=== PATIENT | female | born 1940 | race Caucasian/White ===

== ENCOUNTER → 2018-05-12 13:08 | Outpatient (CLI) | payer MEDICARE, SELFPAY ==
[2018-05-12 15:18] LABS: Adenovirus F 40/41 Not Detected (Not Detect); Astrovirus Not Detected (Not Detect); Campylobacter Not Detected (Not Detect); Clostridium difficile toxin AB Not Detected (Not Detect); Cryptosporidium Not Detected (Not Detect); Cyclospora cayetanensis Not Detected (Not Detect); Entamoeba histolytica Not Detected (Not Detect); Enteroaggregative E.coli Not Detected (Not Detect); Enteropathogenic E.coli Not Detected (Not Detect); Enterotoxigenic E.coli It/st Not Detected (Not Detect); Giardia lamblia Not Detected (Not Detect); Norovirus GI/GII Not Detected (Not Detect); Plesiomonsa shigelloides Not Detected (Not Detect); Rotavirus A Not Detected (Not Detect); Salmonella Not Detected (Not Detect); Shiga-like toxin-prod E.coli Not Detected (Not Detect); Shigella/Enteroinvasive E.coli Not Detected (Not Detect); Vibrio Not Detected (Not Detect); Vibrio cholerae Not Detected (Not Detect); Yersinia enterocolitica Not Detected (Not Detect)
== END ==
PROVIDERS: PCP Internal Medicine; Visit Provider Internal Medicine
DX: R19.7 Diarrhea, unspecified (principal)
CPT/HCPCS: 87507

== ENCOUNTER → 2018-05-23 08:33 | Outpatient (CLI) | payer MEDICARE, SELFPAY ==
--- NOTE | 2018-05-23 10:02 | DI.CT.S_ITS ---
PROCEDURE: CT ABDOMEN PELVIS W CON INDICATIONS: ABDOMINAL PAIN TECHNIQUE: After the administration of oral and intravenous contrast, 5 mm thick sections acquired from the diaphragms to the symphysis. 5 mm thick coronal and sagittal reformats were performed. For radiation dose reduction, the following was used: automated exposure control, adjustment of mA and/or kV according to patient size. COMPARISON: [facility], CT, ABDOMEN/PELVIS WITH CONTRAST, 11/29/2015, 0:40. FINDINGS: Image quality: Excellent. ABDOMEN: Lung bases: Lung bases are clear. Heart size is normal. There are coronary artery calcifications. Mild pericardial fluid. Solid organs: Hepatic steatosis. 2 mm hypodensity in the dome of liver on image 20 series 2 it is technically too small to characterize and indeterminate although unchanged. Mild prominence of the intrahepatic bile ducts however this could be related to cholecystectomy change. Gallbladder surgically absent. Biliary system is non-dilated. Pancreas enhances normally. Spleen is normal in size and enhancement. No adrenal nodules. Kidneys are normal in size and enhancement, without hydronephrosis. Simple appearing right renal cyst measuring 4.0 cm. Additional smaller right renal cysts are noted. Peritoneum and bowel: Stomach, small bowel, and colon loops are normal in caliber and wall thickness. Cecum is seen within the left lower quadrant. The appendix is visualized and grossly unremarkable, normal size. No evidence of acute diverticulitis. The rectum is grossly unremarkable. No free fluid or air. Moderate retained stool is present throughout the colon Nodes and vessels: No retroperitoneal or mesenteric adenopathy. Aorta and inferior vena cava are normal in caliber. Miscellaneous: No ventral hernias. PELVIS: Genitourinary: Bladder wall thickness is normal. Miscellaneous: No inguinal hernias or adenopathy. Bones: No suspicious bony lesions. No vertebral body compression fractures. Multilevel discogenic changes of grade 1 anterolisthesis of L4-L5 and L5 on S1. Right hip arthroplasty. IMPRESSION: No acute abnormality. Moderate retained stool throughout the colon. Hepatic steatosis. Status post cholecystectomy. Simple appearing right renal cysts. Dictated by: Rob Shea M.D. on 05/23/2018 at 10:15 Approved by: Rob Shea M.D. on 05/23/2018 at 10:23
== END ==
PROVIDERS: Family Provider Internal Medicine; PCP Internal Medicine; Visit Provider Student in an Organized Health Care Education/Training Program
DX: R10.9 Unspecified abdominal pain (principal)
CPT/HCPCS: 74177; Q9967

== ENCOUNTER → 2018-06-14 09:05 | Outpatient (CLI) | payer MEDICARE, SELFPAY ==
[2018-06-14 09:49] LABS: Add Manual Diff / Slide Review NO; Basophils Percent Auto 0.8 % (0-2); Eosinophils Percent Auto 1.8 % (2-4); Hemoglobin 11.9 g/dL (12.0-16.0); Lymphocytes Percent Auto 25.7 % (25-40); Mean Corpuscular Hemoglobin 31.5 PG (26-34); Mean Corpuscular Volume 92.9 fL (80-100); Monocytes Percent Auto 10.3 % (3-14); Neutrophils Absolute Auto 3100 /uL (3000-5900); Neutrophils Percent Auto 61.4 % (50-75); Platelet Count 199 X10^3/uL (150-400); Red Blood Cell Count 3.77 X10^6/uL (4.0-5.2); Red Cell Distribution Width 15.6 % (11.6-14.8)
[2018-06-14 09:56] LABS: Alanine Aminotransferase 22 IU/L (9-52); Albumin 4.2 g/dL (3.5-5.0); Albumin Globulin Ratio 1.6 (1.0-2.8); Alkaline Phosphatase 46 U/L (38-126); Aspartate Aminotransferase 28 IU/L (14-36); Bilirubin Total 0.7 mg/dL (0.2-1.3); Blood Urea Nitrogen 7 mg/dL (7-17); Calcium 10.3 mg/dL (8.4-10.2); Carbon Dioxide 33 mmol/L (22-32); Chloride 102 mmol/L (98-107); Estimated Glomerular Filt Rate > 60.0 mL/min (>60); Globulin 2.7 g/dL (1.7-4.1); Glucose 85 mg/dL (80-110); HEMOLYSIS 18 (0-50); Potassium 4.3 mmol/L (3.4-5.1); Sodium 141 mmol/L (137-145); Total Protein 6.9 g/dL (6.3-8.2)
[2018-06-14 10:27] LABS: Carcinoembryonic Antigen 3.3 ng/mL (0.1-3.0)
[2018-06-16 16:57] LABS: Cancer (Carbohydrate) Ag 19-9 13 U/mL (< 34); Cancer Antigen 27.29 24 U/mL (< 38)
== END ==
PROVIDERS: Family Provider Internal Medicine; PCP Internal Medicine; Visit Provider Nurse Practitioner Gerontology
DX: C50.919 Malignant neoplasm of unspecified site of unspecified female breast (principal)
CPT/HCPCS: 36415; 80053; 82378; 85025; 86300; 86301

== ENCOUNTER → 2018-09-12 08:20 | Outpatient (CLI) | payer MEDICARE, SELFPAY ==
--- NOTE | 2018-09-12 | DI.ECHO.S_ITS ---
[facility] +---------+ : : [address] : : : : [id number] : : : : Phone: [phone] Echocardiogram Report + + :Name: GISEL GOODMAN Study Date: 09/12/2018 Height: 69 in : :[facility] Weight: 135 lb : : Gender: Female BSA: 1.7 m2 : :: 1940 Age: 78 yrs BP: 130/70 mmHg: :Reason For Study: Aortic, Ascending Aneurysm : :Ordering Physician: Nicolas : :Rolf Performed By: Arabella Vera : :Referring: Dr. Twan Mora : + + Interpretation Summary The left ventricle is normal in size, wall thickness, and systolic function without any focal wall motion abnormalities with the ejection fraction estimated to be 60-65%. Diastolic parameters suggest a pseudonormalization pattern, consistent with probable elevated filling pressures but is unchanged compared to the previous study. The right ventricle is borderline dilated and right ventricular systolic function is borderline reduced but appears unchanged compared to the previous study. Pulmonary artery pressures cannot be estimated because of the lack of a measurable TR jet velocity but the IVC suggests a CVP of around 3 mmHg. There has been no significant change since the previous study. There is moderate biatrial enlargement. Both atria have mildly increased in size since the prior echo exam. There is mild to moderate mitral regurgitation that is slightly more prominent compared to the previous study. There is no other significant valvular heart disease. The aortic root is mildly dilated amd the distal ascending aorta is moderate- severely enlarged at 4.6 cm just distal to the anastomosis site but is unchanged compared to the previous study. The aortic arch is normal in size. The patient was in sinus bradycardia with heart rates between 41-47 bpm during the exam which is slightly slower compared to the previous study. Procedure: A two-dimensional transthoracic echocardiogram with color flow and Doppler was performed. The study quality was technically adequate. Comparison is made with the echocardiogram of 04-28-16. The patient was in sinus bradycardia with heart rates between 41-47 bpm during the exam. This is slightly slower compared to the previous study. Left Ventricle: The left ventricle is normal in size, wall thickness, and systolic function without any focal wall motion abnormalities. The ejection fraction is estimated to be 60-65%. Diastolic parameters suggest a pseudonormalization pattern, consistent with probable elevated filling pressures. There has been no significant change since the previous study. Right Ventricle: The right ventricle is borderline dilated. Right ventricular systolic function is borderline reduced. This is unchanged compared to the previous study. Atria: There is moderate biatrial enlargement. Both atria have mildly increased in size since the prior echo exam. The interatrial septum is intact with no evidence for an atrial septal defect. Mitral Valve: The mitral valve leaflets appear mildly thickened, but open well. There is mild to moderate mitral regurgitation. This is slightly more prominent compared to the previous study. Aortic Valve: The aortic valve is trileaflet. The aortic valve is slightly calcified. The aortic valve opens well. There is trace aortic regurgitation. This is unchanged compared to the previous study. Tricuspid Valve: The tricuspid valve leaflets are thickened and/or calcified, but open well. An annuloplasty ring is noted in the tricuspid position. No tricuspid regurgitation. Pulmonary artery pressures cannot be estimated because of the lack of a measurable TR jet velocity but the IVC suggests a CVP of around 3 mmHg. There has been no significant change since the previous study. Pulmonic Valve: The pulmonic valve is normal in structure and function. There is trace pulmonic regurgitation. This is unchanged compared to the previous study. There is no other significant valvular heart disease. Great Vessels: The aortic root is mildly dilated. The ascending aorta is moderate-severely enlarged. This is unchanged compared to the previous study. The aortic arch is normal in size. The IVC is of normal diameter and collapses greater than 50% with a sniff. This suggests a low right atrial pressure of 3 mm Hg. Pericardium/ Pleura There is no pericardial effusion. There is no pleural effusion. MMode/2D Measurements & Calculations LVIDd: 4.9 cm Ao root diam: 3.9 cm LVIDs: 2.9 cm Aortic Jxn: 3.2 cm FS: 40.7 % asc Aorta Diam: 4.6 cm EPSS: 0.46 cm Ao Arch Diam (Prox Trans): 2.9 cm IVSd: 0.82 cm LVPWd: 0.85 cm LV vazquez. diameter/BSA (cm/m^2): 2.8 LV sys. diameter/BSA (cm/m^2): 1.7 LA dimension: 3.1 cm RA long axis: 5.5 cm LA A2 area: 24.5 cm2 RA area: 22.5 cm2 LA A4 area: 22.8 cm2 RA vol: 78.3 ml LA length (vol): 6.0 cm RA : 44.8 ml/m2 LA vol: 78.6 ml IVC diam: 1.7 cm LA vol index: 44.9 ml/m2 RVDd major: 5.9 cm RVD1 (basal): 4.2 cm RVD2 (mid): 3.1 cm Doppler Measurements & Calculations Ao V2 max: 144.3 cm/sec MV E max karl: 95.3 cm/sec Ao V2 mean: 89.3 cm/sec MV A max karl: 61.8 cm/sec Ao max P.3 mmHg MV E/A: 1.5 Ao mean P.9 mmHg Med Peak E' Karl: 4.1 cm/sec Ao V2 VTI: 37.1 cm E/E' med: 23.2 Lat Peak E' Karl: 8.5 cm/sec E/E' lat: 11.2 E/e' average: 17.2 MV dec time: 0.19 sec MV P1/2t: 58.5 msec PA V2 max: 67.5 cm/sec MV P1/2t max karl: 94.7 cm/sec PA V2 mean: 40.0 cm/sec MVA(P1/2t): 3.8 cm2 PA mean P.78 mmHg PA Accel Time: 0.14 sec Reading Physician:SHOSHANA
== END ==
PROVIDERS: Family Provider Internal Medicine; PCP Internal Medicine; Visit Provider Physician Assistant Medical
DX: I34.0 Nonrheumatic mitral (valve) insufficiency (principal); I71.2 Thoracic aortic aneurysm, without rupture
CPT/HCPCS: 93306

== ENCOUNTER → 2018-09-13 10:10 | Outpatient (CLI) | payer MEDICARE, SELFPAY ==
[2018-09-13 11:20] LABS: Alanine Aminotransferase 22 IU/L (9-52); Albumin Globulin Ratio 1.7 (1.0-2.8); Alkaline Phosphatase 51 U/L (38-126); Aspartate Aminotransferase 27 IU/L (14-36); BUN Creatinine Ratio 15.7 (6-22); Bilirubin Total 0.8 mg/dL (0.2-1.3); Blood Urea Nitrogen 11 mg/dL (7-17); Calcium 9.8 mg/dL (8.4-10.2); Carbon Dioxide 31 mmol/L (22-32); Chloride 106 mmol/L (98-107); Estimated Glomerular Filt Rate > 60.0 mL/min (>60); Globulin 2.4 g/dL (1.7-4.1); Glucose 85 mg/dL (80-110); HEMOLYSIS < 15 (0-50); Magnesium 2.4 mg/dL (1.6-2.3); Potassium 4.4 mmol/L (3.4-5.1); Sodium 145 mmol/L (137-145); Total Protein 6.4 g/dL (6.3-8.2)
[2018-09-18 09:39] LABS: Lipoprofile NMR SEE SEPERATE REPORT
== END ==
PROVIDERS: Family Provider Internal Medicine; PCP Internal Medicine; Visit Provider Specialist
DX: E78.2 Mixed hyperlipidemia (principal); I10 Essential (primary) hypertension
CPT/HCPCS: 36415; 80053; 83704; 83735

== ENCOUNTER → 2018-09-16 11:08 | Outpatient (CLI) | payer MEDICARE, SELFPAY | PROVIDERS: PCP Internal Medicine; Visit Provider Internal Medicine | DX: I10 Essential (primary) hypertension (principal) ==

== ENCOUNTER → 2018-09-18 13:48 | Outpatient (CLI) | payer MEDICARE, SELFPAY ==
[2018-09-18 15:17] LABS: Free T3, Triiodothyronine Free 2.89 pg/mL (2.77-5.27); Free T4, Direct Thyroxine 0.88 ng/dL (0.78-2.19)
[2018-09-18 15:31] LABS: Thyroid Stimulating Hormone 1.16 uIU/mL (0.47-4.68)
== END ==
PROVIDERS: Family Provider Internal Medicine; PCP Internal Medicine; Visit Provider Internal Medicine
DX: E21.0 Primary hyperparathyroidism (principal); I10 Essential (primary) hypertension
CPT/HCPCS: 36415; 84439; 84443; 84481

== ENCOUNTER → 2018-12-22 13:33 | Outpatient (CLI) | payer MEDICARE, SELFPAY ==
[2018-12-22 14:12] LABS: Add Manual Diff / Slide Review NO; Basophils Absolute Auto 0 /uL (0-100); Basophils Percent Auto 0.5 % (0-2); Eosinophils Absolute Auto 200 /uL (0-450); Eosinophils Percent Auto 2.3 % (2-4); Hematocrit 37.2 % (36-46); Hemoglobin 12.3 g/dL (12.0-16.0); Lymphocytes Absolute Auto 1600 /uL (1100-4500); Lymphocytes Percent Auto 21.6 % (25-40); Mean Corpuscular HGB Conc 33.1 % (30-36); Mean Corpuscular Hemoglobin 31.3 PG (26-34); Mean Corpuscular Volume 94.7 fL (80-100); Monocytes Absolute Auto 600 /uL (0-900); Monocytes Percent Auto 8.9 % (3-14); Neutrophils Absolute Auto 4800 /uL (1500-7000); Neutrophils Percent Auto 66.7 % (50-75); Platelet Count 227 X10^3/uL (150-400); Red Blood Cell Count 3.93 X10^6/uL (4.0-5.2); Red Cell Distribution Width 14.6 % (11.6-14.8); White Blood Cell Count 7.2 X10^3/uL (4.5-11.0)
[2018-12-22 14:21] LABS: Alanine Aminotransferase 29 IU/L (9-52); Albumin 4.2 g/dL (3.5-5.0); Albumin Globulin Ratio 1.4 (1.0-2.8); Alkaline Phosphatase 58 U/L (38-126); Aspartate Aminotransferase 30 IU/L (14-36); BUN Creatinine Ratio 17.1 (6-22); Bilirubin Total 0.5 mg/dL (0.2-1.3); Blood Urea Nitrogen 12 mg/dL (7-17); Calcium 9.9 mg/dL (8.4-10.2); Carbon Dioxide 28 mmol/L (22-32); Chloride 99 mmol/L (98-107); Estimated Glomerular Filt Rate > 60.0 mL/min (>60); Globulin 2.9 g/dL (1.7-4.1); Glucose 79 mg/dL (80-110); HEMOLYSIS < 15 (0-50); Potassium 3.7 mmol/L (3.4-5.1); Sodium 137 mmol/L (137-145); Total Protein 7.1 g/dL (6.3-8.2)
[2018-12-22 14:52] LABS: Carcinoembryonic Antigen 3.4 ng/mL (0.1-3.0)
[2018-12-24 19:24] LABS: Cancer Antigen 27.29 27 U/mL (< 38)
== END ==
PROVIDERS: Family Provider Internal Medicine; PCP Internal Medicine
DX: Z86.000 Personal history of in-situ neoplasm of breast (principal); Z80.3 Family history of malignant neoplasm of breast
CPT/HCPCS: 36415; 80053; 82378; 85025; 86300

== ENCOUNTER → 2019-01-18 11:25 | Outpatient (CLI) | payer MEDICARE, SELFPAY ==
[2019-01-18 12:14] LABS: Add Manual Diff / Slide Review NO; Basophils Absolute Auto 0 /uL (0-100); Basophils Percent Auto 0.6 % (0-2); Eosinophils Absolute Auto 200 /uL (0-450); Eosinophils Percent Auto 2.8 % (2-4); Hematocrit 37.1 % (36-46); Hemoglobin 12.6 g/dL (12.0-16.0); Lymphocytes Absolute Auto 1800 /uL (1100-4500); Mean Corpuscular HGB Conc 33.9 % (30-36); Mean Corpuscular Hemoglobin 31.8 PG (26-34); Mean Corpuscular Volume 93.8 fL (80-100); Monocytes Absolute Auto 600 /uL (0-900); Monocytes Percent Auto 10.5 % (3-14); Neutrophils Absolute Auto 3400 /uL (1500-7000); Neutrophils Percent Auto 56.1 % (50-75); Platelet Count 227 X10^3/uL (150-400); Red Blood Cell Count 3.95 X10^6/uL (4.0-5.2); Red Cell Distribution Width 14.6 % (11.6-14.8)
[2019-01-18 12:28] LABS: Blood Urea Nitrogen 12 mg/dL (7-17); Calcium 10.7 mg/dL (8.4-10.2); Carbon Dioxide 30 mmol/L (22-32); Chloride 100 mmol/L (98-107); Estimated Glomerular Filt Rate > 60.0 mL/min (>60); Glucose 94 mg/dL (80-110); HEMOLYSIS < 15 (0-50); Sodium 138 mmol/L (137-145)
[2019-01-18 12:34] LABS: Erythrocyte Sedimentation Rate 17 MM/HR (0-20)
== END ==
PROVIDERS: PCP Internal Medicine; Visit Provider Internal Medicine
DX: I10 Essential (primary) hypertension (principal); M35.3 Polymyalgia rheumatica; E21.0 Primary hyperparathyroidism
CPT/HCPCS: 36415; 80048; 85025; 85651

== ENCOUNTER → 2019-05-07 09:40 | Outpatient (CLI) | payer MEDICARE, SELFPAY ==
[2019-05-07 11:14] LABS: Alanine Aminotransferase 19 IU/L (9-52); Albumin Globulin Ratio 1.7 (1.0-2.8); Alkaline Phosphatase 50 U/L (38-126); Aspartate Aminotransferase 28 IU/L (14-36); BUN Creatinine Ratio 16.3 (6-22); Bilirubin Total 0.6 mg/dL (0.2-1.3); Blood Urea Nitrogen 13 mg/dL (7-17); Calcium 10.3 mg/dL (8.4-10.2); Carbon Dioxide 30 mmol/L (22-32); Chloride 104 mmol/L (98-107); Estimated Glomerular Filt Rate > 60.0 mL/min (>60); Globulin 2.4 g/dL (1.7-4.1); Glucose 88 mg/dL (80-110); Magnesium 2.1 mg/dL (1.6-2.3); Potassium 4.3 mmol/L (3.4-5.1); Sodium 142 mmol/L (137-145); Total Protein 6.4 g/dL (6.3-8.2)
[2019-05-07 11:19] LABS: HEMOLYSIS < 15 (0-50)
[2019-05-09 09:08] LABS: Lipoprofile NMR SEE SEPERATE REPORT
== END ==
PROVIDERS: PCP Internal Medicine; Visit Provider Specialist
DX: E78.2 Mixed hyperlipidemia (principal); I10 Essential (primary) hypertension
CPT/HCPCS: 36415; 80053; 83704; 83735

== ENCOUNTER 2019-07-15 13:29 | Emergency (ER) | payer MEDICARE, SELFPAY ==
[2019-07-15 13:38] VITALS: BP 124/69; PULSE 61; RESP 16; TEMP 36.6; O2SAT 99
--- NOTE | 2019-07-15 13:43 | ED.SYNCOPE ---
HPI - Syncope General Chief Complaint: Dizziness Stated Complaint: Near syncope Time Seen by Provider: 07/15/19 13:42 Source: patient and EMS Mode of arrival: EMS Limitations: no limitations History of Present Illness HPI narrative: Patient is a 79-year-old female who was outside at the [employer] today watching her granddaughter Júnior when she suddenly felt dizzy lightheaded. She got extremely weak she did not pass out. She has no chest pain or heart palpitations. She denies drinking any alcohol she states she did not drink enough water. She overall is feeling much better now that she is in the emergency department. He has no focal deficits or weakness. Daughter states she was there and witnessed it. She said her lips did turn blue but there was no foaming at the mouth no shaking no eyes rolling in the back of the head. Patient says she was aware of her surroundings the entire time. MD complaint: felt faint and almost passed out Related Data Home Medications Medication Instructions Recorded Confirmed acyclovir 400 mg PO BID #0 04/12/12 escitalopram oxalate [Lexapro] 20 mg PO QDAY #0 04/12/12 atorvastatin [Lipitor] PO HS #0 01/04/18 alendronate [Fosamax] QWEEK 12/27/18 lisinopril-hydrochlorothiazide 12/27/18 omega 5-ozu-bkn-fish oil [Fish Oil] 12/27/18 Allergies Allergy/AdvReac Type Severity Reaction Status Date / Time Sulfa (Sulfonamide Allergy Unknown Unverified 03/01/18 12:11 Antibiotics) [SULFA (SULFONAMIDE ANTIBIOTICS)] Review of Systems Review of Systems ROS Unobtainable: All systems reviewed & are unremarkable except as noted in HPI and below Constitutional Denies chills, Denies fever(s), Denies lethargy and Denies weakness Eyes Denies change in vision, Denies eye discharge, Denies irritation and Denies loss of vision ENT Ears, Nose, Mouth, and Throat: Denies change in voice, Denies neck pain and Denies sore throat Cardiovascular Denies chest pain, Denies irregular heart rhythm, Reports lightheadedness, Denies dyspnea and Denies dyspnea on exertion Respiratory Denies cough, Denies dyspnea, Denies dyspnea on exertion and Denies wheezing Gastrointestinal Gastrointestinal: Denies abdominal pain, Denies change in bowel habits, Denies diarrhea, Denies nausea and Denies vomiting Genitourinary Denies hematuria, Denies flank pain, Denies urinary incontinence and Denies urinary urgency Musculoskeletal Denies neck pain Integumentary/Breasts Denies pruritus, Denies erythema, Denies rash and Denies wounds Neurologic Denies loss of vision and Denies weakness Allergic/Immunologic Denies wheezing [facility] Medical History 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 (Acute) Hypertension (Acute) Surgical History H/O bilateral mastectomy (Acute) History of bladder suspension procedure History of hip replacement History of third molar tooth extraction Status post laparoscopic cholecystectomy Status post tonsillectomy and adenoidectomy Status post tubal ligation Exam Initial Vital Signs Initial Vital Signs: Vital Signs Temperature 98 F 07/15/19 13:38 Pulse Rate 61 07/15/19 13:38 Respiratory Rate 16 07/15/19 13:38 Blood Pressure 124/69 07/15/19 13:38 Pulse Oximetry 99 07/15/19 13:38 GENERAL: Alert pleasant elderly female and in no acute distress. HEENT: Head atraumatic,EOMI, pupils reactive, asymmetric CARDIOVASCULAR: Regular rate and rhythm without murmurs, rubs or gallops. RESPIRATORY: Breath sounds equal bilaterally, no wheezes rales or rhonchi. ABDOMEN: Soft, nontender. Normoactive bowel sounds all 4 quadrants. No guarding or rebound. EXTREMITIES: Normal range of motion, no clubbing or edema. Neurovascularly intact NEUROLOGICAL: Alert and oriented x4.Normal gait and speech. Cranial nerves II through XII grossly intact. Production Support Developer strength equal bilaterally lower extremity good strength SKIN: Warm, dry, no laceration, no petechiae, no rashes or lesions. Scores NIH Stroke Scale Level of Conciousness: Alert, keenly responsive Ask month/age: Answers both questions correctly. Open/close eyes, close hand: Performs both tasks correctly Best gaze horizontal: Normal Visual deluca: No visual loss Facial palsy: Normal symetrical movement Left arm drift: No drift for full 10 sec Right arm drift: No drift for full 10 sec Left leg drift: No drift for full 10 sec Right leg drift: No drift for full 10 sec Limb ataxia: Absent Sensory on face/arms/legs: Normal, no sensory loss Best language: No aphasia, normal Dysarthria: Normal Extinction or inattention: No abnormality Total NIH Stroke scale score: 0 Course Orders Ordered: ED Orders 07/15/19 13:43 EKG-12 Lead Stat 07/15/19 14:00 Complete Blood Count AUTO DIFF Stat Comprehensive Metabolic Panel Stat Troponin & CK Cardiac Panel Stat Discontinued Medications Sodium Chloride (Normal Saline 0.9%) 1,000 mls @ 1,000 mls/hr IV CONT AIDEE Last Infusion: 07/15/19 15:21 Dose: 0 mls/hr Admin: 07/15/19 14:20 Dose: 1,000 mls/hr Vital Signs - 8 hr 07/15/19 13:38 07/15/19 15:53 Temperature 98 F Pulse Rate 61 92 H Respiratory Rate 16 16 Blood Pressure 124/69 Pulse Oximetry 99 87 L MDM - Syncope Lab Data Attestation: I reviewed the patient's lab results. Result diagrams: 07/15/19 14:00 07/15/19 14:00 Lab Results 07/15/19 07/15/19 07/15/19 Range/Units 14:00 14:00 14:00 WBC 6.4 (4.5-11.0) X10^3/uL RBC 3.10 L (4.0-5.2) X10^6/uL Hgb 10.7 L (12.0-16.0) g/dL Hct 30.6 L (36-46) % MCV 98.6 (80-100) fL MCH 34.4 H (26-34) PG MCHC 34.9 (30-36) % RDW 14.0 (11.6-14.8) % Plt Count 192 (150-400) X10^3/uL Neut % (Auto) 71.3 (50-75) % Lymph % (Auto) 19.4 L (25-40) % Latimer % (Auto) 8.0 (3-14) % Eos % (Auto) 0.8 L (2-4) % Baso % (Auto) 0.5 (0-2) % Neut # (Auto) 4600 (1722-4478) /uL Lymph # (Auto) 1200 (9763-4481) /uL Latimer # (Auto) 500 (0-900) /uL Eos # (Auto) 0 (0-450) /uL Baso # (Auto) 0 (0-100) /uL Sodium 136 L (137-145) mmol/L Potassium 3.5 (3.4-5.1) mmol/L Chloride 103 (98-107) mmol/L Carbon Dioxide 25 (22-32) mmol/L BUN 14 (7-17) mg/dL Creatinine 0.70 (0.52-1.04) mg/dL Estimated GFR > 60.0 (>60) mL/min BUN/Creatinine Ratio 20.0 (6-22) Glucose 106 (80-110) mg/dL Calcium 9.3 (8.4-10.2) mg/dL Total Bilirubin 0.5 (0.2-1.3) mg/dL AST 27 (14-36) IU/L ALT 13 (9-52) IU/L Alkaline Phosphatase 47 (38-126) U/L Total Creatine Kinase 54 (30-135) U/L CK-MB (CK-2) TNP CK-MB (CK-2) Rel Index TNP Troponin I < 0.012 (0.01-0.034) ng/mL Total Protein 6.3 (6.3-8.2) g/dL Albumin 3.7 (3.5-5.0) g/dL Globulin 2.6 (1.7-4.1) g/dL Albumin/Globulin Ratio 1.4 (1.0-2.8) Point of Care Testing Glucose POC 122 ECG Data Attestation: I personally reviewed and interpreted this ECG as follows: Prior ECG tracings: available for review Interpretation: Normal sinus rhythm rate 53 p.r. interval 158 T-wave inversions noted in V2 V3 similar previous EKGs no ST elevations or depressions MDM Narrative Medical decision making narrative: Patient overall is feeling significantly better tolerating oral fluids. Her heart rate is noted to be in the 40s over she seems to be asymptomatic. She is an ambulation trial and remains asymptomatic. At this time patient will be discharged. Discharge Plan Departure Patient Disposition: Home Clinical Impression: Fainting spell Discharge Date/Time: 07/15/19 16:01 Interventions: ED Discharge Assessment Last Done: 07/15/19 16:00 Instructions: Fainting Activity Restrictions/Additional Instructions: *You have been diagnosed with fainting *What to do: You had a fainting episode likely due to being outside in the sun. Please increase your fluid intake such as water eat or Gatorade like substance today. *Continue to take medications as directed *Follow up with your primary care provider in 2-3 days *Return to ER if you should have lightheaded, dizziness, arm weakness facial droop or any new, worsening or concerning symptoms Prescriptions: No Action acyclovir 800 MG tablet 400 mg PO BID Qty: 0 RF: 0 escitalopram oxalate [Lexapro] 10 MG tablet 20 mg PO QDAY Qty: 0 RF: 0 atorvastatin [Lipitor] 10 mg tablet PO HS Qty: 0 RF: 0 alendronate [Fosamax] 70 mg Tablet QWEEK RF: 0 lisinopril-hydrochlorothiazide 20-12.5 mg Tablet RF: 0 omega 2-yaw-has-fish oil [Fish Oil] 1,000 mg (120 mg-180 mg) Capsule RF: 0 Referrals: Twan Mora MD [Primary Care Provider] -
[2019-07-15 14:14] LABS: Add Manual Diff / Slide Review NO; Basophils Absolute Auto 0 /uL (0-100); Basophils Percent Auto 0.5 % (0-2); Eosinophils Absolute Auto 0 /uL (0-450); Eosinophils Percent Auto 0.8 % (2-4); Hematocrit 30.6 % (36-46); Hemoglobin 10.7 g/dL (12.0-16.0); Lymphocytes Absolute Auto 1200 /uL (1100-4500); Lymphocytes Percent Auto 19.4 % (25-40); Mean Corpuscular HGB Conc 34.9 % (30-36); Mean Corpuscular Hemoglobin 34.4 PG (26-34); Mean Corpuscular Volume 98.6 fL (80-100); Monocytes Absolute Auto 500 /uL (0-900); Neutrophils Absolute Auto 4600 /uL (1500-7000); Neutrophils Percent Auto 71.3 % (50-75); Platelet Count 192 X10^3/uL (150-400); White Blood Cell Count 6.4 X10^3/uL (4.5-11.0)
[2019-07-15] MEDS: SODIUM CHLORIDE 0.9% 1,000 ML 1000 ML IV (14:20)
--- NOTE | 2019-07-15 14:22 | ED_ITS ---
HPI - Syncope General Chief Complaint: Dizziness Stated Complaint: Near syncope Time Seen by Provider: 07/15/19 13:42 Source: patient and EMS Mode of arrival: EMS Limitations: no limitations History of Present Illness HPI narrative: Patient is a 79-year-old female who was outside at the [employer] [facility] today watching her granddaughter Júnior when she suddenly felt dizzy lightheaded. She got extremely weak she did not pass out. She has no chest pain or heart palpitations. She denies drinking any alcohol she states she did not drink enough water. She overall is feeling much better now that she is in the emergency department. He has no focal deficits or weakness. Daughter states she was there and witnessed it. She said her lips did turn blue but there was no foaming at the mouth no shaking no eyes rolling in the back of the head. Patient says she was aware of her surroundings the entire time. MD complaint: felt faint and almost passed out Related Data Home Medications Medication Instructions Recorded Confirmed acyclovir 400 mg PO BID #0 04/12/12 escitalopram oxalate [Lexapro] 20 mg PO QDAY #0 04/12/12 atorvastatin [Lipitor] PO HS #0 01/04/18 alendronate [Fosamax] QWEEK 12/27/18 lisinopril-hydrochlorothiazide 12/27/18 omega 2-bwr-pso-fish oil [Fish Oil] 12/27/18 Allergies Allergy/AdvReac Type Severity Reaction Status Date / Time Sulfa (Sulfonamide Allergy Unknown Unverified 03/01/18 12:11 Antibiotics) [SULFA (SULFONAMIDE ANTIBIOTICS)] Review of Systems Review of Systems ROS Unobtainable: All systems reviewed & are unremarkable except as noted in HPI and below Constitutional Denies chills, Denies fever(s), Denies lethargy and Denies weakness Eyes Denies change in vision, Denies eye discharge, Denies irritation and Denies loss of vision ENT Ears, Nose, Mouth, and Throat: Denies change in voice, Denies neck pain and Denies sore throat Cardiovascular Denies chest pain, Denies irregular heart rhythm, Reports lightheadedness, Denies dyspnea and Denies dyspnea on exertion Respiratory Denies cough, Denies dyspnea, Denies dyspnea on exertion and Denies wheezing Gastrointestinal Gastrointestinal: Denies abdominal pain, Denies change in bowel habits, Denies diarrhea, Denies nausea and Denies vomiting Genitourinary Denies hematuria, Denies flank pain, Denies urinary incontinence and Denies urinary urgency Musculoskeletal Denies neck pain Integumentary/Breasts Denies pruritus, Denies erythema, Denies rash and Denies wounds Neurologic Denies loss of vision and Denies weakness Allergic/Immunologic Denies wheezing [facility] Medical History 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 (Acute) Hypertension (Acute) Surgical History H/O bilateral mastectomy (Acute) History of bladder suspension procedure History of hip replacement History of third molar tooth extraction Status post laparoscopic cholecystectomy Status post tonsillectomy and adenoidectomy Status post tubal ligation Exam Initial Vital Signs Initial Vital Signs: Vital Signs Temperature 98 F 07/15/19 13:38 Pulse Rate 61 07/15/19 13:38 Respiratory Rate 16 07/15/19 13:38 Blood Pressure 124/69 07/15/19 13:38 Pulse Oximetry 99 07/15/19 13:38 GENERAL: Alert pleasant elderly female and in no acute distress. HEENT: Head atraumatic,EOMI, pupils reactive, asymmetric CARDIOVASCULAR: Regular rate and rhythm without murmurs, rubs or gallops. RESPIRATORY: Breath sounds equal bilaterally, no wheezes rales or rhonchi. ABDOMEN: Soft, nontender. Normoactive bowel sounds all 4 quadrants. No guarding or rebound. EXTREMITIES: Normal range of motion, no clubbing or edema. Neurovascularly intact NEUROLOGICAL: Alert and oriented x4.Normal gait and speech. Cranial nerves II through XII grossly intact. Dorr Operator strength equal bilaterally lower extremity good strength SKIN: Warm, dry, no laceration, no petechiae, no rashes or lesions. Scores NIH Stroke Scale Level of Conciousness: Alert, keenly responsive Ask month/age: Answers both questions correctly. Open/close eyes, close hand: Performs both tasks correctly Best gaze horizontal: Normal Visual deluca: No visual loss Facial palsy: Normal symetrical movement Left arm drift: No drift for full 10 sec Right arm drift: No drift for full 10 sec Left leg drift: No drift for full 10 sec Right leg drift: No drift for full 10 sec Limb ataxia: Absent Sensory on face/arms/legs: Normal, no sensory loss Best language: No aphasia, normal Dysarthria: Normal Extinction or inattention: No abnormality Total NIH Stroke scale score: 0 Course Orders Ordered: ED Orders 07/15/19 13:43 EKG-12 Lead Stat 07/15/19 14:00 Complete Blood Count AUTO DIFF Stat Comprehensive Metabolic Panel Stat Troponin & CK Cardiac Panel Stat Discontinued Medications Sodium Chloride (Normal Saline 0.9%) 1,000 mls @ 1,000 mls/hr IV CONT AIDEE Last Infusion: 07/15/19 15:21 Dose: 0 mls/hr Admin: 07/15/19 14:20 Dose: 1,000 mls/hr Vital Signs - 8 hr 07/15/19 13:38 07/15/19 15:53 Temperature 98 F Pulse Rate 61 92 H Respiratory Rate 16 16 Blood Pressure 124/69 Pulse Oximetry 99 87 L MDM - Syncope Lab Data Attestation: I reviewed the patient's lab results. Result diagrams: 07/15/19 14:00 07/15/19 14:00 Lab Results 07/15/19 07/15/19 07/15/19 Range/Units 14:00 14:00 14:00 WBC 6.4 (4.5-11.0) X10^3/uL RBC 3.10 L (4.0-5.2) X10^6/uL Hgb 10.7 L (12.0-16.0) g/dL Hct 30.6 L (36-46) % MCV 98.6 (80-100) fL MCH 34.4 H (26-34) PG MCHC 34.9 (30-36) % RDW 14.0 (11.6-14.8) % Plt Count 192 (150-400) X10^3/uL Neut % (Auto) 71.3 (50-75) % Lymph % (Auto) 19.4 L (25-40) % [place] % (Auto) 8.0 (3-14) % Eos % (Auto) 0.8 L (2-4) % Baso % (Auto) 0.5 (0-2) % Neut # (Auto) 4600 (8216-1680) /uL Lymph # (Auto) 1200 (2831-2098) /uL [place] # (Auto) 500 (0-900) /uL Eos # (Auto) 0 (0-450) /uL Baso # (Auto) 0 (0-100) /uL Sodium 136 L (137-145) mmol/L Potassium 3.5 (3.4-5.1) mmol/L Chloride 103 (98-107) mmol/L Carbon Dioxide 25 (22-32) mmol/L BUN 14 (7-17) mg/dL Creatinine 0.70 (0.52-1.04) mg/dL Estimated GFR > 60.0 (>60) mL/min BUN/Creatinine Ratio 20.0 (6-22) Glucose 106 (80-110) mg/dL Calcium 9.3 (8.4-10.2) mg/dL Total Bilirubin 0.5 (0.2-1.3) mg/dL AST 27 (14-36) IU/L ALT 13 (9-52) IU/L Alkaline Phosphatase 47 (38-126) U/L Total Creatine Kinase 54 (30-135) U/L CK-MB (CK-2) TNP CK-MB (CK-2) Rel Index TNP Troponin I < 0.012 (0.01-0.034) ng/mL Total Protein 6.3 (6.3-8.2) g/dL Albumin 3.7 (3.5-5.0) g/dL Globulin 2.6 (1.7-4.1) g/dL Albumin/Globulin Ratio 1.4 (1.0-2.8) Point of Care Testing Glucose POC 122 ECG Data Attestation: I personally reviewed and interpreted this ECG as follows: Prior ECG tracings: available for review Interpretation: Normal sinus rhythm rate 53 p.r. interval 158 T-wave inversions noted in V2 V3 similar previous EKGs no ST elevations or depressions MDM Narrative Medical decision making narrative: Patient overall is feeling significantly better tolerating oral fluids. Her heart rate is noted to be in the 40s over she seems to be asymptomatic. She is an ambulation trial and remains asymptomatic. At this time patient will be discharged. Discharge Plan Departure Patient Disposition: Home Clinical Impression: Fainting spell Discharge Date/Time: 07/15/19 16:01 Interventions: ED Discharge Assessment Last Done: 07/15/19 16:00 Instructions: Fainting Activity Restrictions/Additional Instructions: *You have been diagnosed with fainting *What to do: You had a fainting episode likely due to being outside in the sun. Please increase your fluid intake such as water eat or Gatorade like substance today. *Continue to take medications as directed *Follow up with your primary care provider in 2-3 days *Return to ER if you should have lightheaded, dizziness, arm weakness facial droop or any new, worsening or concerning symptoms Prescriptions: No Action acyclovir 800 MG tablet 400 mg PO BID Qty: 0 RF: 0 escitalopram oxalate [Lexapro] 10 MG tablet 20 mg PO QDAY Qty: 0 RF: 0 atorvastatin [Lipitor] 10 mg tablet PO HS Qty: 0 RF: 0 alendronate [Fosamax] 70 mg Tablet QWEEK RF: 0 lisinopril-hydrochlorothiazide 20-12.5 mg Tablet RF: 0 omega 5-lss-ois-fish oil [Fish Oil] 1,000 mg (120 mg-180 mg) Capsule RF: 0 Referrals: Twan Mora MD [Primary Care Provider] -
--- NOTE | 2019-07-15 14:28 | PC.NURSE ---
HR in 40s. Pt states normal hr in 50s. Denies any dizziness or light headedness at this time. Provider aware of HR. no new orders at this time
[2019-07-15 14:39] LABS: Alanine Aminotransferase 13 IU/L (9-52); Albumin 3.7 g/dL (3.5-5.0); Albumin Globulin Ratio 1.4 (1.0-2.8); Alkaline Phosphatase 47 U/L (38-126); Aspartate Aminotransferase 27 IU/L (14-36); Bilirubin Total 0.5 mg/dL (0.2-1.3); Blood Urea Nitrogen 14 mg/dL (7-17); Calcium 9.3 mg/dL (8.4-10.2); Carbon Dioxide 25 mmol/L (22-32); Chloride 103 mmol/L (98-107); Creatine Kinase 54 U/L (30-135); Estimated Glomerular Filt Rate > 60.0 mL/min (>60); Globulin 2.6 g/dL (1.7-4.1); Glucose 106 mg/dL (80-110); HEMOLYSIS < 15 (0-50); Potassium 3.5 mmol/L (3.4-5.1); Sodium 136 mmol/L (137-145); Total Protein 6.3 g/dL (6.3-8.2)
[2019-07-15 14:51] LABS: Troponin I < 0.012 ng/mL (0.01-0.034)
[2019-07-15 15:53] VITALS: PULSE 92; RESP 16; O2SAT 87
== END 2019-07-15 16:01 | disposition home or self-care (01) ==
PROVIDERS: Emergency Provider Emergency Medicine; PCP Internal Medicine
DX: R55 Syncope and collapse (principal)
CPT/HCPCS: 36415; 80053; 82550; 82962; 84484; 85025; 93005; 96360; 99283; 99284

== ENCOUNTER → 2019-08-06 12:58 | Outpatient (CLI) | payer MEDICARE, SELFPAY ==
[2019-08-06 13:38] LABS: Add Manual Diff / Slide Review NO; Basophils Absolute Auto 0 /uL (0-100); Basophils Percent Auto 0.4 % (0-2); Eosinophils Absolute Auto 100 /uL (0-450); Eosinophils Percent Auto 0.8 % (2-4); Hemoglobin 11.2 g/dL (12.0-16.0); Lymphocytes Absolute Auto 1300 /uL (1100-4500); Lymphocytes Percent Auto 16.4 % (25-40); Mean Corpuscular HGB Conc 34.1 % (30-36); Mean Corpuscular Volume 96.8 fL (80-100); Monocytes Absolute Auto 900 /uL (0-900); Monocytes Percent Auto 10.8 % (3-14); Neutrophils Absolute Auto 5700 /uL (1500-7000); Neutrophils Percent Auto 71.6 % (50-75); Platelet Count 277 X10^3/uL (150-400); Red Blood Cell Count 3.41 X10^6/uL (4.0-5.2); Red Cell Distribution Width 13.7 % (11.6-14.8); White Blood Cell Count 7.9 X10^3/uL (4.5-11.0)
[2019-08-06 14:02] LABS: HEMOLYSIS < 15 (0-50); Iron 55 ug/dL (37-170)
[2019-08-06 14:13] LABS: Percent Iron Saturation 14 % (15-50); Total Iron Binding Capacity 388 ug/dL (265-497); Transferrin 314 mg/dL (206-381)
== END ==
PROVIDERS: PCP Internal Medicine; Visit Provider Internal Medicine
DX: R55 Syncope and collapse (principal); D64.9 Anemia, unspecified
CPT/HCPCS: 36415; 83540; 83550; 85025; 85045

== ENCOUNTER → 2019-08-24 09:12 | Outpatient (CLI) | payer MEDICARE, SELFPAY ==
--- NOTE | 2019-08-24 | DI.ECHO.S_ITS ---
[facility]---------+ [facility] +---------+ : : [address] : : : : [id number] : : : : Phone: [phone]+ Echocardiogram Report + + :Name: GISEL GOODMAN Study Date: 08/24/2019 Height: 69 in : :[facility] Exam Location: [facility] Weight: 130 lb : : Gender: Female BSA: 1.7 m2 : :: 1940 Age: 79 yrs BP: 110/80 mmHg: :Reason For Study: Syncope : :Ordering Physician: Dr. Trent : :Morgan Performed By: Nemo Page : + + Interpretation Summary Left ventricular systolic function is normal with the ejection fraction visually estimated to be 55-60% and appears slightly less dynamic compared to the previous study. There is a borderline dyssynchronous contraction pattern, consistent with a conduction abnormality but no focal wall motion abnormalities. Diastolic parameters suggest a relaxation abnormality of the left ventricle, consistent with probable normal filling pressures and likely significantly lower compared to the previous study. The right ventricle is mildly dilated and systolic function is mildly reduced but unchanged compared to the previous study. Pulmonary artery pressures cannot be estimated because of the lack of a measurable TR jet velocity but the IVC suggests a CVP of around 3 mmHg and is unchanged compared to the previous study. The left atrial size is normal and has significantly decreased in size since the prior echo exam. The right atrium is moderately dilated and unchanged. There is trace mitral regurgitation that is less prominent compared to the previous study. There is no significant valvular heart disease. The aortic root is mildly dilated at 3.9 cm and the distal ascending aorta is moderate-severely enlarged at 4.6 cm but both are unchanged compared to the previous study. The aortic arch is normal in size. There is a trace pericardial effusion that is circumferential. The patient was in sinus bradycardia with heart rates between 43-62 bpm during the exam which is slightly faster compared to the previous study. Procedure: A two-dimensional transthoracic echocardiogram with color flow and Doppler was performed. The study quality was technically adequate. Comparison is made with the echocardiogram of 09/12/2018. The patient was in sinus bradycardia with heart rates between 43-62 bpm during the exam. This is slightly faster compared to the previous study. Left Ventricle: The left ventricle is normal in size. Left ventricular wall thickness is borderline increased. Left ventricular systolic function is normal. The ejection fraction is estimated to be 55-60%. This is slightly less dynamic compared to the previous study. There is a borderline dyssynchronous contraction pattern, consistent with a conduction abnormality. There are no focal wall motion abnormalities. Diastolic parameters suggest a relaxation abnormality of the left ventricle, consistent with probable normal filling pressures. This is likely significantly lower compared to the previous study. Right Ventricle: The right ventricle is mildly dilated. Right ventricular systolic function is mildly reduced. This is unchanged compared to the previous study. Atria: The left atrial size is normal. The left atrium has significantly decreased in size since the prior echo exam. The right atrium is moderately dilated. This is unchanged compared to the previous study. There is no Doppler evidence for an interatrial shunt. Mitral Valve: The mitral valve leaflets appear normal. There is no evidence of stenosis, fluttering, or prolapse. There is trace mitral regurgitation. This is less prominent compared to the previous study. Aortic Valve: The aortic valve is trileaflet. The aortic valve opens well. There is trace aortic regurgitation. This is unchanged compared to the previous study. Tricuspid Valve: An annuloplasty ring is noted in the tricuspid position. There is a trace or physiologic amount of tricuspid regurgitation. This is unchanged compared to the previous study. Pulmonary artery pressures cannot be estimated because of the lack of a measurable TR jet velocity but the IVC suggests a CVP of around 3 mmHg. There has been no significant change since the previous study. Pulmonic Valve: The pulmonic valve is not well visualized. There is no significant valvular heart disease. Great Vessels: The aortic root is mildly dilated. This is unchanged compared to the previous study. The ascending aorta is moderate-severely enlarged. This is unchanged compared to the previous study. The aortic arch is normal in size. The pulmonary is not well visualized. The IVC is of normal diameter and collapses greater than 50% with a sniff. This suggests a low right atrial pressure of 3 mm Hg. Pericardium/ Pleura There is a trace pericardial effusion that is circumferential. There is no pleural effusion. MMode/2D Measurements & Calculations LVIDd: 4.3 cm LVOT diam: 2.2 cm LVIDs: 3.2 cm Ao root diam: 3.9 cm FS: 26.5 % asc Aorta Diam: 4.6 cm EPSS: 0.30 cm Ao Arch Diam (Prox Trans): 2.6 cm IVSd: 1.00 cm LVPWd: 0.80 cm LV vazquez. diameter/BSA (cm/m^2): 2.5 LV sys. diameter/BSA (cm/m^2): 1.8 LA A2 area: 16.1 cm2 RA long axis: 5.0 cm LA A4 area: 20.9 cm2 RA area: 20.7 cm2 LA length (vol): 5.2 cm RA vol: 72.8 ml LA vol: 54.9 ml RA : 42.3 ml/m2 LA vol index: 31.9 ml/m2 IVC diam: 1.3 cm RVD1 (basal): 4.1 cm RVD2 (mid): 3.1 cm TAPSE: 1.5 cm Doppler Measurements & Calculations Ao V2 max: 124.6 cm/sec LVOT Max Karl: 95.2 cm/sec Ao V2 mean: 88.1 cm/sec LV V1 max P.6 mmHg Ao max P.2 mmHg LV V1 VTI: 21.3 cm Ao mean P.4 mmHg OVI(I,D): 3.0 cm2 Ao V2 VTI: 26.4 cm OVI(V,D): 2.8 cm2 sev ratio: 0.81 OVI indexed to BSA (cm^2/m^2): 1.8 MV E max karl: 43.4 cm/sec PA V2 max: 74.2 cm/sec MV A max karl: 67.2 cm/sec PA V2 mean: 52.6 cm/sec MV E/A: 0.65 PA mean P.2 mmHg Med Peak E' Karl: 3.3 cm/sec PA Accel Time: 0.07 sec E/E' med: 13.1 Lat Peak E' Karl: 5.4 cm/sec E/E' lat: 8.1 E/e' average: 10.6 MV dec time: 0.29 sec MV P1/2t: 84.8 msec MV P1/2t max karl: 43.1 cm/sec SV(LVOT): 79.5 ml MVA(P1/2t): 2.6 cm2 Reading Physician:SHOSHANA
== END ==
PROVIDERS: PCP Internal Medicine; Visit Provider Internal Medicine
DX: R55 Syncope and collapse (principal); I77.89 Other specified disorders of arteries and arterioles
CPT/HCPCS: 93306

== ENCOUNTER → 2019-09-17 10:15 | Outpatient (CLI) | payer MEDICARE, SELFPAY ==
[2019-09-17 11:16] LABS: Add Manual Diff / Slide Review NO; Basophils Absolute Auto 0 /uL (0-100); Basophils Percent Auto 0.7 % (0-2); Eosinophils Absolute Auto 200 /uL (0-450); Eosinophils Percent Auto 2.2 % (2-4); Hematocrit 36.3 % (36-46); Hemoglobin 12.6 g/dL (12.0-16.0); Lymphocytes Absolute Auto 1500 /uL (1100-4500); Lymphocytes Percent Auto 22.2 % (25-40); Mean Corpuscular HGB Conc 34.7 % (30-36); Mean Corpuscular Hemoglobin 34.5 PG (26-34); Mean Corpuscular Volume 99.5 fL (80-100); Monocytes Absolute Auto 700 /uL (0-900); Monocytes Percent Auto 10.8 % (3-14); Neutrophils Absolute Auto 4300 /uL (1500-7000); Neutrophils Percent Auto 64.1 % (50-75); Platelet Count 229 X10^3/uL (150-400); Red Blood Cell Count 3.64 X10^6/uL (4.0-5.2); Red Cell Distribution Width 15.9 % (11.6-14.8); White Blood Cell Count 6.8 X10^3/uL (4.5-11.0)
[2019-09-17 12:01] LABS: HEMOLYSIS < 15 (0-50); Iron 96 ug/dL (37-170)
[2019-09-17 12:11] LABS: Percent Iron Saturation 25 % (15-50); Total Iron Binding Capacity 380 ug/dL (265-497); Transferrin 304 mg/dL (206-381)
== END ==
PROVIDERS: PCP Internal Medicine; Visit Provider Internal Medicine
DX: D50.9 Iron deficiency anemia, unspecified (principal)
CPT/HCPCS: 36415; 83540; 83550; 85025

== ENCOUNTER → 2019-10-29 13:33 | Outpatient (CLI) | payer MEDICARE, SELFPAY ==
[2019-10-29 14:37] LABS: Add Manual Diff / Slide Review NO; Basophils Absolute Auto 0 /uL (0-100); Basophils Percent Auto 0.6 % (0-2); Eosinophils Absolute Auto 100 /uL (0-450); Eosinophils Percent Auto 1.8 % (2-4); Hematocrit 35.4 % (36-46); Hemoglobin 12.3 g/dL (12.0-16.0); Lymphocytes Absolute Auto 1800 /uL (1100-4500); Lymphocytes Percent Auto 23.3 % (25-40); Mean Corpuscular HGB Conc 34.9 % (30-36); Mean Corpuscular Hemoglobin 34.7 PG (26-34); Mean Corpuscular Volume 99.7 fL (80-100); Monocytes Absolute Auto 700 /uL (0-900); Monocytes Percent Auto 8.5 % (3-14); Neutrophils Absolute Auto 5200 /uL (1500-7000); Neutrophils Percent Auto 65.8 % (50-75); Platelet Count 229 X10^3/uL (150-400); Red Blood Cell Count 3.55 X10^6/uL (4.0-5.2); Red Cell Distribution Width 14.8 % (11.6-14.8); White Blood Cell Count 7.9 X10^3/uL (4.5-11.0)
== END ==
PROVIDERS: PCP Internal Medicine; Visit Provider Internal Medicine
DX: D64.9 Anemia, unspecified (principal)
CPT/HCPCS: 36415; 85025

== ENCOUNTER 2019-11-07 12:00 | Outpatient (RCR) | payer MEDICARE, SELFPAY ==
--- NOTE | 2019-09-25 14:57 | PT.OIE ---
Current Diagnoses Unilateral primary osteoarthritis, left hip (09/25/19) Stiffness of unspecified hip, not elsewhere classified (09/25/19) Sciatica, right side (09/25/19) Trochanteric bursitis, left hip (09/25/19) Iliotibial band syndrome, left leg (09/25/19) Past Medical History (Last Reviewed 07/15/19 @ 18:38 by Kailey Sanders DO) 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 (Acute) Hypertension (Acute) Past Surgical History (Last Reviewed 07/15/19 @ 18:38 by Kailey Sanders DO) H/O bilateral mastectomy (Acute) History of bladder suspension procedure History of hip replacement History of third molar tooth extraction Status post laparoscopic cholecystectomy Status post tonsillectomy and adenoidectomy Status post tubal ligation Visit Care Team Role Provider Type Twan Mora MD Primary Care Provider Physician Specialty: Internal Medicine Address: [address] [place] [address], [id number] Email: [email or web address] Ayaan Robbins MD Attending Provider Physician Specialty: Orthopedic Surgery Address: [address] [place] [address], [id number] Email: Physical Therapy Initial Evaluation PT-OP-A Visit Information Start: 09/25/19 13:17 Freq: Status: Active Protocol: Document 09/25/19 09:45 DCW (Rec: 09/25/19 14:57 DCW [id number]) Out-Patient Physical Therapy Visit Information Visit Information Visit Type Initial Evaluation Visit Start Time 09:45 Visit Stop Time 10:30 Total Visit Minutes 45 Visit Number 1 Number of SHELL TRIM OPERATOR Visits 0 Evaluation Information Evaluation Date 09/25/19 PT-OP-B Current Condition Start: 09/25/19 13:17 Freq: Status: Active Protocol: Document 09/25/19 09:45 DCW (Rec: 09/25/19 14:57 DCW [id number]) Current Condition History of Current Condition Onset Date 6 months Current Complaints left lateral hip pain, right radicular LE pain History of Current Condition Pt is a 79 year old female presenting with a six month history of left hip pain, and recent worsening right hip and radicular leg pain. Pt reports she fell onto her hip about 18 months ago, and it was sore for a while, but then it went away. Pt notes that pain suddenly returned 6 months ago, and it is very point specific near her left greater trochanter. Pt reports pain is extreme after getting up in the morning, standing up after sitting for an extended period of time, or lifting her leg up into her car. Additionally, pt has been experiencing a dull ache in her right posterior hip, which then has some occasional radicular symptoms (pain, numbness) down her right leg. Pt has also noticed that she is unable to stand up straight , with both her knees and hip flexed during standing and ambulation. Pt has been using a cane since her hip pain began, but admits she doesn't even know how to use it. Prior Treatments and Tests 4 years s/p right NILO Treatment Goals Patient/Caregiver Goals Decrease bilateral hip pain, improve standing/walking posture PT-OP-C Subjective Start: 09/25/19 13:17 Freq: Status: Active Protocol: Document 09/25/19 09:45 DCW (Rec: 09/25/19 14:57 DCW [id number]) OP-PT Subjective Patient Comments Patient Comments I had an injection into the hip a few weeks ago, but it really seems to have made things worse. Patient Reported Progress Worse PT-OP-F Manual Assessment Start: 09/25/19 13:17 Freq: Status: Active Protocol: Document 09/25/19 09:45 DCW (Rec: 09/25/19 14:57 DCW [id number]) Manual Assessments Soft Tissue Assessment Soft Tissue Mobility Assessment B Psoas: Severe tone, tenderness to palpation 3/4 - wincing and withdraw R Piriformis: Moderate Tone, tenderness to palpation 2/4 - pain with wincing L GT Bursa: Tenderness to palpation 3/4 - wincing and withdraw PT-OP-J Posture/Palpation/Skin Start: 09/25/19 13:17 Freq: Status: Active Protocol: Document 09/25/19 09:45 DCW (Rec: 09/25/19 14:57 DCW [id number]) Posture Evaluation Position Standing Evaluation View Lateral Hip Posture (L) Flexed,(R) Flexed Knee Posture (L) Excess Flexion,(R) Excess Flexion PT-OP-L Special Tests Start: 09/25/19 13:17 Freq: Status: Active Protocol: Document 09/25/19 09:45 DCW (Rec: 09/25/19 14:57 [facility] [id number]) Special Tests Hip Special Tests Scour Test Test Results Positive L Piriformis Test Results Positive R BRITTANY Test Results Negative PT-OP-M Strength Start: 09/25/19 13:17 Freq: Status: Active Protocol: Document 09/25/19 09:45 DCW (Rec: 09/25/19 14:57 [facility] [id number]) Hip Strength Hip Manual Muscle Testing Right Flexion (L2) 4+ Good+ Extension (S1) 4 Good Abduction 3+ Fair+ Adduction 5 Normal External Rotation 4- Good- Internal Rotation 4- Good- Left Flexion (L2) 4- Good- Extension (S1) 4- Good- Abduction 4 Good Adduction 5 Normal External Rotation 4 Good Internal Rotation 3+ Fair+ Knee Strength Knee Manual Muscle Testing Right Flexion (S2) 4+ Good+ Extension (L3) 4+ Good+ Left Flexion (S2) 4+ Good+ Extension (L3) 4+ Good+ PT-OP-Q Treatments Start: 09/25/19 13:17 Freq: Status: Active Protocol: Document 09/25/19 09:45 DCW (Rec: 09/25/19 14:57 [facility] [id number]) Therapeutic Exercises Supine Exercises Bridging Supine Exercise Name Bridging Psoas stretch Supine Exercise Name Off-table hip flexor stretch Side bilateral Sitting Exercises Piriformis mob Sitting Exercise Name Self-mob /c tennis ball Side right Self-Care/Home Management Treatment Education Other Education Standing/walking posture, cane technique PT-OP-T Assessment and Plan Start: 09/25/19 13:17 Freq: Status: Active Protocol: Document 09/25/19 09:45 DCW (Rec: 09/25/19 14:57 [facility] [id number]) Physical Therapy Assessment Rehab Potential Rehabilitation Potential Good Evaluation Complexity Number of Personal Factors/Comorbidities 3 or More Number of Body Systems Impaired 4 or More Clinical Presentation at Evaluation Evolving Impairments Impairments Functional Mobility,Pain, Posture,Strength,Transfers Goals Five Impairment Pt ambulates with a flexed hip and knee posture Residential Goal (LTG) Pt to demonstrate neutral hip flexion/extension in standing 75% of the time with no verbal cues. LTG Duration 11/25/19 Four Impairment Significant B LE weakness Residential Goal (LTG) Pt LE MMT at least 4/5 in all tested planes LTG Duration 11/25/19 Three Impairment Pt struggles to lift left LE into car Short Term Goal (STG) Pt to lift leg into car 100% of the time with no difficulty STG Duration 10/25/19 Two Impairment Pt experiences extreme hip pain getting out of bed in the morning Residential Goal (LTG) Pt to exit bed in the morning with at most 3/10 pain. LTG Duration 11/25/19 One Impairment Pt does not have an appropriate home exercise program Short Term Goal (STG) Pt to be independent and compliant with an appropriate HEP STG Duration 10/25/19 Assessment Summary Assessment Pt presents with signs and symptoms of multiple hip impairments. Pt's initial complaints of point-specific hip pain near the GT, worsening with laying on her side are suggestive of bursitis. Pt does also, however, complain of left hip pain in her anterior hip and into her groin, which, along with a positive scour test and her complaints of pain upon first rising, are suggestive of likely DJD/Osteoarthritis. Additionally, pt's recent right hip pain, with positive piriformis testing, is suggestive of piriformis syndrome. Pt should benefit from skilled therapy focusing on hip strengthening, piriformis STM, psoas stretching/flexibility, and treatment for hip bursitis, including STM, Iontophoresis, and K-tape Physical Therapy Plan Frequency and Duration Frequency of Treatment 2x/Week Duration of Treatment 10 weeks Plan of Care Start Date 09/25/19 Plan of Care End Date 12/04/19 Therapeutic Interventions Therapeutic Interventions Home Exercise Program,Joint Mobilizations,Manual Therapy, Patient/Caregiver Education, Self-Care/Home Management,Soft Tissue Mobilization,Taping, Therapeutic Activities, Therapeutic Exercises Modalities Cold Pack/Ice Massage,Electric Stimulation,Hot Packs, Iontophoresis,Ultrasound Other Therapeutic Interventions Iontophoresis /c Dexamethasone , 4 mg/mL Next Visit Focus/Plan Next Note Type Treatment Note Next Visit Plan Flexibility, Hip strengthening , Modalities, posture training
--- NOTE | 2019-09-25 15:01 | PT.OPPOC ---
Current Diagnoses Unilateral primary osteoarthritis, left hip (09/25/19) Stiffness of unspecified hip, not elsewhere classified (09/25/19) Sciatica, right side (09/25/19) Trochanteric bursitis, left hip (09/25/19) Iliotibial band syndrome, left leg (09/25/19) Visit Care Team Role Provider Type Twan Mora MD Primary Care Provider Physician Specialty: Internal Medicine Address: [address] [place] [address], [id number] Email: [email or web address] Attending Provider Physician Specialty: Orthopedic Surgery Address: [address] [place] [address], [id number] Email: [email or web address] Plan Of Care PT-OP-T Assessment and Plan Start: 09/25/19 13:17 Freq: Status: Active Protocol: Document 09/25/19 09:45 DCW (Rec: 09/25/19 14:57 DCW [id number]) Physical Therapy Assessment Rehab Potential Rehabilitation Potential Good Evaluation Complexity Number of Personal Factors/Comorbidities 3 or More Number of Body Systems Impaired 4 or More Clinical Presentation at Evaluation Evolving Impairments Impairments Functional Mobility,Pain, Posture,Strength,Transfers Goals Five Impairment Pt ambulates with a flexed hip and knee posture Ux Architect Goal (LTG) Pt to demonstrate neutral hip flexion/extension in standing 75% of the time with no verbal cues. LTG Duration 11/25/19 Four Impairment Significant B LE weakness Detention Goal (LTG) Pt LE MMT at least 4/5 in all tested planes LTG Duration 11/25/19 Three Impairment Pt struggles to lift left LE into car Short Term Goal (STG) Pt to lift leg into car 100% of the time with no difficulty STG Duration 10/25/19 Two Impairment Pt experiences extreme hip pain getting out of bed in the morning Detention Goal (LTG) Pt to exit bed in the morning with at most 3/10 pain. LTG Duration 11/25/19 One Impairment Pt does not have an appropriate home exercise program Short Term Goal (STG) Pt to be independent and compliant with an appropriate HEP STG Duration 10/25/19 Assessment Summary Assessment Pt presents with signs and symptoms of multiple hip impairments. Pt's initial complaints of point-specific hip pain near the GT, worsening with laying on her side are suggestive of bursitis. Pt does also, however, complain of left hip pain in her anterior hip and into her groin, which, along with a positive scour test and her complaints of pain upon first rising, are suggestive of likely DJD/Osteoarthritis. Additionally, pt's recent right hip pain, with positive piriformis testing, is suggestive of piriformis syndrome. Pt should benefit from skilled therapy focusing on hip strengthening, piriformis STM, psoas stretching/flexibility, and treatment for hip bursitis, including STM, Iontophoresis, and K-tape Physical Therapy Plan Frequency and Duration Frequency of Treatment 2x/Week Duration of Treatment 10 weeks Plan of Care Start Date 09/25/19 Plan of Care End Date 12/04/19 Therapeutic Interventions Therapeutic Interventions Home Exercise Program,Joint Mobilizations,Manual Therapy, Patient/Caregiver Education, Self-Care/Home Management,Soft Tissue Mobilization,Taping, Therapeutic Activities, Therapeutic Exercises Modalities Cold Pack/Ice Massage,Electric Stimulation,Hot Packs, Iontophoresis,Ultrasound Other Therapeutic Interventions Iontophoresis /c Dexamethasone , 4 mg/mL Next Visit Focus/Plan Next Note Type Treatment Note Next Visit Plan Flexibility, Hip strengthening , Modalities, posture training Plan of Care Dates Plan of Care Start Date 09/25/19 Plan of Care End Date 12/04/19
--- NOTE | 2019-09-27 10:54 | PT.OTN ---
Current Diagnoses Unilateral primary osteoarthritis, left hip (09/27/19) Stiffness of unspecified hip, not elsewhere classified (09/27/19) Sciatica, right side (09/27/19) Trochanteric bursitis, left hip (09/27/19) Iliotibial band syndrome, left leg (09/27/19) Physical Therapy Treatment Note PT-OP-A Visit Information Start: 09/25/19 13:17 Freq: Status: Active Protocol: Document 09/27/19 09:25 GGD (Rec: 09/27/19 09:34 GGD [id number]) Out-Patient Physical Therapy Visit Information Visit Information Visit Type Treatment Note Visit Start Time 09:45 Visit Stop Time 10:50 Total Visit Minutes 50 Visit Number 2 Number of GRINDING WHEEL INSPECTOR Visits 1 Evaluation Information Evaluation Date 09/25/19 PT-OP-B Current Condition Start: 09/25/19 13:17 Freq: Status: Active Protocol: Document 09/25/19 09:45 DCW (Rec: 09/25/19 14:57 DCW [id number]) Current Condition History of Current Condition Onset Date 6 months Current Complaints left lateral hip pain, right radicular LE pain History of Current Condition Pt is a 79 year old female presenting with a six month history of left hip pain, and recent worsening right hip and radicular leg pain. Pt reports she fell onto her hip about 18 months ago, and it was sore for a while, but then it went away. Pt notes that pain suddenly returned 6 months ago, and it is very point specific near her left greater trochanter. Pt reports pain is extreme after getting up in the morning, standing up after sitting for an extended period of time, or lifting her leg up into her car. Additionally, pt has been experiencing a dull ache in her right posterior hip, which then has some occasional radicular symptoms (pain, numbness) down her right leg. Pt has also noticed that she is unable to stand up straight , with both her knees and hip flexed during standing and ambulation. Pt has been using a cane since her hip pain began, but admits she doesn't even know how to use it. Prior Treatments and Tests 4 years s/p right NILO Treatment Goals Patient/Caregiver Goals Decrease bilateral hip pain, improve standing/walking posture PT-OP-C Subjective Start: 09/25/19 13:17 Freq: Status: Active Protocol: Document 09/27/19 09:25 GGD (Rec: 09/27/19 09:34 GGD [id number]) OP-PT Subjective Patient Comments Patient Comments Pt states she doing better with walking with cane. PT-OP-F Manual Assessment Start: 09/25/19 13:17 Freq: Status: Active Protocol: Document 09/25/19 09:45 DCW (Rec: 09/25/19 14:57 DCW [id number]) Manual Assessments Soft Tissue Assessment Soft Tissue Mobility Assessment B Psoas: Severe tone, tenderness to palpation 3/4 - wincing and withdraw R Piriformis: Moderate Tone, tenderness to palpation 2/4 - pain with wincing L GT Bursa: Tenderness to palpation 3/4 - wincing and withdraw PT-OP-J Posture/Palpation/Skin Start: 09/25/19 13:17 Freq: Status: Active Protocol: Document 09/25/19 09:45 DCW (Rec: 09/25/19 14:57 DCW [id number]) Posture Evaluation Position Standing Evaluation View Lateral Hip Posture (L) Flexed,(R) Flexed Knee Posture (L) Excess Flexion,(R) Excess Flexion PT-OP-L Special Tests Start: 09/25/19 13:17 Freq: Status: Active Protocol: Document 09/25/19 09:45 DCW (Rec: 09/25/19 14:57 DCW [id number]) Special Tests Hip Special Tests Scour Test Test Results Positive L Piriformis Test Results Positive R BRITTANY Test Results Negative PT-OP-M Strength Start: 09/25/19 13:17 Freq: Status: Active Protocol: Document 09/25/19 09:45 DCW (Rec: 09/25/19 14:57 DCW [id number]) Hip Strength Hip Manual Muscle Testing Right Flexion (L2) 4+ Good+ Extension (S1) 4 Good Abduction 3+ Fair+ Adduction 5 Normal External Rotation 4- Good- Internal Rotation 4- Good- Left Flexion (L2) 4- Good- Extension (S1) 4- Good- Abduction 4 Good Adduction 5 Normal External Rotation 4 Good Internal Rotation 3+ Fair+ Knee Strength Knee Manual Muscle Testing Right Flexion (S2) 4+ Good+ Extension (L3) 4+ Good+ Left Flexion (S2) 4+ Good+ Extension (L3) 4+ Good+ PT-OP-Q Treatments Start: 09/25/19 13:17 Freq: Status: Active Protocol: Document 09/27/19 09:25 GGD (Rec: 09/27/19 09:34 GGD [id number]) Therapeutic Exercises Supine Exercises hip abd/ Supine Exercise Name hip abd with ER Side bilateral Resistance level 1 Reps/Minutes 10 Comments in hooklying Bridging Supine Exercise Name Bridging Psoas stretch Supine Exercise Name Off-table hip flexor stretch Side bilateral Sidelying Exercises reverse clamshells Sidelying Exercise Name reverse clamshells Side bilateral Reps/Minutes 10 Standing Exercises hip abd and extension Standing Exercise Name hip abduction and extension Side bilateral Reps/Minutes 10 x each Manual Therapy Treatment Soft Tissue Mobilization 1 Body Location left ITB and right pirifmis Mobilization Type Myofascial Release,Sustained Pressure Intensity/Depth Superficial Body Position Sidelying PT-OP-R Modalities Start: 09/25/19 13:17 Freq: Status: Active Protocol: Document 09/27/19 09:25 GGD (Rec: 09/27/19 09:38 GGD [id number]) Hot Pack/Cold Pack Treatment Cold Pack Location b hips Patient Position Hooklying Treatment Duration (minutes) 10 Patient Tolerance Good Ultrasound Therapy Treatment left lateral hip Treatment Duration (minutes) 8 Patient Position Sidelying Coupling Medium Ultrasound Gel Applicator Size (cm2) 5 Mode Setting Pulsed Duty Cycle 50% Intensity Setting (w/cm2) 1.2 PT-OP-T Assessment and Plan Start: 09/25/19 13:17 Freq: Status: Active Protocol: Document 09/27/19 09:25 GGD (Rec: 09/27/19 09:34 GGD [id number]) Physical Therapy Assessment Goals Five Impairment Pt ambulates with a flexed hip and knee posture Data Miner Goal (LTG) Pt to demonstrate neutral hip flexion/extension in standing 75% of the time with no verbal cues. LTG Duration 11/25/19 Four Impairment Significant B LE weakness Assisted Goal (LTG) Pt LE MMT at least 4/5 in all tested planes LTG Duration 11/25/19 Three Impairment Pt struggles to lift left LE into car Short Term Goal (STG) Pt to lift leg into car 100% of the time with no difficulty STG Duration 10/25/19 Two Impairment Pt experiences extreme hip pain getting out of bed in the morning Data Miner Goal (LTG) Pt to exit bed in the morning with at most 3/10 pain. LTG Duration 11/25/19 One Impairment Pt does not have an appropriate home exercise program Short Term Goal (STG) Pt to be independent and compliant with an appropriate HEP STG Duration 10/25/19 Assessment Summary Assessment Pt needed modification of exercise to limit increase in pain. She tolerated light STM to ITB and piriformis. She needed cues for standing exercise technique and posture . Physical Therapy Plan Frequency and Duration Frequency of Treatment 2x/Week Duration of Treatment 10 weeks Plan of Care Start Date 09/25/19 Plan of Care End Date 12/04/19 Next Visit Focus/Plan Next Note Type Treatment Note Next Visit Plan Flexibility, Hip strengthening , Modalities, posture training
--- NOTE | 2019-10-02 11:20 | PT.OTN ---
Current Diagnoses Unilateral primary osteoarthritis, left hip (10/02/19) Stiffness of unspecified hip, not elsewhere classified (10/02/19) Sciatica, right side (10/02/19) Trochanteric bursitis, left hip (10/02/19) Iliotibial band syndrome, left leg (10/02/19) Physical Therapy Treatment Note PT-OP-A Visit Information Start: 09/25/19 13:17 Freq: Status: Active Protocol: Document 10/02/19 10:35 SP (Rec: 10/02/19 11:28 SP [id number]) Out-Patient Physical Therapy Visit Information Visit Information Visit Type Treatment Note Visit Start Time 10:35 Visit Stop Time 11:20 Total Visit Minutes 45 Visit Number 3 Number of HTML DEVELOPER Visits 2 PT-OP-B Current Condition Start: 09/25/19 13:17 Freq: Status: Active Protocol: Document 09/25/19 09:45 DCW (Rec: 09/25/19 14:57 DCW [id number]) Current Condition History of Current Condition Onset Date 6 months Current Complaints left lateral hip pain, right radicular LE pain History of Current Condition Pt is a 79 year old female presenting with a six month history of left hip pain, and recent worsening right hip and radicular leg pain. Pt reports she fell onto her hip about 18 months ago, and it was sore for a while, but then it went away. Pt notes that pain suddenly returned 6 months ago, and it is very point specific near her left greater trochanter. Pt reports pain is extreme after getting up in the morning, standing up after sitting for an extended period of time, or lifting her leg up into her car. Additionally, pt has been experiencing a dull ache in her right posterior hip, which then has some occasional radicular symptoms (pain, numbness) down her right leg. Pt has also noticed that she is unable to stand up straight , with both her knees and hip flexed during standing and ambulation. Pt has been using a cane since her hip pain began, but admits she doesn't even know how to use it. Prior Treatments and Tests 4 years s/p right NILO Treatment Goals Patient/Caregiver Goals Decrease bilateral hip pain, improve standing/walking posture PT-OP-C Subjective Start: 09/25/19 13:17 Freq: Status: Active Protocol: Document 10/02/19 10:35 SP (Rec: 10/02/19 11:28 SP [id number]) OP-PT Subjective Patient Comments Patient Comments Pt reported felt much better after last tx with therex modifications, 3/10 L hip sharp pain/ R hip achy pain, took Tyenol this am to help, compliant with HEP but would like to review today to be sure doing correctly. PT-OP-F Manual Assessment Start: 09/25/19 13:17 Freq: Status: Active Protocol: Document 09/25/19 09:45 DCW (Rec: 09/25/19 14:57 DCW [id number]) Manual Assessments Soft Tissue Assessment Soft Tissue Mobility Assessment B Psoas: Severe tone, tenderness to palpation 3/4 - wincing and withdraw R Piriformis: Moderate Tone, tenderness to palpation 2/4 - pain with wincing L GT Bursa: Tenderness to palpation 3/4 - wincing and withdraw PT-OP-J Posture/Palpation/Skin Start: 09/25/19 13:17 Freq: Status: Active Protocol: Document 09/25/19 09:45 DCW (Rec: 09/25/19 14:57 DCW [id number]) Posture Evaluation Position Standing Evaluation View Lateral Hip Posture (L) Flexed,(R) Flexed Knee Posture (L) Excess Flexion,(R) Excess Flexion PT-OP-L Special Tests Start: 09/25/19 13:17 Freq: Status: Active Protocol: Document 09/25/19 09:45 DCW (Rec: 09/25/19 14:57 DCW [id number]) Special Tests Hip Special Tests Scour Test Test Results Positive L Piriformis Test Results Positive R BRITTANY Test Results Negative PT-OP-M Strength Start: 09/25/19 13:17 Freq: Status: Active Protocol: Document 09/25/19 09:45 DCW (Rec: 09/25/19 14:57 DCW [id number]) Hip Strength Hip Manual Muscle Testing Right Flexion (L2) 4+ Good+ Extension (S1) 4 Good Abduction 3+ Fair+ Adduction 5 Normal External Rotation 4- Good- Internal Rotation 4- Good- Left Flexion (L2) 4- Good- Extension (S1) 4- Good- Abduction 4 Good Adduction 5 Normal External Rotation 4 Good Internal Rotation 3+ Fair+ Knee Strength Knee Manual Muscle Testing Right Flexion (S2) 4+ Good+ Extension (L3) 4+ Good+ Left Flexion (S2) 4+ Good+ Extension (L3) 4+ Good+ PT-OP-Q Treatments Start: 09/25/19 13:17 Freq: Status: Active Protocol: Document 10/02/19 10:35 SP (Rec: 10/02/19 11:28 SP [id number]) Therapeutic Exercises Supine Exercises DKFO Supine Exercise Name supine Side bilateral Resistance Y Theraloop Reps/Minutes 3x10 Psoas stretch Supine Exercise Name Off-table hip flexor stretch Side bilateral Reps/Minutes 30 x2 Sidelying Exercises clam shell Sidelying Exercise Name hip ER Side bilateral Resistance AROM Reps/Minutes x10 Comments cued slow pacing control reverse clamshells Sidelying Exercise Name reverse clam (hip IR) Side bilateral Equipment Used pillow between knees Reps/Minutes x10 Comments cued slow pacing control PT-OP-R Modalities Start: 09/25/19 13:17 Freq: Status: Active Protocol: Document 09/27/19 09:25 GGD (Rec: 09/27/19 09:38 GGD [id number]) Hot Pack/Cold Pack Treatment Cold Pack Location b hips Patient Position Hooklying Treatment Duration (minutes) 10 Patient Tolerance Good Ultrasound Therapy Treatment left lateral hip Treatment Duration (minutes) 8 Patient Position Sidelying Coupling Medium Ultrasound Gel Applicator Size (cm2) 5 Mode Setting Pulsed Duty Cycle 50% Intensity Setting (w/cm2) 1.2 PT-OP-T Assessment and Plan Start: 09/25/19 13:17 Freq: Status: Active Protocol: Document 10/02/19 10:35 SP (Rec: 10/02/19 11:28 SP [id number]) Physical Therapy Assessment Goals Five Impairment Pt ambulates with a flexed hip and knee posture Optical Manager Goal (LTG) Pt to demonstrate neutral hip flexion/extension in standing 75% of the time with no verbal cues. LTG Duration 11/25/19 Four Impairment Significant B LE weakness Fci Goal (LTG) Pt LE MMT at least 4/5 in all tested planes LTG Duration 11/25/19 Three Impairment Pt struggles to lift left LE into car Short Term Goal (STG) Pt to lift leg into car 100% of the time with no difficulty STG Duration 10/25/19 Two Impairment Pt experiences extreme hip pain getting out of bed in the morning Optical Manager Goal (LTG) Pt to exit bed in the morning with at most 3/10 pain. LTG Duration 11/25/19 One Impairment Pt does not have an appropriate home exercise program Short Term Goal (STG) Pt to be independent and compliant with an appropriate HEP STG Duration 10/25/19 Assessment Summary Assessment Tx focused on proper form and tolerance to HEP. Cued for reverse clam in sidelying (not lift whole leg), added sciatic nerve floss to R hip but felt made R hip good stretch too (HO provided for home). Pt stated confident with standing ex so didnt review today. Cued for slow pacing control with core activation during reverse/clam shells. Pt was welcoming to CP L hip end of tx for assist with Hip discomort positive results no pain L, still achy R hip no change from when arrived. Physical Therapy Plan Frequency and Duration Frequency of Treatment 2x/Week Duration of Treatment 10 weeks Plan of Care Start Date 09/25/19 Plan of Care End Date 12/04/19 Therapeutic Interventions Therapeutic Interventions Home Exercise Program,Joint Mobilizations,Manual Therapy, Patient/Caregiver Education, Self-Care/Home Management,Soft Tissue Mobilization,Taping, Therapeutic Activities, Therapeutic Exercises Modalities Cold Pack/Ice Massage,Electric Stimulation,Hot Packs, Iontophoresis,Ultrasound Other Therapeutic Interventions Iontophoresis /c Dexamethasone , 4 mg/mL Next Visit Focus/Plan Next Note Type Treatment Note Next Visit Plan Next tx Trial bike warm up bike, and step ups. Continue POC: Flexibility, Hip strengthening, Modalities, posture training
--- NOTE | 2019-10-04 10:30 | PT.OTN ---
Current Diagnoses Unilateral primary osteoarthritis, left hip (10/04/19) Stiffness of unspecified hip, not elsewhere classified (10/04/19) Sciatica, right side (10/04/19) Trochanteric bursitis, left hip (10/04/19) Iliotibial band syndrome, left leg (10/04/19) Physical Therapy Treatment Note PT-OP-A Visit Information Start: 09/25/19 13:17 Freq: Status: Active Protocol: Document 10/04/19 09:45 DCW (Rec: 10/04/19 10:29 DCW [id number]) Out-Patient Physical Therapy Visit Information Visit Information Visit Type Treatment Note Visit Start Time 10:30 Visit Stop Time 11:15 Total Visit Minutes 45 Visit Number 4 Number of FLIGHT RADIO OPERATOR Visits 0 Evaluation Information Evaluation Date 09/25/19 PT-OP-B Current Condition Start: 09/25/19 13:17 Freq: Status: Active Protocol: Document 09/25/19 09:45 DCW (Rec: 09/25/19 14:57 DCW [id number]) Current Condition History of Current Condition Onset Date 6 months Current Complaints left lateral hip pain, right radicular LE pain History of Current Condition Pt is a 79 year old female presenting with a six month history of left hip pain, and recent worsening right hip and radicular leg pain. Pt reports she fell onto her hip about 18 months ago, and it was sore for a while, but then it went away. Pt notes that pain suddenly returned 6 months ago, and it is very point specific near her left greater trochanter. Pt reports pain is extreme after getting up in the morning, standing up after sitting for an extended period of time, or lifting her leg up into her car. Additionally, pt has been experiencing a dull ache in her right posterior hip, which then has some occasional radicular symptoms (pain, numbness) down her right leg. Pt has also noticed that she is unable to stand up straight , with both her knees and hip flexed during standing and ambulation. Pt has been using a cane since her hip pain began, but admits she doesn't even know how to use it. Prior Treatments and Tests 4 years s/p right NILO Treatment Goals Patient/Caregiver Goals Decrease bilateral hip pain, improve standing/walking posture PT-OP-C Subjective Start: 09/25/19 13:17 Freq: Status: Active Protocol: Document 10/04/19 09:45 DCW (Rec: 10/04/19 10:29 DCW [id number]) OP-PT Subjective Patient Comments Patient Comments Right now, I feel pretty good . PT-OP-F Manual Assessment Start: 09/25/19 13:17 Freq: Status: Active Protocol: Document 09/25/19 09:45 DCW (Rec: 09/25/19 14:57 DCW [id number]) Manual Assessments Soft Tissue Assessment Soft Tissue Mobility Assessment B Psoas: Severe tone, tenderness to palpation 3/4 - wincing and withdraw R Piriformis: Moderate Tone, tenderness to palpation 2/4 - pain with wincing L GT Bursa: Tenderness to palpation 3/4 - wincing and withdraw PT-OP-J Posture/Palpation/Skin Start: 09/25/19 13:17 Freq: Status: Active Protocol: Document 09/25/19 09:45 DCW (Rec: 09/25/19 14:57 DCW [id number]) Posture Evaluation Position Standing Evaluation View Lateral Hip Posture (L) Flexed,(R) Flexed Knee Posture (L) Excess Flexion,(R) Excess Flexion PT-OP-L Special Tests Start: 09/25/19 13:17 Freq: Status: Active Protocol: Document 09/25/19 09:45 DCW (Rec: 09/25/19 14:57 DCW [id number]) Special Tests Hip Special Tests Scour Test Test Results Positive L Piriformis Test Results Positive R BRITTANY Test Results Negative PT-OP-M Strength Start: 09/25/19 13:17 Freq: Status: Active Protocol: Document 09/25/19 09:45 DCW (Rec: 09/25/19 14:57 DCW [id number]) Hip Strength Hip Manual Muscle Testing Right Flexion (L2) 4+ Good+ Extension (S1) 4 Good Abduction 3+ Fair+ Adduction 5 Normal External Rotation 4- Good- Internal Rotation 4- Good- Left Flexion (L2) 4- Good- Extension (S1) 4- Good- Abduction 4 Good Adduction 5 Normal External Rotation 4 Good Internal Rotation 3+ Fair+ Knee Strength Knee Manual Muscle Testing Right Flexion (S2) 4+ Good+ Extension (L3) 4+ Good+ Left Flexion (S2) 4+ Good+ Extension (L3) 4+ Good+ PT-OP-Q Treatments Start: 09/25/19 13:17 Freq: Status: Active Protocol: Document 10/04/19 09:45 DCW (Rec: 10/04/19 10:29 DCW [id number]) Therapeutic Exercises Supine Exercises DKFO Supine Exercise Name supine Side bilateral Resistance Y Theraloop Reps/Minutes 3x10 Psoas stretch Supine Exercise Name Off-table hip flexor stretch Side bilateral Reps/Minutes 30 x2 Sidelying Exercises clam shell Sidelying Exercise Name hip ER Side bilateral Resistance AROM Reps/Minutes x10 Comments cued slow pacing control reverse clamshells Sidelying Exercise Name reverse clam (hip IR) Side bilateral Equipment Used pillow between knees Reps/Minutes x10 Comments cued slow pacing control Manual Therapy Treatment Soft Tissue Mobilization 2 Body Location Psoas Mobilization Type Strumming,Sustained Pressure Intensity/Depth Moderate Body Position Supine 1 Body Location left ITB and right pirifmis Mobilization Type Myofascial Release,Sustained Pressure Intensity/Depth Superficial Body Position Sidelying PT-OP-R Modalities Start: 09/25/19 13:17 Freq: Status: Active Protocol: Document 10/04/19 09:45 DCW (Rec: 10/04/19 10:30 DCW [id number]) Hot Pack/Cold Pack Treatment Hot Pack Location B hips Patient Position Hooklying Treatment Duration (minutes) 10 PT-OP-T Assessment and Plan Start: 09/25/19 13:17 Freq: Status: Active Protocol: Document 10/04/19 09:45 DCW (Rec: 10/04/19 10:29 DCW [id number]) Physical Therapy Assessment Goals Five Impairment Pt ambulates with a flexed hip and knee posture Jail Goal (LTG) Pt to demonstrate neutral hip flexion/extension in standing 75% of the time with no verbal cues. LTG Duration 11/25/19 Four Impairment Significant B LE weakness Jail Goal (LTG) Pt LE MMT at least 4/5 in all tested planes LTG Duration 11/25/19 Three Impairment Pt struggles to lift left LE into car Short Term Goal (STG) Pt to lift leg into car 100% of the time with no difficulty STG Duration 10/25/19 Two Impairment Pt experiences extreme hip pain getting out of bed in the morning Jail Goal (LTG) Pt to exit bed in the morning with at most 3/10 pain. LTG Duration 11/25/19 One Impairment Pt does not have an appropriate home exercise program Short Term Goal (STG) Pt to be independent and compliant with an appropriate HEP STG Duration 10/25/19 Assessment Summary Assessment Reviewed HEP again today, pt feeling like she is slowly improving, but hasn't felt any big, sudden changes. Trial of heat today rather than ice. Physical Therapy Plan Frequency and Duration Frequency of Treatment 2x/Week Duration of Treatment 10 weeks Plan of Care Start Date 09/25/19 Plan of Care End Date 12/04/19 Therapeutic Interventions Therapeutic Interventions Home Exercise Program,Joint Mobilizations,Manual Therapy, Patient/Caregiver Education, Self-Care/Home Management,Soft Tissue Mobilization,Taping, Therapeutic Activities, Therapeutic Exercises Modalities Cold Pack/Ice Massage,Electric Stimulation,Hot Packs, Iontophoresis,Ultrasound Other Therapeutic Interventions Iontophoresis /c Dexamethasone , 4 mg/mL Next Visit Focus/Plan Next Note Type Treatment Note Next Visit Plan Next tx Trial bike warm up bike, and step ups. Continue POC: Flexibility, Hip strengthening, Modalities, posture training
--- NOTE | 2019-10-08 10:29 | PT.OTN ---
Current Diagnoses Unilateral primary osteoarthritis, left hip (10/08/19) Stiffness of unspecified hip, not elsewhere classified (10/08/19) Sciatica, right side (10/08/19) Trochanteric bursitis, left hip (10/08/19) Iliotibial band syndrome, left leg (10/08/19) Physical Therapy Treatment Note PT-OP-A Visit Information Start: 09/25/19 13:17 Freq: Status: Active Protocol: Document 10/08/19 09:45 DCW (Rec: 10/08/19 10:29 DCW [id number]) Out-Patient Physical Therapy Visit Information Visit Information Visit Type Treatment Note Visit Start Time 09:45 Visit Stop Time 10:35 Total Visit Minutes 50 Visit Number 5 Number of SPECIAL EDUCATION PARAEDUCATOR Visits 0 Evaluation Information Evaluation Date 09/25/19 PT-OP-B Current Condition Start: 09/25/19 13:17 Freq: Status: Active Protocol: Document 09/25/19 09:45 DCW (Rec: 09/25/19 14:57 DCW [id number]) Current Condition History of Current Condition Onset Date 6 months Current Complaints left lateral hip pain, right radicular LE pain History of Current Condition Pt is a 79 year old female presenting with a six month history of left hip pain, and recent worsening right hip and radicular leg pain. Pt reports she fell onto her hip about 18 months ago, and it was sore for a while, but then it went away. Pt notes that pain suddenly returned 6 months ago, and it is very point specific near her left greater trochanter. Pt reports pain is extreme after getting up in the morning, standing up after sitting for an extended period of time, or lifting her leg up into her car. Additionally, pt has been experiencing a dull ache in her right posterior hip, which then has some occasional radicular symptoms (pain, numbness) down her right leg. Pt has also noticed that she is unable to stand up straight , with both her knees and hip flexed during standing and ambulation. Pt has been using a cane since her hip pain began, but admits she doesn't even know how to use it. Prior Treatments and Tests 4 years s/p right NILO Treatment Goals Patient/Caregiver Goals Decrease bilateral hip pain, improve standing/walking posture PT-OP-C Subjective Start: 09/25/19 13:17 Freq: Status: Active Protocol: Document 10/08/19 09:45 DCW (Rec: 10/08/19 10:29 DCW [id number]) OP-PT Subjective Patient Comments Patient Comments Pt reports her injection Tuesday helped quite a bit. She's feeling like her legs are stronger, but she is still having some right sciatic pain. PT-OP-F Manual Assessment Start: 09/25/19 13:17 Freq: Status: Active Protocol: Document 09/25/19 09:45 DCW (Rec: 09/25/19 14:57 DCW [id number]) Manual Assessments Soft Tissue Assessment Soft Tissue Mobility Assessment B Psoas: Severe tone, tenderness to palpation 3/4 - wincing and withdraw R Piriformis: Moderate Tone, tenderness to palpation 2/4 - pain with wincing L GT Bursa: Tenderness to palpation 3/4 - wincing and withdraw PT-OP-J Posture/Palpation/Skin Start: 09/25/19 13:17 Freq: Status: Active Protocol: Document 09/25/19 09:45 DCW (Rec: 09/25/19 14:57 DCW [id number]) Posture Evaluation Position Standing Evaluation View Lateral Hip Posture (L) Flexed,(R) Flexed Knee Posture (L) Excess Flexion,(R) Excess Flexion PT-OP-L Special Tests Start: 09/25/19 13:17 Freq: Status: Active Protocol: Document 09/25/19 09:45 DCW (Rec: 09/25/19 14:57 DCW [id number]) Special Tests Hip Special Tests Scour Test Test Results Positive L Piriformis Test Results Positive R BRITTANY Test Results Negative PT-OP-M Strength Start: 09/25/19 13:17 Freq: Status: Active Protocol: Document 09/25/19 09:45 DCW (Rec: 09/25/19 14:57 DCW [id number]) Hip Strength Hip Manual Muscle Testing Right Flexion (L2) 4+ Good+ Extension (S1) 4 Good Abduction 3+ Fair+ Adduction 5 Normal External Rotation 4- Good- Internal Rotation 4- Good- Left Flexion (L2) 4- Good- Extension (S1) 4- Good- Abduction 4 Good Adduction 5 Normal External Rotation 4 Good Internal Rotation 3+ Fair+ Knee Strength Knee Manual Muscle Testing Right Flexion (S2) 4+ Good+ Extension (L3) 4+ Good+ Left Flexion (S2) 4+ Good+ Extension (L3) 4+ Good+ PT-OP-Q Treatments Start: 09/25/19 13:17 Freq: Status: Active Protocol: Document 10/08/19 09:45 DCW (Rec: 10/08/19 10:29 DCW [id number]) Therapeutic Exercises Supine Exercises Hamstring stretch Supine Exercise Name HS Stretch Side bilateral DKFO Supine Exercise Name supine Side bilateral Resistance Y Theraloop Reps/Minutes 3x10 Sidelying Exercises abduction Sidelying Exercise Name Hip Abduction Side bilateral Equipment Used x15 clam shell Sidelying Exercise Name hip ER Side bilateral Resistance AROM Reps/Minutes x15 Comments cued slow pacing control reverse clamshells Sidelying Exercise Name reverse clam (hip IR) Side bilateral Reps/Minutes x15 Comments cued slow pacing control Other Exercises Resisted Ambulation Other Exercise Name Resisted lateral ambulation Resistance Yellow Equipment Used T-band Manual Therapy Treatment Soft Tissue Mobilization 2 Body Location Psoas Mobilization Type Strumming,Sustained Pressure Intensity/Depth Moderate Body Position Supine 1 Body Location left ITB and right pirifmis Mobilization Type Myofascial Release,Sustained Pressure Intensity/Depth Superficial Body Position Sidelying PT-OP-R Modalities Start: 09/25/19 13:17 Freq: Status: Active Protocol: Document 10/08/19 09:45 DCW (Rec: 10/08/19 10:29 DCW [id number]) Hot Pack/Cold Pack Treatment Hot Pack Location B hips Patient Position Hooklying Treatment Duration (minutes) 10 PT-OP-T Assessment and Plan Start: 09/25/19 13:17 Freq: Status: Active Protocol: Document 10/08/19 09:45 DCW (Rec: 10/08/19 10:29 DCW [id number]) Physical Therapy Assessment Goals Five Impairment Pt ambulates with a flexed hip and knee posture Half-Way Goal (LTG) Pt to demonstrate neutral hip flexion/extension in standing 75% of the time with no verbal cues. LTG Duration 11/25/19 Four Impairment Significant B LE weakness Senior Attorney Goal (LTG) Pt LE MMT at least 4/5 in all tested planes LTG Duration 11/25/19 Three Impairment Pt struggles to lift left LE into car Short Term Goal (STG) Pt to lift leg into car 100% of the time with no difficulty STG Duration 10/25/19 Two Impairment Pt experiences extreme hip pain getting out of bed in the morning Senior Attorney Goal (LTG) Pt to exit bed in the morning with at most 3/10 pain. LTG Duration 11/25/19 One Impairment Pt does not have an appropriate home exercise program Short Term Goal (STG) Pt to be independent and compliant with an appropriate HEP STG Duration 10/25/19 Assessment Summary Assessment Pt feeling much better today following her Cortisone injection last week, ambulating more easily with less pain, and overall tolerating activity much better. Physical Therapy Plan Frequency and Duration Frequency of Treatment 2x/Week Duration of Treatment 10 weeks Plan of Care Start Date 09/25/19 Plan of Care End Date 12/04/19 Therapeutic Interventions Therapeutic Interventions Home Exercise Program,Joint Mobilizations,Manual Therapy, Patient/Caregiver Education, Self-Care/Home Management,Soft Tissue Mobilization,Taping, Therapeutic Activities, Therapeutic Exercises Modalities Cold Pack/Ice Massage,Electric Stimulation,Hot Packs, Iontophoresis,Ultrasound Other Therapeutic Interventions Iontophoresis /c Dexamethasone , 4 mg/mL Next Visit Focus/Plan Next Note Type Treatment Note Next Visit Plan Next tx Trial bike warm up bike, and step ups. Continue POC: Flexibility, Hip strengthening, Modalities, posture training
--- NOTE | 2019-10-10 10:30 | PT.OTN ---
Current Diagnoses Unilateral primary osteoarthritis, left hip (10/10/19) Stiffness of unspecified hip, not elsewhere classified (10/10/19) Sciatica, right side (10/10/19) Trochanteric bursitis, left hip (10/10/19) Iliotibial band syndrome, left leg (10/10/19) Physical Therapy Treatment Note PT-OP-A Visit Information Start: 09/25/19 13:17 Freq: Status: Active Protocol: Document 10/10/19 09:45 DCW (Rec: 10/10/19 10:29 DCW [id number]) Out-Patient Physical Therapy Visit Information Visit Information Visit Type Treatment Note Visit Start Time 09:45 Visit Stop Time 10:30 Total Visit Minutes 45 Visit Number 6 Number of TYPO MACHINE OPERATOR Visits 0 Evaluation Information Evaluation Date 09/25/19 PT-OP-B Current Condition Start: 09/25/19 13:17 Freq: Status: Active Protocol: Document 09/25/19 09:45 DCW (Rec: 09/25/19 14:57 DCW [id number]) Current Condition History of Current Condition Onset Date 6 months Current Complaints left lateral hip pain, right radicular LE pain History of Current Condition Pt is a 79 year old female presenting with a six month history of left hip pain, and recent worsening right hip and radicular leg pain. Pt reports she fell onto her hip about 18 months ago, and it was sore for a while, but then it went away. Pt notes that pain suddenly returned 6 months ago, and it is very point specific near her left greater trochanter. Pt reports pain is extreme after getting up in the morning, standing up after sitting for an extended period of time, or lifting her leg up into her car. Additionally, pt has been experiencing a dull ache in her right posterior hip, which then has some occasional radicular symptoms (pain, numbness) down her right leg. Pt has also noticed that she is unable to stand up straight , with both her knees and hip flexed during standing and ambulation. Pt has been using a cane since her hip pain began, but admits she doesn't even know how to use it. Prior Treatments and Tests 4 years s/p right NILO Treatment Goals Patient/Caregiver Goals Decrease bilateral hip pain, improve standing/walking posture PT-OP-C Subjective Start: 09/25/19 13:17 Freq: Status: Active Protocol: Document 10/10/19 09:45 DCW (Rec: 10/10/19 10:29 DCW [id number]) OP-PT Subjective Patient Comments Patient Comments Pt feels that she doesn't have any anterior hip pain any more, but her bursitis is still bothering her on her left side. Pt reports her right leg feels tight, but it's not bothering me nearly as much as the bursitis. PT-OP-F Manual Assessment Start: 09/25/19 13:17 Freq: Status: Active Protocol: Document 09/25/19 09:45 DCW (Rec: 09/25/19 14:57 DCW [id number]) Manual Assessments Soft Tissue Assessment Soft Tissue Mobility Assessment B Psoas: Severe tone, tenderness to palpation 3/4 - wincing and withdraw R Piriformis: Moderate Tone, tenderness to palpation 2/4 - pain with wincing L GT Bursa: Tenderness to palpation 3/4 - wincing and withdraw PT-OP-J Posture/Palpation/Skin Start: 09/25/19 13:17 Freq: Status: Active Protocol: Document 09/25/19 09:45 DCW (Rec: 09/25/19 14:57 DCW [id number]) Posture Evaluation Position Standing Evaluation View Lateral Hip Posture (L) Flexed,(R) Flexed Knee Posture (L) Excess Flexion,(R) Excess Flexion PT-OP-L Special Tests Start: 09/25/19 13:17 Freq: Status: Active Protocol: Document 09/25/19 09:45 DCW (Rec: 09/25/19 14:57 DCW [id number]) Special Tests Hip Special Tests Scour Test Test Results Positive L Piriformis Test Results Positive R BRITTANY Test Results Negative PT-OP-M Strength Start: 09/25/19 13:17 Freq: Status: Active Protocol: Document 09/25/19 09:45 DCW (Rec: 09/25/19 14:57 DCW [id number]) Hip Strength Hip Manual Muscle Testing Right Flexion (L2) 4+ Good+ Extension (S1) 4 Good Abduction 3+ Fair+ Adduction 5 Normal External Rotation 4- Good- Internal Rotation 4- Good- Left Flexion (L2) 4- Good- Extension (S1) 4- Good- Abduction 4 Good Adduction 5 Normal External Rotation 4 Good Internal Rotation 3+ Fair+ Knee Strength Knee Manual Muscle Testing Right Flexion (S2) 4+ Good+ Extension (L3) 4+ Good+ Left Flexion (S2) 4+ Good+ Extension (L3) 4+ Good+ PT-OP-Q Treatments Start: 09/25/19 13:17 Freq: Status: Active Protocol: Document 10/10/19 09:45 DCW (Rec: 10/10/19 10:29 DCW [id number]) Cardio Equipment Recumbent Bicycle Duration (Minutes) 5 Resistance 4 Seat Position 5 Therapeutic Exercises Supine Exercises Hamstring stretch Supine Exercise Name HS Stretch Side bilateral DKFO Supine Exercise Name supine Side bilateral Resistance Y Theraloop Reps/Minutes 3x10 Sidelying Exercises abduction Sidelying Exercise Name Hip Abduction Side bilateral Equipment Used x15 clam shell Sidelying Exercise Name hip ER Side bilateral Resistance AROM Reps/Minutes x15 Comments cued slow pacing control reverse clamshells Sidelying Exercise Name reverse clam (hip IR) Side bilateral Reps/Minutes x15 Comments cued slow pacing control Standing Exercises ITB Stretch Standing Exercise Name Standing ITB stretch Other Exercises Resisted Ambulation Other Exercise Name Resisted lateral ambulation Resistance Yellow Equipment Used T-band Manual Therapy Treatment Soft Tissue Mobilization 2 Body Location Psoas Mobilization Type Strumming,Sustained Pressure Intensity/Depth Moderate Body Position Supine 1 Body Location left ITB and right pirifmis Mobilization Type Myofascial Release,Sustained Pressure Intensity/Depth Superficial Body Position Sidelying Joint Mobilizations L hip Joint L hip joint mobs Direction Lateral Grade III Body Position Hooklying Comments /c strap PT-OP-R Modalities Start: 09/25/19 13:17 Freq: Status: Active Protocol: Document 10/08/19 09:45 DCW (Rec: 10/08/19 10:29 DCW [id number]) Hot Pack/Cold Pack Treatment Hot Pack Location B hips Patient Position Hooklying Treatment Duration (minutes) 10 PT-OP-T Assessment and Plan Start: 09/25/19 13:17 Freq: Status: Active Protocol: Document 10/10/19 09:45 DCW (Rec: 10/10/19 10:29 DCW [id number]) Physical Therapy Assessment Impairments Impairments Functional Mobility,Pain, Posture,Strength,Transfers Goals Five Impairment Pt ambulates with a flexed hip and knee posture Intravenous Therapy Nurse Goal (LTG) Pt to demonstrate neutral hip flexion/extension in standing 75% of the time with no verbal cues. LTG Duration 11/25/19 Four Impairment Significant B LE weakness Prison Goal (LTG) Pt LE MMT at least 4/5 in all tested planes LTG Duration 11/25/19 Three Impairment Pt struggles to lift left LE into car Short Term Goal (STG) Pt to lift leg into car 100% of the time with no difficulty STG Duration 10/25/19 Two Impairment Pt experiences extreme hip pain getting out of bed in the morning Intravenous Therapy Nurse Goal (LTG) Pt to exit bed in the morning with at most 3/10 pain. LTG Duration 11/25/19 One Impairment Pt does not have an appropriate home exercise program Short Term Goal (STG) Pt to be independent and compliant with an appropriate HEP STG Duration 10/25/19 Assessment Summary Assessment Overall pt showing great improvements, ITB and piriformis shows reduced tone, less pain with mobility, able to tolerate all activities. PT's main complaint continues to be left GT bursa, pt interested in trying to get another injection. Physical Therapy Plan Frequency and Duration Frequency of Treatment 2x/Week Duration of Treatment 10 weeks Plan of Care Start Date 09/25/19 Plan of Care End Date 12/04/19 Therapeutic Interventions Therapeutic Interventions Home Exercise Program,Joint Mobilizations,Manual Therapy, Patient/Caregiver Education, Self-Care/Home Management,Soft Tissue Mobilization,Taping, Therapeutic Activities, Therapeutic Exercises Modalities Cold Pack/Ice Massage,Electric Stimulation,Hot Packs, Iontophoresis,Ultrasound Other Therapeutic Interventions Iontophoresis /c Dexamethasone , 4 mg/mL Next Visit Focus/Plan Next Note Type Treatment Note Next Visit Plan Next tx Trial step ups. Continue POC: Flexibility, Hip strengthening, Modalities, posture training
--- NOTE | 2019-10-24 16:45 | PT.OTN ---
Current Diagnoses Unilateral primary osteoarthritis, left hip (10/24/19) Stiffness of unspecified hip, not elsewhere classified (10/24/19) Sciatica, right side (10/24/19) Trochanteric bursitis, left hip (10/24/19) Iliotibial band syndrome, left leg (10/24/19) Physical Therapy Treatment Note PT-OP-A Visit Information Start: 09/25/19 13:17 Freq: Status: Active Protocol: Document 10/24/19 16:00 DCW (Rec: 10/24/19 16:45 DCW [id number]) Out-Patient Physical Therapy Visit Information Visit Information Visit Type Treatment Note Visit Start Time 16:00 Visit Stop Time 16:45 Total Visit Minutes 45 Visit Number 7 Number of PHYSICIAN ASSISTANT PSYCHIATRY Visits 0 Evaluation Information Evaluation Date 09/25/19 PT-OP-B Current Condition Start: 09/25/19 13:17 Freq: Status: Active Protocol: Document 09/25/19 09:45 DCW (Rec: 09/25/19 14:57 DCW [id number]) Current Condition History of Current Condition Onset Date 6 months Current Complaints left lateral hip pain, right radicular LE pain History of Current Condition Pt is a 79 year old female presenting with a six month history of left hip pain, and recent worsening right hip and radicular leg pain. Pt reports she fell onto her hip about 18 months ago, and it was sore for a while, but then it went away. Pt notes that pain suddenly returned 6 months ago, and it is very point specific near her left greater trochanter. Pt reports pain is extreme after getting up in the morning, standing up after sitting for an extended period of time, or lifting her leg up into her car. Additionally, pt has been experiencing a dull ache in her right posterior hip, which then has some occasional radicular symptoms (pain, numbness) down her right leg. Pt has also noticed that she is unable to stand up straight , with both her knees and hip flexed during standing and ambulation. Pt has been using a cane since her hip pain began, but admits she doesn't even know how to use it. Prior Treatments and Tests 4 years s/p right NILO Treatment Goals Patient/Caregiver Goals Decrease bilateral hip pain, improve standing/walking posture PT-OP-C Subjective Start: 09/25/19 13:17 Freq: Status: Active Protocol: Document 10/24/19 16:00 DCW (Rec: 10/24/19 16:45 DCW [id number]) OP-PT Subjective Patient Comments Patient Comments Pt just returned from two weeks in [facility], reports her hips felt quite well during her trip, during which she did a lot of walking around. She also saw Dr Robbins this morning, who recommended continued PT. PT-OP-F Manual Assessment Start: 09/25/19 13:17 Freq: Status: Active Protocol: Document 09/25/19 09:45 DCW (Rec: 09/25/19 14:57 DCW [id number]) Manual Assessments Soft Tissue Assessment Soft Tissue Mobility Assessment B Psoas: Severe tone, tenderness to palpation 3/4 - wincing and withdraw R Piriformis: Moderate Tone, tenderness to palpation 2/4 - pain with wincing L GT Bursa: Tenderness to palpation 3/4 - wincing and withdraw PT-OP-J Posture/Palpation/Skin Start: 09/25/19 13:17 Freq: Status: Active Protocol: Document 09/25/19 09:45 DCW (Rec: 09/25/19 14:57 DCW [id number]) Posture Evaluation Position Standing Evaluation View Lateral Hip Posture (L) Flexed,(R) Flexed Knee Posture (L) Excess Flexion,(R) Excess Flexion PT-OP-L Special Tests Start: 09/25/19 13:17 Freq: Status: Active Protocol: Document 09/25/19 09:45 DCW (Rec: 09/25/19 14:57 DCW [id number]) Special Tests Hip Special Tests Scour Test Test Results Positive L Piriformis Test Results Positive R BRITTANY Test Results Negative PT-OP-M Strength Start: 09/25/19 13:17 Freq: Status: Active Protocol: Document 09/25/19 09:45 DCW (Rec: 09/25/19 14:57 DCW [id number]) Hip Strength Hip Manual Muscle Testing Right Flexion (L2) 4+ Good+ Extension (S1) 4 Good Abduction 3+ Fair+ Adduction 5 Normal External Rotation 4- Good- Internal Rotation 4- Good- Left Flexion (L2) 4- Good- Extension (S1) 4- Good- Abduction 4 Good Adduction 5 Normal External Rotation 4 Good Internal Rotation 3+ Fair+ Knee Strength Knee Manual Muscle Testing Right Flexion (S2) 4+ Good+ Extension (L3) 4+ Good+ Left Flexion (S2) 4+ Good+ Extension (L3) 4+ Good+ PT-OP-Q Treatments Start: 09/25/19 13:17 Freq: Status: Active Protocol: Document 10/24/19 16:00 DCW (Rec: 10/24/19 16:45 DCW [id number]) Cardio Equipment Recumbent Bicycle Duration (Minutes) 5 Resistance 5 Seat Position 5 Therapeutic Exercises Supine Exercises DKFO Supine Exercise Name supine Side bilateral Resistance Y Theraloop Reps/Minutes 3x10 Sidelying Exercises abduction Sidelying Exercise Name Hip Abduction Side bilateral Equipment Used x15 clam shell Sidelying Exercise Name hip ER Side bilateral Resistance AROM Reps/Minutes x15 Comments cued slow pacing control reverse clamshells Sidelying Exercise Name reverse clam (hip IR) Side bilateral Reps/Minutes x15 Comments cued slow pacing control Standing Exercises Hamstring Stretch Standing Exercise Name HS stretch at stairs Side bilateral Other Exercises Resisted Ambulation Other Exercise Name Resisted lateral ambulation Resistance Yellow Equipment Used T-band Manual Therapy Treatment Soft Tissue Mobilization 2 Body Location Psoas Mobilization Type Strumming,Sustained Pressure Intensity/Depth Moderate Body Position Supine 1 Body Location left ITB and right pirifmis Mobilization Type Myofascial Release,Sustained Pressure Intensity/Depth Superficial Body Position Sidelying PT-OP-R Modalities Start: 09/25/19 13:17 Freq: Status: Active Protocol: Document 10/08/19 09:45 DCW (Rec: 10/08/19 10:29 DCW [id number]) Hot Pack/Cold Pack Treatment Hot Pack Location B hips Patient Position Hooklying Treatment Duration (minutes) 10 PT-OP-T Assessment and Plan Start: 09/25/19 13:17 Freq: Status: Active Protocol: Document 10/24/19 16:00 DCW (Rec: 10/24/19 16:45 DCW [id number]) Physical Therapy Assessment Impairments Impairments Functional Mobility,Pain, Posture,Strength,Transfers Goals Five Impairment Pt ambulates with a flexed hip and knee posture Assistant Teacher Goal (LTG) Pt to demonstrate neutral hip flexion/extension in standing 75% of the time with no verbal cues. LTG Duration 11/25/19 Four Impairment Significant B LE weakness Nursing Home Goal (LTG) Pt LE MMT at least 4/5 in all tested planes LTG Duration 11/25/19 Three Impairment Pt struggles to lift left LE into car Short Term Goal (STG) Pt to lift leg into car 100% of the time with no difficulty STG Duration 10/25/19 Two Impairment Pt experiences extreme hip pain getting out of bed in the morning Assistant Teacher Goal (LTG) Pt to exit bed in the morning with at most 3/10 pain. LTG Duration 11/25/19 One Impairment Pt does not have an appropriate home exercise program Short Term Goal (STG) Pt to be independent and compliant with an appropriate HEP STG Duration 10/25/19 Assessment Summary Assessment Pt continuing to improve, much less overall restriction with her movement, minimal pain. Physical Therapy Plan Frequency and Duration Frequency of Treatment 2x/Week Duration of Treatment 10 weeks Plan of Care Start Date 09/25/19 Plan of Care End Date 12/04/19 Therapeutic Interventions Therapeutic Interventions Home Exercise Program,Joint Mobilizations,Manual Therapy, Patient/Caregiver Education, Self-Care/Home Management,Soft Tissue Mobilization,Taping, Therapeutic Activities, Therapeutic Exercises Modalities Cold Pack/Ice Massage,Electric Stimulation,Hot Packs, Iontophoresis,Ultrasound Other Therapeutic Interventions Iontophoresis /c Dexamethasone , 4 mg/mL Next Visit Focus/Plan Next Note Type Treatment Note Next Visit Plan Next tx Trial step ups. Continue POC: Flexibility, Hip strengthening, Modalities, posture training
--- NOTE | 2019-10-26 12:00 | PT.OTN ---
Current Diagnoses Unilateral primary osteoarthritis, left hip (10/26/19) Stiffness of unspecified hip, not elsewhere classified (10/26/19) Sciatica, right side (10/26/19) Trochanteric bursitis, left hip (10/26/19) Iliotibial band syndrome, left leg (10/26/19) Physical Therapy Treatment Note PT-OP-A Visit Information Start: 09/25/19 13:17 Freq: Status: Active Protocol: Document 10/26/19 11:15 DCW (Rec: 10/26/19 11:59 DCW [id number]) Out-Patient Physical Therapy Visit Information Visit Information Visit Type Treatment Note Visit Start Time 11:15 Visit Stop Time 12:00 Total Visit Minutes 45 Visit Number 8 Number of MOTION PICTURE COMMENTATOR Visits 0 Evaluation Information Evaluation Date 09/25/19 PT-OP-B Current Condition Start: 09/25/19 13:17 Freq: Status: Active Protocol: Document 09/25/19 09:45 DCW (Rec: 09/25/19 14:57 DCW [id number]) Current Condition History of Current Condition Onset Date 6 months Current Complaints left lateral hip pain, right radicular LE pain History of Current Condition Pt is a 79 year old female presenting with a six month history of left hip pain, and recent worsening right hip and radicular leg pain. Pt reports she fell onto her hip about 18 months ago, and it was sore for a while, but then it went away. Pt notes that pain suddenly returned 6 months ago, and it is very point specific near her left greater trochanter. Pt reports pain is extreme after getting up in the morning, standing up after sitting for an extended period of time, or lifting her leg up into her car. Additionally, pt has been experiencing a dull ache in her right posterior hip, which then has some occasional radicular symptoms (pain, numbness) down her right leg. Pt has also noticed that she is unable to stand up straight , with both her knees and hip flexed during standing and ambulation. Pt has been using a cane since her hip pain began, but admits she doesn't even know how to use it. Prior Treatments and Tests 4 years s/p right NILO Treatment Goals Patient/Caregiver Goals Decrease bilateral hip pain, improve standing/walking posture PT-OP-C Subjective Start: 09/25/19 13:17 Freq: Status: Active Protocol: Document 10/26/19 11:15 DCW (Rec: 10/26/19 11:59 DCW [id number]) OP-PT Subjective Patient Comments Patient Comments Pt reports she is feeling very good now, but was kind of sore when I woke up. It took a little bit of moving around for me to loosen up. PT-OP-F Manual Assessment Start: 09/25/19 13:17 Freq: Status: Active Protocol: Document 09/25/19 09:45 DCW (Rec: 09/25/19 14:57 DCW [id number]) Manual Assessments Soft Tissue Assessment Soft Tissue Mobility Assessment B Psoas: Severe tone, tenderness to palpation 3/4 - wincing and withdraw R Piriformis: Moderate Tone, tenderness to palpation 2/4 - pain with wincing L GT Bursa: Tenderness to palpation 3/4 - wincing and withdraw PT-OP-J Posture/Palpation/Skin Start: 09/25/19 13:17 Freq: Status: Active Protocol: Document 09/25/19 09:45 DCW (Rec: 09/25/19 14:57 DCW [id number]) Posture Evaluation Position Standing Evaluation View Lateral Hip Posture (L) Flexed,(R) Flexed Knee Posture (L) Excess Flexion,(R) Excess Flexion PT-OP-L Special Tests Start: 09/25/19 13:17 Freq: Status: Active Protocol: Document 09/25/19 09:45 DCW (Rec: 09/25/19 14:57 DCW [id number]) Special Tests Hip Special Tests Scour Test Test Results Positive L Piriformis Test Results Positive R BRITTANY Test Results Negative PT-OP-M Strength Start: 09/25/19 13:17 Freq: Status: Active Protocol: Document 09/25/19 09:45 DCW (Rec: 09/25/19 14:57 DCW [id number]) Hip Strength Hip Manual Muscle Testing Right Flexion (L2) 4+ Good+ Extension (S1) 4 Good Abduction 3+ Fair+ Adduction 5 Normal External Rotation 4- Good- Internal Rotation 4- Good- Left Flexion (L2) 4- Good- Extension (S1) 4- Good- Abduction 4 Good Adduction 5 Normal External Rotation 4 Good Internal Rotation 3+ Fair+ Knee Strength Knee Manual Muscle Testing Right Flexion (S2) 4+ Good+ Extension (L3) 4+ Good+ Left Flexion (S2) 4+ Good+ Extension (L3) 4+ Good+ PT-OP-Q Treatments Start: 09/25/19 13:17 Freq: Status: Active Protocol: Document 10/26/19 11:15 DCW (Rec: 10/26/19 11:59 DCW [id number]) Cardio Equipment Recumbent Bicycle Duration (Minutes) 6 Resistance 6 Seat Position 5 Gym Equipment Shuttle Recovery Unilateral Squats Resistance 50# Shuttle Recovery Platform Unstable Bilateral Squats Resistance 75#->100# Shuttle Recovery Platform Stable Therapeutic Exercises Supine Exercises ITB Stretch Supine Exercise Name ITB stretch Side left Hamstring stretch Supine Exercise Name HS Stretch Side bilateral Standing Exercises Step-ups Standing Exercise Name Step-ups Side bilateral Equipment Used 6 step Other Exercises Resisted Ambulation Other Exercise Name Resisted lateral ambulation Resistance Yellow Equipment Used T-band Manual Therapy Treatment Soft Tissue Mobilization 2 Body Location Psoas Mobilization Type Strumming,Sustained Pressure Intensity/Depth Moderate Body Position Supine 1 Body Location left ITB and right piriformis Mobilization Type Myofascial Release,Sustained Pressure Intensity/Depth Superficial Body Position Sidelying PT-OP-R Modalities Start: 09/25/19 13:17 Freq: Status: Active Protocol: Document 10/08/19 09:45 DCW (Rec: 10/08/19 10:29 DCW [id number]) Hot Pack/Cold Pack Treatment Hot Pack Location B hips Patient Position Hooklying Treatment Duration (minutes) 10 PT-OP-T Assessment and Plan Start: 09/25/19 13:17 Freq: Status: Active Protocol: Document 10/26/19 11:15 DCW (Rec: 10/26/19 11:59 DCW [id number]) Physical Therapy Assessment Impairments Impairments Functional Mobility,Pain, Posture,Strength,Transfers Goals Five Impairment Pt ambulates with a flexed hip and knee posture Farmworker Grain Goal (LTG) Pt to demonstrate neutral hip flexion/extension in standing 75% of the time with no verbal cues. LTG Duration 11/25/19 Four Impairment Significant B LE weakness Detention Goal (LTG) Pt LE MMT at least 4/5 in all tested planes LTG Duration 11/25/19 Three Impairment Pt struggles to lift left LE into car Short Term Goal (STG) Pt to lift leg into car 100% of the time with no difficulty STG Duration 10/25/19 Two Impairment Pt experiences extreme hip pain getting out of bed in the morning Detention Goal (LTG) Pt to exit bed in the morning with at most 3/10 pain. LTG Duration 11/25/19 One Impairment Pt does not have an appropriate home exercise program Short Term Goal (STG) Pt to be independent and compliant with an appropriate HEP STG Duration 10/25/19 Assessment Summary Assessment Pt moving better, able to tolerate increased activity without increased pain. Pt responded well to additional strengthening exercises. Physical Therapy Plan Frequency and Duration Frequency of Treatment 2x/Week Duration of Treatment 10 weeks Plan of Care Start Date 09/25/19 Plan of Care End Date 12/04/19 Therapeutic Interventions Therapeutic Interventions Home Exercise Program,Joint Mobilizations,Manual Therapy, Patient/Caregiver Education, Self-Care/Home Management,Soft Tissue Mobilization,Taping, Therapeutic Activities, Therapeutic Exercises Modalities Cold Pack/Ice Massage,Electric Stimulation,Hot Packs, Iontophoresis,Ultrasound Other Therapeutic Interventions Iontophoresis /c Dexamethasone , 4 mg/mL Next Visit Focus/Plan Next Note Type Treatment Note Next Visit Plan Continue POC: Flexibility, Hip strengthening, Modalities, posture training
--- NOTE | 2019-10-29 11:57 | PT.OTN ---
Current Diagnoses Unilateral primary osteoarthritis, left hip (10/29/19) Stiffness of unspecified hip, not elsewhere classified (10/29/19) Sciatica, right side (10/29/19) Trochanteric bursitis, left hip (10/29/19) Iliotibial band syndrome, left leg (10/29/19) Physical Therapy Treatment Note PT-OP-A Visit Information Start: 09/25/19 13:17 Freq: Status: Active Protocol: Document 10/29/19 11:15 DCW (Rec: 10/29/19 11:57 DCW [id number]) Out-Patient Physical Therapy Visit Information Visit Information Visit Type Treatment Note Visit Start Time 11:15 Visit Stop Time 12:00 Total Visit Minutes 45 Visit Number 9 Number of PACK PRESS OPERATOR Visits 0 Evaluation Information Evaluation Date 09/25/19 PT-OP-B Current Condition Start: 09/25/19 13:17 Freq: Status: Active Protocol: Document 09/25/19 09:45 DCW (Rec: 09/25/19 14:57 DCW [id number]) Current Condition History of Current Condition Onset Date 6 months Current Complaints left lateral hip pain, right radicular LE pain History of Current Condition Pt is a 79 year old female presenting with a six month history of left hip pain, and recent worsening right hip and radicular leg pain. Pt reports she fell onto her hip about 18 months ago, and it was sore for a while, but then it went away. Pt notes that pain suddenly returned 6 months ago, and it is very point specific near her left greater trochanter. Pt reports pain is extreme after getting up in the morning, standing up after sitting for an extended period of time, or lifting her leg up into her car. Additionally, pt has been experiencing a dull ache in her right posterior hip, which then has some occasional radicular symptoms (pain, numbness) down her right leg. Pt has also noticed that she is unable to stand up straight , with both her knees and hip flexed during standing and ambulation. Pt has been using a cane since her hip pain began, but admits she doesn't even know how to use it. Prior Treatments and Tests 4 years s/p right NILO Treatment Goals Patient/Caregiver Goals Decrease bilateral hip pain, improve standing/walking posture PT-OP-C Subjective Start: 09/25/19 13:17 Freq: Status: Active Protocol: Document 10/29/19 11:15 DCW (Rec: 10/29/19 11:57 DCW [id number]) OP-PT Subjective Patient Comments Patient Comments Pt reports she is doing very well today. Right side is getting better, but her left side feels about the same. Notes it has been disturbing her sleep at night. PT-OP-F Manual Assessment Start: 09/25/19 13:17 Freq: Status: Active Protocol: Document 09/25/19 09:45 DCW (Rec: 09/25/19 14:57 DCW [id number]) Manual Assessments Soft Tissue Assessment Soft Tissue Mobility Assessment B Psoas: Severe tone, tenderness to palpation 3/4 - wincing and withdraw R Piriformis: Moderate Tone, tenderness to palpation 2/4 - pain with wincing L GT Bursa: Tenderness to palpation 3/4 - wincing and withdraw PT-OP-J Posture/Palpation/Skin Start: 09/25/19 13:17 Freq: Status: Active Protocol: Document 09/25/19 09:45 DCW (Rec: 09/25/19 14:57 DCW [id number]) Posture Evaluation Position Standing Evaluation View Lateral Hip Posture (L) Flexed,(R) Flexed Knee Posture (L) Excess Flexion,(R) Excess Flexion PT-OP-L Special Tests Start: 09/25/19 13:17 Freq: Status: Active Protocol: Document 09/25/19 09:45 DCW (Rec: 09/25/19 14:57 DCW [id number]) Special Tests Hip Special Tests Scour Test Test Results Positive L Piriformis Test Results Positive R BRITTANY Test Results Negative PT-OP-M Strength Start: 09/25/19 13:17 Freq: Status: Active Protocol: Document 09/25/19 09:45 DCW (Rec: 09/25/19 14:57 DCW [id number]) Hip Strength Hip Manual Muscle Testing Right Flexion (L2) 4+ Good+ Extension (S1) 4 Good Abduction 3+ Fair+ Adduction 5 Normal External Rotation 4- Good- Internal Rotation 4- Good- Left Flexion (L2) 4- Good- Extension (S1) 4- Good- Abduction 4 Good Adduction 5 Normal External Rotation 4 Good Internal Rotation 3+ Fair+ Knee Strength Knee Manual Muscle Testing Right Flexion (S2) 4+ Good+ Extension (L3) 4+ Good+ Left Flexion (S2) 4+ Good+ Extension (L3) 4+ Good+ PT-OP-Q Treatments Start: 09/25/19 13:17 Freq: Status: Active Protocol: Document 10/29/19 11:15 DCW (Rec: 10/29/19 11:57 DCW [id number]) Cardio Equipment Recumbent Bicycle Duration (Minutes) 6 Resistance 6 Seat Position 5 Gym Equipment Shuttle Recovery Unilateral Squats Resistance 50# Shuttle Recovery Platform Unstable Bilateral Squats Resistance 100# Shuttle Recovery Platform Stable Therapeutic Exercises Supine Exercises ITB Stretch Supine Exercise Name ITB stretch Side left Hamstring stretch Supine Exercise Name HS Stretch Side bilateral Standing Exercises Step-ups Standing Exercise Name Step-ups Side bilateral Equipment Used 6 step Other Exercises Resisted Ambulation Other Exercise Name Resisted lateral ambulation Resistance Green Equipment Used T-band Manual Therapy Treatment Soft Tissue Mobilization 2 Body Location Psoas Mobilization Type Strumming,Sustained Pressure Intensity/Depth Moderate Body Position Supine 1 Body Location left ITB and right piriformis Mobilization Type Myofascial Release,Sustained Pressure Intensity/Depth Superficial Body Position Sidelying PT-OP-R Modalities Start: 09/25/19 13:17 Freq: Status: Active Protocol: Document 10/08/19 09:45 DCW (Rec: 10/08/19 10:29 DCW [id number]) Hot Pack/Cold Pack Treatment Hot Pack Location B hips Patient Position Hooklying Treatment Duration (minutes) 10 PT-OP-T Assessment and Plan Start: 09/25/19 13:17 Freq: Status: Active Protocol: Document 10/29/19 11:15 DCW (Rec: 10/29/19 11:57 DCW [id number]) Physical Therapy Assessment Impairments Impairments Functional Mobility,Pain, Posture,Strength,Transfers Goals Five Impairment Pt ambulates with a flexed hip and knee posture Train Clerk Goal (LTG) Pt to demonstrate neutral hip flexion/extension in standing 75% of the time with no verbal cues. LTG Duration 11/25/19 Four Impairment Significant B LE weakness Train Clerk Goal (LTG) Pt LE MMT at least 4/5 in all tested planes LTG Duration 11/25/19 Three Impairment Pt struggles to lift left LE into car Short Term Goal (STG) Pt to lift leg into car 100% of the time with no difficulty STG Duration 10/25/19 Two Impairment Pt experiences extreme hip pain getting out of bed in the morning Train Clerk Goal (LTG) Pt to exit bed in the morning with at most 3/10 pain. LTG Duration 11/25/19 One Impairment Pt does not have an appropriate home exercise program Short Term Goal (STG) Pt to be independent and compliant with an appropriate HEP STG Duration 10/25/19 Assessment Summary Assessment Pt progressing well, limited stiffness or pain during STM, unable to palpate any painful area around bursa. Physical Therapy Plan Frequency and Duration Frequency of Treatment 2x/Week Duration of Treatment 10 weeks Plan of Care Start Date 09/25/19 Plan of Care End Date 12/04/19 Therapeutic Interventions Therapeutic Interventions Home Exercise Program,Joint Mobilizations,Manual Therapy, Patient/Caregiver Education, Self-Care/Home Management,Soft Tissue Mobilization,Taping, Therapeutic Activities, Therapeutic Exercises Modalities Cold Pack/Ice Massage,Electric Stimulation,Hot Packs, Iontophoresis,Ultrasound Other Therapeutic Interventions Iontophoresis /c Dexamethasone , 4 mg/mL Next Visit Focus/Plan Next Note Type Treatment Note Next Visit Plan Continue POC: Flexibility, Hip strengthening, Modalities, posture training
--- NOTE | 2019-11-05 12:44 | PT.OTN ---
Current Diagnoses Unilateral primary osteoarthritis, left hip (11/05/19) Stiffness of unspecified hip, not elsewhere classified (11/05/19) Sciatica, right side (11/05/19) Trochanteric bursitis, left hip (11/05/19) Iliotibial band syndrome, left leg (11/05/19) Physical Therapy Treatment Note PT-OP-A Visit Information Start: 09/25/19 13:17 Freq: Status: Active Protocol: Document 11/05/19 12:00 DCW (Rec: 11/05/19 12:43 DCW [id number]) Out-Patient Physical Therapy Visit Information Visit Information Visit Type Progress Note Visit Start Time 12:00 Visit Stop Time 12:45 Total Visit Minutes 45 Visit Number 10 Number of CANCELING MACHINE OPERATOR Visits 0 Evaluation Information Evaluation Date 09/25/19 PT-OP-B Current Condition Start: 09/25/19 13:17 Freq: Status: Active Protocol: Document 09/25/19 09:45 DCW (Rec: 09/25/19 14:57 DCW [id number]) Current Condition History of Current Condition Onset Date 6 months Current Complaints left lateral hip pain, right radicular LE pain History of Current Condition Pt is a 79 year old female presenting with a six month history of left hip pain, and recent worsening right hip and radicular leg pain. Pt reports she fell onto her hip about 18 months ago, and it was sore for a while, but then it went away. Pt notes that pain suddenly returned 6 months ago, and it is very point specific near her left greater trochanter. Pt reports pain is extreme after getting up in the morning, standing up after sitting for an extended period of time, or lifting her leg up into her car. Additionally, pt has been experiencing a dull ache in her right posterior hip, which then has some occasional radicular symptoms (pain, numbness) down her right leg. Pt has also noticed that she is unable to stand up straight , with both her knees and hip flexed during standing and ambulation. Pt has been using a cane since her hip pain began, but admits she doesn't even know how to use it. Prior Treatments and Tests 4 years s/p right NILO Treatment Goals Patient/Caregiver Goals Decrease bilateral hip pain, improve standing/walking posture PT-OP-C Subjective Start: 09/25/19 13:17 Freq: Status: Active Protocol: Document 11/05/19 12:00 DCW (Rec: 11/05/19 12:43 DCW [id number]) OP-PT Subjective Patient Comments Patient Comments The right side is fine, no problems. The left side seems to have changed. Instead of that pain right on the bursa, it feels like it has moved more to the back of my hip, and it's more like an electric nerve pain. PT-OP-F Manual Assessment Start: 09/25/19 13:17 Freq: Status: Active Protocol: Document 09/25/19 09:45 DCW (Rec: 09/25/19 14:57 DCW [id number]) Manual Assessments Soft Tissue Assessment Soft Tissue Mobility Assessment B Psoas: Severe tone, tenderness to palpation 3/4 - wincing and withdraw R Piriformis: Moderate Tone, tenderness to palpation 2/4 - pain with wincing L GT Bursa: Tenderness to palpation 3/4 - wincing and withdraw PT-OP-J Posture/Palpation/Skin Start: 09/25/19 13:17 Freq: Status: Active Protocol: Document 09/25/19 09:45 DCW (Rec: 09/25/19 14:57 DCW [id number]) Posture Evaluation Position Standing Evaluation View Lateral Hip Posture (L) Flexed,(R) Flexed Knee Posture (L) Excess Flexion,(R) Excess Flexion PT-OP-L Special Tests Start: 09/25/19 13:17 Freq: Status: Active Protocol: Document 09/25/19 09:45 DCW (Rec: 09/25/19 14:57 DCW [id number]) Special Tests Hip Special Tests Scour Test Test Results Positive L Piriformis Test Results Positive R BRITTANY Test Results Negative PT-OP-M Strength Start: 09/25/19 13:17 Freq: Status: Active Protocol: Document 09/25/19 09:45 DCW (Rec: 09/25/19 14:57 DCW [id number]) Hip Strength Hip Manual Muscle Testing Right Flexion (L2) 4+ Good+ Extension (S1) 4 Good Abduction 3+ Fair+ Adduction 5 Normal External Rotation 4- Good- Internal Rotation 4- Good- Left Flexion (L2) 4- Good- Extension (S1) 4- Good- Abduction 4 Good Adduction 5 Normal External Rotation 4 Good Internal Rotation 3+ Fair+ Knee Strength Knee Manual Muscle Testing Right Flexion (S2) 4+ Good+ Extension (L3) 4+ Good+ Left Flexion (S2) 4+ Good+ Extension (L3) 4+ Good+ PT-OP-Q Treatments Start: 09/25/19 13:17 Freq: Status: Active Protocol: Document 11/05/19 12:00 DCW (Rec: 11/05/19 12:43 DCW [id number]) Cardio Equipment Recumbent Bicycle Duration (Minutes) 6 Resistance 6 Seat Position 5 Gym Equipment Shuttle Recovery Unilateral Squats Resistance 50# Shuttle Recovery Platform Unstable Bilateral Squats Resistance 100# Shuttle Recovery Platform Stable Therapeutic Exercises Supine Exercises Piriformis stretch Supine Exercise Name L Piriformis stretch Comments Manual Hamstring stretch Supine Exercise Name HS Stretch Side bilateral Standing Exercises Hip IR/ER Standing Exercise Name Hip IR/ER Side left Resistance Lv 2 Equipment Used L knee on stool Other Exercises Resisted Ambulation Other Exercise Name Resisted lateral ambulation Resistance Green Equipment Used T-band Manual Therapy Treatment Soft Tissue Mobilization 2 Body Location Psoas Mobilization Type Strumming,Sustained Pressure Intensity/Depth Moderate Body Position Supine 1 Body Location left ITB and piriformis Mobilization Type Myofascial Release,Sustained Pressure Intensity/Depth Superficial Body Position Sidelying PT-OP-R Modalities Start: 09/25/19 13:17 Freq: Status: Active Protocol: Document 10/08/19 09:45 DCW (Rec: 10/08/19 10:29 DCW [id number]) Hot Pack/Cold Pack Treatment Hot Pack Location B hips Patient Position Hooklying Treatment Duration (minutes) 10 PT-OP-T Assessment and Plan Start: 09/25/19 13:17 Freq: Status: Active Protocol: Document 11/05/19 12:00 DCW (Rec: 11/05/19 12:43 DCW [id number]) Physical Therapy Assessment Impairments Impairments Functional Mobility,Pain, Posture,Strength,Transfers Goals Five Impairment Pt ambulates with a flexed hip and knee posture Longterm Goal (LTG) Pt to demonstrate neutral hip flexion/extension in standing 75% of the time with no verbal cues. LTG Duration 11/25/19 Four Impairment Significant B LE weakness Manager Merchandise Goal (LTG) Pt LE MMT at least 4/5 in all tested planes LTG Duration 11/25/19 Three Impairment Pt struggles to lift left LE into car Short Term Goal (STG) Pt to lift leg into car 100% of the time with no difficulty STG Duration 10/25/19 Two Impairment Pt experiences extreme hip pain getting out of bed in the morning Longterm Goal (LTG) Pt to exit bed in the morning with at most 3/10 pain. LTG Duration 11/25/19 One Impairment Pt does not have an appropriate home exercise program Short Term Goal (STG) Pt to be independent and compliant with an appropriate HEP STG Duration 10/25/19 Assessment Summary Assessment Pt seemingly presenting with now with left sided piriformis tightness, however previous pain and tightness in right piriformis and left ITB is minimal. Pt should do well with continued therapy, continuing to progress to improve LE strength and decrease hip pain. Physical Therapy Plan Frequency and Duration Frequency of Treatment 2x/Week Duration of Treatment 10 weeks Plan of Care Start Date 09/25/19 Plan of Care End Date 12/04/19 Therapeutic Interventions Therapeutic Interventions Home Exercise Program,Joint Mobilizations,Manual Therapy, Patient/Caregiver Education, Self-Care/Home Management,Soft Tissue Mobilization,Taping, Therapeutic Activities, Therapeutic Exercises Modalities Cold Pack/Ice Massage,Electric Stimulation,Hot Packs, Iontophoresis,Ultrasound Other Therapeutic Interventions Iontophoresis /c Dexamethasone , 4 mg/mL Next Visit Focus/Plan Next Note Type Treatment Note Next Visit Plan Continue POC: Flexibility, Hip strengthening, Modalities, posture training
--- NOTE | 2019-11-07 12:45 | PT.OTN ---
Current Diagnoses Unilateral primary osteoarthritis, left hip (11/07/19) Stiffness of unspecified hip, not elsewhere classified (11/07/19) Sciatica, right side (11/07/19) Trochanteric bursitis, left hip (11/07/19) Iliotibial band syndrome, left leg (11/07/19) Physical Therapy Treatment Note PT-OP-A Visit Information Start: 09/25/19 13:17 Freq: Status: Active Protocol: Document 11/07/19 12:00 DCW (Rec: 11/07/19 12:45 DCW [id number]) Out-Patient Physical Therapy Visit Information Visit Information Visit Type Treatment Note Visit Start Time 11:15 Visit Stop Time 12:00 Total Visit Minutes 45 Visit Number 11 Number of IRON GUARDRAIL INSTALLER Visits 0 Evaluation Information Evaluation Date 09/25/19 PT-OP-B Current Condition Start: 09/25/19 13:17 Freq: Status: Active Protocol: Document 09/25/19 09:45 DCW (Rec: 09/25/19 14:57 DCW [id number]) Current Condition History of Current Condition Onset Date 6 months Current Complaints left lateral hip pain, right radicular LE pain History of Current Condition Pt is a 79 year old female presenting with a six month history of left hip pain, and recent worsening right hip and radicular leg pain. Pt reports she fell onto her hip about 18 months ago, and it was sore for a while, but then it went away. Pt notes that pain suddenly returned 6 months ago, and it is very point specific near her left greater trochanter. Pt reports pain is extreme after getting up in the morning, standing up after sitting for an extended period of time, or lifting her leg up into her car. Additionally, pt has been experiencing a dull ache in her right posterior hip, which then has some occasional radicular symptoms (pain, numbness) down her right leg. Pt has also noticed that she is unable to stand up straight , with both her knees and hip flexed during standing and ambulation. Pt has been using a cane since her hip pain began, but admits she doesn't even know how to use it. Prior Treatments and Tests 4 years s/p right NILO Treatment Goals Patient/Caregiver Goals Decrease bilateral hip pain, improve standing/walking posture PT-OP-C Subjective Start: 09/25/19 13:17 Freq: Status: Active Protocol: Document 11/07/19 12:00 DCW (Rec: 11/07/19 12:45 DCW [id number]) OP-PT Subjective Patient Comments Patient Comments Pt feeling well overall, notes her right side has no pain, but it still feels tight during the night. PT-OP-F Manual Assessment Start: 09/25/19 13:17 Freq: Status: Active Protocol: Document 09/25/19 09:45 DCW (Rec: 09/25/19 14:57 DCW [id number]) Manual Assessments Soft Tissue Assessment Soft Tissue Mobility Assessment B Psoas: Severe tone, tenderness to palpation 3/4 - wincing and withdraw R Piriformis: Moderate Tone, tenderness to palpation 2/4 - pain with wincing L GT Bursa: Tenderness to palpation 3/4 - wincing and withdraw PT-OP-J Posture/Palpation/Skin Start: 09/25/19 13:17 Freq: Status: Active Protocol: Document 09/25/19 09:45 DCW (Rec: 09/25/19 14:57 DCW [id number]) Posture Evaluation Position Standing Evaluation View Lateral Hip Posture (L) Flexed,(R) Flexed Knee Posture (L) Excess Flexion,(R) Excess Flexion PT-OP-L Special Tests Start: 09/25/19 13:17 Freq: Status: Active Protocol: Document 09/25/19 09:45 DCW (Rec: 09/25/19 14:57 DCW [id number]) Special Tests Hip Special Tests Scour Test Test Results Positive L Piriformis Test Results Positive R BRITTANY Test Results Negative PT-OP-M Strength Start: 09/25/19 13:17 Freq: Status: Active Protocol: Document 09/25/19 09:45 DCW (Rec: 09/25/19 14:57 DCW [id number]) Hip Strength Hip Manual Muscle Testing Right Flexion (L2) 4+ Good+ Extension (S1) 4 Good Abduction 3+ Fair+ Adduction 5 Normal External Rotation 4- Good- Internal Rotation 4- Good- Left Flexion (L2) 4- Good- Extension (S1) 4- Good- Abduction 4 Good Adduction 5 Normal External Rotation 4 Good Internal Rotation 3+ Fair+ Knee Strength Knee Manual Muscle Testing Right Flexion (S2) 4+ Good+ Extension (L3) 4+ Good+ Left Flexion (S2) 4+ Good+ Extension (L3) 4+ Good+ PT-OP-Q Treatments Start: 09/25/19 13:17 Freq: Status: Active Protocol: Document 11/07/19 12:00 DCW (Rec: 11/07/19 12:45 DCW [id number]) Cardio Equipment Recumbent Bicycle Duration (Minutes) 6 Resistance 6 Seat Position 5 Therapeutic Exercises Supine Exercises Piriformis stretch Supine Exercise Name L Piriformis stretch Comments Manual Hamstring stretch Supine Exercise Name HS Stretch Side bilateral Other Exercises Resisted Ambulation Other Exercise Name Resisted lateral ambulation Resistance Green Equipment Used T-band Manual Therapy Treatment Soft Tissue Mobilization 2 Body Location Psoas Mobilization Type Strumming,Sustained Pressure Intensity/Depth Moderate Body Position Supine 1 Body Location left ITB and piriformis Mobilization Type Myofascial Release,Sustained Pressure Intensity/Depth Superficial Body Position Sidelying PT-OP-R Modalities Start: 09/25/19 13:17 Freq: Status: Active Protocol: Document 10/08/19 09:45 DCW (Rec: 10/08/19 10:29 DCW [id number]) Hot Pack/Cold Pack Treatment Hot Pack Location B hips Patient Position Hooklying Treatment Duration (minutes) 10 PT-OP-T Assessment and Plan Start: 09/25/19 13:17 Freq: Status: Active Protocol: Document 11/07/19 12:00 DCW (Rec: 11/07/19 12:45 DCW [id number]) Physical Therapy Assessment Impairments Impairments Functional Mobility,Pain, Posture,Strength,Transfers Goals Five Impairment Pt ambulates with a flexed hip and knee posture [facility] Goal (LTG) Pt to demonstrate neutral hip flexion/extension in standing 75% of the time with no verbal cues. LTG Duration 11/25/19 Four Impairment Significant B LE weakness [facility] Goal (LTG) Pt LE MMT at least 4/5 in all tested planes LTG Duration 11/25/19 Three Impairment Pt struggles to lift left LE into car Short Term Goal (STG) Pt to lift leg into car 100% of the time with no difficulty STG Duration 10/25/19 Two Impairment Pt experiences extreme hip pain getting out of bed in the morning Health Care Analyst Goal (LTG) Pt to exit bed in the morning with at most 3/10 pain. LTG Duration 11/25/19 One Impairment Pt does not have an appropriate home exercise program Short Term Goal (STG) Pt to be independent and compliant with an appropriate HEP STG Duration 10/25/19 Assessment Summary Assessment Pt doing well today, still experiencing some generalized soreness in left hip, but overall much better than she previously had been. Physical Therapy Plan Frequency and Duration Frequency of Treatment 2x/Week Duration of Treatment 10 weeks Plan of Care Start Date 09/25/19 Plan of Care End Date 12/04/19 Therapeutic Interventions Therapeutic Interventions Home Exercise Program,Joint Mobilizations,Manual Therapy, Patient/Caregiver Education, Self-Care/Home Management,Soft Tissue Mobilization,Taping, Therapeutic Activities, Therapeutic Exercises Modalities Cold Pack/Ice Massage,Electric Stimulation,Hot Packs, Iontophoresis,Ultrasound Other Therapeutic Interventions Iontophoresis /c Dexamethasone , 4 mg/mL Next Visit Focus/Plan Next Note Type Treatment Note Next Visit Plan Continue POC: Flexibility, Hip strengthening, Modalities, posture training
--- NOTE | 2020-01-21 16:31 | PT.OPDS ---
Current Diagnoses Unilateral primary osteoarthritis, left hip (11/07/19) Stiffness of unspecified hip, not elsewhere classified (11/07/19) Sciatica, right side (11/07/19) Trochanteric bursitis, left hip (11/07/19) Iliotibial band syndrome, left leg (11/07/19) Visit Care Team Role Provider Type Twan Mora MD Primary Care Provider Physician Specialty: Internal Medicine Address: [address] [place] [address], [id number] Email: [email or web address] Ayaan Robbins MD Attending Provider Physician Specialty: Orthopedic Surgery Address: [address] [place] [address], [address] Email: [email or web address] Visit Number Visit Number 11 Discharge Summary PT-OP-B Current Condition Start: 09/25/19 13:17 Freq: Status: Active Protocol: Document 09/25/19 09:45 DCW (Rec: 09/25/19 14:57 DCW [id number]) Current Condition History of Current Condition Onset Date 6 months Current Complaints left lateral hip pain, right radicular LE pain History of Current Condition Pt is a 79 year old female presenting with a six month history of left hip pain, and recent worsening right hip and radicular leg pain. Pt reports she fell onto her hip about 18 months ago, and it was sore for a while, but then it went away. Pt notes that pain suddenly returned 6 months ago, and it is very point specific near her left greater trochanter. Pt reports pain is extreme after getting up in the morning, standing up after sitting for an extended period of time, or lifting her leg up into her car. Additionally, pt has been experiencing a dull ache in her right posterior hip, which then has some occasional radicular symptoms (pain, numbness) down her right leg. Pt has also noticed that she is unable to stand up straight , with both her knees and hip flexed during standing and ambulation. Pt has been using a cane since her hip pain began, but admits she doesn't even know how to use it. Prior Treatments and Tests 4 years s/p right NILO Treatment Goals Patient/Caregiver Goals Decrease bilateral hip pain, improve standing/walking posture PT-OP-C Subjective Start: 09/25/19 13:17 Freq: Status: Active Protocol: Document 11/07/19 12:00 DCW (Rec: 11/07/19 12:45 DCW [id number]) OP-PT Subjective Patient Comments Patient Comments Pt feeling well overall, notes her right side has no pain, but it still feels tight during the night. PT-OP-F Manual Assessment Start: 09/25/19 13:17 Freq: Status: Active Protocol: Document 09/25/19 09:45 DCW (Rec: 09/25/19 14:57 DCW [id number]) Manual Assessments Soft Tissue Assessment Soft Tissue Mobility Assessment B Psoas: Severe tone, tenderness to palpation 3/4 - wincing and withdraw R Piriformis: Moderate Tone, tenderness to palpation 2/4 - pain with wincing L GT Bursa: Tenderness to palpation 3/4 - wincing and withdraw PT-OP-J Posture/Palpation/Skin Start: 09/25/19 13:17 Freq: Status: Active Protocol: Document 09/25/19 09:45 DCW (Rec: 09/25/19 14:57 DCW [id number]) Posture Evaluation Position Standing Evaluation View Lateral Hip Posture (L) Flexed,(R) Flexed Knee Posture (L) Excess Flexion,(R) Excess Flexion PT-OP-L Special Tests Start: 09/25/19 13:17 Freq: Status: Active Protocol: Document 09/25/19 09:45 DCW (Rec: 09/25/19 14:57 DCW [id number]) Special Tests Hip Special Tests Scour Test Test Results Positive L Piriformis Test Results Positive R BRITTANY Test Results Negative PT-OP-M Strength Start: 09/25/19 13:17 Freq: Status: Active Protocol: Document 09/25/19 09:45 DCW (Rec: 09/25/19 14:57 DCW [id number]) Hip Strength Hip Manual Muscle Testing Right Flexion (L2) 4+ Good+ Extension (S1) 4 Good Abduction 3+ Fair+ Adduction 5 Normal External Rotation 4- Good- Internal Rotation 4- Good- Left Flexion (L2) 4- Good- Extension (S1) 4- Good- Abduction 4 Good Adduction 5 Normal External Rotation 4 Good Internal Rotation 3+ Fair+ Knee Strength Knee Manual Muscle Testing Right Flexion (S2) 4+ Good+ Extension (L3) 4+ Good+ Left Flexion (S2) 4+ Good+ Extension (L3) 4+ Good+ PT-OP-T Assessment and Plan Start: 09/25/19 13:17 Freq: Status: Active Protocol: Document 01/21/20 16:20 DCW (Rec: 01/21/20 16:30 DCW [id number]) Physical Therapy Assessment Impairments Impairments Functional Mobility,Pain, Posture,Strength,Transfers Goals Five Impairment Pt ambulates with a flexed hip and knee posture Long-Term Goal (LTG) Pt to demonstrate neutral hip flexion/extension in standing 75% of the time with no verbal cues. LTG Duration 11/25/19 Four Impairment Significant B LE weakness Long-Term Goal (LTG) Pt LE MMT at least 4/5 in all tested planes LTG Duration 11/25/19 Three Impairment Pt struggles to lift left LE into car Short Term Goal (STG) Pt to lift leg into car 100% of the time with no difficulty STG Duration 10/25/19 Two Impairment Pt experiences extreme hip pain getting out of bed in the morning Long-Term Goal (LTG) Pt to exit bed in the morning with at most 3/10 pain. LTG Duration 11/25/19 One Impairment Pt does not have an appropriate home exercise program Short Term Goal (STG) Pt to be independent and compliant with an appropriate HEP STG Duration 10/25/19 Assessment Summary Assessment Pt phoned clinic to request discharge Physical Therapy Plan Frequency and Duration Frequency of Treatment 2x/Week Duration of Treatment 10 weeks Plan of Care Start Date 09/25/19 Plan of Care End Date 12/04/19 Therapeutic Interventions Therapeutic Interventions Home Exercise Program,Joint Mobilizations,Manual Therapy, Patient/Caregiver Education, Self-Care/Home Management,Soft Tissue Mobilization,Taping, Therapeutic Activities, Therapeutic Exercises Modalities Cold Pack/Ice Massage,Electric Stimulation,Hot Packs, Iontophoresis,Ultrasound Other Therapeutic Interventions Iontophoresis /c Dexamethasone , 4 mg/mL Discharge Physical Therapy Discharge Reasons Patient Request Next Visit Focus/Plan Next Note Type Discharge Summary
== END 2020-01-22 13:15 ==
LOC: PHYS 12:00
PROVIDERS: PCP Internal Medicine; Visit Provider Orthopaedic Surgery
DX: M70.62 Trochanteric bursitis, left hip (principal); M76.32 Iliotibial band syndrome, left leg; M16.12 Unilateral primary osteoarthritis, left hip; M25.659 Stiffness of unspecified hip, not elsewhere classified; M54.31 Sciatica, right side
CPT/HCPCS: 97010; 97035; 97110; 97140; 97162

== ENCOUNTER → 2019-12-07 12:13 | Outpatient (CLI) | payer MEDICARE, SELFPAY | PROVIDERS: PCP Internal Medicine; Visit Provider Orthopaedic Surgery | DX: M51.9 Unspecified thoracic, thoracolumbar and lumbosacral intervertebral disc disorder (principal); Z53.8 Procedure and treatment not carried out for other reasons ==

== ENCOUNTER → 2019-12-12 17:44 | Outpatient (CLI) | payer MEDICARE, SELFPAY ==
--- NOTE | 2019-12-12 17:46 | DI.MRI.S_ITS ---
PROCEDURE: MR LUMBAR SPINE WO CON INDICATIONS: INTERVERTERBRAL DISC DISORDER WITH RADICULOPATHY TECHNIQUE: Noncontrast sagittal T1 spin echo and T2 fast echo, sagittal STIR, axial T1 and T2 fast spin echo through the lumbar spine. In cases with scoliosis, additional coronal T2 fast spin echo may be performed. COMPARISON: None. FINDINGS: Image quality: Excellent. Alignment and Curvature: There is trace L1-L2, L2-L3 and L3-L4 retrolisthesis. There is mild L4-L5 and L5-S1 anterolisthesis. There is convex left scoliosis. Bone Marrow: Reactive endplate changes adjacent L1-L2, L2-L3, L3-L4 L4-L5 and L5-S1 discs. No acute vertebral body compression fractures. Spinal Cord: Conus medullaris terminates at the L1 level. Visualized cord demonstrates normal signal and size. Paraspinous Soft Tissues: No paravertebral masses. Bilateral renal cysts. L1-L2: Loss of disc signal and height. Moderate, diffuse disc bulge. Mild narrowing of the central canal. Mild bilateral neural foraminal narrowing. No neural compression. L2-L3: Loss of disc signal and height. Moderate, diffuse disc bulge. Mild narrowing of the central canal. Mild bilateral neural foraminal narrowing. No neural compression. L3-L4: Loss of disc signal and height. Mild, diffuse disc bulge. Mild bilateral facet hypertrophy. Mild to moderate narrowing of the central canal. Mild bilateral neural foraminal narrowing. No neural compression. L4-L5: Loss of disc signal and height. Mild, diffuse disc bulge. Severe facet hypertrophy. Severe narrowing of the central canal with compression of the nerve roots of the cauda equina. Mild bilateral neural foraminal narrowing. L5-S1: Loss of disc signal and height. Mild, diffuse disc bulge. Severe bilateral facet hypertrophy. Mild narrowing of the central canal. Moderate right and severe left neural foraminal narrowing with compression of the exiting left L5 nerve root. IMPRESSION: 1. Multilevel degenerative disc disease. 2. Multilevel facet arthropathy. 3. Convex left scoliosis. 4. Severe L4-L5 central canal narrowing with compression of the nerve roots of the cauda equina. 5. Severe left L5-S1 with neural foraminal narrowing with compression of the exiting left L5 nerve root. Dictated by: Lisbeth Kapoor MD, PhD on 12/13/2019 at 10:40 Approved by: Lisbeth Kapoor MD, PhD on 12/13/2019 at 10:53
== END ==
PROVIDERS: PCP Internal Medicine; Visit Provider Orthopaedic Surgery
DX: M51.16 Intervertebral disc disorders with radiculopathy, lumbar region (principal); M51.17 Intervertebral disc disorders with radiculopathy, lumbosacral region; M47.26 Other spondylosis with radiculopathy, lumbar region; M47.27 Other spondylosis with radiculopathy, lumbosacral region; M48.061 Spinal stenosis, lumbar region without neurogenic claudication; M48.07 Spinal stenosis, lumbosacral region; M41.86 Other forms of scoliosis, lumbar region
CPT/HCPCS: 72148

== ENCOUNTER → 2019-12-12 17:51 | Outpatient (CLI) | payer MEDICARE, SELFPAY | PROVIDERS: PCP Internal Medicine; Visit Provider Orthopaedic Surgery | DX: M51.16 Intervertebral disc disorders with radiculopathy, lumbar region (principal); M51.17 Intervertebral disc disorders with radiculopathy, lumbosacral region; M47.26 Other spondylosis with radiculopathy, lumbar region; M47.27 Other spondylosis with radiculopathy, lumbosacral region; M48.061 Spinal stenosis, lumbar region without neurogenic claudication; M48.07 Spinal stenosis, lumbosacral region; M41.86 Other forms of scoliosis, lumbar region ==

== ENCOUNTER → 2019-12-13 11:00 | Outpatient (CLI) | payer MEDICARE, SELFPAY ==
[2019-12-13 12:30] LABS: Add Manual Diff / Slide Review NO; Basophils Absolute Auto 0 /uL (0-100); Basophils Percent Auto 0.6 % (0-2); Eosinophils Absolute Auto 100 /uL (0-450); Eosinophils Percent Auto 1.1 % (2-4); Hematocrit 35.5 % (36-46); Hemoglobin 12.2 g/dL (12.0-16.0); Lymphocytes Absolute Auto 1300 /uL (1100-4500); Lymphocytes Percent Auto 16.9 % (25-40); Mean Corpuscular HGB Conc 34.4 % (30-36); Mean Corpuscular Hemoglobin 34.5 PG (26-34); Mean Corpuscular Volume 100.5 fL (80-100); Monocytes Absolute Auto 700 /uL (0-900); Monocytes Percent Auto 8.5 % (3-14); Neutrophils Absolute Auto 5600 /uL (1500-7000); Neutrophils Percent Auto 72.9 % (50-75); Platelet Count 237 X10^3/uL (150-400); Red Blood Cell Count 3.53 X10^6/uL (4.0-5.2); Red Cell Distribution Width 12.9 % (11.6-14.8); White Blood Cell Count 7.7 X10^3/uL (4.5-11.0)
[2019-12-13 12:43] LABS: HEMOLYSIS < 15 (0-50); Iron 117 ug/dL (37-170)
[2019-12-13 12:55] LABS: Percent Iron Saturation 30 % (15-50); Total Iron Binding Capacity 395 ug/dL (265-497); Transferrin 324 mg/dL (206-381)
== END ==
PROVIDERS: PCP Internal Medicine; Visit Provider Internal Medicine
DX: D64.9 Anemia, unspecified (principal)
CPT/HCPCS: 36415; 83540; 83550; 85025

== ENCOUNTER → 2020-01-11 11:54 | Outpatient (CLI) | payer MEDICARE, SELFPAY ==
[2020-01-11 12:38] LABS: Add Manual Diff / Slide Review NO; Basophils Absolute Auto 0 /uL (0-100); Basophils Percent Auto 0.4 % (0-2); Eosinophils Absolute Auto 100 /uL (0-450); Eosinophils Percent Auto 1.2 % (2-4); Hemoglobin 11.3 g/dL (12.0-16.0); Lymphocytes Absolute Auto 1300 /uL (1100-4500); Lymphocytes Percent Auto 17.9 % (25-40); Mean Corpuscular HGB Conc 34.3 % (30-36); Mean Corpuscular Hemoglobin 34.6 PG (26-34); Mean Corpuscular Volume 100.9 fL (80-100); Monocytes Absolute Auto 600 /uL (0-900); Monocytes Percent Auto 8.6 % (3-14); Neutrophils Absolute Auto 5400 /uL (1500-7000); Neutrophils Percent Auto 71.9 % (50-75); Platelet Count 224 X10^3/uL (150-400); Red Blood Cell Count 3.27 X10^6/uL (4.0-5.2); White Blood Cell Count 7.5 X10^3/uL (4.5-11.0)
[2020-01-11 13:20] LABS: BUN Creatinine Ratio 16.7 (6-22); Blood Urea Nitrogen 15 mg/dL (7-17); Carbon Dioxide 28 mmol/L (22-32); Chloride 101 mmol/L (98-107); Estimated Glomerular Filt Rate > 60.0 mL/min (>60); Glucose 86 mg/dL (80-110); HEMOLYSIS < 15 (0-50); Potassium 4.5 mmol/L (3.4-5.1); Sodium 137 mmol/L (137-145)
== END ==
PROVIDERS: PCP Internal Medicine; Referring Provider Orthopaedic Surgery; Visit Provider Orthopaedic Surgery
DX: Z01.818 Encounter for other preprocedural examination (principal); Z01.812 Encounter for preprocedural laboratory examination
CPT/HCPCS: 36415; 80048; 85025; 93005

== ENCOUNTER 2020-01-25 12:52 | Observation (INO) | payer MEDICARE, SELFPAY ==
[2020-01-17 12:38] VITALS: BMI 20.5
[2020-01-24] VITALS (14 sets, daily range): BP systolic 97–128; BP diastolic 42–59; PULSE 62–79; RESP 7–20; TEMP 36.2–37.4; O2SAT 92–100; BMI 20.5
--- NOTE | 2020-01-24 | DI.RAD.S_ITS ---
PROCEDURE: XR LUMBAR SPINE 2-3V INDICATIONS: L4-L5, L5-S1 TLIF TECHNIQUE: 2 views of the lumbar spine were acquired. COMPARISON: None. FINDINGS: 2 spot fluoroscopic intraoperative images demonstrating L4-L5, and L5-S1 posterior spinal fixation hardware and interbody cage grafts. Dictated by: Rob Shea M.D. on 01/24/2020 at 16:51 Approved by: Rob Shea M.D. on 01/24/2020 at 16:59
[2020-01-24] MEDS: ACETAMINOPHEN 325 MG TABLET 975 MG PO ×2 (10:01→20:59)
[2020-01-24] MEDS: GABAPENTIN 300 MG CAPSULE PO ×2 (10:01→20:59)
[2020-01-24] MEDS: LACTATED RINGERS 1,000 ML 42 ML IV ×2 (10:01→12:24)
--- NOTE | 2020-01-24 11:15 | PM.PREOP ---
Pre-operative Note Interval Note History & Physical reviewed/Exam performed by Physician: Yes Changes to H&P: No
--- NOTE | 2020-01-24 12:27 | SUR.OPER ---
Prone on spine table, head in foam head support, padded chest and pelvic supports, gel pad at knees, lower legs supported by pillows; nipples, genitalia and toes free of pressure, arms secured on foam padded arm boards at <90 degrees abduction. Tape over blanket at thigh secured to table.
[2020-01-24] MEDS: SODIUM CHLORIDE 0.9% 1,000 ML, GENTAMICIN 80 MG IRR (12:29)
[2020-01-24] MEDS: THROMBIN (RECOMBINANT) 5,000 UNIT VIAL 5000 UNIT TOP (12:30)
[2020-01-24] MEDS: BUPIVACAINE 0.5% (PF) 4 ML, MORPHINE-PF 4 MG, BUTORPHANOL 1 MG, fentaNYL 100 MCG INJ (14:30)
[2020-01-24] MEDS: VANCOMYCIN 1,000 MG VIAL 1000 MG TOP (14:32)
--- NOTE | 2020-01-24 15:38 | P.OP_ITS ---
Operative Date/Time/Diagnoses Date of procedure: 01/24/20 Time of procedure: 15:38 Pre-op diagnosis: Lumbar stenosis with radiculopathy Lumbar scoliosis Post-op diagnosis: same Procedure & Clinicians Procedure: L4-5, L5-S1 TLIF with cages L4, L5, S1 screws Iliac crest bone graft aspirate L4-5, L5-S1 laminectomies Use of microscope Placement of epidural catheter Same procedure as scheduled: Yes Indications: [age] year old female with intractable pain from stenosis and scoliosis. They had failed conservative management and requested operative intervention. Risks and benefits of surgery were discussed and appropriate consents were obtained. Surgeon: Oscar Hamilton [employer] Counterperson: Radha Varela Anesthesia Type: General Operative Notes Findings: none Closure Type: primary Specimen(s): none sent Prosthetic devices, grafts, tissues, transplants, or devices: Nuvasive MAS Reline screws Globus Rise cage Applied: catheter Estimated Blood Loss (mL): 50 Blood products transfused: none Procedure in detail: The patient was brought to the operating room and intubated on the table. A time-out was performed. They were then rolled over to the well- padded Kraig table in the prone position. Preoperative antibiotics were given. The back was prepped and draped in the standard sterile fashion. Using fluoroscopy, a 5 cm longitudinal incision was made to the well-marked left of the midline. We used Bovie to come down to and split the lumbodorsal fascia. Using fluoroscopy and monitoring, we then percutaneously placed Jamshidi needles down the pedicles of L4, L5, and S1 on the left side. These were changed out to guidewires and then we tapped and then placed the NuVasive MAS Reline screw shanks. We then opened up the retractors and used Bovie to clear up the poste rolateral gutter at L5-S1 as well as medially along the lamina to the spinous processes. A bur was used to decorticate the transverse processes and sacral ala. We brought in the microscope. Using a combination of bur and Kerrison rongeurs, a laminectomy was performed from the left side. We cleared over past the midline and carefully depressed the dura until we were able to decompress the opposite side. We cleared out the neural foramen. This completed the laminectomy at L5-S1. This was separate and distinct from the TLIF approach as we were decompressing the canal and the nerves. We then began the TLIF prep. A complete facetectomy was performed on this side at L5-S1. We carefully cleaned up the remainder of the foramen until we could easily retract the exiting root as well as clearing medially below the dura and expose the disc space. The disc was prepped with bipolar and then an annulotomy was performed. We performed a diskectomy using a combination of paddles, aryan, pituitaries, and curettes. We distracted the disc using a paddle and locked the retractor in an open position. We then filled the disc space with Osteocel bone graft. We then placed the globus Rise cage under fluoroscopy and then filled this in with more bone graft. The distraction on the retractor was released to compress down. This completed the posterior interbody fusion portion of the TLIF at L5-S1. We then moved our retractor blades up to L4-5. We cleared out the gutter and medially. A bur was used to decorticate the L4 transverse process. We used a combination of bur, Kerrisons, and rongeur is to perform a laminectomy at L4-5. We had to reach across the midline to remove the large facet hypertrophy on the other side and adequately decompress the central canal. We cleared up the ne ural foramen. To open some of this up we want up removing a portion of the pedicle and the screw was exposed medially but there was no contact near the nerves. We then began the prep for the interbody work. The dura was carefully retracted and the disc was prepped. A scalpel used to perform an annulotomy. We used paddles, Aryan, pituitaries, and curettes to perform a complete diskectomy at L4-5. We then placed bone graft into the disc space and then placed our globus Rise cage and expanded under fluoroscopy. More bone graft was packed. This completed the posterior interbody fusion portion of the TLIF at L4-5. We then placed the screw heads, connor, and locked down the set screws. The wound was copiously irrigated. A small stab incision was made over the PSIS. We used a Jamshidi needle to aspirate several mL of bone marrow from the pelvis. This was mixed with the remaining Osteocel and combined with all of the locally harvested bone graft and placed in the posterolateral gutter for the posterior fusion of the TLIF at L4 through S1. An epidural catheter was then placed in the spinal canal by carefully depressing the dura and advancing it 6 cm cephalad under the remaining lamina without resistance. The muscle fascia was closed. The catheter was then injected with a solution containing 4 mL of 0.5% Marcaine, 1 mg Stadol, 4 mg Duramorph, and 100 mcg of fentanyl. This was injected without resistance and the catheter was pulled. We then went to the opposite side. Again using fluoroscopy, a 5 cm incision was made and Bovie was used to come down to split the fascia. Using neural monitoring and fluoroscopy, Jamshidi needles were advanced down the pedicles of L4, L5, and S1 on the right side. These were switched over guidewires, tapped, and screws placed. We then placed a connor and locked the set screws on this side. The wound was irrigated. The fascia was closed. Vancomycin powder was placed in the wounds. The superficial and skin were closed. A sterile dressing was placed. The patient was then rolled over extubated and brought to recovery room without complications. Complications: none Post-operative Condition: stable Disposition: PACU Plan for aftercare: Admit to the hospital. Mobilize as tolerated
--- NOTE | 2020-01-24 15:53 | SUR.PHASEI ---
Bedside report given to Melo Parmar RN. Pt in stable condition, vss. Transferred care of pt to Melo Parmar at this time.
[2020-01-24] MEDS: LACTATED RINGERS 1,000 ML 125 ML IV (17:38)
[2020-01-24] MEDS: CEFAZOLIN 2 GM/100 ML FROZ.PIGGY IV (18:51)
[2020-01-24] MEDS: CELECOXIB 200 MG CAPSULE PO (20:59)
[2020-01-24] MEDS: SENNOSIDES 8.6 MG TABLET 17.2 MG PO (20:59)
[2020-01-24] MEDS: DOCUSATE 100 MG CAPSULE PO (20:59)
[2020-01-24] MEDS: ACYCLOVIR 400 MG TABLET PO (20:59)
[2020-01-25] VITALS (7 sets, daily range): BP systolic 92–114; BP diastolic 43–63; PULSE 52–71; RESP 15–18; TEMP 36–37.1; O2SAT 95–100
[2020-01-25] MEDS: LACTATED RINGERS 1,000 ML 125 ML IV (00:48)
[2020-01-25] MEDS: CEFAZOLIN 2 GM/100 ML FROZ.PIGGY IV (01:50)
[2020-01-25 05:27] LABS: Hematocrit 29.9 % (36-46); Hemoglobin 10.2 g/dL (12.0-16.0)
[2020-01-25] MEDS: PANTOPRAZOLE 20 MG TABLET PO (06:10)
--- NOTE | 2020-01-25 08:12 | PM.PNPO.1 ---
Subjective Subjective Date Patient Seen: 01/25/20 Time Patient Seen: 08:12 Interval history: She is doing very well. Minimal pain, only taking Tylenol. Exam Vital Signs (past 8 hours): - 01/25/20 00:16 01/25/20 01:10 01/25/20 04:14 Temperature 96.8 F L 97.9 F Pulse Rate 63 71 54 L Respiratory Rate 16 16 Blood Pressure 93/52 L 101/63 113/50 L Pulse Oximetry 98 100 Oxygen Delivery Method Nasal Cannula Oxygen Flow Rate 2 Const Orientation: alert and oriented x3 Back/Spine/Pelvis Other: CDI. 5/5 motor both lower extremities Objective Labs Result Diagrams: 01/25/20 05:10 Labs: Laboratory Results - last 24 hr 01/25/20 05:10 Hgb 10.2 L Hct 29.9 L Assessment & Plan Post-op Postoperative Procedures: Procedures Operation Date: 01/24/20 11:15 Actual Procedures Side Surgeon p L4-S1 Laminectomy and instrumented fusion (TLIF) w/bone graft Not Applicable Oscar Hamilton MD she is doing great. Mobilize today with physical therapy. Anticipate 2-3 days in the hospital total. Quality VTE Deep Vein Thrombosis/Pulmonary Embolism Present on Admission: No
[2020-01-25] MEDS: ACETAMINOPHEN 325 MG TABLET 975 MG PO ×3 (09:03→21:13)
[2020-01-25] MEDS: FISH OIL 1,000 MG CAPSULE 1000 MG PO (09:04)
[2020-01-25] MEDS: DOCUSATE 100 MG CAPSULE PO ×2 (09:04→21:13)
[2020-01-25] MEDS: CELECOXIB 200 MG CAPSULE PO ×2 (09:04→21:13)
[2020-01-25] MEDS: ESCITALOPRAM 10 MG TABLET 20 MG PO (09:06)
[2020-01-25] MEDS: DORZOLAMIDE 2% OPHTH 10 ML 1 DROPS EYE-BOTH ×2 (09:08→21:14)
[2020-01-25] MEDS: MAGNESIUM OXIDE 400 MG TABLET PO (09:09)
--- NOTE | 2020-01-25 10:16 | PT.IIE ---
Current Diagnoses Unilateral primary osteoarthritis, left hip (01/24/20) Other forms of scoliosis, lumbar region (01/24/20) Spondylolisthesis, lumbar region (01/24/20) Spinal stenosis, lumbar region with neurogenic claudication (01/24/20) Surgery Performed Operation Date: 01/24/20 11:15 Actual Procedures p L4-S1 Laminectomy and instrumented fusion (TLIF) w/bone graft(Not Applicable) - Oscar Hamilton MD Surgical History (Last Updated 01/17/20 @ 13:27 by Mayela Schmitz RN) H/O bilateral mastectomy (Acute) History of bilateral salpingo-oophorectomy (Acute 2013) History of bladder suspension procedure History of colonoscopy (Acute) History of esophagogastroduodenoscopy (EGD) (Acute) History of hip replacement History of third molar tooth extraction Hx of heart surgery (Acute ~01/2013) Status post laparoscopic cholecystectomy Status post laser cataract surgery of right eye (Acute) Status post tonsillectomy and adenoidectomy Status post tubal ligation Medical History (Last Updated 01/17/20 @ 13:35 by Mayela Schmitz RN) Alcoholism (Acute) Anemia (Acute) Anxiety and depression (Acute) Arthritis (Acute) Ascending aorta enlargement (Acute) Ascending aortic aneurysm (Acute) 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 (Acute) Breast cancer, right (Acute) CAD (coronary artery disease) (Acute) Easy bruisability (Acute) GERD (gastroesophageal reflux disease) (Acute) HLD (hyperlipidemia) (Acute) Hypertension (Acute) Polymyalgia (Acute) Raynauds syndrome (Acute) Sciatica (Acute) Seasonal allergies (Acute) Sinus bradycardia (Acute) Physical Therapy Inpatient Evaluation/Re-Eval M1 PT/OT-IP Prior Functional Status Start: 01/25/20 08:04 Freq: NEEDED Status: Active Protocol: Document 01/25/20 08:10 (Rec: 01/25/20 10:15 [email or web address]) Medical Review Prior Functional Status Medical History Reviewed Yes Diet/Fluid Consistency Regular Communication no deficits noted. able to make needs known Mobility and Gait Pt reports she has poor balance and had 2 falls last year. She does not need AD for home and community mobility but did need INHALATION THERAPY TEACHER from from time to time. Activities of Daily Living and IADL's independent for all ADLs and IADLs but she does not drive due to visual problem. Social History Household Members spouse Living Arrangements House Number of Floors (Floors) Two Floors Number of Stairs To Enter/Railing? 3 SPIKE with R rail bedroom on 2nd floor with 12- 14 steps and landing in between. Has 2 rails Home Environment High Toilet,Walk in Shower Home Equipment Front Wheel Walker,Straight Cane,Grab Bars In Shower Employment Status Retired Additional Social History Comment Pt lives with his in [place]. She also has a dtr who lives closeby and able to assist as needed. Pt had L NILO before. Pt stated she could sleep in the guestroom on [facility] if needed. M2 PT-IP Current Condition Start: 01/25/20 08:04 Freq: NEEDED Status: Active Protocol: Document 01/25/20 08:10 HH (Rec: 01/25/20 10:15 [email or web address]) Physical Therapy Current Condition Current Condition Evaluation Date 01/25/20 Treatment Diagnosis L4-S1 TLIF, difficulty in walking Onset Date 01/24/20 Precautions Lumbar Precautions Log Roll,No Twisting,Limit Bending,Lifting Restriction of 10 lbs,Gait Belt above Incisional Area Weight Bearing Status Weight Bearing Status Full Weight Bearing M3 PT-IP Subjective Start: 01/25/20 08:04 Freq: NEEDED Status: Active Protocol: Document 01/25/20 08:10 HH (Rec: 01/25/20 10:15 [email or web address]) Subjective Physical Therapy Visit Type Type Initial Evaluation Visit Start Time 08:10 Visit Stop Time 08:40 Total Visit Minutes [address]. Minimal pain reported. Pt's dtr attended session Number of CRITICAL CARE TECHNICIAN Visits 0 Physical Therapy Visit Comments Patient Comments I feel great today and i did have a little pain when I turned to the side. Patient Goals To return home with family Therapy Pain Assessment Pain When Pain Assessed During Mobility Pain Present Pain Present Pain Reported Location Back Intensity 3 Scale Used Numeric (1 - 10) Description Aching Pain Management Techniques Timing of Activity with Medications M4 PT-IP Mobility and Gait Start: 01/25/20 08:04 Freq: NEEDED Status: Active Protocol: Document 01/25/20 08:10 HH (Rec: 01/25/20 10:15 [email or web address]) PT-Bed Mobility Assessment Rolling Type of Rolling Log Rolling,Roll to Right Level of Assist Minimal Assistance,1 Person Assistance Supine to Sit Supine to Sit Minimal Assistance,1 Person Assistance,Bedrails Scooting Scooting to Edge of Bed Contact Guard Assistance PT-Transfer Assessment Sit to and From Stand Sit to and from Stand Contact Guard Assistance,Use of Upper Extremities Equipment Transfer Assistive Device Gait Belt,Front Wheeled Walker Orthotic/Prosthetic Devices or Brace: No Transfers Transfer Destination Bed,Chair Transfer Technique Stand Step Pivot Transfer Ability Level of Assist Contact Guard Assistance,1 Person Assistance,Use of Upper Extremities Comments Mobility Comments Pt was in bed upon PT arrival with dtr at bedside. Pt denies any discomfort and agreeable to mobilize with PT. Pt initially appears very sharky to initiate movements and stated this is not her baseline. She has difficulty log roll to her R side and needed cues to bend and push through B LEs. She then needed min A for sidelying to sit. BP at 152/59. She then stood up with CGA FWW. She amb 1 lap of [facility] and returned to chair. She was able to be cautious and reached for armrest for descend from stand to sit. Pt rested comfortably in chair wtih call light within reach. Pt appeared to be less shaky at the end of session. BP at 122/57. Notified SUZETTE Tam regarding her new onset of shakiness. Gait Assessment Gait Gait Assistance Required: Contact Guard Assist Distance (Feet) 130 Able to Maintain Weight Bearing Status Yes During Gait Assistive Devices Assistive Device Gait Belt,Front Wheeled Walker Orthotic/Prosthetic Devices or Brace: No Gait Deviations General Gait Pattern Decreased Stride Length, Decreased Feet Clearance Factors Limiting Gait Function Factors Limiting Gait Function Decreased Activity Tolerance, Decreased Strength,Limited Range of Motion,Pain,Poor Balance Comments Gait Comments Pt initially amb with step to pattern within the room but progressed to step over pattern. Pt reports slight increase in R posterior hip pain towards the end of session by WB on RLE. Pt overall safe and steady Stair Climbing Assessment Comments Stair Climbing Comments did not assess d/t fatigue PT-Balance Assessment Sitting Balance and Reactions Static Sitting Balance Ability Normal Dynamic Sitting Balance Ability Normal Standing Balance and Reactions Static Standing Balance Ability Normal Dynamic Standing Balance Ability Good Device Used FWW M5 PT-IP Objective Assessments Start: 01/25/20 08:04 Freq: NEEDED Status: Active Protocol: Document 01/25/20 08:10 HH (Rec: 01/25/20 10:15 [email or web address]) Orientation Orientation/Cognition Level of Alertness Alert Orientation Name,Age,Birthday,Month,Date, Year,Day of Week,Place, Situation Language Function Ability No Deficits Noted Safety Awareness Understands Safety Issues Memory Description No Deficits Noted Gross Range of Motion Upper Extremity ROM Assessment Within Functional Limits Lower Extremity ROM Assessment Within Functional Limits Strength Upper Extremity Strength Assessment Within Functional Limits Lower Extremity Strength Assessment Within Functional Limits Comments Strength Comments symmetrical strength on BLEs. Coordination Assessment Gross Coordination Gross Coordination WNL Sensation Assessment Sensation Gross Sensation WNL Comments Sensation Comments reports symmetrical sensation to LT and pressure on BLEs. Muscle Tone Muscle Tone WNL Yes M6 PT-IP Treatment Start: 01/25/20 08:04 Freq: NEEDED Status: Active Protocol: Document 01/25/20 08:10 (Rec: 01/25/20 10:15 [email or web address]) Physical Therapy Treatment Education Education Provided Precautions,Weight Bearing Status,Post-Op Packet,Safety M7 PT-IP Assessment and Plan Start: 01/25/20 08:04 Freq: NEEDED Status: Active Protocol: Document 01/25/20 08:10 (Rec: 01/25/20 10:15 [email or web address]) PT Summary Assessment and Plan Potential Rehabilitation Potential Excellent Status of Condition at Evaluation Stable Summary Impairments Pain,ROM,Strength,Balance,Bed Mobility,Transfers,Gait, Activity Tolerance Assessment Summary This is a low complexity evaluation for this 79yo female s/p L4-S1 TLIF. PLOF: Independent for all mobility, ADLs and IADLs without AD but did have 2 falls last year. CLOF: Pt is able to use FWW for mobility slowly but did min A x 1 for log roll and supine to sit. Pt has new onset of resting tremors that both dtr and pt stated it's not normal , but it did improve at the end of session. Notifed SUZETTE Tam after and pt will cont benefit from skilled therapy to progress her mobility. Pt most likely will be able to d/c home with family assistance once she's cleared for CG training and stair cliimbing. Goals Bed Mobility Goal Standby Assistance Transfer Goal Standby Assistance,Contact Guard Assistance,Front Wheeled Walker Gait Goal Standby Assistance,Contact Guard Assistance,Front Wheel Walker Gait Distance 200 Other Goals 3 SPIKE with R rail 12-14 steps with R rail to 2nd floor/ pt can sleep on mainfloor Days to Meet Goals 3 Frequency of Treatment Frequency Of Treatment Twice a Day Treatment Plan Physical Therapy Treatment Plan Bed Mobility Training,Transfer Training,Gait Training, Therapeutic Exercise,Balance Retraining,Post Op Education, Discharge Planning,Hot or Cold Pack,Neuromuscular Re-ed Other Recommendations and Next Treatment review precautions, check BP Focus log roll and bed mob training 3 SPIKE with R rail 12-14 steps with R rail to 2nd floor/ pt can sleep on mainfloor Recommendations To Nursing Amount of Assist Needed 1 Person Assist Discharge Recommendations PT Discharge Recommendations Home with Assistance Equipment Needed for Home Before Pt stated she will acquire FWW Discharge from [employer] Transportation Needs at Discharge Private Vehicle
--- NOTE | 2020-01-25 10:37 | OT.IP.EVAL ---
Current Diagnoses Unilateral primary osteoarthritis, left hip (01/24/20) Other forms of scoliosis, lumbar region (01/24/20) Spondylolisthesis, lumbar region (01/24/20) Spinal stenosis, lumbar region with neurogenic claudication (01/24/20) Surgery Performed Operation Date: 01/24/20 11:15 Actual Procedures p L4-S1 Laminectomy and instrumented fusion (TLIF) w/bone graft(Not Applicable) - Oscar Hamilton MD Past Medical History (Last Updated 01/17/20 @ 13:35 by Mayela Schmitz RN) Alcoholism (Acute) Anemia (Acute) Anxiety and depression (Acute) Arthritis (Acute) Ascending aorta enlargement (Acute) Ascending aortic aneurysm (Acute) 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 (Acute) Breast cancer, right (Acute) CAD (coronary artery disease) (Acute) Easy bruisability (Acute) GERD (gastroesophageal reflux disease) (Acute) HLD (hyperlipidemia) (Acute) Hypertension (Acute) Polymyalgia (Acute) Raynauds syndrome (Acute) Sciatica (Acute) Seasonal allergies (Acute) Sinus bradycardia (Acute) Surgical History (Last Updated 01/17/20 @ 13:27 by Mayela Schmitz RN) H/O bilateral mastectomy (Acute) History of bilateral salpingo-oophorectomy (Acute 2013) History of bladder suspension procedure History of colonoscopy (Acute) History of esophagogastroduodenoscopy (EGD) (Acute) History of hip replacement History of third molar tooth extraction Hx of heart surgery (Acute ~01/2013) Status post laparoscopic cholecystectomy Status post laser cataract surgery of right eye (Acute) Status post tonsillectomy and adenoidectomy Status post tubal ligation Occupational Therapy Inpatient Evaluation/Re-Eval M1 PT/OT-IP Prior Functional Status Start: 01/25/20 08:04 Freq: NEEDED Status: Active Protocol: Document 01/25/20 11:55 CGR (Rec: 01/25/20 12:08 CGR [email or web address]) Medical Review Prior Functional Status Medical History Reviewed Yes Diet/Fluid Consistency Regular Communication no deficits noted. able to make needs known Mobility and Gait Pt reports she has poor balance and had 2 falls last year. She does not need AD for home and community mobility but did need WIRING TECHNICIAN from from time to time. Activities of Daily Living and IADL's independent for all ADLs and IADLs but she does not drive due to visual problem. Social History Household Members spouse Living Arrangements House Number of Floors (Floors) Two Floors Number of Stairs To Enter/Railing? 3 SPIKE with R rail bedroom on 2nd floor with 12- 14 steps and landing in between. Has 2 rails Home Environment High Toilet,Walk in Shower Home Equipment Front Wheel Walker,Straight Cane,Grab Bars In Shower Employment Status Retired Additional Social History Comment Pt lives with his in [place]. She also has a dtr who lives in the same neighborhood and able to assist as needed. Pt had L NILO before. Pt stated she [facility]. M2 OT-IP Current Condition Start: 01/25/20 11:54 Freq: Status: Active Protocol: Document 01/25/20 11:55 CGR (Rec: 01/25/20 12:08 CGR [email or web address]) Occupational Therapy Current Condition Current Condition Evaluation Date 01/25/20 Treatment Diagnosis L4-S1 Lami and TLIF witih bone graft Diagnosis Onset Date 01/24/20 Post Operative Precautions Lumbar Precautions Log Roll,No Twisting,Limit Bending,Lifting Restriction of 10 lbs,Gait Belt above Incisional Area M3 OT- IP Subjective and Pain Start: 01/25/20 11:54 Freq: Status: Active Protocol: Document 01/25/20 11:55 CGR (Rec: 01/25/20 12:08 CGR [email or web address]) OT- Subjective Occupational Therapy Visit Type Type Initial Evaluation Visit Start Time 09:20 Visit Stop Time 10:37 Total Visit Minutes 77 Notes Pt's and daughter present throughout session. OT Pain Assessment Pain When Pain Assessed At Rest Pain Present Pain Present Pain Reported Location Back Intensity 1 Scale Used Numeric (1 - 10) Management Techniques Modification of Treatment, Timing of Activity with Medications M4 OT- IP ADL's Start: 01/25/20 11:54 Freq: Status: Active Protocol: Document 01/25/20 11:55 CGR (Rec: 01/25/20 12:08 CGR [email or web address]) OT [id number] Comments OT Self-Feeding Comments Not meal time OT ADL-Grooming General Evaluation Grooming Ability Standby Assistance Areas Needing Assistance Combing/Brushing Hair,Face Washing Comments OT Grooming Comments Standing at sink OT ADL-Oral Care General Eval Oral Care Ability Standby Assistance Areas of Assistance Brushing Teeth,Retrieving/Set- Up of Items Comments Oral Care Comments Standing at sink OT ADL-Dressing General Eval Upper Body Dressing Ability Independent Lower Body Dressing Ability Standby Assistance Areas Needing Assistance Retrieving/Set-up of Clothing, Underpants/Brief,Pants/Shorts, Socks Assistive Devices Dressing Assistive Devices Corporate Development Analyst,Sock Aid Comments OT Dressing Comments Pt donned LB dressing using DME OT ADL-Toileting General Evaluation Toileting Ability Standby Assistance Areas Needing Assistance Manage Clothing,Perform Perineal Hygiene Comments OT Toileting Comments Seated on toielt OT ADL-Bathing Comments OT Bathing Comments Not performed in this session. M5 OT- IP IADL's Start: 01/25/20 11:54 Freq: Status: Active Protocol: Document 01/25/20 11:55 CGR (Rec: 01/25/20 12:08 CGR [email or web address]) OT-Instrumental Activities of Daily Living Deficits IADL Deficits Identified Deficits Home Safety Awareness Awareness of Need for Assistance at Home Good Awareness Ability to Problem Solve Emergency Able to Problem Solve Situations Medication Management Medication Management Caregiver Provides Supervision Money Management Money Management No Deficits Identified Meal Preparation Meal Preparation Caregiver Provides Assist Radiologic Technician Radiologic Technician Caregiver Provides Assist Driving Driving Comments 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 M6 OT- IP Functional Cognition Start: 01/25/20 11:54 Freq: Status: Active Protocol: Document 01/25/20 11:55 CGR (Rec: 01/25/20 12:08 CGR [email or web address]) Cognitive Factors Limiting Selfcare Function Cognitive Ability Level of Alertness Alert Patient Orientation Name,Age,Birthday,Month,Date, Year,Day of Week,Place, Situation Attention Span Ability Capable of Focused Attention, Capable of Sustained Attention Ability to Follow Commands Able to Follow Multi-Step Commands Memory Description No Deficits Noted Safety Awareness No Deficits Noted Problem Solving Ability No deficits Noted OT- Vision and Hearing OT- Hearing Assessment OT- Hearing Assessment WFL OT- Vision Assessment Vision History Cataracts,Blindness Visual Acuity No Vision Aides At Hospital Vision Assessment Comments 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 M7 OT- IP Mobility and Balance Start: 01/25/20 11:54 Freq: Status: Active Protocol: Document 01/25/20 11:55 CGR (Rec: 01/25/20 12:08 CGR [email or web address]) OT- Bed Mobility Assessment Rolling Type of Rolling Log Rolling Level of Assistance Standby Assistance Supine to Sit Supine to Sit Assist Standby Assistance Sit to Supine Sit to Supine Assist Standby Assistance Scooting Scooting to Edge of Bed Standby Assistance OT-Transfer Assessment Sit to and From Stand Sit to and from Stand Standby Assistance Transfers Transfer Ability Standby Assistance Technique Transfer Destination Bed,Chair,Toilet Transfer Technique Stand Step Pivot Devices Transfer Assistive Devices Gait Belt,Front Wheeled Walker Comments Mobility Comments Mobility around the room and bathroom. OT- Balance Assessment Sitting Balance and Reactions Static Sitting Balance Ability Good Dynamic Sitting Balance Ability Fair M8 OT- IP Objective Assessments Start: 01/25/20 11:54 Freq: Status: Active Protocol: Document 01/25/20 11:55 CGR (Rec: 01/25/20 12:08 CGR [email or web address]) OT Gross Range of Motion Upper Extremity Range of Motion Assessment Within Functional Limits OT Strength Upper Extremity Strength Assessment Within Functional Limits OT- Coordination Assessment Upper Extremity Finger to Nose Test Within Functional Limits Finger Tapping Test Within Functional Limits OT-Muscle Tone Assessment Muscle Tone WNL Yes OT Sensation Assessment Edema Edema Absent M9 OT- IP Assessment and Plan Start: 01/25/20 11:54 Freq: Status: Active Protocol: Document 01/25/20 11:55 CGR (Rec: 01/25/20 12:08 CGR [email or web address]) OT Summary Assessment and Plan Potential Rehabilitation Potential Good Analytic Complexity at Evaluation Low Summary OT Impairments Pain,Strength,Functional Mobility,Grooming,Dressing, Toileting,Bathing,Toilet Transfers,Shower Transfers, Activity Tolerance Progress Towards Goals Progressing Toward Goals Assessment Summary Pt presents as a low complexity evaluation s/p back sx. Pt is progressing well and has good home support. Pt will benefit from follow up with OT for showering and review of LB dressing. PT likely ok for d/c home with family support. Family planning to obtain a walker and shower seat from local vendor. Goals Self-Feeding Goal Independent Grooming Goal Independent Dressing Goal Independent Toileting Goal Independent Bathing Goal Independent Toilet Transfer Goal Independent Shower Transfer Goal Independent Days to Meet Goals 2 Frequency of Treatment Frequency Of Treatment Once a Day Treatment Plan OT Treatment Plan ADL Training,Functional Mobility,Patient/Family Education,Discharge Planning Other Treatment Recommendations and Next shower and review of LB Treatment Focus dressing. Discharge Recommendations OT Discharge Recommendations Home with Assistance Home Equipment Needs Pt's family planning to get shower chair and walker. Transportation Needs at Discharge Private Vehicle
[2020-01-25] MEDS: ACYCLOVIR 400 MG TABLET PO ×2 (11:27→21:24)
[2020-01-25] MEDS: TRAMADOL 50 MG TABLET PO (11:30)
--- NOTE | 2020-01-25 15:26 | PT.IPTN ---
Current Diagnoses Unilateral primary osteoarthritis, left hip (01/25/20) Other forms of scoliosis, lumbar region (01/25/20) Spondylolisthesis, lumbar region (01/25/20) Spinal stenosis, lumbar region with neurogenic claudication (01/25/20) Surgery Performed Operation Date: 01/24/20 11:15 Actual Procedures p L4-S1 Laminectomy and instrumented fusion (TLIF) w/bone graft(Not Applicable) - Oscar Hamilton MD Physical Therapy Treatment Note M2 PT-IP Current Condition Start: 01/25/20 08:04 Freq: NEEDED Status: Active Protocol: Document 01/25/20 08:10 HH (Rec: 01/25/20 10:15 [email or web address]) Physical Therapy Current Condition Current Condition Evaluation Date 01/25/20 Treatment Diagnosis L4-S1 TLIF, difficulty in walking Onset Date 01/24/20 Precautions Lumbar Precautions Log Roll,No Twisting,Limit Bending,Lifting Restriction of 10 lbs,Gait Belt above Incisional Area Weight Bearing Status Weight Bearing Status Full Weight Bearing M3 PT-IP Subjective Start: 01/25/20 08:04 Freq: NEEDED Status: Active Protocol: Document 01/25/20 15:26 AB (Rec: 01/25/20 16:30 AB [id number]) Subjective Physical Therapy Visit Type Type Treatment Note Visit Start Time 15:26 Visit Stop Time 16:00 Total Visit Minutes 34 Number of GREEN PROMOTIONS SPECIALIST Visits 0 Physical Therapy Visit Comments Patient Comments pt agreeable to do PT Therapy Pain Assessment Pain When Pain Assessed At Rest Pain Present Pain Present Pain Reported Location Back Intensity 2 Scale Used Numeric (1 - 10) Pain Management Techniques Elevation,Re-positioning, Timing of Activity with Medications M4 PT-IP Mobility and Gait Start: 01/25/20 08:04 Freq: NEEDED Status: Active Protocol: Document 01/25/20 15:26 AB (Rec: 01/25/20 16:30 AB [id number]) PT-Bed Mobility Assessment Rolling Type of Rolling Log Rolling Level of Assist Standby Assistance,1 Person Assistance Supine to Sit Supine to Sit Standby Assistance Sit to Supine Sit to Supine Standby Assistance PT-Transfer Assessment Sit to and From Stand Sit to and from Stand Contact Guard Assistance,1 Person Assistance,Use of Upper Extremities Equipment Transfer Assistive Device Bed Rail,Front Wheeled Walker Orthotic/Prosthetic Devices or Brace: No Transfers Transfer Destination Bed Transfer Technique Stand Step Pivot Transfer Ability Level of Assist Contact Guard Assistance,Use of Upper Extremities Comments Mobility Comments pt sitting on chair with family in room. asked pt regarding FWW and will borrow from [employer]. informed that [employer] is open and fridays only. pt sent her daughter to get one for her. pt completed sit to stand CGA and ambulated 30 + 100 ft using FWW. completed up/down stairs using bilateral rails and then just R rail. assisted back to her room. ambulated from w/c to bed using FWW CGA. completed bed mobility supine <>sit SBA and max cues for techniques as pt forgets on how to do log roll bed mobility. pt completed 3 sets. pt agreed to sit up on chair and transferred from bed to chair using FWW CGA. positioned pt on chair. call light and table placed within reach. Gait Assessment Gait Gait Assistance Required: Contact Guard Assist Distance (Feet) 100 Able to Maintain Weight Bearing Status Yes During Gait Assistive Devices Assistive Device Gait Belt,Front Wheeled Walker Orthotic/Prosthetic Devices or Brace: No Gait Deviations General Gait Pattern Antalgic,Decreased Stride Length,Decreased Feet Clearance Factors Limiting Gait Function Factors Limiting Gait Function Decreased Activity Tolerance, Decreased Strength,Difficulty Following Directions,Limited Range of Motion,Pain,Poor Balance,Poor Safety Awareness Comments Gait Comments pls refer to mobility section for details Stair Climbing Assessment Evaluation Level of Assist On Stairs Contact Guard Assistance, Minimal Assistance Devices Stair Climbing Assistive Devices Left Railing,Right Railing Technique/Endurance Stair Climbing Direction Ascend and Descend Stair Climbing Technique Step to Step Number of Steps Climbed 3 Stair Climbing Set # Repetitions (reps) 5 Comments Stair Climbing Comments completed up/down 3 steps x 4 reps using bilateral rails CGA and then just R rail ascending min A and cues. M5 PT-IP Objective Assessments Start: 01/25/20 08:04 Freq: NEEDED Status: Active Protocol: Document 01/25/20 08:10 (Rec: 01/25/20 10:15 [id number]) Orientation Orientation/Cognition Level of Alertness Alert Orientation Name,Age,Birthday,Month,Date, Year,Day of Week,Place, Situation Language Function Ability No Deficits Noted Safety Awareness Understands Safety Issues Memory Description No Deficits Noted Gross Range of Motion Upper Extremity ROM Assessment Within Functional Limits Lower Extremity ROM Assessment Within Functional Limits Strength Upper Extremity Strength Assessment Within Functional Limits Lower Extremity Strength Assessment Within Functional Limits Comments Strength Comments symmetrical strength on BLEs. Coordination Assessment Gross Coordination Gross Coordination WNL Sensation Assessment Sensation Gross Sensation WNL Comments Sensation Comments reports symmetrical sensation to LT and pressure on BLEs. Muscle Tone Muscle Tone WNL Yes M6 PT-IP Treatment Start: 01/25/20 08:04 Freq: NEEDED Status: Active Protocol: Document 01/25/20 15:26 AB (Rec: 01/25/20 16:30 AB [id number]) Physical Therapy Treatment Education Education Provided Precautions,Safety M7 PT-IP Assessment and Plan Start: 01/25/20 08:04 Freq: NEEDED Status: Active Protocol: Document 01/25/20 15:26 AB (Rec: 01/25/20 16:30 AB [id number]) PT Summary Assessment and Plan Potential Rehabilitation Potential Good Summary Impairments Pain,ROM,Strength,Balance, Coordination,Sensation,Tone, Cognition,Bed Mobility, Transfers,Gait,Activity Tolerance Progress Towards Goals Progressing Toward Goals Assessment Summary pt progressing with mobility and requires CGA to min A and cues for back precautions/ safety. pt stated that her spouse will be able to assist her. will conduct caregiver training when appropriate. will continue to assess progress. Goals Bed Mobility Goal Independent Transfer Goal Standby Assistance,Front Wheeled Walker Gait Goal Standby Assistance,Contact Guard Assistance,Front Wheel Walker Gait Distance 200 Other Goals 3 SPIKE with R rail 12-14 steps with R rail to 2nd floor/ pt can sleep on mainfloor Days to Meet Goals 3 Frequency of Treatment Frequency Of Treatment Twice a Day Treatment Plan Physical Therapy Treatment Plan Bed Mobility Training,Transfer Training,Gait Training, Therapeutic Exercise,Balance Retraining,Post Op Education, Discharge Planning,Hot or Cold Pack,Neuromuscular Re-ed Recommendations To Nursing Amount of Assist Needed 1 Person Assist Discharge Recommendations PT Discharge Recommendations Home with Assistance Equipment Needed for Home Before FWW Discharge Transportation Needs at Discharge Private Vehicle
--- NOTE | 2020-01-25 15:27 | CM.IDA ---
Initial DCP Assessment Note: Pt is a 79 yo female, resident of [place] , now POD#1 from spinal surgery w/ Dr Hamilton PCP: Twan Mora Payer: JOSSELYN/LAURA Reviewed chart, pt discussed in multidisciplinary rounds this morning. Therapy has cleared pt for return home w/family to assist and pt has planned for home, Dr Hamilton expects pt will remain in the hospital for an additional 2-3 days and then return home. No needs expected from DC planning team although will remain available in case DC needs or questions arise. BAYRON Alcazar
[2020-01-25] MEDS: SENNOSIDES 8.6 MG TABLET 17.2 MG PO (21:12)
[2020-01-25] MEDS: GABAPENTIN 300 MG CAPSULE PO (21:13)
[2020-01-25] MEDS: LATANOPROST 0.005% OPHTH 2.5 ML 1 DROPS EYE-BOTH (21:15)
[2020-01-26 00:04] VITALS: BP 102/44; PULSE 51; RESP 16; TEMP 36.6; O2SAT 97
[2020-01-26 05:11] VITALS: BP 113/55; PULSE 49; RESP 14; TEMP 35.9; O2SAT 94
[2020-01-26] MEDS: PANTOPRAZOLE 20 MG TABLET PO (05:30)
--- NOTE | 2020-01-26 07:23 | PM.PNPO.1 ---
Subjective Subjective Date Patient Seen: 01/26/20 Time Patient Seen: 07:23 Interval history: She is doing very well. Minimal pain. Has been up with physical therapy and feels comfortable moving on her own, but not yet independent. Exam Vital Signs (past 8 hours): - 01/26/20 00:04 01/26/20 05:11 Temperature 97.8 F 96.7 F L Pulse Rate 51 L 49 L Respiratory Rate 16 14 Blood Pressure 102/44 L 113/55 L Pulse Oximetry 97 94 Oxygen Delivery Method Room Air Oxygen Flow Rate 0 Const Orientation: alert and oriented x3 Back/Spine/Pelvis Other: CDI. 5/5 motor both lower extremities Objective Labs Result Diagrams: 01/25/20 05:10 Assessment & Plan Post-op Postoperative Procedures: Procedures Operation Date: 01/24/20 11:15 Actual Procedures Side Surgeon p L4-S1 Laminectomy and instrumented fusion (TLIF) w/bone graft Not Applicable Oscar Hamilton MD she is doing very well. We are going to mobilize her again today with physical therapy. If she is doing well and independent, could discharge home today. If not tomorrow. Quality VTE Deep Vein Thrombosis/Pulmonary Embolism Present on Admission: No
--- NOTE | 2020-01-26 07:24 | P.DS_ITS ---
History of Present Illness History of Present Illness Date Patient Seen: 01/26/20 Time Patient Seen: 07:25 Chief complaint: Translaminar Interbody Fusion/Laminotomy Narrative: 71-year-old female with severe pain and primarily in the left leg, some on the right. This has been progressing over time. She has been through epidural injections and physical therapy and is getting worse. Discharge Providers Provider Date of admission: 01/25/20 12:52 Discharge Date: 01/26/20 Primary care physician: Twan Mora MD Consults: 01/24/20 16:35 Consult to Occupational Therapy Evaluate & Treat Comment: Physician Instructions: Evaluate and treat Consult to Physical Therapy Evaluate & Treat Comment: Physician Instructions: Evaluate and Treat Discharge provider: Oscar Hamilton MD Summary Hospital Course Discharge Diagnosis: Lumbar stenosis with radiculopathy Lumbar scoliosis Hospital Course: She is brought to the operating room on 01/24/2020 where she underwent a L4-5 and L5-S1 laminectomy and instrumented fusion with TLIF. She did extremely well postoperatively. Minimal pain controlled with tramadol. She was up and walking with physical therapy and was independent by postoperative day 2. Exam Vital Signs (past 8 hours): - 01/26/20 00:04 01/26/20 05:11 Temperature 97.8 F 96.7 F L Pulse Rate 51 L 49 L Respiratory Rate 16 14 Blood Pressure 102/44 L 113/55 L Pulse Oximetry 97 94 Oxygen Delivery Method Room Air Oxygen Flow Rate 0 Const Orientation: alert and oriented x3 Back/Spine/Pelvis Other: CDI. 5/5 motor both lower extremities Objective Labs Result Diagrams: 01/25/20 05:10 Discharge Plan Discharge Plan Patient Disposition: Home Discharge comment: f/u 1.5 wks Discharge orders & Medications Prescriptions: New celecoxib [Celebrex] 200 mg Capsule 200 mg PO BID PRN (Reason: pain) Qty: 60 RF: 0 tramadol 50 mg Tablet 50 mg PO Q4HR PRN (Reason: Pain, Moderate (4-6)) Qty: 25 RF: 0 docusate sodium [DOK] 100 mg Capsule 100 mg PO BID PRN (Reason: constipation) Qty: 20 RF: 0 Continued acyclovir 800 MG tablet 400 mg PO BID Qty: 0 RF: 0 escitalopram oxalate [Lexapro] 10 MG tablet 20 mg PO QDAY Qty: 0 RF: 0 atorvastatin [Lipitor] 10 mg tablet 20 mg PO QPM Qty: 0 RF: 0 latanoprost 0.005 % Drops 1 drp EYE-BOTH DAILY RF: 0 acetaminophen [Tylenol Extra Strength] 500 mg Tablet 1,000 mg PO DAILY PRN (Reason: Pain) RF: 0 dorzolamide 2 % Drops 1 drp EYE-BOTH BID RF: 0 olmesartan-hydrochlorothiazide 20-12.5 mg Tablet 1 tab PO DAILY RF: 0 omeprazole 20 mg Tablet,Delayed Release (Dr/Ec) 20 mg PO BID RF: 0 magnesium oxide 400 mg magnesium Tablet 400 mg PO DAILY RF: 0 alendronate [Fosamax] 70 mg Tablet 70 mg PO QWEEK RF: 0 omega 9-tsv-ldx-fish oil [Fish Oil] 1,000 mg (120 mg-180 mg) Capsule 1 cap PO DAILY RF: 0 Follow up/Referrals: Twan Mora MD [Primary Care Provider] - Discharge Health Status Multidrug resistant organism: No MDRO Diet/Activity/Treatments Diet: Diet as Tolerated Activity: limited BLT 10 lbs max lift Skin/Wound/Dressing Care Report to your healthcare provider any signs of infection, such as:: chills, fever, night sweats, increased pain, unusual drainage and unusual redness Dressing: may shower with waterproof dressing, may change dressing as needed POD#5 Visit Report/Discharge Packet Instructions: DI for Prescription Opioid Use, DI for Transforaminal Lumbar I nterbody Fusion Stand Alone Forms: Surgery Discharge Discharge Data Primary Care Provider: Twan Mora Attending Provider: Oscar Hamilton Admit Date/Time: 01/25/20 12:52 Quality VTE Deep Vein Thrombosis/Pulmonary Embolism Present on Admission: No
[2020-01-26 07:25] VITALS: BP 141/60; PULSE 55; RESP 18; TEMP 36.7; O2SAT 98
[2020-01-26] MEDS: FISH OIL 1,000 MG CAPSULE 1000 MG PO (08:31)
[2020-01-26] MEDS: DOCUSATE 100 MG CAPSULE PO (08:32)
[2020-01-26] MEDS: CELECOXIB 200 MG CAPSULE PO (08:32)
[2020-01-26] MEDS: hydroCHLOROthiazide 12.5 MG CAPSULE PO (08:32)
[2020-01-26] MEDS: OLMESARTAN 20 MG TABLET PO (08:32)
[2020-01-26] MEDS: ACETAMINOPHEN 325 MG TABLET 975 MG PO (08:33)
[2020-01-26] MEDS: ESCITALOPRAM 10 MG TABLET 20 MG PO (08:33)
[2020-01-26] MEDS: DORZOLAMIDE 2% OPHTH 10 ML 1 DROPS EYE-BOTH (08:34)
[2020-01-26] MEDS: MAGNESIUM OXIDE 400 MG TABLET PO (08:35)
[2020-01-26] MEDS: ACYCLOVIR 400 MG TABLET PO (08:40)
--- NOTE | 2020-01-26 10:42 | PT.IPTN ---
Current Diagnoses Unilateral primary osteoarthritis, left hip (01/25/20) Other forms of scoliosis, lumbar region (01/25/20) Spondylolisthesis, lumbar region (01/25/20) Spinal stenosis, lumbar region with neurogenic claudication (01/25/20) Surgery Performed Operation Date: 01/24/20 11:15 Actual Procedures p L4-S1 Laminectomy and instrumented fusion (TLIF) w/bone graft(Not Applicable) - Oscar Hamilton MD Physical Therapy Treatment Note M2 PT-IP Current Condition Start: 01/25/20 08:04 Freq: NEEDED Status: Active Protocol: Document 01/25/20 08:10 HH (Rec: 01/25/20 10:15 [id number]) Physical Therapy Current Condition Current Condition Evaluation Date 01/25/20 Treatment Diagnosis L4-S1 TLIF, difficulty in walking Onset Date 01/24/20 Precautions Lumbar Precautions Log Roll,No Twisting,Limit Bending,Lifting Restriction of 10 lbs,Gait Belt above Incisional Area Weight Bearing Status Weight Bearing Status Full Weight Bearing M3 PT-IP Subjective Start: 01/25/20 08:04 Freq: NEEDED Status: Active Protocol: Document 01/26/20 10:16 KS (Rec: 01/26/20 13:30 KS [id number]) Subjective Physical Therapy Visit Type Type Treatment Note Visit Start Time 10:16 Visit Stop Time 10:42 Total Visit Minutes 26 Number of [employer] Visits 1 Physical Therapy Visit Comments Patient Comments pt agreeable to do PT, pts present for caregiver training. Therapy Pain Assessment Pain When Pain Assessed During Mobility Pain Present Pain Present Pain Reported Location Back Scale Used no number given Pain Behaviors Wincing Pain Management Techniques Re-positioning M4 PT-IP Mobility and Gait Start: 01/25/20 08:04 Freq: NEEDED Status: Active Protocol: Document 01/26/20 10:16 KS (Rec: 01/26/20 13:30 KS [id number]) PT-Bed Mobility Assessment Rolling Type of Rolling Log Rolling Level of Assist Standby Assistance,Contact Guard Assistance,1 Person Assistance Supine to Sit Supine to Sit Standby Assistance Sit to Supine Sit to Supine Standby Assistance,Contact Guard Assistance Scooting Scooting to Edge of Bed Standby Assistance PT-Transfer Assessment Sit to and From Stand Sit to and from Stand Contact Guard Assistance,1 Person Assistance,Use of Upper Extremities Equipment Transfer Assistive Device Gait Belt,Front Wheeled Walker Orthotic/Prosthetic Devices or Brace: No Transfers Transfer Destination Bed,Chair Transfer Technique Pt ambulated w/ FWW. Transfer Ability Level of Assist Contact Guard Assistance,Use of Upper Extremities Comments Mobility Comments Pt was in chair upon arrival from therapy w/ in room. Able to recall all spinal precautions. CGA for sit<>stand w/ FWW. Pt then ambulated to hallway and was taken down to stairs in w/c. CGA for stand<>sit in w/c. Once at stairs, instructed pt and on how to perform stairs and assist. Pt performed 3 steps x2 w/ assist from [employer] on first trial and on second trial. Pt then ambulated jail back to room and then wheeled in w/c remaining distance for energy conservation. Pt then walked from hallway to bed w/ providing assistance for sit< >stand and logroll into bed. Pts safely provided CGA for sit<>stand<>sit and logroll into bed. Pt left in bed w/ all needs in reach. Gait Assessment Gait Gait Assistance Required: Contact Guard Assist Distance (Feet) 200 Able to Maintain Weight Bearing Status Yes During Gait Assistive Devices Assistive Device Gait Belt,Front Wheeled Walker Orthotic/Prosthetic Devices or Brace: No Gait Deviations General Gait Pattern Antalgic,Decreased Stride Length,Decreased Feet Clearance Factors Limiting Gait Function Factors Limiting Gait Function Decreased Activity Tolerance, Decreased Strength,Difficulty Following Directions,Limited Range of Motion,Pain,Poor Balance,Poor Safety Awareness Comments Gait Comments Pt ambulated ~200 ft w/ FWW and CGA provided initially by [employer], but later by / caregiver. Pt demonstrated proper use of FWW and needs min cues for heel toe walking to avoid shuffling gait. Pts gait improved after cues. Pts provided safe assist to pt during ambulation. Stair Climbing Assessment Evaluation Level of Assist On Stairs Contact Guard Assistance,1 Person Assistance Devices Stair Climbing Assistive Devices Left Railing,Right Railing Technique/Endurance Stair Climbing Direction Ascend and Descend Stair Climbing Technique Step to Step Number of Steps Climbed 3 Stair Climbing Set # Repetitions (reps) 2 Comments Stair Climbing Comments Pt ascended/descended 3 steps x2 w/ CGA and L hand rail w/ proper sequencing and step to step pattern. Pts safely provided assist to pt on second attempt and pt and both state that they feel safe to perform stairs at home. PT-Balance Assessment Sitting Balance and Reactions Static Sitting Balance Ability Normal Dynamic Sitting Balance Ability Normal Standing Balance and Reactions Static Standing Balance Ability Normal Dynamic Standing Balance Ability Good Device Used FWW M5 PT-IP Objective Assessments Start: 01/25/20 08:04 Freq: NEEDED Status: Active Protocol: Document 01/25/20 08:10 HH (Rec: 01/25/20 10:15 HH [email or web address]) Orientation Orientation/Cognition Level of Alertness Alert Orientation Name,Age,Birthday,Month,Date, Year,Day of Week,Place, Situation Language Function Ability No Deficits Noted Safety Awareness Understands Safety Issues Memory Description No Deficits Noted Gross Range of Motion Upper Extremity ROM Assessment Within Functional Limits Lower Extremity ROM Assessment Within Functional Limits Strength Upper Extremity Strength Assessment Within Functional Limits Lower Extremity Strength Assessment Within Functional Limits Comments Strength Comments symmetrical strength on BLEs. Coordination Assessment Gross Coordination Gross Coordination WNL Sensation Assessment Sensation Gross Sensation WNL Comments Sensation Comments reports symmetrical sensation to LT and pressure on BLEs. Muscle Tone Muscle Tone WNL Yes M6 PT-IP Treatment Start: 01/25/20 08:04 Freq: NEEDED Status: Active Protocol: Document 01/26/20 10:16 KS (Rec: 01/26/20 13:30 KS [id number]) Physical Therapy Treatment Education Education Provided Precautions,Safety M7 PT-IP Assessment and Plan Start: 01/25/20 08:04 Freq: NEEDED Status: Active Protocol: Document 01/26/20 10:16 KS (Rec: 01/26/20 13:30 KS [id number]) PT Summary Assessment and Plan Potential Rehabilitation Potential Good Summary Impairments Pain,ROM,Strength,Balance, Coordination,Sensation,Tone, Cognition,Bed Mobility, Transfers,Gait Progress Towards Goals Progressing Toward Goals Assessment Summary Pt is continuing to progress w / bed mobility, ambulation and stair training. Pt is CGA to logroll and sup<>sit<>sup. CGA for ambulation w/ FWW and stair training. Conducted caregiver training w/ pts who was able to provide safe assistance for bed mobility, transfers, ambulation, and stair training . PT recalled and adhered to all spinal precautions throughout treatment. Pt and both state they feel safe to go home. Goals Bed Mobility Goal Independent Transfer Goal Standby Assistance,Front Wheeled Walker Gait Goal Standby Assistance,Contact Guard Assistance,Front Wheel Walker Gait Distance 200 Other Goals 3 SPIKE with R rail 12-14 steps with R rail to 2nd floor/ pt can sleep on main to Meet Goals 3 Frequency of Treatment Frequency Of Treatment Twice a Day Treatment Plan Physical Therapy Treatment Plan Bed Mobility Training,Transfer Training,Gait Training, Therapeutic Exercise,Balance Retraining,Post Op Education, Discharge Planning,Hot or Cold Pack,Neuromuscular Re-ed Recommendations To Nursing Amount of Assist Needed 1 Person Assist Discharge Recommendations PT Discharge Recommendations Home with Assistance Transportation Needs at Discharge Private Vehicle
--- NOTE | 2020-01-26 12:00 | OT.IP.TRT ---
Current Diagnoses Unilateral primary osteoarthritis, left hip (01/25/20) Other forms of scoliosis, lumbar region (01/25/20) Spondylolisthesis, lumbar region (01/25/20) Spinal stenosis, lumbar region with neurogenic claudication (01/25/20) Surgery Performed Operation Date: 01/24/20 11:15 Actual Procedures p L4-S1 Laminectomy and instrumented fusion (TLIF) w/bone graft(Not Applicable) - Oscar Hamilton MD Occupational Therapy Treatment Note M2 OT-IP Current Condition Start: 01/25/20 11:54 Freq: Status: Active Protocol: Document 01/26/20 14:44 CGR (Rec: 01/26/20 15:03 CGR [email or web address]) Occupational Therapy Current Condition Current Condition Evaluation Date 01/25/20 Treatment Diagnosis L4-S1 Lami and TLIF witih bone graft Diagnosis Onset Date 01/24/20 Post Operative Precautions Lumbar Precautions Log Roll,No Twisting,Limit Bending,Lifting Restriction of 10 lbs,Gait Belt above Incisional Area Weight Bearing Status Weight Bearing Status Full Weight Bearing M3 OT- IP Subjective and Pain Start: 01/25/20 11:54 Freq: Status: Active Protocol: Document 01/26/20 14:44 CGR (Rec: 01/26/20 15:03 CGR [email or web address]) OT- Subjective Occupational Therapy Visit Type Type Progress Note Visit Start Time 11:12 Visit Stop Time 12:00 Total Visit Minutes 48 Occupational Therapy Visit Comments Patient Comments I would like to practice putting on my socks. OT Pain Assessment Pain When Pain Assessed At Rest Pain Present Pain Present Pain Reported Location Back Intensity 1 Scale Used Numeric (1 - 10) Management Techniques Modification of Treatment, Timing of Activity with Medications M4 OT- IP ADL's Start: 01/25/20 11:54 Freq: Status: Active Protocol: Document 01/26/20 14:44 CGR (Rec: 01/26/20 15:03 CGR [email or web address]) OT [id number] Comments OT Self-Feeding Comments Not meal time OT ADL-Grooming Comments OT Grooming Comments Pt declined OT ADL-Oral Care Comments Oral Care Comments Pt declined OT ADL-Dressing General Eval Upper Body Dressing Ability Independent Lower Body Dressing Ability Minimal Assistance Areas Needing Assistance Retrieving/Set-up of Clothing, Pull-Over Shirt,Underpants/ Brief,Socks Assistive Devices Dressing Assistive Devices Bottle Selector,Sock Aid Comments OT Dressing Comments Pt donned pants and socks. Pt requested to perform practice with doffing and donning socks . OT ADL-Toileting Comments OT Toileting Comments Not performed in this session OT ADL-Bathing Comments OT Bathing Comments Pt declined. M5 OT- IP IADL's Start: 01/25/20 11:54 Freq: Status: Active Protocol: Document 01/25/20 11:55 CGR (Rec: 01/25/20 12:08 CGR [email or web address]) OT-Instrumental Activities of Daily Living Deficits IADL Deficits Identified Deficits Home Safety Awareness Awareness of Need for Assistance at Home Good Awareness Ability to Problem Solve Emergency Able to Problem Solve Situations Medication Management Medication Management Caregiver Provides Supervision Money Management Money Management No Deficits Identified Meal Preparation Meal Preparation Caregiver Provides Assist Radiologic Technologist Mammogram Radiologic Technologist Mammogram Caregiver Provides Assist Driving Driving Comments 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 M6 OT- IP Functional Cognition Start: 01/25/20 11:54 Freq: Status: Active Protocol: Document 01/25/20 11:55 CGR (Rec: 01/25/20 12:08 CGR [email or web address]) Cognitive Factors Limiting Selfcare Function Cognitive Ability Level of Alertness Alert Patient Orientation Name,Age,Birthday,Month,Date, Year,Day of Week,Place, Situation Attention Span Ability Capable of Focused Attention, Capable of Sustained Attention Ability to Follow Commands Able to Follow Multi-Step Commands Memory Description No Deficits Noted Safety Awareness No Deficits Noted Problem Solving Ability No deficits Noted OT- Vision and Hearing OT- Hearing Assessment OT- Hearing Assessment WFL OT- Vision Assessment Vision History Cataracts,Blindness Visual Acuity No Vision Aides At Hospital Vision Assessment Comments 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 M7 OT- IP Mobility and Balance Start: 01/25/20 11:54 Freq: Status: Active Protocol: Document 01/26/20 14:44 CGR (Rec: 01/26/20 15:03 CGR [email or web address]) OT-Transfer Assessment Sit to and From Stand Sit to and from Stand Standby Assistance Comments Mobility Comments Sit to stand for donning clothing. OT- Balance Assessment Sitting Balance and Reactions Static Sitting Balance Ability Good Dynamic Sitting Balance Ability Fair M8 OT- IP Objective Assessments Start: 01/25/20 11:54 Freq: Status: Active Protocol: Document 01/25/20 11:55 CGR (Rec: 01/25/20 12:08 CGR [email or web address]) OT Gross Range of Motion Upper Extremity Range of Motion Assessment Within Functional Limits OT Strength Upper Extremity Strength Assessment Within Functional Limits OT- Coordination Assessment Upper Extremity Finger to Nose Test Within Functional Limits Finger Tapping Test Within Functional Limits OT-Muscle Tone Assessment Muscle Tone WNL Yes OT Sensation Assessment Edema Edema Absent M9 OT- IP Assessment and Plan Start: 01/25/20 11:54 Freq: Status: Active Protocol: Document 01/26/20 14:44 CGR (Rec: 01/26/20 15:03 CGR [email or web address]) OT Summary Assessment and Plan Potential Rehabilitation Potential Good Analytic Complexity at Evaluation Low Summary OT Impairments Pain,Strength,Functional Mobility,Grooming,Dressing, Toileting,Bathing,Toilet Transfers,Shower Transfers, Activity Tolerance Progress Towards Goals Progressing Toward Goals Assessment Summary Pt progressing well with therapy. Pt requested to practice with LB dressing and dressed self for planned discharge home. Pt left sitting up in chair at end of session with present. Goals Self-Feeding Goal Independent Grooming Goal Independent Dressing Goal Independent Toileting Goal Independent Bathing Goal Independent Toilet Transfer Goal Independent Shower Transfer Goal Independent Days to Meet Goals 2 Frequency of Treatment Frequency Of Treatment Once a Day Treatment Plan OT Treatment Plan ADL Training,Functional Mobility,Patient/Family Education,Discharge Planning Other Treatment Recommendations and Next shower and review of LB Treatment Focus dressing. Discharge Recommendations OT Discharge Recommendations Home with Assistance Home Equipment Needs Pt's family planning to get shower chair and walker. Transportation Needs at Discharge Private Vehicle
--- NOTE | 2020-01-26 13:37 | PC.NURSE ---
Pt discharged via wheelchair to POV with spouse and all belongings. IV removed. Stroke education provided to call 911 for sudden onset numbness, weakness, difficulty speaking, confusion, or severe headache. Discharge instructions provided on pain medications (no driving or drinking alcohol, change positions slowly, hydrate to avoid constipation) and spinal precautions (no bending, twisting, or lifting. Call provider for fever, increased pain, excess drainage); f/u with provider as scheduled. Dressing changed. Pt indicated no further questions or concerns. Reviewed by Kate BRADFORD
== END 2020-01-26 13:42 | disposition home or self-care (01) ==
LOC: OR 13:03
PROVIDERS: Admitting Provider Orthopaedic Surgery; PCP Internal Medicine; Referring Provider Orthopaedic Surgery; Visit Provider Orthopaedic Surgery
PROC: (CPT 22633; principal; 2020-01-24 11:15)
DX: M48.062 Spinal stenosis, lumbar region with neurogenic claudication (principal); M41.86 Other forms of scoliosis, lumbar region; M43.16 Spondylolisthesis, lumbar region
CPT/HCPCS: 22633; 22842; 22853 ×2; 20939; 63048; 22634; 63047; 36415; 72100; 76000; 85014; 85018; 97116; 97161; 97165; 97530; 97535; C1776; G0378; A9270; J0330; J0595; J0690; J1100; J2274; J2405; J2704; J3010

== ENCOUNTER → 2020-04-03 09:33 | Outpatient (CLI) | payer MEDICARE, SELFPAY ==
[2020-01-24 18:04] VITALS: BMI 20.5
[2020-04-03 10:03] LABS: Add Manual Diff / Slide Review NO; Basophils Absolute Auto 0 /uL (0-100); Basophils Percent Auto 0.7 % (0-2); Eosinophils Absolute Auto 100 /uL (0-450); Eosinophils Percent Auto 1.9 % (2-4); Hematocrit 33.9 % (36-46); Hemoglobin 11.4 g/dL (12.0-16.0); Lymphocytes Absolute Auto 1500 /uL (1100-4500); Lymphocytes Percent Auto 24.7 % (25-40); Mean Corpuscular HGB Conc 33.5 % (30-36); Mean Corpuscular Hemoglobin 32.5 PG (26-34); Mean Corpuscular Volume 97.2 fL (80-100); Monocytes Absolute Auto 600 /uL (0-900); Monocytes Percent Auto 9.6 % (3-14); Neutrophils Absolute Auto 3900 /uL (1500-7000); Neutrophils Percent Auto 63.1 % (50-75); Platelet Count 223 X10^3/uL (150-400); Red Blood Cell Count 3.49 X10^6/uL (4.0-5.2); Red Cell Distribution Width 13.3 % (11.6-14.8); White Blood Cell Count 6.2 X10^3/uL (4.5-11.0)
[2020-04-03 10:37] LABS: Alanine Aminotransferase 14 IU/L (<35); Albumin 4.1 g/dL (3.5-5.0); Albumin Globulin Ratio 1.4 (1.0-2.8); Alkaline Phosphatase 58 U/L (38-126); Aspartate Aminotransferase 33 IU/L (14-36); BUN Creatinine Ratio 15.1 (6-22); Bilirubin Total 0.5 mg/dL (0.2-1.3); Blood Urea Nitrogen 11 mg/dL (7-17); Calcium 10.1 mg/dL (8.4-10.2); Carbon Dioxide 30 mmol/L (22-32); Chloride 102 mmol/L (98-107); Cholesterol 105 mg/dL (140-199); Estimated Glomerular Filt Rate > 60.0 mL/min (>60); Globulin 2.9 g/dL (1.7-4.1); Glucose 93 mg/dL (80-110); HDL Cholesterol 44 mg/dL (40-60); HEMOLYSIS < 15 (0-50); LDL Cholesterol Calculated 46 mg/dL (<100); Magnesium 2.3 mg/dL (1.6-2.3); Potassium 4.1 mmol/L (3.4-5.1); Sodium 139 mmol/L (137-145); Triglycerides 74 mg/dL (35-150)
== END ==
PROVIDERS: PCP Internal Medicine; Referring Provider Specialist; Visit Provider Specialist
DX: I10 Essential (primary) hypertension (principal); E78.2 Mixed hyperlipidemia; D64.9 Anemia, unspecified
CPT/HCPCS: 36415; 80053; 80061; 83735; 85025

== ENCOUNTER → 2020-06-23 10:44 | Outpatient (CLI) | payer MEDICARE, SELFPAY ==
[2020-01-24 18:04] VITALS: BMI 20.5
[2020-06-23 11:13] LABS: Add Manual Diff / Slide Review NO; Basophils Absolute Auto 100 /uL (0-100); Basophils Percent Auto 0.7 % (0-2); Eosinophils Absolute Auto 200 /uL (0-450); Hematocrit 34.9 % (36-46); Hemoglobin 11.7 g/dL (12.0-16.0); Lymphocytes Absolute Auto 1700 /uL (1100-4500); Lymphocytes Percent Auto 20.1 % (25-40); Mean Corpuscular HGB Conc 33.6 % (30-36); Mean Corpuscular Hemoglobin 32.3 PG (26-34); Mean Corpuscular Volume 96.3 fL (80-100); Monocytes Absolute Auto 600 /uL (0-900); Monocytes Percent Auto 7.3 % (3-14); Neutrophils Absolute Auto 6100 /uL (1500-7000); Neutrophils Percent Auto 69.9 % (50-75); Platelet Count 264 X10^3/uL (150-400); Red Blood Cell Count 3.62 X10^6/uL (4.0-5.2); Red Cell Distribution Width 15.2 % (11.6-14.8); White Blood Cell Count 8.6 X10^3/uL (4.5-11.0)
== END ==
PROVIDERS: PCP Internal Medicine; Referring Provider Internal Medicine; Visit Provider Internal Medicine
DX: C50.919 Malignant neoplasm of unspecified site of unspecified female breast (principal); D63.8 Anemia in other chronic diseases classified elsewhere
CPT/HCPCS: 36415; 85025

== ENCOUNTER 2020-10-14 11:15 | Outpatient (RCR) | payer MEDICARE, SELFPAY ==
[2020-01-24 18:04] VITALS: BMI 20.5
--- NOTE | 2020-08-26 17:00 | PT.OIE ---
Current Diagnoses Arthrodesis status (08/26/20) Past Medical History (Last Updated 01/17/20 @ 13:35 by Mayela Schmitz RN) Alcoholism (Acute) Anemia (Acute) Anxiety and depression (Acute) Arthritis (Acute) Ascending aorta enlargement (Acute) Ascending aortic aneurysm (Acute) 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 (Acute) Breast cancer, right (Acute) CAD (coronary artery disease) (Acute) Easy bruisability (Acute) GERD (gastroesophageal reflux disease) (Acute) HLD (hyperlipidemia) (Acute) Hypertension (Acute) Polymyalgia (Acute) Raynauds syndrome (Acute) Sciatica (Acute) Seasonal allergies (Acute) Sinus bradycardia (Acute) Past Surgical History (Last Updated 01/17/20 @ 13:27 by Mayela Schmitz RN) H/O bilateral mastectomy (Acute) History of bilateral salpingo-oophorectomy (Acute 2014) History of bladder suspension procedure History of colonoscopy (Acute) History of esophagogastroduodenoscopy (EGD) (Acute) History of hip replacement History of third molar tooth extraction Hx of heart surgery (Acute ~01/2013) Status post laparoscopic cholecystectomy Status post laser cataract surgery of right eye (Acute) Status post tonsillectomy and adenoidectomy Status post tubal ligation Visit Care Team Role Provider Type Twan Mora MD Primary Care Provider Physician Specialty: Internal Medicine Address: [address] [place] [address], [id number] Email: [email or web address] Oscar Hamilton MD Attending Provider Physician Referring Provider Specialty: Orthopedic Surgery Address: [address] [place] [address], [address] Email: [email or web address] Initial Evaluation PT-OP-A Visit Information Start: 08/26/20 12:45 Freq: Status: Active Protocol: Document 08/26/20 17:00 (Rec: 08/27/20 17:28 [id number]) Out-Patient Physical Therapy Visit Information Visit Information Visit Type Initial Evaluation Visit Start Time 14:32 Visit Stop Time 15:15 Total Visit Minutes 43 Visit Number 1 Number of DISCOVERY GUIDE Visits 0 Evaluation Information Evaluation Date 08/26/20 PT-OP-B Current Condition Start: 08/26/20 12:45 Freq: Status: Active Protocol: Document 08/26/20 17:00 (Rec: 08/27/20 17:28 [id number]) Current Condition History of Current Condition Onset Date years ago Current Complaints LBP, L hip pain, difficulty in walking and bend over History of Current Condition Pt is a 80 yo female here for her chronic LBP and L hip pain . Her LBP started about 2 years ago with no inciting injury or incident. Pt had a L4-S1 fusion in January this year which somewhat helps her symptoms. However, pt reports her LBP starts to get worse again and no radiating pain/ weakness. She fell down on her tailbone a week ago and it did make her pain worse. Bending over tends to get worse but sitting/ walking does not bother her. In addition, pt has been having significant L hip pain 5/10 who has difficulty in walking but better with sitting. She consulted with surgeon Dr. 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 Prior Treatments and Tests L4-S1 fusion in January. Treatment Goals Patient/Caregiver Goals 1. to regain her hip mobility and strength 2. To regain her lumbar mobility and strength 3. to be able to walk without discomfort. Current Functional Impairments (Reported) Functional Limitations- Mobility/Gait SPC for mobility at all times. lead with LLE for stair climbing. Personal Factors Other Personal Factors That May Effect OA. HTN. bilateral Therapy/Recovery oophorectomy, depression, breast cancer. PT-OP-C Subjective Start: 08/26/20 12:45 Freq: Status: Active Protocol: Document 08/26/20 17:00 (Rec: 08/27/20 17:28 [id number]) OP-PT Pain Assessment Location L hip Intensity 5 Scale Used Numeric (0 - 10) Description Aching,Pressure,Tightness Frequency Constant Pain Aggravating Factors Position,Changing Position,ADL 's,Activity,Exercise,Walking, Stair Climbing Pain Alleviating Factors Inactivity,Distraction Back Intensity 5 Scale Used Numeric (0 - 10) Description Aching Frequency Intermittent Pain Aggravating Factors Bending,Lifting Pain Alleviating Factors Lying Supine,Sitting PT-OP-D Balance Start: 08/26/20 12:45 Freq: Status: Active Protocol: Document 08/26/20 17:00 (Rec: 08/27/20 17:28 [id number]) Balance Tests Single Limb Standing Single Limb- Right 2 Single Limb- Left 1 PT-OP-F Manual Assessment Start: 08/26/20 12:45 Freq: Status: Active Protocol: Document 08/26/20 17:00 (Rec: 08/27/20 17:28 [id number]) Manual Assessments Soft Tissue Assessment Soft Tissue Mobility Assessment significant tenderness to pressure at L2-L5 spinous process and lumbar paraspinals Joint Mobility Assessment Joint Mobility Assessment muscle guarding noted during PROM at L hip, especially hip ER and IR and ext. PT-OP-G Mobility & Gait Start: 08/26/20 12:45 Freq: Status: Active Protocol: Document 08/26/20 17:00 (Rec: 08/27/20 17:28 [id number]) OP Gait Assessment Assistive Devices Assistive Device Straight Cane Gait Deviations General Gait Pattern Decreased Stride Length, Decreased Feet Clearance, Lateral Trunk Lean Comments Gait Comments +VE trendelenberg sign L worse than R. PT-OP-H Neuro Start: 08/26/20 12:45 Freq: Status: Active Protocol: Document 08/26/20 17:00 (Rec: 08/27/20 17:28 [id number]) Sensation Evaluation Gross Sensation Gross Sensation WNL Deep Tendon Reflex & Clonus Assessment Deep Tendon Reflex Bilateral Achilles Deep Tendon Reflex 1+ Diminished Bilateral Patellar Deep Tendon Reflex 1+ Diminished PT-OP-J Posture/Palpation/Skin Start: 08/26/20 12:45 Freq: Status: Active Protocol: Document 08/26/20 17:00 (Rec: 08/27/20 17:28 [id number]) Posture Evaluation Position Standing Knee Posture (L) Genu Valgus,(R) Genu Valgus PT-OP-K Range of Motion Start: 08/26/20 12:45 Freq: Status: Active Protocol: Document 08/26/20 17:00 (Rec: 08/27/20 17:28 [id number]) Lumbar Spine Range of Motion Lumbar Spine Active Comments toe touch test= 1.5 inches from ground, slight bend at knees extension= up to neutral with c/o tightness at L hip flexors . Hip Goniometric Range of Motion Hip Right Active Comments figure 4 (table to lateral knee joint line)= 3 inches oni test= normal, knee on table Left Active Comments figure 4 (table to lateral knee joint line)= 8 inches oni test= increased time taken to stretch til 10 degrees of the table with significant tightness at L hip flexors. Hip ROM Limitations Hip ROM Limitations Soft Tissue Tightness,Pain PT-OP-L Special Tests Start: 08/26/20 12:45 Freq: Status: Active Protocol: Document 08/26/20 17:00 (Rec: 08/27/20 17:28 [id number]) Special Tests Lumbar Spine Special Tests PSLR Test Results -ve B Hip Special Tests Scour Test Test Results +VE L Comments slight pain at hip joint Piriformis Test Results +ve L Comments significant tightness and pain at L buttock BRITTANY Test Results +ve L Comments significant tightness and pain at L buttock PT-OP-M Strength Start: 08/26/20 12:45 Freq: Status: Active Protocol: Document 08/26/20 17:00 (Rec: 08/27/20 17:28 [id number]) Hip Strength Hip Manual Muscle Testing Right Flexion (L2) 4 Good Extension (S1) 4 Good Abduction 4 Good Adduction 4 Good External Rotation 4 Good Internal Rotation 4 Good Left Flexion (L2) 3+ Fair+ Extension (S1) 3+ Fair+ Abduction 3+ Fair+ Adduction 3+ Fair+ External Rotation 3+ Fair+ Internal Rotation 3+ Fair+ Knee Strength Knee Manual Muscle Testing Right Flexion (S2) 4 Good Extension (L3) 4 Good Left Flexion (S2) 4- Good- Extension (L3) 4- Good- PT-OP-T Assessment and Plan Start: 08/26/20 12:45 Freq: Status: Active Protocol: Document 08/26/20 17:00 (Rec: 08/28/20 08:17 [email or web address]) Physical Therapy Assessment Rehab Potential Rehabilitation Potential Good Evaluation Complexity Number of Personal Factors/Comorbidities 3 or More Number of Body Systems Impaired 3 Clinical Presentation at Evaluation Stable Impairments Impairments Activity Tolerance,Balance, Functional Activities, Functional Mobility,Gait,Pain, Posture,ROM,Soft Tissue Mobility,Strength,Transfers Goals strength Impairment pt needs to use chair support/ hand support to stand up from chair Mcfp Goal (LTG) Pt will be able to stand up 5 times from chair without pushing off through UEs LTG Duration 12 weeks SLS Impairment SLS =1-2s Short Term Goal (STG) Pt will be able to stand on one leg >5s STG Duration 6 weeks Power Operator Goal (LTG) pt will be able to stand on one leg >8 s so she can walk with good stability and without AD. LTG Duration 12 weeks Hip ER Impairment supine figure 4 position: R = 4 inches off table, L= 8 inches off table Short Term Goal (STG) pt will reach less than 6 inches of the table at supine figure 4 position STG Duration 6 weeks Power Operator Goal (LTG) pt will reach less than 5 inches of the table at supine figure 4 position so she can coral her socks in seated position with minimal pain LTG Duration 12 weeks activity tolerance Impairment unable to tolerate > 15 mins of walk Short Term Goal (STG) Pt will be able to tolerate walking 25 mins with AD with L hip pain no more than 3/10 STG Duration 6 weeks Mcfp Goal (LTG) Pt will be able to tolerate walking 30 mins with/without AD with L hip pain no more than 3/10 LTG Duration 12 weeks Assessment Summary Assessment This is a 80yo female here for chronic LBP and L hip pain. Pt had L4-S1 fusion this january and she still has residual LBP but no radicular symptoms, along with a fall on her tailbone a week ago. Her primary concern at this point is her L hip pain d/t OA. Pt has very limited hip strength, ER, extension and IR which limits her from coral/doff socks and presents trendelenberg gait. Pt will benefit from skilled therapy to improve L hip ROM, hip strength, gait mechanics in order to reduce lumbar sacral mechanical stress to her low back, so pt can improve her activity tolerance and walking distance. Physical Therapy Plan Frequency and Duration Frequency of Treatment 2x/Week Duration of Treatment 12 weeks Plan of Care Start Date 08/26/20 Plan of Care End Date 11/26/20 Therapeutic Interventions Therapeutic Interventions Balance Training,Gait Training ,Home Exercise Program,Joint Mobilizations,Manual Therapy, Neuromuscular Re-education, Patient/Caregiver Education, Self-Care/Home Management,Soft Tissue Mobilization, Therapeutic Activities, Therapeutic Exercises Modalities Cold Pack/Ice Massage,Electric Stimulation,Hot Packs, Infrared Therapy,Ultrasound Next Visit Focus/Plan Next Note Type Treatment Note Next Visit Plan figure 4 stretch, piri stretch hip distraction oni stretch bridging
--- NOTE | 2020-08-26 17:00 | PT.OPPOC ---
Physical, Occupational & Speech Therapy At [facility] Current Diagnoses Arthrodesis status (08/26/20) Visit Care Team Role Provider Type Twan Mora MD Primary Care Provider Physician Specialty: Internal Medicine Address: [address] [place] [address], [address] Email: [email or web address] Oscar Hamilton MD Attending Provider Physician Referring Provider Specialty: Orthopedic Surgery Address: [address] [place] [address], [address] Email: [email or web address] Plan Of Care PT-OP-T Assessment and Plan Start: 08/26/20 12:45 Freq: Status: Active Protocol: Document 08/26/20 17:00 HH (Rec: 08/28/20 08:17 [email or web address]) Physical Therapy Assessment Rehab Potential Rehabilitation Potential Good Evaluation Complexity Number of Personal Factors/Comorbidities 3 or More Number of Body Systems Impaired 3 Clinical Presentation at Evaluation Stable Impairments Impairments Activity Tolerance,Balance, Functional Activities, Functional Mobility,Gait,Pain, Posture,ROM,Soft Tissue Mobility,Strength,Transfers Goals strength Impairment pt needs to use chair support/ hand support to stand up from chair Job Placement Counselor Goal (LTG) Pt will be able to stand up 5 times from chair without pushing off through UEs LTG Duration 12 weeks SLS Impairment SLS =1-2s Short Term Goal (STG) Pt will be able to stand on one leg >5s STG Duration 6 weeks Job Placement Counselor Goal (LTG) pt will be able to stand on one leg >8 s so she can walk with good stability and without AD. LTG Duration 12 weeks Hip ER Impairment supine figure 4 position: R = 4 inches off table, L= 8 inches off table Short Term Goal (STG) pt will reach less than 6 inches of the table at supine figure 4 position STG Duration 6 weeks Shelter Goal (LTG) pt will reach less than 5 inches of the table at supine figure 4 position so she can coral her socks in seated position with minimal pain LTG Duration 12 weeks activity tolerance Impairment unable to tolerate > 15 mins of walk Short Term Goal (STG) Pt will be able to tolerate walking 25 mins with AD with L hip pain no more than 3/10 STG Duration 6 weeks Shelter Goal (LTG) Pt will be able to tolerate walking 30 mins with/without AD with L hip pain no more than 3/10 LTG Duration 12 weeks Assessment Summary Assessment This is a 80yo female here for chronic LBP and L hip pain. Pt had L4-S1 fusion this january and she still has residual LBP but no radicular symptoms, along with a fall on her tailbone a week ago. Her primary concern at this point is her L hip pain d/t OA. Pt has very limited hip strength, ER, extension and IR which limits her from coral/doff socks and presents trendelenberg gait. Pt will benefit from skilled therapy to improve L hip ROM, hip strength, gait mechanics in order to reduce lumbar sacral mechanical stress to her low back, so pt can improve her activity tolerance and walking distance. Physical Therapy Plan Frequency and Duration Frequency of Treatment 2x/Week Duration of Treatment 12 weeks Plan of Care Start Date 08/26/20 Plan of Care End Date 11/26/20 Therapeutic Interventions Therapeutic Interventions Balance Training,Gait Training ,Home Exercise Program,Joint Mobilizations,Manual Therapy, Neuromuscular Re-education, Patient/Caregiver Education, Self-Care/Home Management,Soft Tissue Mobilization, Therapeutic Activities, Therapeutic Exercises Modalities Cold Pack/Ice Massage,Electric Stimulation,Hot Packs, Infrared Therapy,Ultrasound Next Visit Focus/Plan Next Note Type Treatment Note Next Visit Plan figure 4 stretch, piri stretch hip distraction oni stretch bridging Plan of Care Dates Plan of Care Start Date 08/26/20 Plan of Care End Date 11/26/20 Electronically Signed by: Naty Lopez PT 08/28/20 0924 Please Sign and Return: I have reviewed this Plan of Care and certify that the skilled therapy services above are required to meet the patient?s needs. Physician Signature Date Printed Name and Credentials Clinical Instructor Signature Printed Name and Credentials
--- NOTE | 2020-08-28 12:06 | PT.OTN ---
Current Diagnoses Arthrodesis status (08/28/20) Physical Therapy Treatment Note PT-OP-A Visit Information Start: 08/26/20 12:45 Freq: Status: Active Protocol: Document 08/28/20 11:57 HH (Rec: 08/28/20 12:06 [email or web address]) Out-Patient Physical Therapy Visit Information Visit Information Visit Type Treatment Note Visit Start Time 10:32 Visit Stop Time 11:18 Total Visit Minutes 46 Visit Number 01/09 Number of CHANNEL DIRECTOR Visits 0 PT-OP-B Current Condition Start: 08/26/20 12:45 Freq: Status: Active Protocol: Document 08/26/20 17:00 HH (Rec: 08/27/20 17:28 [id number]) Current Condition History of Current Condition Onset Date years ago Current Complaints LBP, L hip pain, difficulty in walking and bend over History of Current Condition Pt is a 80 yo female here for her chronic LBP and L hip pain . Her LBP started about 2 years ago with no inciting injury or incident. Pt had a L4-S1 fusion in January this year which somewhat helps her symptoms. However, pt reports her LBP starts to get worse again and no radiating pain/ weakness. She fell down on her tailbone a week ago and it did make her pain worse. Bending over tends to get worse but sitting/ walking does not bother her. In addition, pt has been having significant L hip pain 5/10 who has difficulty in walking but better with sitting. She consulted with surgeon Dr. 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 Prior Treatments and Tests L4-S1 fusion in January. Treatment Goals Patient/Caregiver Goals 1. to regain her hip mobility and strength 2. To regain her lumbar mobility and strength 3. to be able to walk without discomfort. Current Functional Impairments (Reported) Functional Limitations- Mobility/Gait SPC for mobility at all times. lead with LLE for stair climbing. Personal Factors Other Personal Factors That May Effect OA. HTN. bilateral Therapy/Recovery oophorectomy, depression, breast cancer. PT-OP-C Subjective Start: 08/26/20 12:45 Freq: Status: Active Protocol: Document 08/28/20 11:57 HH (Rec: 08/28/20 12:06 [email or web address]) OP-PT Subjective Patient Comments Patient Comments I got sore for my L hip from evaluation. PT-OP-D Balance Start: 08/26/20 12:45 Freq: Status: Active Protocol: Document 08/26/20 17:00 HH (Rec: 08/27/20 17:28 [id number]) Balance Tests Single Limb Standing Single Limb- Right 2 Single Limb- Left 1 PT-OP-F Manual Assessment Start: 08/26/20 12:45 Freq: Status: Active Protocol: Document 08/26/20 17:00 HH (Rec: 08/27/20 17:28 [id number]) Manual Assessments Soft Tissue Assessment Soft Tissue Mobility Assessment significant tenderness to pressure at L2-L5 spinous process and lumbar paraspinals Joint Mobility Assessment Joint Mobility Assessment muscle guarding noted during PROM at L hip, especially hip ER and IR and ext. PT-OP-G Mobility & Gait Start: 08/26/20 12:45 Freq: Status: Active Protocol: Document 08/26/20 17:00 HH (Rec: 08/27/20 17:28 [id number]) OP Gait Assessment Assistive Devices Assistive Device Straight Cane Gait Deviations General Gait Pattern Decreased Stride Length, Decreased Feet Clearance, Lateral Trunk Lean Comments Gait Comments +VE trendelenberg sign L worse than R. PT-OP-H Neuro Start: 08/26/20 12:45 Freq: Status: Active Protocol: Document 08/26/20 17:00 HH (Rec: 08/27/20 17:28 [id number]) Sensation Evaluation Gross Sensation Gross Sensation WNL Deep Tendon Reflex & Clonus Assessment Deep Tendon Reflex Bilateral Achilles Deep Tendon Reflex 1+ Diminished Bilateral Patellar Deep Tendon Reflex 1+ Diminished PT-OP-J Posture/Palpation/Skin Start: 08/26/20 12:45 Freq: Status: Active Protocol: Document 08/26/20 17:00 HH (Rec: 08/27/20 17:28 [id number]) Posture Evaluation Position Standing Knee Posture (L) Genu Valgus,(R) Genu Valgus PT-OP-K Range of Motion Start: 08/26/20 12:45 Freq: Status: Active Protocol: Document 08/26/20 17:00 HH (Rec: 08/27/20 17:28 [id number]) Lumbar Spine Range of Motion Lumbar Spine Active Comments toe touch test= 1.5 inches from ground, slight bend at knees extension= up to neutral with c/o tightness at L hip flexors . Hip Goniometric Range of Motion Hip Right Active Comments figure 4 (table to lateral knee joint line)= 3 inches oni test= normal, knee on table Left Active Comments figure 4 (table to lateral knee joint line)= 8 inches oni test= increased time taken to stretch til 10 degrees of the table with significant tightness at L hip flexors. Hip ROM Limitations Hip ROM Limitations Soft Tissue Tightness,Pain PT-OP-L Special Tests Start: 08/26/20 12:45 Freq: Status: Active Protocol: Document 08/26/20 17:00 (Rec: 08/27/20 17:28 [id number]) Special Tests Lumbar Spine Special Tests PSLR Test Results -ve B Hip Special Tests Scour Test Test Results +VE L Comments slight pain at hip joint Piriformis Test Results +ve L Comments significant tightness and pain at L buttock BRITTANY Test Results +ve L Comments significant tightness and pain at L buttock PT-OP-M Strength Start: 08/26/20 12:45 Freq: Status: Active Protocol: Document 08/26/20 17:00 HH (Rec: 08/27/20 17:28 [id number]) Hip Strength Hip Manual Muscle Testing Right Flexion (L2) 4 Good Extension (S1) 4 Good Abduction 4 Good Adduction 4 Good External Rotation 4 Good Internal Rotation 4 Good Left Flexion (L2) 3+ Fair+ Extension (S1) 3+ Fair+ Abduction 3+ Fair+ Adduction 3+ Fair+ External Rotation 3+ Fair+ Internal Rotation 3+ Fair+ Knee Strength Knee Manual Muscle Testing Right Flexion (S2) 4 Good Extension (L3) 4 Good Left Flexion (S2) 4- Good- Extension (L3) 4- Good- PT-OP-Q Treatments Start: 08/26/20 12:45 Freq: Status: Active Protocol: Document 08/28/20 11:57 HH (Rec: 08/28/20 12:06 [email or web address]) Therapeutic Exercises Supine Exercises oni stretch Side bilateral Reps/Minutes 10-15 s hold x 5 Comments for HEP, tightness noted at buttock figure 4 Supine Exercise Name supine figure 4 Side bilateral Reps/Minutes 10-15 s hold x 5 Comments for HEP, c/o slight pain at buttock Piriformis stretch Supine Exercise Name knee to opposite hip Side bilateral Reps/Minutes 10-15 s hold x 5 Comments for HEP Bridging Side bilateral Reps/Minutes 8 x 2 Comments c/o hip pain initially but subside after reps. Sitting Exercises rolling pin Sitting Exercise Name at hip adductors, and quad Equipment Used rolling pin Comments for HEP self massage Manual Therapy Treatment Soft Tissue Mobilization L hip Body Location adductors, glutes, lateral quad Mobilization Type Rolling Intensity/Depth Superficial Comments signficiant tenderness at hip adductors proximal>distal, gluteas and lateral quad Joint Mobilizations L hip Direction distraction long axis Grade III Body Position Supine Reps/Duration 10 sec x 8 Comments she stated relief of symptoms at L hip PT-OP-R Modalities Start: 08/26/20 12:45 Freq: Status: Active Protocol: Document 08/28/20 12:06 (Rec: 08/28/20 12:06 [email or web address]) Hot Pack/Cold Pack Treatment Hot Pack Location L hip and lumbar Patient Position Hooklying Treatment Duration (minutes) 10 Patient Tolerance Good PT-OP-T Assessment and Plan Start: 08/26/20 12:45 Freq: Status: Active Protocol: Document 08/28/20 11:57 HH (Rec: 08/28/20 12:06 [email or web address]) Physical Therapy Assessment Goals strength Impairment pt needs to use chair support/ hand support to stand up from chair Test Borer Goal (LTG) Pt will be able to stand up 5 times from chair without pushing off through UEs LTG Duration 12 weeks SLS Impairment SLS =1-2s Short Term Goal (STG) Pt will be able to stand on one leg >5s STG Duration 6 weeks Halfway Goal (LTG) pt will be able to stand on one leg >8 s so she can walk with good stability and without AD. LTG Duration 12 weeks Hip ER Impairment supine figure 4 position: R = 4 inches off table, L= 8 inches off table Short Term Goal (STG) pt will reach less than 6 inches of the table at supine figure 4 position STG Duration 6 weeks Test Borer Goal (LTG) pt will reach less than 5 inches of the table at supine figure 4 position so she can coral her socks in seated position with minimal pain LTG Duration 12 weeks activity tolerance Impairment unable to tolerate > 15 mins of walk Short Term Goal (STG) Pt will be able to tolerate walking 25 mins with AD with L hip pain no more than 3/10 STG Duration 6 weeks Test Borer Goal (LTG) Pt will be able to tolerate walking 30 mins with/without AD with L hip pain no more than 3/10 LTG Duration 12 weeks Assessment Summary Assessment Spent most time educating pt about L hip OA and treatment plan. Added supine figure 4 , piriformis, hip flexors stretch and bridging. Noticed pt has moderate muscle guarding for PROM at L hip. Physical Therapy Plan Frequency and Duration Frequency of Treatment 2x/Week Duration of Treatment 12 weeks Plan of Care Start Date 08/26/20 Plan of Care End Date 11/26/20 Next Visit Focus/Plan Next Note Type Treatment Note Next Visit Plan reassess tx tolerance figure 4 stretch, piri stretch hip distraction oni stretch bridging [facility]4
--- NOTE | 2020-09-02 12:12 | PT.OTN ---
Current Diagnoses Arthrodesis status (09/02/20) Physical Therapy Treatment Note PT-OP-A Visit Information Start: 08/26/20 12:45 Freq: Status: Active Protocol: Document 09/02/20 10:30 HH (Rec: 09/02/20 11:21 [id number]) Out-Patient Physical Therapy Visit Information Visit Information Visit Type Treatment Note Visit Start Time 10:32 Visit Stop Time 11:16 Total Visit Minutes 44 Visit Number 02/06 Number of SENIOR NET DEVELOPER ARCHITECT Visits 0 PT-OP-B Current Condition Start: 08/26/20 12:45 Freq: Status: Active Protocol: Document 08/26/20 17:00 HH (Rec: 08/27/20 17:28 HH [id number]) Current Condition History of Current Condition Onset Date years ago Current Complaints LBP, L hip pain, difficulty in walking and bend over History of Current Condition Pt is a 80 yo female here for her chronic LBP and L hip pain . Her LBP started about 2 years ago with no inciting injury or incident. Pt had a L4-S1 fusion in January this year which somewhat helps her symptoms. However, pt reports her LBP starts to get worse again and no radiating pain/ weakness. She fell down on her tailbone a week ago and it did make her pain worse. Bending over tends to get worse but sitting/ walking does not bother her. In addition, pt has been having significant L hip pain 5/10 who has difficulty in walking but better with sitting. She consulted with surgeon Dr. 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 Prior Treatments and Tests L4-S1 fusion in January. Treatment Goals Patient/Caregiver Goals 1. to regain her hip mobility and strength 2. To regain her lumbar mobility and strength 3. to be able to walk without discomfort. Current Functional Impairments (Reported) Functional Limitations- Mobility/Gait SPC for mobility at all times. lead with LLE for stair climbing. Personal Factors Other Personal Factors That May Effect OA. HTN. bilateral Therapy/Recovery oophorectomy, depression, breast cancer. PT-OP-C Subjective Start: 08/26/20 12:45 Freq: Status: Active Protocol: Document 09/02/20 10:30 HH (Rec: 09/02/20 11:21 [id number]) OP-PT Subjective Patient Comments Patient Comments Laura doing all my exercises and laura been doing okay. Do have soreness around my hip but i feel fine. My back seems to get better gradually. Patient Reported Progress Improving PT-OP-D Balance Start: 08/26/20 12:45 Freq: Status: Active Protocol: Document 08/26/20 17:00 HH (Rec: 08/27/20 17:28 [id number]) Balance Tests Single Limb Standing Single Limb- Right 2 Single Limb- Left 1 PT-OP-F Manual Assessment Start: 08/26/20 12:45 Freq: Status: Active Protocol: Document 08/26/20 17:00 HH (Rec: 08/27/20 17:28 [id number]) Manual Assessments Soft Tissue Assessment Soft Tissue Mobility Assessment significant tenderness to pressure at L2-L5 spinous process and lumbar paraspinals Joint Mobility Assessment Joint Mobility Assessment muscle guarding noted during PROM at L hip, especially hip ER and IR and ext. PT-OP-G Mobility & Gait Start: 08/26/20 12:45 Freq: Status: Active Protocol: Document 08/26/20 17:00 HH (Rec: 08/27/20 17:28 [id number]) OP Gait Assessment Assistive Devices Assistive Device Straight Cane Gait Deviations General Gait Pattern Decreased Stride Length, Decreased Feet Clearance, Lateral Trunk Lean Comments Gait Comments +VE trendelenberg sign L worse than R. PT-OP-H Neuro Start: 08/26/20 12:45 Freq: Status: Active Protocol: Document 08/26/20 17:00 HH (Rec: 08/27/20 17:28 [id number]) Sensation Evaluation Gross Sensation Gross Sensation WNL Deep Tendon Reflex & Clonus Assessment Deep Tendon Reflex Bilateral Achilles Deep Tendon Reflex 1+ Diminished Bilateral Patellar Deep Tendon Reflex 1+ Diminished PT-OP-J Posture/Palpation/Skin Start: 08/26/20 12:45 Freq: Status: Active Protocol: Document 08/26/20 17:00 HH (Rec: 08/27/20 17:28 [id number]) Posture Evaluation Position Standing Knee Posture (L) Genu Valgus,(R) Genu Valgus PT-OP-K Range of Motion Start: 08/26/20 12:45 Freq: Status: Active Protocol: Document 08/26/20 17:00 HH (Rec: 08/27/20 17:28 [id number]) Lumbar Spine Range of Motion Lumbar Spine Active Comments toe touch test= 1.5 inches from ground, slight bend at knees extension= up to neutral with c/o tightness at L hip flexors . Hip Goniometric Range of Motion Hip Right Active Comments figure 4 (table to lateral knee joint line)= 3 inches oni test= normal, knee on table Left Active Comments figure 4 (table to lateral knee joint line)= 8 inches oni test= increased time taken to stretch til 10 degrees of the table with significant tightness at L hip flexors. Hip ROM Limitations Hip ROM Limitations Soft Tissue Tightness,Pain PT-OP-L Special Tests Start: 08/26/20 12:45 Freq: Status: Active Protocol: Document 08/26/20 17:00 HH (Rec: 08/27/20 17:28 [id number]) Special Tests Lumbar Spine Special Tests PSLR Test Results -ve B Hip Special Tests Scour Test Test Results +VE L Comments slight pain at hip joint Piriformis Test Results +ve L Comments significant tightness and pain at L buttock BRITTANY Test Results +ve L Comments significant tightness and pain at L buttock PT-OP-M Strength Start: 08/26/20 12:45 Freq: Status: Active Protocol: Document 08/26/20 17:00 HH (Rec: 08/27/20 17:28 [id number]) Hip Strength Hip Manual Muscle Testing Right Flexion (L2) 4 Good Extension (S1) 4 Good Abduction 4 Good Adduction 4 Good External Rotation 4 Good Internal Rotation 4 Good Left Flexion (L2) 3+ Fair+ Extension (S1) 3+ Fair+ Abduction 3+ Fair+ Adduction 3+ Fair+ External Rotation 3+ Fair+ Internal Rotation 3+ Fair+ Knee Strength Knee Manual Muscle Testing Right Flexion (S2) 4 Good Extension (L3) 4 Good Left Flexion (S2) 4- Good- Extension (L3) 4- Good- PT-OP-Q Treatments Start: 08/26/20 12:45 Freq: Status: Active Protocol: Document 09/02/20 10:30 HH (Rec: 09/02/20 11:21 [id number]) Cardio Equipment Recumbent Stepper (Sci-Fit) Duration (Minutes) 4 Resistance 1 Therapeutic Exercises Supine Exercises hip ER Supine Exercise Name with band Side bilateral Equipment Used yellow band Reps/Minutes 10 x2 Comments for HEP, oni stretch Side bilateral Reps/Minutes 10-15 s hold x 5 Comments tightness noted at buttock figure 4 Supine Exercise Name supine figure 4 Side bilateral Reps/Minutes 10-15 s hold x 5 Comments c/o slight pain at buttock Piriformis stretch Supine Exercise Name knee to opposite hip Side bilateral Reps/Minutes 10-15 s hold x 5 Sidelying Exercises clam shell Side bilateral Reps/Minutes 5 x2 Comments unable to reach full range, and significant weakness noted Manual Therapy Treatment Soft Tissue Mobilization glutes Mobilization Type Sustained Pressure,Trigger Point Release Intensity/Depth Moderate Body Position Sidelying Comments soreness proximal > distal L hip Body Location adductors, glutes, lateral quad Mobilization Type Rolling Intensity/Depth Superficial Comments signficiant tenderness at hip adductors proximal>distal, gluteas and lateral quad Joint Mobilizations hip anterior glide Joint SL LESLIE position Grade III Body Position Supine Reps/Duration 5 sec x 10 Comments pt reports of discomfort relief. L hip Direction distraction long axis Grade III Body Position Supine Reps/Duration 10 sec x 8 Comments she stated relief of symptoms at L hip PT-OP-R Modalities Start: 08/26/20 12:45 Freq: Status: Active Protocol: Document 08/28/20 12:06 (Rec: 08/28/20 12:06 [id number]) Hot Pack/Cold Pack Treatment Hot Pack Location L hip and lumbar Patient Position Hooklying Treatment Duration (minutes) 10 Patient Tolerance Good PT-OP-T Assessment and Plan Start: 08/26/20 12:45 Freq: Status: Active Protocol: Document 09/02/20 10:30 (Rec: 09/02/20 11:21 [id number]) Physical Therapy Assessment Goals strength Impairment pt needs to use chair support/ hand support to stand up from chair Nanotechnologist Goal (LTG) Pt will be able to stand up 5 times from chair without pushing off through UEs LTG Duration 12 weeks SLS Impairment SLS =1-2s Short Term Goal (STG) Pt will be able to stand on one leg >5s STG Duration 6 weeks Nanotechnologist Goal (LTG) pt will be able to stand on one leg >8 s so she can walk with good stability and without AD. LTG Duration 12 weeks Hip ER Impairment supine figure 4 position: R = 4 inches off table, L= 8 inches off table Short Term Goal (STG) pt will reach less than 6 inches of the table at supine figure 4 position STG Duration 6 weeks Nanotechnologist Goal (LTG) pt will reach less than 5 inches of the table at supine figure 4 position so she can coral her socks in seated position with minimal pain LTG Duration 12 weeks activity tolerance Impairment unable to tolerate > 15 mins of walk Short Term Goal (STG) Pt will be able to tolerate walking 25 mins with AD with L hip pain no more than 3/10 STG Duration 6 weeks Fpc Goal (LTG) Pt will be able to tolerate walking 30 mins with/without AD with L hip pain no more than 3/10 LTG Duration 12 weeks Assessment Summary Assessment Pt shows good understanding with HEP. She has significant weakness for clamshell but able to complete supine hip ER with yellow band. Will cont strengthen hip stabilizers to address her unstable gait. Physical Therapy Plan Frequency and Duration Frequency of Treatment 2x/Week Duration of Treatment 12 weeks Plan of Care Start Date 08/26/20 Plan of Care End Date 11/26/20 Next Visit Focus/Plan Next Note Type Treatment Note Next Visit Plan reassess tx tolerance figure 4 stretch, piri stretch hip distraction oni stretch bridging clamshell leg press4
--- NOTE | 2020-09-04 11:20 | PT.OTN ---
Current Diagnoses Arthrodesis status (09/04/20) Physical Therapy Treatment Note PT-OP-A Visit Information Start: 08/26/20 12:45 Freq: Status: Active Protocol: Document 09/04/20 10:31 HH (Rec: 09/04/20 11:20 [id number]) Out-Patient Physical Therapy Visit Information Visit Information Visit Type Treatment Note Visit Start Time 10:32 Visit Stop Time 11:15 Total Visit Minutes 43 Visit Number 03/09 Number of DRAW BENCH OPERATOR Visits 0 PT-OP-B Current Condition Start: 08/26/20 12:45 Freq: Status: Active Protocol: Document 08/26/20 17:00 HH (Rec: 08/27/20 17:28 [id number]) Current Condition History of Current Condition Onset Date years ago Current Complaints LBP, L hip pain, difficulty in walking and bend over History of Current Condition Pt is a 80 yo female here for her chronic LBP and L hip pain . Her LBP started about 2 years ago with no inciting injury or incident. Pt had a L4-S1 fusion in January this year which somewhat helps her symptoms. However, pt reports her LBP starts to get worse again and no radiating pain/ weakness. She fell down on her tailbone a week ago and it did make her pain worse. Bending over tends to get worse but sitting/ walking does not bother her. In addition, pt has been having significant L hip pain 5/10 who has difficulty in walking but better with sitting. She consulted with surgeon Dr. 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 Prior Treatments and Tests L4-S1 fusion in January. Treatment Goals Patient/Caregiver Goals 1. to regain her hip mobility and strength 2. To regain her lumbar mobility and strength 3. to be able to walk without discomfort. Current Functional Impairments (Reported) Functional Limitations- Mobility/Gait SPC for mobility at all times. lead with LLE for stair climbing. Personal Factors Other Personal Factors That May Effect OA. HTN. bilateral Therapy/Recovery oophorectomy, depression, breast cancer. PT-OP-C Subjective Start: 08/26/20 12:45 Freq: Status: Active Protocol: Document 09/04/20 10:31 HH (Rec: 09/04/20 11:20 [id number]) OP-PT Subjective Patient Comments Patient Comments My hip has been painful but legs feel stronger. Patient Reported Progress Improving PT-OP-D Balance Start: 08/26/20 12:45 Freq: Status: Active Protocol: Document 08/26/20 17:00 HH (Rec: 08/27/20 17:28 [id number]) Balance Tests Single Limb Standing Single Limb- Right 2 Single Limb- Left 1 PT-OP-F Manual Assessment Start: 08/26/20 12:45 Freq: Status: Active Protocol: Document 08/26/20 17:00 HH (Rec: 08/27/20 17:28 [id number]) Manual Assessments Soft Tissue Assessment Soft Tissue Mobility Assessment significant tenderness to pressure at L2-L5 spinous process and lumbar paraspinals Joint Mobility Assessment Joint Mobility Assessment muscle guarding noted during PROM at L hip, especially hip ER and IR and ext. PT-OP-G Mobility & Gait Start: 08/26/20 12:45 Freq: Status: Active Protocol: Document 08/26/20 17:00 HH (Rec: 08/27/20 17:28 [id number]) OP Gait Assessment Assistive Devices Assistive Device Straight Cane Gait Deviations General Gait Pattern Decreased Stride Length, Decreased Feet Clearance, Lateral Trunk Lean Comments Gait Comments +VE trendelenberg sign L worse than R. PT-OP-H Neuro Start: 08/26/20 12:45 Freq: Status: Active Protocol: Document 08/26/20 17:00 HH (Rec: 08/27/20 17:28 [id number]) Sensation Evaluation Gross Sensation Gross Sensation WNL Deep Tendon Reflex & Clonus Assessment Deep Tendon Reflex Bilateral Achilles Deep Tendon Reflex 1+ Diminished Bilateral Patellar Deep Tendon Reflex 1+ Diminished PT-OP-J Posture/Palpation/Skin Start: 08/26/20 12:45 Freq: Status: Active Protocol: Document 08/26/20 17:00 HH (Rec: 08/27/20 17:28 [id number]) Posture Evaluation Position Standing Knee Posture (L) Genu Valgus,(R) Genu Valgus PT-OP-K Range of Motion Start: 08/26/20 12:45 Freq: Status: Active Protocol: Document 08/26/20 17:00 HH (Rec: 08/27/20 17:28 [id number]) Lumbar Spine Range of Motion Lumbar Spine Active Comments toe touch test= 1.5 inches from ground, slight bend at knees extension= up to neutral with c/o tightness at L hip flexors . Hip Goniometric Range of Motion Hip Right Active Comments figure 4 (table to lateral knee joint line)= 3 inches oni test= normal, knee on table Left Active Comments figure 4 (table to lateral knee joint line)= 8 inches oni test= increased time taken to stretch til 10 degrees of the table with significant tightness at L hip flexors. Hip ROM Limitations Hip ROM Limitations Soft Tissue Tightness,Pain PT-OP-L Special Tests Start: 08/26/20 12:45 Freq: Status: Active Protocol: Document 08/26/20 17:00 (Rec: 08/27/20 17:28 [id number]) Special Tests Lumbar Spine Special Tests PSLR Test Results -ve B Hip Special Tests Scour Test Test Results +VE L Comments slight pain at hip joint Piriformis Test Results +ve L Comments significant tightness and pain at L buttock BRITTANY Test Results +ve L Comments significant tightness and pain at L buttock PT-OP-M Strength Start: 08/26/20 12:45 Freq: Status: Active Protocol: Document 08/26/20 17:00 HH (Rec: 08/27/20 17:28 [id number]) Hip Strength Hip Manual Muscle Testing Right Flexion (L2) 4 Good Extension (S1) 4 Good Abduction 4 Good Adduction 4 Good External Rotation 4 Good Internal Rotation 4 Good Left Flexion (L2) 3+ Fair+ Extension (S1) 3+ Fair+ Abduction 3+ Fair+ Adduction 3+ Fair+ External Rotation 3+ Fair+ Internal Rotation 3+ Fair+ Knee Strength Knee Manual Muscle Testing Right Flexion (S2) 4 Good Extension (L3) 4 Good Left Flexion (S2) 4- Good- Extension (L3) 4- Good- PT-OP-Q Treatments Start: 08/26/20 12:45 Freq: Status: Active Protocol: Document 09/04/20 10:31 HH (Rec: 09/04/20 11:20 [id number]) Gym Equipment Shuttle Recovery Unilateral Squats Details both sides Resistance #37 Shuttle Recovery Platform Stable Reps/Time 10 x2, R side is weaker than L Therapeutic Exercises Supine Exercises hip ER Supine Exercise Name with band Side bilateral Equipment Used yellow band Reps/Minutes 10 x2 Comments for oni ELIZABETH stretch Side left Reps/Minutes 10-15 s hold x5 figure 4 Supine Exercise Name supine figure 4 Side left Reps/Minutes 10-15 s hold x 5 Comments c/o 3/10 pain at buttock Manual Therapy Treatment Soft Tissue Mobilization Hip adductors Body Location R hip Mobilization Type Rolling Intensity/Depth Moderate Body Position Hooklying Comments with rolling pin. Decreased tenderness noted compared to last week. glutes Body Location L hip Mobilization Type Rolling Intensity/Depth Moderate Body Position Sidelying Comments soreness proximal > distal Neuro Re-Education Treatment Balance Activities Standing balance Details Bilateral Surface foam Reps/Duration 2 min Comments progressed to perturbation + eyes closed PT-OP-R Modalities Start: 08/26/20 12:45 Freq: Status: Active Protocol: Document 08/28/20 12:06 HH (Rec: 08/28/20 12:06 [id number]) Hot Pack/Cold Pack Treatment Hot Pack Location L hip and lumbar Patient Position Hooklying Treatment Duration (minutes) 10 Patient Tolerance Good PT-OP-T Assessment and Plan Start: 08/26/20 12:45 Freq: Status: Active Protocol: Document 09/04/20 10:31 HH (Rec: 09/04/20 11:20 [id number]) Physical Therapy Assessment Goals strength Impairment pt needs to use chair support/ hand support to stand up from chair Care Home Goal (LTG) Pt will be able to stand up 5 times from chair without pushing off through UEs LTG Duration 12 weeks SLS Impairment SLS =1-2s Short Term Goal (STG) Pt will be able to stand on one leg >5s STG Duration 6 weeks Transformation Consultant Goal (LTG) pt will be able to stand on one leg >8 s so she can walk with good stability and without AD. LTG Duration 12 weeks Hip ER Impairment supine figure 4 position: R = 4 inches off table, L= 8 inches off table Short Term Goal (STG) pt will reach less than 6 inches of the table at supine figure 4 position STG Duration 6 weeks Care Home Goal (LTG) pt will reach less than 5 inches of the table at supine figure 4 position so she can coral her socks in seated position with minimal pain LTG Duration 12 weeks activity tolerance Impairment unable to tolerate > 15 mins of walk Short Term Goal (STG) Pt will be able to tolerate walking 25 mins with AD with L hip pain no more than 3/10 STG Duration 6 weeks Transformation Consultant Goal (LTG) Pt will be able to tolerate walking 30 mins with/without AD with L hip pain no more than 3/10 LTG Duration 12 weeks Assessment Summary Assessment Pt still c/o of L hip pain. However, she noted decreased tenderness to L hip adductor soft tissue massage and her L hip ER ROM noticeably improved with figure 4 stretch. she also noted that she feels more stability in her legs when she walks. Pt was able to maintain good standing balance on foam with perturbation and eyes closed. Physical Therapy Plan Frequency and Duration Frequency of Treatment 2x/Week Duration of Treatment 12 weeks Plan of Care Start Date 08/26/20 Plan of Care End Date 11/26/20 Next Visit Focus/Plan Next Note Type Treatment Note Next Visit Plan reassess tx tolerance figure 4 stretch, piri stretch hip distraction oni stretch bridging clamshell leg press4 SL
--- NOTE | 2020-09-09 12:15 | PT.OTN ---
Current Diagnoses Arthrodesis status (09/09/20) Physical Therapy Treatment Note PT-OP-A Visit Information Start: 08/26/20 12:45 Freq: Status: Active Protocol: Document 09/09/20 10:31 HH (Rec: 09/09/20 12:15 HH [id number]) Out-Patient Physical Therapy Visit Information Visit Information Visit Type Treatment Note Visit Note SPT Fletcher Muller led tx session and supervised by me Naty Lopez PT Visit Start Time 10:31 Visit Stop Time 11:15 Total Visit Minutes 44 Visit Number 04/08 Number of CLOTHESPIN DRIER OPERATOR Visits 0 PT-OP-B Current Condition Start: 08/26/20 12:45 Freq: Status: Active Protocol: Document 08/26/20 17:00 HH (Rec: 08/27/20 17:28 HH [id number]) Current Condition History of Current Condition Onset Date years ago Current Complaints LBP, L hip pain, difficulty in walking and bend over History of Current Condition Pt is a 80 yo female here for her chronic LBP and L hip pain . Her LBP started about 2 years ago with no inciting injury or incident. Pt had a L4-S1 fusion in January this year which somewhat helps her symptoms. However, pt reports her LBP starts to get worse again and no radiating pain/ weakness. She fell down on her tailbone a week ago and it did make her pain worse. Bending over tends to get worse but sitting/ walking does not bother her. In addition, pt has been having significant L hip pain 5/10 who has difficulty in walking but better with sitting. She consulted with surgeon Dr. 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 Prior Treatments and Tests L4-S1 fusion in January. Treatment Goals Patient/Caregiver Goals 1. to regain her hip mobility and strength 2. To regain her lumbar mobility and strength 3. to be able to walk without discomfort. Current Functional Impairments (Reported) Functional Limitations- Mobility/Gait SPC for mobility at all times. lead with LLE for stair climbing. Personal Factors Other Personal Factors That May Effect OA. HTN. bilateral Therapy/Recovery oophorectomy, depression, breast cancer. PT-OP-C Subjective Start: 08/26/20 12:45 Freq: Status: Active Protocol: Document 09/09/20 10:31 HH (Rec: 09/09/20 12:15 HH [id number]) OP-PT Subjective Patient Comments Patient Comments I havent felt my backpain for awhile now. My hip was painful sometimes 4/10 but stefan been feeling stronger and able to walk faster. I have better recovery balance too. I havent had any buckling episodes since started therapy . Patient Reported Progress Improving PT-OP-D Balance Start: 08/26/20 12:45 Freq: Status: Active Protocol: Document 08/26/20 17:00 HH (Rec: 08/27/20 17:28 [id number]) Balance Tests Single Limb Standing Single Limb- Right 2 Single Limb- Left 1 PT-OP-F Manual Assessment Start: 08/26/20 12:45 Freq: Status: Active Protocol: Document 08/26/20 17:00 HH (Rec: 08/27/20 17:28 [id number]) Manual Assessments Soft Tissue Assessment Soft Tissue Mobility Assessment significant tenderness to pressure at L2-L5 spinous process and lumbar paraspinals Joint Mobility Assessment Joint Mobility Assessment muscle guarding noted during PROM at L hip, especially hip ER and IR and ext. PT-OP-G Mobility & Gait Start: 08/26/20 12:45 Freq: Status: Active Protocol: Document 08/26/20 17:00 HH (Rec: 08/27/20 17:28 [id number]) OP Gait Assessment Assistive Devices Assistive Device Straight Cane Gait Deviations General Gait Pattern Decreased Stride Length, Decreased Feet Clearance, Lateral Trunk Lean Comments Gait Comments +VE trendelenberg sign L worse than R. PT-OP-H Neuro Start: 08/26/20 12:45 Freq: Status: Active Protocol: Document 08/26/20 17:00 HH (Rec: 08/27/20 17:28 [id number]) Sensation Evaluation Gross Sensation Gross Sensation WNL Deep Tendon Reflex & Clonus Assessment Deep Tendon Reflex Bilateral Achilles Deep Tendon Reflex 1+ Diminished Bilateral Patellar Deep Tendon Reflex 1+ Diminished PT-OP-J Posture/Palpation/Skin Start: 08/26/20 12:45 Freq: Status: Active Protocol: Document 08/26/20 17:00 HH (Rec: 08/27/20 17:28 [id number]) Posture Evaluation Position Standing Knee Posture (L) Genu Valgus,(R) Genu Valgus PT-OP-K Range of Motion Start: 08/26/20 12:45 Freq: Status: Active Protocol: Document 08/26/20 17:00 (Rec: 08/27/20 17:28 [id number]) Lumbar Spine Range of Motion Lumbar Spine Active Comments toe touch test= 1.5 inches from ground, slight bend at knees extension= up to neutral with c/o tightness at L hip flexors . Hip Goniometric Range of Motion Hip Right Active Comments figure 4 (table to lateral knee joint line)= 3 inches oni test= normal, knee on table Left Active Comments figure 4 (table to lateral knee joint line)= 8 inches oni test= increased time taken to stretch til 10 degrees of the table with significant tightness at L hip flexors. Hip ROM Limitations Hip ROM Limitations Soft Tissue Tightness,Pain PT-OP-L Special Tests Start: 08/26/20 12:45 Freq: Status: Active Protocol: Document 08/26/20 17:00 HH (Rec: 08/27/20 17:28 [id number]) Special Tests Lumbar Spine Special Tests PSLR Test Results -ve B Hip Special Tests Scour Test Test Results +VE L Comments slight pain at hip joint Piriformis Test Results +ve L Comments significant tightness and pain at L buttock BRITTANY Test Results +ve L Comments significant tightness and pain at L buttock PT-OP-M Strength Start: 08/26/20 12:45 Freq: Status: Active Protocol: Document 08/26/20 17:00 HH (Rec: 08/27/20 17:28 [id number]) Hip Strength Hip Manual Muscle Testing Right Flexion (L2) 4 Good Extension (S1) 4 Good Abduction 4 Good Adduction 4 Good External Rotation 4 Good Internal Rotation 4 Good Left Flexion (L2) 3+ Fair+ Extension (S1) 3+ Fair+ Abduction 3+ Fair+ Adduction 3+ Fair+ External Rotation 3+ Fair+ Internal Rotation 3+ Fair+ Knee Strength Knee Manual Muscle Testing Right Flexion (S2) 4 Good Extension (L3) 4 Good Left Flexion (S2) 4- Good- Extension (L3) 4- Good- PT-OP-Q Treatments Start: 08/26/20 12:45 Freq: Status: Active Protocol: Document 09/09/20 10:31 HH (Rec: 09/09/20 12:15 [id number]) Therapeutic Exercises Supine Exercises supine marches Side bilateral Reps/Minutes 8 x 2 Comments no discomfort noted. hip ER Supine Exercise Name with band Side bilateral Equipment Used yellow band Reps/Minutes 10 x2 Comments for HEP, oni stretch Side left Reps/Minutes 20-30 s hold x5 figure 4 Supine Exercise Name supine figure 4 Side left Reps/Minutes 20-30 s hold x5 Comments c/o 3/10 pain at buttock Piriformis stretch Supine Exercise Name knee to opposite hip Side bilateral Reps/Minutes 20-30 s hold x 5 Bridging Supine Exercise Name with L foot placed closer to her to buttocks Side bilateral Comments 8 x 2 Manual Therapy Treatment Soft Tissue Mobilization Hip adductors Body Location R hip Mobilization Type Rolling Intensity/Depth Moderate Body Position Hooklying Comments with rolling pin. Decreased tenderness noted compared to last week. glutes Body Location L hip Mobilization Type Rolling Intensity/Depth Moderate Body Position Sidelying Comments soreness proximal > distal Joint Mobilizations L hip Direction distraction long axis Grade III Body Position Supine Reps/Duration 10 sec x 8 Comments she stated relief of symptoms at L hip PT-OP-R Modalities Start: 08/26/20 12:45 Freq: Status: Active Protocol: Document 08/28/20 12:06 (Rec: 08/28/20 12:06 [id number]) Hot Pack/Cold Pack Treatment Hot Pack Location L hip and lumbar Patient Position Hooklying Treatment Duration (minutes) 10 Patient Tolerance Good PT-OP-T Assessment and Plan Start: 08/26/20 12:45 Freq: Status: Active Protocol: Document 09/09/20 10:31 (Rec: 09/09/20 12:15 [id number]) Physical Therapy Assessment Goals strength Impairment pt needs to use chair support/ hand support to stand up from chair Retirement Goal (LTG) Pt will be able to stand up 5 times from chair without pushing off through UEs LTG Duration 12 weeks SLS Impairment SLS =1-2s Short Term Goal (STG) Pt will be able to stand on one leg >5s STG Duration 6 weeks Retirement Goal (LTG) pt will be able to stand on one leg >8 s so she can walk with good stability and without AD. LTG Duration 12 weeks Hip ER Impairment supine figure 4 position: R = 4 inches off table, L= 8 inches off table Short Term Goal (STG) pt will reach less than 6 inches of the table at supine figure 4 position STG Duration 6 weeks Family Service Caseworker Goal (LTG) pt will reach less than 5 inches of the table at supine figure 4 position so she can coral her socks in seated position with minimal pain LTG Duration 12 weeks activity tolerance Impairment unable to tolerate > 15 mins of walk Short Term Goal (STG) Pt will be able to tolerate walking 25 mins with AD with L hip pain no more than 3/10 STG Duration 6 weeks Retirement Goal (LTG) Pt will be able to tolerate walking 30 mins with/without AD with L hip pain no more than 3/10 LTG Duration 12 weeks Assessment Summary Assessment Pt cont to show progress especially hip stability and strength. She was able to complete bridging. She does need cues for figure 4 stretch and piriformis stretch to isolate the muscle Physical Therapy Plan Frequency and Duration Frequency of Treatment 2x/Week Duration of Treatment 12 weeks Plan of Care Start Date 08/26/20 Plan of Care End Date 11/26/20 Next Visit Focus/Plan Next Note Type Treatment Note Next Visit Plan reassess tx tolerance figure 4 stretch, piri stretch hip distraction oni stretch bridging [facility] leg press4 SL
--- NOTE | 2020-09-11 14:30 | PT.OTN ---
Current Diagnoses Arthrodesis status (09/11/20) Physical Therapy Treatment Note PT-OP-A Visit Information Start: 08/26/20 12:45 Freq: Status: Active Protocol: Document 09/11/20 13:50 SP (Rec: 09/11/20 14:33 SP [id number]) Out-Patient Physical Therapy Visit Information Visit Information Visit Type Treatment Note Visit Start Time 13:50 Visit Stop Time 14:30 Total Visit Minutes 40 Visit Number 05/09 Number of TRANSLATIONAL SPECIALIST Visits 1 PT-OP-B Current Condition Start: 08/26/20 12:45 Freq: Status: Active Protocol: Document 08/26/20 17:00 HH (Rec: 08/27/20 17:28 HH [id number]) Current Condition History of Current Condition Onset Date years ago Current Complaints LBP, L hip pain, difficulty in walking and bend over History of Current Condition Pt is a 80 yo female here for her chronic LBP and L hip pain . Her LBP started about 2 years ago with no inciting injury or incident. Pt had a L4-S1 fusion in January this year which somewhat helps her symptoms. However, pt reports her LBP starts to get worse again and no radiating pain/ weakness. She fell down on her tailbone a week ago and it did make her pain worse. Bending over tends to get worse but sitting/ walking does not bother her. In addition, pt has been having significant L hip pain 5/10 who has difficulty in walking but better with sitting. She consulted with surgeon Dr. 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 Prior Treatments and Tests L4-S1 fusion in January. Treatment Goals Patient/Caregiver Goals 1. to regain her hip mobility and strength 2. To regain her lumbar mobility and strength 3. to be able to walk without discomfort. Current Functional Impairments (Reported) Functional Limitations- Mobility/Gait SPC for mobility at all times. lead with LLE for stair climbing. Personal Factors Other Personal Factors That May Effect OA. HTN. bilateral Therapy/Recovery oophorectomy, depression, breast cancer. PT-OP-C Subjective Start: 08/26/20 12:45 Freq: Status: Active Protocol: Document 09/11/20 13:50 SP (Rec: 09/11/20 14:33 SP [id number]) OP-PT Subjective Patient Comments Patient Comments Pt reported felt pretty good after last tx, more L hip hurting when go get up, back better. Patient Reported Progress Improving PT-OP-D Balance Start: 08/26/20 12:45 Freq: Status: Active Protocol: Document 08/26/20 17:00 HH (Rec: 08/27/20 17:28 [id number]) Balance Tests Single Limb Standing Single Limb- Right 2 Single Limb- Left 1 PT-OP-F Manual Assessment Start: 08/26/20 12:45 Freq: Status: Active Protocol: Document 08/26/20 17:00 HH (Rec: 08/27/20 17:28 [id number]) Manual Assessments Soft Tissue Assessment Soft Tissue Mobility Assessment significant tenderness to pressure at L2-L5 spinous process and lumbar paraspinals Joint Mobility Assessment Joint Mobility Assessment muscle guarding noted during PROM at L hip, especially hip ER and IR and ext. PT-OP-G Mobility & Gait Start: 08/26/20 12:45 Freq: Status: Active Protocol: Document 08/26/20 17:00 HH (Rec: 08/27/20 17:28 [id number]) OP Gait Assessment Assistive Devices Assistive Device Straight Cane Gait Deviations General Gait Pattern Decreased Stride Length, Decreased Feet Clearance, Lateral Trunk Lean Comments Gait Comments +VE trendelenberg sign L worse than R. PT-OP-H Neuro Start: 08/26/20 12:45 Freq: Status: Active Protocol: Document 08/26/20 17:00 HH (Rec: 08/27/20 17:28 [id number]) Sensation Evaluation Gross Sensation Gross Sensation WNL Deep Tendon Reflex & Clonus Assessment Deep Tendon Reflex Bilateral Achilles Deep Tendon Reflex 1+ Diminished Bilateral Patellar Deep Tendon Reflex 1+ Diminished PT-OP-J Posture/Palpation/Skin Start: 08/26/20 12:45 Freq: Status: Active Protocol: Document 08/26/20 17:00 HH (Rec: 08/27/20 17:28 [id number]) Posture Evaluation Position Standing Knee Posture (L) Genu Valgus,(R) Genu Valgus PT-OP-K Range of Motion Start: 08/26/20 12:45 Freq: Status: Active Protocol: Document 08/26/20 17:00 HH (Rec: 08/27/20 17:28 [id number]) Lumbar Spine Range of Motion Lumbar Spine Active Comments toe touch test= 1.5 inches from ground, slight bend at knees extension= up to neutral with c/o tightness at L hip flexors . Hip Goniometric Range of Motion Hip Right Active Comments figure 4 (table to lateral knee joint line)= 3 inches oni test= normal, knee on table Left Active Comments figure 4 (table to lateral knee joint line)= 8 inches oni test= increased time taken to stretch til 10 degrees of the table with significant tightness at L hip flexors. Hip ROM Limitations Hip ROM Limitations Soft Tissue Tightness,Pain PT-OP-L Special Tests Start: 08/26/20 12:45 Freq: Status: Active Protocol: Document 08/26/20 17:00 (Rec: 08/27/20 17:28 [id number]) Special Tests Lumbar Spine Special Tests PSLR Test Results -ve B Hip Special Tests Scour Test Test Results +VE L Comments slight pain at hip joint Piriformis Test Results +ve L Comments significant tightness and pain at L buttock BRITTANY Test Results +ve L Comments significant tightness and pain at L buttock PT-OP-M Strength Start: 08/26/20 12:45 Freq: Status: Active Protocol: Document 08/26/20 17:00 (Rec: 08/27/20 17:28 [id number]) Hip Strength Hip Manual Muscle Testing Right Flexion (L2) 4 Good Extension (S1) 4 Good Abduction 4 Good Adduction 4 Good External Rotation 4 Good Internal Rotation 4 Good Left Flexion (L2) 3+ Fair+ Extension (S1) 3+ Fair+ Abduction 3+ Fair+ Adduction 3+ Fair+ External Rotation 3+ Fair+ Internal Rotation 3+ Fair+ Knee Strength Knee Manual Muscle Testing Right Flexion (S2) 4 Good Extension (L3) 4 Good Left Flexion (S2) 4- Good- Extension (L3) 4- Good- PT-OP-Q Treatments Start: 08/26/20 12:45 Freq: Status: Active Protocol: Document 09/11/20 13:50 SP (Rec: 09/11/20 14:33 SP [id number]) Therapeutic Exercises Supine Exercises oni stretch Side left Equipment Used strap used today for help back on table Reps/Minutes 20-30 s hold x5 figure 4 Supine Exercise Name supine figure 4 Side left Reps/Minutes 20-30 s hold x5 Comments light discomfort intially then better at SI Piriformis stretch Supine Exercise Name knee to opposite hip Side bilateral Reps/Minutes 20-30 s hold x 5 DKFO Supine Exercise Name supine stretch Side bilateral Resistance stretch Reps/Minutes 3x10 Bridging Supine Exercise Name with L foot placed closer to her to buttocks Side bilateral Comments 8 x 2 Sitting Exercises rolling pin Sitting Exercise Name quad, hs, itb, add Reps/Minutes 4 min Standing Exercises racquetball roll glut wall Standing Exercise Name glut and low back Side left Reps/Minutes 2 min total Comments feels good PT-OP-R Modalities Start: 08/26/20 12:45 Freq: Status: Active Protocol: Document 08/28/20 12:06 HH (Rec: 08/28/20 12:06 HH [id number]) Hot Pack/Cold Pack Treatment Hot Pack Location L hip and lumbar Patient Position Hooklying Treatment Duration (minutes) 10 Patient Tolerance Good PT-OP-T Assessment and Plan Start: 08/26/20 12:45 Freq: Status: Active Protocol: Document 09/11/20 13:50 SP (Rec: 09/11/20 14:33 SP [id number]) Physical Therapy Assessment Goals strength Impairment pt needs to use chair support/ hand support to stand up from chair Skilled Nursing Goal (LTG) Pt will be able to stand up 5 times from chair without pushing off through UEs LTG Duration 12 weeks SLS Impairment SLS =1-2s Short Term Goal (STG) Pt will be able to stand on one leg >5s STG Duration 6 weeks Refinery Operator [employer] Goal (LTG) pt will be able to stand on one leg >8 s so she can walk with good stability and without AD. LTG Duration 12 weeks Hip ER Impairment supine figure 4 position: R = 4 inches off table, L= 8 inches off table Short Term Goal (STG) pt will reach less than 6 inches of the table at supine figure 4 position STG Duration 6 weeks Skilled Nursing Goal (LTG) pt will reach less than 5 inches of the table at supine figure 4 position so she can coral her socks in seated position with minimal pain LTG Duration 12 weeks activity tolerance Impairment unable to tolerate > 15 mins of walk Short Term Goal (STG) Pt will be able to tolerate walking 25 mins with AD with L hip pain no more than 3/10 STG Duration 6 weeks Skilled Nursing Goal (LTG) Pt will be able to tolerate walking 30 mins with/without AD with L hip pain no more than 3/10 LTG Duration 12 weeks Five Impairment Pt ambulates with a flexed hip and knee posture Skilled Nursing Goal (LTG) Pt to demonstrate neutral hip flexion/extension in standing 75% of the time with no verbal cues. LTG Duration 11/25/19 Four Impairment Significant B LE weakness Skilled Nursing Goal (LTG) Pt LE MMT at least 4/5 in all tested planes LTG Duration 11/25/19 Three Impairment Pt struggles to lift left LE into car Short Term Goal (STG) Pt to lift leg into car 100% of the time with no difficulty STG Duration 10/25/19 Two Impairment Pt experiences extreme hip pain getting out of bed in the morning Skilled Nursing Goal (LTG) Pt to exit bed in the morning with at most 3/10 pain. LTG Duration 11/25/19 One Impairment Pt does not have an appropriate home exercise program Short Term Goal (STG) Pt to be independent and compliant with an appropriate HEP STG Duration 10/25/19 Assessment Summary Assessment Pt had good tolerance to self instruction of rolling pin and ball at wall. Reviewed HEP and required cuing for TA and neutral spine durign stretching. Pt reported I feel looser and more stable. When walking out. Pt reported wants to address knees at some point so can walk better. Physical Therapy Plan Frequency and Duration Frequency of Treatment 2x/Week Duration of Treatment 12 weeks Plan of Care Start Date 08/26/20 Plan of Care End Date 11/26/20 Therapeutic Interventions Therapeutic Interventions Balance Training,Gait Training ,Home Exercise Program,Joint Mobilizations,Manual Therapy, Neuromuscular Re-education, Patient/Caregiver Education, Self-Care/Home Management,Soft Tissue Mobilization, Therapeutic Activities, Therapeutic Exercises Modalities Cold Pack/Ice Massage,Electric Stimulation,Hot Packs, Infrared Therapy,Ultrasound Next Visit Focus/Plan Next Note Type Treatment Note Next Visit Plan reassess tx tolerance self rolling pin/ stick/ ball and HEP: figure 4 stretch, piri stretch hip distraction oni stretch bridging [employer] leg press4 SL
--- NOTE | 2020-09-15 09:05 | PT.OTN ---
Current Diagnoses Arthrodesis status (09/15/20) Physical Therapy Treatment Note PT-OP-A Visit Information Start: 08/26/20 12:45 Freq: Status: Active Protocol: Document 09/15/20 08:16 (Rec: 09/15/20 09:05 [id number]) Out-Patient Physical Therapy Visit Information Visit Information Visit Type Treatment Note Visit Start Time 08:16 Visit Stop Time 09:00 Total Visit Minutes 44 Visit Number 06/08 Number of CHEMICAL INSPECTOR Visits 0 PT-OP-B Current Condition Start: 08/26/20 12:45 Freq: Status: Active Protocol: Document 08/26/20 17:00 HH (Rec: 08/27/20 17:28 [id number]) Current Condition History of Current Condition Onset Date years ago Current Complaints LBP, L hip pain, difficulty in walking and bend over History of Current Condition Pt is a 80 yo female here for her chronic LBP and L hip pain . Her LBP started about 2 years ago with no inciting injury or incident. Pt had a L4-S1 fusion in January this year which somewhat helps her symptoms. However, pt reports her LBP starts to get worse again and no radiating pain/ weakness. She fell down on her tailbone a week ago and it did make her pain worse. Bending over tends to get worse but sitting/ walking does not bother her. In addition, pt has been having significant L hip pain 5/10 who has difficulty in walking but better with sitting. She consulted with surgeon Dr. 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 Prior Treatments and Tests L4-S1 fusion in January. Treatment Goals Patient/Caregiver Goals 1. to regain her hip mobility and strength 2. To regain her lumbar mobility and strength 3. to be able to walk without discomfort. Current Functional Impairments (Reported) Functional Limitations- Mobility/Gait SPC for mobility at all times. lead with LLE for stair climbing. Personal Factors Other Personal Factors That May Effect OA. HTN. bilateral Therapy/Recovery oophorectomy, depression, breast cancer. PT-OP-C Subjective Start: 08/26/20 12:45 Freq: Status: Active Protocol: Document 09/15/20 08:16 (Rec: 09/15/20 09:05 [id number]) OP-PT Subjective Patient Comments Patient Comments My back is doing very good so far. L hip is fine too but get sore here and there. Patient Reported Progress Improving PT-OP-D Balance Start: 08/26/20 12:45 Freq: Status: Active Protocol: Document 08/26/20 17:00 HH (Rec: 08/27/20 17:28 [id number]) Balance Tests Single Limb Standing Single Limb- Right 2 Single Limb- Left 1 PT-OP-F Manual Assessment Start: 08/26/20 12:45 Freq: Status: Active Protocol: Document 08/26/20 17:00 HH (Rec: 08/27/20 17:28 [id number]) Manual Assessments Soft Tissue Assessment Soft Tissue Mobility Assessment significant tenderness to pressure at L2-L5 spinous process and lumbar paraspinals Joint Mobility Assessment Joint Mobility Assessment muscle guarding noted during PROM at L hip, especially hip ER and IR and ext. PT-OP-G Mobility & Gait Start: 08/26/20 12:45 Freq: Status: Active Protocol: Document 08/26/20 17:00 HH (Rec: 08/27/20 17:28 [id number]) OP Gait Assessment Assistive Devices Assistive Device Straight Cane Gait Deviations General Gait Pattern Decreased Stride Length, Decreased Feet Clearance, Lateral Trunk Lean Comments Gait Comments +VE trendelenberg sign L worse than R. PT-OP-H Neuro Start: 08/26/20 12:45 Freq: Status: Active Protocol: Document 08/26/20 17:00 HH (Rec: 08/27/20 17:28 [id number]) Sensation Evaluation Gross Sensation Gross Sensation WNL Deep Tendon Reflex & Clonus Assessment Deep Tendon Reflex Bilateral Achilles Deep Tendon Reflex 1+ Diminished Bilateral Patellar Deep Tendon Reflex 1+ Diminished PT-OP-J Posture/Palpation/Skin Start: 08/26/20 12:45 Freq: Status: Active Protocol: Document 08/26/20 17:00 HH (Rec: 08/27/20 17:28 [id number]) Posture Evaluation Position Standing Knee Posture (L) Genu Valgus,(R) Genu Valgus PT-OP-K Range of Motion Start: 08/26/20 12:45 Freq: Status: Active Protocol: Document 08/26/20 17:00 HH (Rec: 08/27/20 17:28 [id number]) Lumbar Spine Range of Motion Lumbar Spine Active Comments toe touch test= 1.5 inches from ground, slight bend at knees extension= up to neutral with c/o tightness at L hip flexors . Hip Goniometric Range of Motion Hip Right Active Comments figure 4 (table to lateral knee joint line)= 3 inches oni test= normal, knee on table Left Active Comments figure 4 (table to lateral knee joint line)= 8 inches oni test= increased time taken to stretch til 10 degrees of the table with significant tightness at L hip flexors. Hip ROM Limitations Hip ROM Limitations Soft Tissue Tightness,Pain PT-OP-L Special Tests Start: 08/26/20 12:45 Freq: Status: Active Protocol: Document 08/26/20 17:00 (Rec: 08/27/20 17:28 [id number]) Special Tests Lumbar Spine Special Tests PSLR Test Results -ve B Hip Special Tests Scour Test Test Results +VE L Comments slight pain at hip joint Piriformis Test Results +ve L Comments significant tightness and pain at L buttock BRITTANY Test Results +ve L Comments significant tightness and pain at L buttock PT-OP-M Strength Start: 08/26/20 12:45 Freq: Status: Active Protocol: Document 08/26/20 17:00 (Rec: 08/27/20 17:28 [id number]) Hip Strength Hip Manual Muscle Testing Right Flexion (L2) 4 Good Extension (S1) 4 Good Abduction 4 Good Adduction 4 Good External Rotation 4 Good Internal Rotation 4 Good Left Flexion (L2) 3+ Fair+ Extension (S1) 3+ Fair+ Abduction 3+ Fair+ Adduction 3+ Fair+ External Rotation 3+ Fair+ Internal Rotation 3+ Fair+ Knee Strength Knee Manual Muscle Testing Right Flexion (S2) 4 Good Extension (L3) 4 Good Left Flexion (S2) 4- Good- Extension (L3) 4- Good- PT-OP-Q Treatments Start: 08/26/20 12:45 Freq: Status: Active Protocol: Document 09/15/20 08:16 (Rec: 09/15/20 09:05 [id number]) Gym Equipment Shuttle Recovery Unilateral Squats Resistance #25 Shuttle Recovery Platform Stable Reps/Time 10 x2 Bilateral Squats Resistance #50 Shuttle Recovery Platform Stable Reps/Time 10x1 Therapeutic Exercises Supine Exercises hip ER Supine Exercise Name unilateral with band Side bilateral Equipment Used yellow band Reps/Minutes 10 x2 Comments for HEP, oni stretch Side left Equipment Used strap used today for help back on table Reps/Minutes 20-30 s hold x5 figure 4 Supine Exercise Name supine figure 4 Side left Reps/Minutes 20-30 s hold x5 Comments light discomfort intially then better at SI Piriformis stretch Supine Exercise Name knee to opposite hip Side bilateral Reps/Minutes 20-30 s hold x 5 Bridging Supine Exercise Name with L foot placed closer to her to buttocks Side bilateral Comments 8 x 2 Sidelying Exercises clam shell Comments attempted 2 times, only reached half of the full range Therapeutic Activity Therapeutic Activity STS Reps/Minutes 5 x2 Comments use of grab bar to pull, cues on maintaining neutral knee alignment. For HEP and use sink counter for support at home Manual Therapy Treatment Soft Tissue Mobilization Hip adductors Body Location R hip Mobilization Type Rolling Intensity/Depth Moderate Body Position Hooklying Comments Decreased tenderness noted compared to last week. glutes Body Location L hip Mobilization Type Rolling Intensity/Depth Moderate Body Position Sidelying Comments soreness proximal > distal PT-OP-R Modalities Start: 08/26/20 12:45 Freq: Status: Active Protocol: Document 08/28/20 12:06 (Rec: 08/28/20 12:06 [id number]) Hot Pack/Cold Pack Treatment Hot Pack Location L hip and lumbar Patient Position Hooklying Treatment Duration (minutes) 10 Patient Tolerance Good PT-OP-T Assessment and Plan Start: 08/26/20 12:45 Freq: Status: Active Protocol: Document 09/15/20 08:16 (Rec: 09/15/20 09:05 [id number]) Physical Therapy Assessment Goals strength Impairment pt needs to use chair support/ hand support to stand up from chair Retirement Goal (LTG) Pt will be able to stand up 5 times from chair without pushing off through UEs LTG Duration 12 weeks SLS Impairment SLS =1-2s Short Term Goal (STG) Pt will be able to stand on one leg >5s STG Duration 6 weeks Retirement Goal (LTG) pt will be able to stand on one leg >8 s so she can walk with good stability and without AD. LTG Duration 12 weeks Hip ER Impairment supine figure 4 position: R = 4 inches off table, L= 8 inches off table Short Term Goal (STG) pt will reach less than 6 inches of the table at supine figure 4 position STG Duration 6 weeks Real Estate Leasing Agent Goal (LTG) pt will reach less than 5 inches of the table at supine figure 4 position so she can coral her socks in seated position with minimal pain LTG Duration 12 weeks activity tolerance Impairment unable to tolerate > 15 mins of walk Short Term Goal (STG) Pt will be able to tolerate walking 25 mins with AD with L hip pain no more than 3/10 STG Duration 6 weeks Retirement Goal (LTG) Pt will be able to tolerate walking 30 mins with/without AD with L hip pain no more than 3/10 LTG Duration 12 weeks Assessment Summary Assessment Pt delilah session well and has improved performance for oni stretch and bridging. She was able to reach half clam shell in SL today. Given STS with support to maintain neutral knee alignment. Physical Therapy Plan Frequency and Duration Frequency of Treatment 2x/Week Duration of Treatment 12 weeks Plan of Care Start Date 08/26/20 Plan of Care End Date 11/26/20 Next Visit Focus/Plan Next Note Type Treatment Note Next Visit Plan reassess tx tolerance self rolling pin/ stick/ ball and HEP: figure 4 stretch, piri stretch hip distraction oni stretch bridging clamshell leg press4 SL
--- NOTE | 2020-09-18 10:32 | PT.OTN ---
Current Diagnoses Arthrodesis status (09/18/20) Physical Therapy Treatment Note PT-OP-A Visit Information Start: 08/26/20 12:45 Freq: Status: Active Protocol: Document 09/18/20 08:17 (Rec: 09/18/20 09:54 [id number]) Out-Patient Physical Therapy Visit Information Visit Information Visit Type Treatment Note Visit Start Time 08:17 Visit Stop Time 09:00 Total Visit Minutes 43 Visit Number 07/09 Number of NURSE INSTRUCTOR Visits 0 PT-OP-B Current Condition Start: 08/26/20 12:45 Freq: Status: Active Protocol: Document 08/26/20 17:00 HH (Rec: 08/27/20 17:28 [id number]) Current Condition History of Current Condition Onset Date years ago Current Complaints LBP, L hip pain, difficulty in walking and bend over History of Current Condition Pt is a 80 yo female here for her chronic LBP and L hip pain . Her LBP started about 2 years ago with no inciting injury or incident. Pt had a L4-S1 fusion in January this year which somewhat helps her symptoms. However, pt reports her LBP starts to get worse again and no radiating pain/ weakness. She fell down on her tailbone a week ago and it did make her pain worse. Bending over tends to get worse but sitting/ walking does not bother her. In addition, pt has been having significant L hip pain 5/10 who has difficulty in walking but better with sitting. She consulted with surgeon Dr. 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 Prior Treatments and Tests L4-S1 fusion in January. Treatment Goals Patient/Caregiver Goals 1. to regain her hip mobility and strength 2. To regain her lumbar mobility and strength 3. to be able to walk without discomfort. Current Functional Impairments (Reported) Functional Limitations- Mobility/Gait SPC for mobility at all times. lead with LLE for stair climbing. Personal Factors Other Personal Factors That May Effect OA. HTN. bilateral Therapy/Recovery oophorectomy, depression, breast cancer. PT-OP-C Subjective Start: 08/26/20 12:45 Freq: Status: Active Protocol: Document 09/18/20 08:17 HH (Rec: 09/18/20 09:54 [id number]) OP-PT Subjective Patient Comments Patient Comments My back got a little sore on tuesday after i did some cleaning work with a bend over position on tuesday. But i recovered after a day. Patient Reported Progress Improving PT-OP-D Balance Start: 08/26/20 12:45 Freq: Status: Active Protocol: Document 08/26/20 17:00 HH (Rec: 08/27/20 17:28 [id number]) Balance Tests Single Limb Standing Single Limb- Right 2 Single Limb- Left 1 PT-OP-F Manual Assessment Start: 08/26/20 12:45 Freq: Status: Active Protocol: Document 08/26/20 17:00 HH (Rec: 08/27/20 17:28 [id number]) Manual Assessments Soft Tissue Assessment Soft Tissue Mobility Assessment significant tenderness to pressure at L2-L5 spinous process and lumbar paraspinals Joint Mobility Assessment Joint Mobility Assessment muscle guarding noted during PROM at L hip, especially hip ER and IR and ext. PT-OP-G Mobility & Gait Start: 08/26/20 12:45 Freq: Status: Active Protocol: Document 08/26/20 17:00 HH (Rec: 08/27/20 17:28 [id number]) OP Gait Assessment Assistive Devices Assistive Device Straight Cane Gait Deviations General Gait Pattern Decreased Stride Length, Decreased Feet Clearance, Lateral Trunk Lean Comments Gait Comments +VE trendelenberg sign L worse than R. PT-OP-H Neuro Start: 08/26/20 12:45 Freq: Status: Active Protocol: Document 08/26/20 17:00 HH (Rec: 08/27/20 17:28 [id number]) Sensation Evaluation Gross Sensation Gross Sensation WNL Deep Tendon Reflex & Clonus Assessment Deep Tendon Reflex Bilateral Achilles Deep Tendon Reflex 1+ Diminished Bilateral Patellar Deep Tendon Reflex 1+ Diminished PT-OP-J Posture/Palpation/Skin Start: 08/26/20 12:45 Freq: Status: Active Protocol: Document 08/26/20 17:00 HH (Rec: 08/27/20 17:28 [id number]) Posture Evaluation Position Standing Knee Posture (L) Genu Valgus,(R) Genu Valgus PT-OP-K Range of Motion Start: 08/26/20 12:45 Freq: Status: Active Protocol: Document 08/26/20 17:00 HH (Rec: 08/27/20 17:28 [id number]) Lumbar Spine Range of Motion Lumbar Spine Active Comments toe touch test= 1.5 inches from ground, slight bend at knees extension= up to neutral with c/o tightness at L hip flexors . Hip Goniometric Range of Motion Hip Right Active Comments figure 4 (table to lateral knee joint line)= 3 inches oni test= normal, knee on table Left Active Comments figure 4 (table to lateral knee joint line)= 8 inches oni test= increased time taken to stretch til 10 degrees of the table with significant tightness at L hip flexors. Hip ROM Limitations Hip ROM Limitations Soft Tissue Tightness,Pain PT-OP-L Special Tests Start: 08/26/20 12:45 Freq: Status: Active Protocol: Document 08/26/20 17:00 (Rec: 08/27/20 17:28 [id number]) Special Tests Lumbar Spine Special Tests PSLR Test Results -ve B Hip Special Tests Scour Test Test Results +VE L Comments slight pain at hip joint Piriformis Test Results +ve L Comments significant tightness and pain at L buttock BRITTANY Test Results +ve L Comments significant tightness and pain at L buttock PT-OP-M Strength Start: 08/26/20 12:45 Freq: Status: Active Protocol: Document 08/26/20 17:00 (Rec: 08/27/20 17:28 [id number]) Hip Strength Hip Manual Muscle Testing Right Flexion (L2) 4 Good Extension (S1) 4 Good Abduction 4 Good Adduction 4 Good External Rotation 4 Good Internal Rotation 4 Good Left Flexion (L2) 3+ Fair+ Extension (S1) 3+ Fair+ Abduction 3+ Fair+ Adduction 3+ Fair+ External Rotation 3+ Fair+ Internal Rotation 3+ Fair+ Knee Strength Knee Manual Muscle Testing Right Flexion (S2) 4 Good Extension (L3) 4 Good Left Flexion (S2) 4- Good- Extension (L3) 4- Good- PT-OP-Q Treatments Start: 08/26/20 12:45 Freq: Status: Active Protocol: Document 09/18/20 08:17 (Rec: 09/18/20 09:54 [id number]) Gym Equipment Shuttle Recovery Unilateral Squats Resistance #25 then 37 Shuttle Recovery Platform Stable Reps/Time 10 x2 Therapeutic Exercises Supine Exercises oni stretch Side left Reps/Minutes 20-30 s hold x5 figure 4 Supine Exercise Name supine figure 4 Side left Reps/Minutes 20-30 s hold x5 Comments light discomfort intially then better at SI Piriformis stretch Supine Exercise Name knee to opposite hip Side bilateral Reps/Minutes 20-30 s hold x 3 Comments no discomfort Bridging Supine Exercise Name with L foot placed closer to her to buttocks Side bilateral Reps/Minutes 8 x2 Comments pt is able to full range Standing Exercises standing hip ER Side bilateral Reps/Minutes 10 x2 Comments cues to prevent ankle supination Therapeutic Activity Therapeutic Activity STS Reps/Minutes 6 x2 Comments use of grab bar to pull, cues on maintaining neutral knee alignment. Used foam pad to increase seat height. For HEP and use sink counter for support at home Manual Therapy Treatment Soft Tissue Mobilization glutes Body Location L and R Mobilization Type Rolling,Sustained Pressure Intensity/Depth Moderate Body Position Sidelying Comments More tenderness in the R than the L. But less in general PT-OP-R Modalities Start: 08/26/20 12:45 Freq: Status: Active Protocol: Document 08/28/20 12:06 (Rec: 08/28/20 12:06 [id number]) Hot Pack/Cold Pack Treatment Hot Pack Location L hip and lumbar Patient Position Hooklying Treatment Duration (minutes) 10 Patient Tolerance Good PT-OP-T Assessment and Plan Start: 08/26/20 12:45 Freq: Status: Active Protocol: Document 09/18/20 08:17 HH (Rec: 09/18/20 09:54 [id number]) Physical Therapy Assessment Goals strength Impairment pt needs to use chair support/ hand support to stand up from chair Armed Security Guard Goal (LTG) Pt will be able to stand up 5 times from chair without pushing off through UEs LTG Duration 12 weeks SLS Impairment SLS =1-2s Short Term Goal (STG) Pt will be able to stand on one leg >5s STG Duration 6 weeks Jail Goal (LTG) pt will be able to stand on one leg >8 s so she can walk with good stability and without AD. LTG Duration 12 weeks Hip ER Impairment supine figure 4 position: R = 4 inches off table, L= 8 inches off table Short Term Goal (STG) pt will reach less than 6 inches of the table at supine figure 4 position STG Duration 6 weeks Armed Security Guard Goal (LTG) pt will reach less than 5 inches of the table at supine figure 4 position so she can coral her socks in seated position with minimal pain LTG Duration 12 weeks activity tolerance Impairment unable to tolerate > 15 mins of walk Short Term Goal (STG) Pt will be able to tolerate walking 25 mins with AD with L hip pain no more than 3/10 STG Duration 6 weeks Jail Goal (LTG) Pt will be able to tolerate walking 30 mins with/without AD with L hip pain no more than 3/10 LTG Duration 12 weeks Assessment Summary Assessment Pt delilah session well but she does need cues for LE alignment during STS. Pt is able to progress to 37# for uni squat. Physical Therapy Plan Frequency and Duration Frequency of Treatment 2x/Week Duration of Treatment 12 weeks Plan of Care Start Date 08/26/20 Plan of Care End Date 11/26/20 Next Visit Focus/Plan Next Note Type Treatment Note Next Visit Plan reassess tx tolerance self rolling pin/ stick/ ball and HEP: figure 4 stretch, piri stretch hip distraction oni stretch bridging [facility] leg press[facility] SL
--- NOTE | 2020-09-25 15:15 | PT.OTN ---
Current Diagnoses Arthrodesis status (09/25/20) Physical Therapy Treatment Note PT-OP-A Visit Information Start: 08/26/20 12:45 Freq: Status: Active Protocol: Document 09/25/20 14:33 SP (Rec: 09/25/20 15:29 SP [id number]) Out-Patient Physical Therapy Visit Information Visit Information Visit Type Treatment Note Visit Start Time 14:33 Visit Stop Time 15:15 Total Visit Minutes 42 Visit Number 08/09 Number of WIRE WEAVER Visits 1 PT-OP-B Current Condition Start: 08/26/20 12:45 Freq: Status: Active Protocol: Document 08/26/20 17:00 HH (Rec: 08/27/20 17:28 HH [id number]) Current Condition History of Current Condition Onset Date years ago Current Complaints LBP, L hip pain, difficulty in walking and bend over History of Current Condition Pt is a 80 yo female here for her chronic LBP and L hip pain . Her LBP started about 2 years ago with no inciting injury or incident. Pt had a L4-S1 fusion in January this year which somewhat helps her symptoms. However, pt reports her LBP starts to get worse again and no radiating pain/ weakness. She fell down on her tailbone a week ago and it did make her pain worse. Bending over tends to get worse but sitting/ walking does not bother her. In addition, pt has been having significant L hip pain 5/10 who has difficulty in walking but better with sitting. She consulted with surgeon Dr. 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 Prior Treatments and Tests L4-S1 fusion in January. Treatment Goals Patient/Caregiver Goals 1. to regain her hip mobility and strength 2. To regain her lumbar mobility and strength 3. to be able to walk without discomfort. Current Functional Impairments (Reported) Functional Limitations- Mobility/Gait SPC for mobility at all times. lead with LLE for stair climbing. Personal Factors Other Personal Factors That May Effect OA. HTN. bilateral Therapy/Recovery oophorectomy, depression, breast cancer. PT-OP-C Subjective Start: 08/26/20 12:45 Freq: Status: Active Protocol: Document 09/25/20 14:33 SP (Rec: 09/25/20 15:29 SP [id number]) OP-PT Subjective Patient Comments Patient Comments Pt stated really wants to work on her walking. One of my family members commented when saw drive by a previous day that knew it was her by her walk. Pt is concerned how to improve her gait. PT-OP-D Balance Start: 08/26/20 12:45 Freq: Status: Active Protocol: Document 08/26/20 17:00 HH (Rec: 08/27/20 17:28 [id number]) Balance Tests Single Limb Standing Single Limb- Right 2 Single Limb- Left 1 PT-OP-F Manual Assessment Start: 08/26/20 12:45 Freq: Status: Active Protocol: Document 08/26/20 17:00 HH (Rec: 08/27/20 17:28 [id number]) Manual Assessments Soft Tissue Assessment Soft Tissue Mobility Assessment significant tenderness to pressure at L2-L5 spinous process and lumbar paraspinals Joint Mobility Assessment Joint Mobility Assessment muscle guarding noted during PROM at L hip, especially hip ER and IR and ext. PT-OP-G Mobility & Gait Start: 08/26/20 12:45 Freq: Status: Active Protocol: Document 08/26/20 17:00 HH (Rec: 08/27/20 17:28 [id number]) OP Gait Assessment Assistive Devices Assistive Device Straight Cane Gait Deviations General Gait Pattern Decreased Stride Length, Decreased Feet Clearance, Lateral Trunk Lean Comments Gait Comments +VE trendelenberg sign L worse than R. PT-OP-H Neuro Start: 08/26/20 12:45 Freq: Status: Active Protocol: Document 08/26/20 17:00 HH (Rec: 08/27/20 17:28 [id number]) Sensation Evaluation Gross Sensation Gross Sensation WNL Deep Tendon Reflex & Clonus Assessment Deep Tendon Reflex Bilateral Achilles Deep Tendon Reflex 1+ Diminished Bilateral Patellar Deep Tendon Reflex 1+ Diminished PT-OP-J Posture/Palpation/Skin Start: 08/26/20 12:45 Freq: Status: Active Protocol: Document 08/26/20 17:00 HH (Rec: 08/27/20 17:28 [id number]) Posture Evaluation Position Standing Knee Posture (L) Genu Valgus,(R) Genu Valgus PT-OP-K Range of Motion Start: 08/26/20 12:45 Freq: Status: Active Protocol: Document 08/26/20 17:00 (Rec: 08/27/20 17:28 [id number]) Lumbar Spine Range of Motion Lumbar Spine Active Comments toe touch test= 1.5 inches from ground, slight bend at knees extension= up to neutral with c/o tightness at L hip flexors . Hip Goniometric Range of Motion Hip Right Active Comments figure 4 (table to lateral knee joint line)= 3 inches oni test= normal, knee on table Left Active Comments figure 4 (table to lateral knee joint line)= 8 inches oni test= increased time taken to stretch til 10 degrees of the table with significant tightness at L hip flexors. Hip ROM Limitations Hip ROM Limitations Soft Tissue Tightness,Pain PT-OP-L Special Tests Start: 08/26/20 12:45 Freq: Status: Active Protocol: Document 08/26/20 17:00 (Rec: 08/27/20 17:28 [id number]) Special Tests Lumbar Spine Special Tests PSLR Test Results -ve B Hip Special Tests Scour Test Test Results +VE L Comments slight pain at hip joint Piriformis Test Results +ve L Comments significant tightness and pain at L buttock BRITTANY Test Results +ve L Comments significant tightness and pain at L buttock PT-OP-M Strength Start: 08/26/20 12:45 Freq: Status: Active Protocol: Document 08/26/20 17:00 (Rec: 08/27/20 17:28 [id number]) Hip Strength Hip Manual Muscle Testing Right Flexion (L2) 4 Good Extension (S1) 4 Good Abduction 4 Good Adduction 4 Good External Rotation 4 Good Internal Rotation 4 Good Left Flexion (L2) 3+ Fair+ Extension (S1) 3+ Fair+ Abduction 3+ Fair+ Adduction 3+ Fair+ External Rotation 3+ Fair+ Internal Rotation 3+ Fair+ Knee Strength Knee Manual Muscle Testing Right Flexion (S2) 4 Good Extension (L3) 4 Good Left Flexion (S2) 4- Good- Extension (L3) 4- Good- PT-OP-Q Treatments Start: 08/26/20 12:45 Freq: Status: Active Protocol: Document 09/25/20 14:33 SP (Rec: 09/25/20 15:29 SP [id number]) Gym Equipment Shuttle Recovery Unilateral Squats Details 37 Resistance 37# Shuttle Recovery Platform Stable Reps/Time 10 x2 Bilateral Squats Details warm up Resistance 61# Shuttle Recovery Platform Stable Reps/Time 10x2 Therapeutic Exercises Standing Exercises side stepping Standing Exercise Name Add HEP Side bilateral Equipment Used //bar Reps/Minutes 10 ft Comments cued knee extension and glut facilitation during stationary LE to allow sta hip abd and extension Standing Exercise Name hip abduction and extension Side bilateral Reps/Minutes 10 x each Comments cued knee extension and glut facilitation during stationary LE to allow sta Gait Training Gait Activity gait f/b/side stepping Device Used none, TRANSPLANT WORKER, SPC Level of Assistance sBA Surface firm Distance/Duration 20 ft x3 Treatment Focus improve stable LE single stance Comments cued knee extension and glut facilitation during stationary LE to allow stability, improved with mirror for self feedback. PT-OP-R Modalities Start: 08/26/20 12:45 Freq: Status: Active Protocol: Document 08/28/20 12:06 HH (Rec: 08/28/20 12:06 HH [id number]) Hot Pack/Cold Pack Treatment Hot Pack Location L hip and lumbar Patient Position Hooklying Treatment Duration (minutes) 10 Patient Tolerance Good PT-OP-T Assessment and Plan Start: 08/26/20 12:45 Freq: Status: Active Protocol: Document 09/25/20 14:33 SP (Rec: 09/25/20 15:29 SP [id number]) Physical Therapy Assessment Goals strength Impairment pt needs to use chair support/ hand support to stand up from chair Mcc Goal (LTG) Pt will be able to stand up 5 times from chair without pushing off through UEs LTG Duration 12 weeks SLS Impairment SLS =1-2s Short Term Goal (STG) Pt will be able to stand on one leg >5s STG Duration 6 weeks Mock Up Maker Goal (LTG) pt will be able to stand on one leg >8 s so she can walk with good stability and without AD. LTG Duration 12 weeks Hip ER Impairment supine figure 4 position: R = 4 inches off table, L= 8 inches off table Short Term Goal (STG) pt will reach less than 6 inches of the table at supine figure 4 position STG Duration 6 weeks Mcc Goal (LTG) pt will reach less than 5 inches of the table at supine figure 4 position so she can coral her socks in seated position with minimal pain LTG Duration 12 weeks activity tolerance Impairment unable to tolerate > 15 mins of walk Short Term Goal (STG) Pt will be able to tolerate walking 25 mins with AD with L hip pain no more than 3/10 STG Duration 6 weeks Mcc Goal (LTG) Pt will be able to tolerate walking 30 mins with/without AD with L hip pain no more than 3/10 LTG Duration 12 weeks Five Impairment Pt ambulates with a flexed hip and knee posture Mcc Goal (LTG) Pt to demonstrate neutral hip flexion/extension in standing 75% of the time with no verbal cues. LTG Duration 11/25/19 Four Impairment Significant B LE weakness Mcc Goal (LTG) Pt LE MMT at least 4/5 in all tested planes LTG Duration 11/25/19 Three Impairment Pt struggles to lift left LE into car Short Term Goal (STG) Pt to lift leg into car 100% of the time with no difficulty STG Duration 10/25/19 Two Impairment Pt experiences extreme hip pain getting out of bed in the morning Mcc Goal (LTG) Pt to exit bed in the morning with at most 3/10 pain. LTG Duration 11/25/19 One Impairment Pt does not have an appropriate home exercise program Short Term Goal (STG) Pt to be independent and compliant with an appropriate HEP STG Duration 10/25/19 Assessment Summary Assessment Pt improved with single stance and hip ext and ER for opposite advancement and foot clearance. WIRE WEAVER recommended use of SPC for improved quality gait and musculature facilitation for now with agreement wow I can't believe how much what we did today helped me walk better. I will be mindful at home as well. Physical Therapy Plan Frequency and Duration Frequency of Treatment 2x/Week Duration of Treatment 12 weeks Plan of Care Start Date 08/26/20 Plan of Care End Date 11/26/20 Therapeutic Interventions Therapeutic Interventions Balance Training,Gait Training ,Home Exercise Program,Joint Mobilizations,Manual Therapy, Neuromuscular Re-education, Patient/Caregiver Education, Self-Care/Home Management,Soft Tissue Mobilization, Therapeutic Activities, Therapeutic Exercises Modalities Cold Pack/Ice Massage,Electric Stimulation,Hot Packs, Infrared Therapy,Ultrasound Next Visit Focus/Plan Next Note Type Treatment Note Next Visit Plan reassess last tx: quality gait w/ mirror and SPC at needed and standing HEP review. Next ts ask how tolerance previous tx of self rolling pin/ stick/ ball forgot to ask and review HEP: figure 4 stretch, piri stretch hip distraction oni stretch bridging clamshell leg press4 SL
--- NOTE | 2020-09-30 12:03 | PT.OTN ---
Current Diagnoses Arthrodesis status (09/30/20) Physical Therapy Treatment Note PT-OP-A Visit Information Start: 08/26/20 12:45 Freq: Status: Active Protocol: Document 09/30/20 11:15 HH (Rec: 09/30/20 12:02 [id number]) Out-Patient Physical Therapy Visit Information Visit Information Visit Type Treatment Note Visit Start Time 11:18 Visit Stop Time 12:00 Total Visit Minutes 42 Visit Number 09/08 Number of CRAWLER TRACTOR OPERATOR Visits 0 PT-OP-B Current Condition Start: 08/26/20 12:45 Freq: Status: Active Protocol: Document 08/26/20 17:00 HH (Rec: 08/27/20 17:28 [id number]) Current Condition History of Current Condition Onset Date years ago Current Complaints LBP, L hip pain, difficulty in walking and bend over History of Current Condition Pt is a 80 yo female here for her chronic LBP and L hip pain . Her LBP started about 2 years ago with no inciting injury or incident. Pt had a L4-S1 fusion in January this year which somewhat helps her symptoms. However, pt reports her LBP starts to get worse again and no radiating pain/ weakness. She fell down on her tailbone a week ago and it did make her pain worse. Bending over tends to get worse but sitting/ walking does not bother her. In addition, pt has been having significant L hip pain 5/10 who has difficulty in walking but better with sitting. She consulted with surgeon Dr. 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 Prior Treatments and Tests L4-S1 fusion in January. Treatment Goals Patient/Caregiver Goals 1. to regain her hip mobility and strength 2. To regain her lumbar mobility and strength 3. to be able to walk without discomfort. Current Functional Impairments (Reported) Functional Limitations- Mobility/Gait SPC for mobility at all times. lead with LLE for stair climbing. Personal Factors Other Personal Factors That May Effect OA. HTN. bilateral Therapy/Recovery oophorectomy, depression, breast cancer. PT-OP-C Subjective Start: 08/26/20 12:45 Freq: Status: Active Protocol: Document 09/30/20 11:15 HH (Rec: 09/30/20 12:02 [id number]) OP-PT Subjective Patient Comments Patient Comments Im doing pretty good and stefan been walking with my knees straighter and it feels good. Patient Reported Progress Improving PT-OP-D Balance Start: 08/26/20 12:45 Freq: Status: Active Protocol: Document 08/26/20 17:00 HH (Rec: 08/27/20 17:28 [id number]) Balance Tests Single Limb Standing Single Limb- Right 2 Single Limb- Left 1 PT-OP-F Manual Assessment Start: 08/26/20 12:45 Freq: Status: Active Protocol: Document 08/26/20 17:00 HH (Rec: 08/27/20 17:28 [id number]) Manual Assessments Soft Tissue Assessment Soft Tissue Mobility Assessment significant tenderness to pressure at L2-L5 spinous process and lumbar paraspinals Joint Mobility Assessment Joint Mobility Assessment muscle guarding noted during PROM at L hip, especially hip ER and IR and ext. PT-OP-G Mobility & Gait Start: 08/26/20 12:45 Freq: Status: Active Protocol: Document 08/26/20 17:00 HH (Rec: 08/27/20 17:28 [id number]) OP Gait Assessment Assistive Devices Assistive Device Straight Cane Gait Deviations General Gait Pattern Decreased Stride Length, Decreased Feet Clearance, Lateral Trunk Lean Comments Gait Comments +VE trendelenberg sign L worse than R. PT-OP-H Neuro Start: 08/26/20 12:45 Freq: Status: Active Protocol: Document 08/26/20 17:00 HH (Rec: 08/27/20 17:28 [id number]) Sensation Evaluation Gross Sensation Gross Sensation WNL Deep Tendon Reflex & Clonus Assessment Deep Tendon Reflex Bilateral Achilles Deep Tendon Reflex 1+ Diminished Bilateral Patellar Deep Tendon Reflex 1+ Diminished PT-OP-J Posture/Palpation/Skin Start: 08/26/20 12:45 Freq: Status: Active Protocol: Document 08/26/20 17:00 HH (Rec: 08/27/20 17:28 [id number]) Posture Evaluation Position Standing Knee Posture (L) Genu Valgus,(R) Genu Valgus PT-OP-K Range of Motion Start: 08/26/20 12:45 Freq: Status: Active Protocol: Document 08/26/20 17:00 HH (Rec: 08/27/20 17:28 [id number]) Lumbar Spine Range of Motion Lumbar Spine Active Comments toe touch test= 1.5 inches from ground, slight bend at knees extension= up to neutral with c/o tightness at L hip flexors . Hip Goniometric Range of Motion Hip Right Active Comments figure 4 (table to lateral knee joint line)= 3 inches oni test= normal, knee on table Left Active Comments figure 4 (table to lateral knee joint line)= 8 inches oni test= increased time taken to stretch til 10 degrees of the table with significant tightness at L hip flexors. Hip ROM Limitations Hip ROM Limitations Soft Tissue Tightness,Pain PT-OP-L Special Tests Start: 08/26/20 12:45 Freq: Status: Active Protocol: Document 08/26/20 17:00 (Rec: 08/27/20 17:28 [id number]) Special Tests Lumbar Spine Special Tests PSLR Test Results -ve B Hip Special Tests Scour Test Test Results +VE L Comments slight pain at hip joint Piriformis Test Results +ve L Comments significant tightness and pain at L buttock BRITTANY Test Results +ve L Comments significant tightness and pain at L buttock PT-OP-M Strength Start: 08/26/20 12:45 Freq: Status: Active Protocol: Document 08/26/20 17:00 (Rec: 08/27/20 17:28 [id number]) Hip Strength Hip Manual Muscle Testing Right Flexion (L2) 4 Good Extension (S1) 4 Good Abduction 4 Good Adduction 4 Good External Rotation 4 Good Internal Rotation 4 Good Left Flexion (L2) 3+ Fair+ Extension (S1) 3+ Fair+ Abduction 3+ Fair+ Adduction 3+ Fair+ External Rotation 3+ Fair+ Internal Rotation 3+ Fair+ Knee Strength Knee Manual Muscle Testing Right Flexion (S2) 4 Good Extension (L3) 4 Good Left Flexion (S2) 4- Good- Extension (L3) 4- Good- PT-OP-Q Treatments Start: 08/26/20 12:45 Freq: Status: Active Protocol: Document 09/30/20 11:15 (Rec: 09/30/20 12:02 [id number]) Therapeutic Exercises Supine Exercises figure 4 Supine Exercise Name supine figure 4 Side left Reps/Minutes 20-30 s hold x5 Comments light discomfort intially then better at SI Piriformis stretch Supine Exercise Name knee to opposite hip Side bilateral Reps/Minutes 20-30 s hold x 3 Comments no discomfort Sidelying Exercises clam shell Side bilateral Reps/Minutes 8 x2 Comments able to reach full range on L Standing Exercises mini squat Side bilateral Equipment Used with grab bar Reps/Minutes 10 x 2 hip abd and extension Standing Exercise Name hip abduction and extension Side bilateral Reps/Minutes 10 x each Comments cued knee extension and glut facilitation during stationary LE to allow sta Therapeutic Activity Therapeutic Activity STS Reps/Minutes 8 x 2 Comments use of grab bar to pull, cues on maintaining neutral knee alignment. Used foam pad to increase seat height. For HEP and use sink counter for support at home PT-OP-R Modalities Start: 08/26/20 12:45 Freq: Status: Active Protocol: Document 08/28/20 12:06 HH (Rec: 08/28/20 12:06 [id number]) Hot Pack/Cold Pack Treatment Hot Pack Location L hip and lumbar Patient Position Hooklying Treatment Duration (minutes) 10 Patient Tolerance Good PT-OP-T Assessment and Plan Start: 08/26/20 12:45 Freq: Status: Active Protocol: Document 09/30/20 11:15 HH (Rec: 09/30/20 12:02 [id number]) Physical Therapy Assessment Goals strength Impairment pt needs to use chair support/ hand support to stand up from chair Care Home Goal (LTG) 1110 pt is able to stand up 5 times from chair without pushing off through UEs, but with knee valgus. LTG Duration 12 weeks SLS Impairment SLS =1-2s Short Term Goal (STG) 09/30 SLS = 2s with cues to keep her knees extended Pt will be able to stand on one leg >5s STG Duration 6 weeks Plating Inspector Goal (LTG) pt will be able to stand on one leg >8 s so she can walk with good stability and without AD. LTG Duration 12 weeks Hip ER Impairment supine figure 4 position: R = 4 inches off table, L= 8 inches off table Short Term Goal (STG) 09/30 R= 4 inch , L = 6.5 inch today. STG Duration 6 weeks Plating Inspector Goal (LTG) pt will reach less than 5 inches of the table at supine figure 4 position so she can coral her socks in seated position with minimal pain LTG Duration 12 weeks activity tolerance Impairment unable to tolerate > 15 mins of walk Short Term Goal (STG) 11 pt has not initiate daily walking program yet Pt will be able to tolerate walking 25 mins with AD with L hip pain in pain free STG Duration 6 weeks Care Home Goal (LTG) Pt will be able to tolerate walking 30 mins with/without AD with L hip pain no more than 3/10 LTG Duration 12 weeks Progress Towards Goals Progress Towards Goals Progressing Toward Goals,Slow Progress due to Attendance Issues Assessment Summary Assessment AR today and pt overall progressed well. Her hip pain and back pain are not consistent anymore and her hip strength have significantly improved. Pt also has improved gait mechanics with improved knee extension during stance phase. Will cont target overall LE strengthening, stability and endurance. Physical Therapy Plan Frequency and Duration Frequency of Treatment 2x/Week Duration of Treatment 12 weeks Plan of Care Start Date 08/26/20 Plan of Care End Date 11/26/20 Next Visit Focus/Plan Next Note Type Treatment Note Next Visit Plan reassess last tx: quality gait w/ mirror and SPC at needed and standing HEP review. Next ts ask how tolerance previous tx of self rolling pin/ stick/ ball forgot to ask and review HEP: figure 4 stretch, piri stretch hip distraction oni stretch bridging clamshell leg press4 SL
--- NOTE | 2020-10-02 16:18 | PT.OTN ---
Current Diagnoses Arthrodesis status (10/02/20) Physical Therapy Treatment Note PT-OP-A Visit Information Start: 08/26/20 12:45 Freq: Status: Active Protocol: Document 10/02/20 16:10 (Rec: 10/02/20 16:18 [email or web address]) Out-Patient Physical Therapy Visit Information Visit Information Visit Type Treatment Note Visit Start Time 15:18 Visit Stop Time 16:00 Total Visit Minutes 42 Visit Number 10/09 Number of HEAD RESIDENT Visits 0 PT-OP-B Current Condition Start: 08/26/20 12:45 Freq: Status: Active Protocol: Document 08/26/20 17:00 HH (Rec: 08/27/20 17:28 [id number]) Current Condition History of Current Condition Onset Date years ago Current Complaints LBP, L hip pain, difficulty in walking and bend over History of Current Condition Pt is a 80 yo female here for her chronic LBP and L hip pain . Her LBP started about 2 years ago with no inciting injury or incident. Pt had a L4-S1 fusion in January this year which somewhat helps her symptoms. However, pt reports her LBP starts to get worse again and no radiating pain/ weakness. She fell down on her tailbone a week ago and it did make her pain worse. Bending over tends to get worse but sitting/ walking does not bother her. In addition, pt has been having significant L hip pain 5/10 who has difficulty in walking but better with sitting. She consulted with surgeon Dr. 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 Prior Treatments and Tests L4-S1 fusion in January. Treatment Goals Patient/Caregiver Goals 1. to regain her hip mobility and strength 2. To regain her lumbar mobility and strength 3. to be able to walk without discomfort. Current Functional Impairments (Reported) Functional Limitations- Mobility/Gait SPC for mobility at all times. lead with LLE for stair climbing. Personal Factors Other Personal Factors That May Effect OA. HTN. bilateral Therapy/Recovery oophorectomy, depression, breast cancer. PT-OP-C Subjective Start: 08/26/20 12:45 Freq: Status: Active Protocol: Document 10/02/20 16:10 HH (Rec: 10/02/20 16:18 [email or web address]) OP-PT Subjective Patient Comments Patient Comments I got pretty sore after last treatment especially after those sit to stands. But im pretty much recovered. Patient Reported Progress Same PT-OP-D Balance Start: 08/26/20 12:45 Freq: Status: Active Protocol: Document 08/26/20 17:00 HH (Rec: 08/27/20 17:28 [id number]) Balance Tests Single Limb Standing Single Limb- Right 2 Single Limb- Left 1 PT-OP-F Manual Assessment Start: 08/26/20 12:45 Freq: Status: Active Protocol: Document 08/26/20 17:00 HH (Rec: 08/27/20 17:28 [id number]) Manual Assessments Soft Tissue Assessment Soft Tissue Mobility Assessment significant tenderness to pressure at L2-L5 spinous process and lumbar paraspinals Joint Mobility Assessment Joint Mobility Assessment muscle guarding noted during PROM at L hip, especially hip ER and IR and ext. PT-OP-G Mobility & Gait Start: 08/26/20 12:45 Freq: Status: Active Protocol: Document 08/26/20 17:00 HH (Rec: 08/27/20 17:28 [id number]) OP Gait Assessment Assistive Devices Assistive Device Straight Cane Gait Deviations General Gait Pattern Decreased Stride Length, Decreased Feet Clearance, Lateral Trunk Lean Comments Gait Comments +VE trendelenberg sign L worse than R. PT-OP-H Neuro Start: 08/26/20 12:45 Freq: Status: Active Protocol: Document 08/26/20 17:00 HH (Rec: 08/27/20 17:28 [id number]) Sensation Evaluation Gross Sensation Gross Sensation WNL Deep Tendon Reflex & Clonus Assessment Deep Tendon Reflex Bilateral Achilles Deep Tendon Reflex 1+ Diminished Bilateral Patellar Deep Tendon Reflex 1+ Diminished PT-OP-J Posture/Palpation/Skin Start: 08/26/20 12:45 Freq: Status: Active Protocol: Document 08/26/20 17:00 HH (Rec: 08/27/20 17:28 [id number]) Posture Evaluation Position Standing Knee Posture (L) Genu Valgus,(R) Genu Valgus PT-OP-K Range of Motion Start: 08/26/20 12:45 Freq: Status: Active Protocol: Document 08/26/20 17:00 HH (Rec: 08/27/20 17:28 [id number]) Lumbar Spine Range of Motion Lumbar Spine Active Comments toe touch test= 1.5 inches from ground, slight bend at knees extension= up to neutral with c/o tightness at L hip flexors . Hip Goniometric Range of Motion Hip Right Active Comments figure 4 (table to lateral knee joint line)= 3 inches oni test= normal, knee on table Left Active Comments figure 4 (table to lateral knee joint line)= 8 inches oni test= increased time taken to stretch til 10 degrees of the table with significant tightness at L hip flexors. Hip ROM Limitations Hip ROM Limitations Soft Tissue Tightness,Pain PT-OP-L Special Tests Start: 08/26/20 12:45 Freq: Status: Active Protocol: Document 08/26/20 17:00 (Rec: 08/27/20 17:28 [id number]) Special Tests Lumbar Spine Special Tests PSLR Test Results -ve B Hip Special Tests Scour Test Test Results +VE L Comments slight pain at hip joint Piriformis Test Results +ve L Comments significant tightness and pain at L buttock BRITTANY Test Results +ve L Comments significant tightness and pain at L buttock PT-OP-M Strength Start: 08/26/20 12:45 Freq: Status: Active Protocol: Document 08/26/20 17:00 (Rec: 08/27/20 17:28 [id number]) Hip Strength Hip Manual Muscle Testing Right Flexion (L2) 4 Good Extension (S1) 4 Good Abduction 4 Good Adduction 4 Good External Rotation 4 Good Internal Rotation 4 Good Left Flexion (L2) 3+ Fair+ Extension (S1) 3+ Fair+ Abduction 3+ Fair+ Adduction 3+ Fair+ External Rotation 3+ Fair+ Internal Rotation 3+ Fair+ Knee Strength Knee Manual Muscle Testing Right Flexion (S2) 4 Good Extension (L3) 4 Good Left Flexion (S2) 4- Good- Extension (L3) 4- Good- PT-OP-Q Treatments Start: 08/26/20 12:45 Freq: Status: Active Protocol: Document 10/02/20 16:10 (Rec: 10/02/20 16:18 [email or web address]) Therapeutic Exercises Supine Exercises figure 4 Supine Exercise Name supine figure 4 Side left Reps/Minutes 20-30 s hold x5 Comments light discomfort intially then better at SI Piriformis stretch Supine Exercise Name knee to opposite hip Side bilateral Reps/Minutes 20-30 s hold x 3 Comments no discomfort Bridging Side bilateral Equipment Used yellow band Reps/Minutes 10x2 Comments able to reach full range Standing Exercises weight shift Equipment Used next to grab bar Reps/Minutes 6 mins Comments opposite heel raise to focus ipsilateral weight acceptance steps tap Equipment Used no support Reps/Minutes 6 mins Comments cues with knee extension and prevent lateral weight shift marching in place Side bilateral Reps/Minutes 5 mins Comments cues with knee extension and prevent lateral weight shift side stepping Standing Exercise Name Add HEP Side bilateral Equipment Used //bar Reps/Minutes 10 ft Comments cued knee extension and glut facilitation during stationary LE to allow sta PT-OP-R Modalities Start: 08/26/20 12:45 Freq: Status: Active Protocol: Document 08/28/20 12:06 HH (Rec: 08/28/20 12:06 HH [email or web address]) Hot Pack/Cold Pack Treatment Hot Pack Location L hip and lumbar Patient Position Hooklying Treatment Duration (minutes) 10 Patient Tolerance Good PT-OP-T Assessment and Plan Start: 08/26/20 12:45 Freq: Status: Active Protocol: Document 10/02/20 16:10 HH (Rec: 10/02/20 16:18 [email or web address]) Physical Therapy Assessment Goals strength Impairment pt needs to use chair support/ hand support to stand up from chair [facility] Goal (LTG) 1110 pt is able to stand up 5 times from chair without pushing off through UEs, but with knee valgus. LTG Duration 12 weeks SLS Impairment SLS =1-2s Short Term Goal (STG) 09/30 SLS = 2s with cues to keep her knees extended Pt will be able to stand on one leg >5s STG Duration 6 weeks Aerial Planting And Cultivation Manager Goal (LTG) pt will be able to stand on one leg >8 s so she can walk with good stability and without AD. LTG Duration 12 weeks Hip ER Impairment supine figure 4 position: R = 4 inches off table, L= 8 inches off table Short Term Goal (STG) 09/30 R= 4 inch , L = 6.5 inch today. STG Duration 6 weeks [facility] Goal (LTG) pt will reach less than 5 inches of the table at supine figure 4 position so she can coral her socks in seated position with minimal pain LTG Duration 12 weeks activity tolerance Impairment unable to tolerate > 15 mins of walk Short Term Goal (STG) 11 pt has not initiate daily walking program yet Pt will be able to tolerate walking 25 mins with AD with L hip pain in pain free STG Duration 6 weeks Aerial Planting And Cultivation Manager Goal (LTG) Pt will be able to tolerate walking 30 mins with/without AD with L hip pain no more than 3/10 LTG Duration 12 weeks Assessment Summary Assessment Pt feel sore today after last session. This tx session focuses on SLS. Pt has significant opposite hip drop standing on L LE. Pt tends to have lateral instability during gait. will cont POC to strength B hip stabilizers and gait training. Physical Therapy Plan Frequency and Duration Frequency of Treatment 2x/Week Duration of Treatment 12 weeks Plan of Care Start Date 08/26/20 Plan of Care End Date 11/26/20 Next Visit Focus/Plan Next Note Type Treatment Note Next Visit Plan reassess last tx: quality gait w/ mirror and SPC at needed and standing HEP review. Next ts ask how tolerance previous tx of self rolling pin/ stick/ ball forgot to ask and review HEP: figure 4 stretch, piri stretch hip distraction oni stretch bridging clamshell leg press4 SL
--- NOTE | 2020-10-07 12:04 | PT.OTN ---
Current Diagnoses Arthrodesis status (10/07/20) Physical Therapy Treatment Note PT-OP-A Visit Information Start: 08/26/20 12:45 Freq: Status: Active Protocol: Document 10/07/20 11:18 HH (Rec: 10/07/20 12:04 [id number]) Out-Patient Physical Therapy Visit Information Visit Information Visit Type Treatment Note Visit Start Time 11:20 Visit Stop Time 12:03 Total Visit Minutes 43 Visit Number 11/08 Number of PRODUCTION SCHEDULER Visits 0 PT-OP-B Current Condition Start: 08/26/20 12:45 Freq: Status: Active Protocol: Document 08/26/20 17:00 HH (Rec: 08/27/20 17:28 [id number]) Current Condition History of Current Condition Onset Date years ago Current Complaints LBP, L hip pain, difficulty in walking and bend over History of Current Condition Pt is a 80 yo female here for her chronic LBP and L hip pain . Her LBP started about 2 years ago with no inciting injury or incident. Pt had a L4-S1 fusion in January this year which somewhat helps her symptoms. However, pt reports her LBP starts to get worse again and no radiating pain/ weakness. She fell down on her tailbone a week ago and it did make her pain worse. Bending over tends to get worse but sitting/ walking does not bother her. In addition, pt has been having significant L hip pain 5/10 who has difficulty in walking but better with sitting. She consulted with surgeon Dr. 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 Prior Treatments and Tests L4-S1 fusion in January. Treatment Goals Patient/Caregiver Goals 1. to regain her hip mobility and strength 2. To regain her lumbar mobility and strength 3. to be able to walk without discomfort. Current Functional Impairments (Reported) Functional Limitations- Mobility/Gait SPC for mobility at all times. lead with LLE for stair climbing. Personal Factors Other Personal Factors That May Effect OA. HTN. bilateral Therapy/Recovery oophorectomy, depression, breast cancer. PT-OP-C Subjective Start: 08/26/20 12:45 Freq: Status: Active Protocol: Document 10/07/20 11:18 HH (Rec: 10/07/20 12:04 [id number]) OP-PT Subjective Patient Comments Patient Comments My back was a bit of pain but not much so i didt do much of the bridging ex. Patient Reported Progress Same PT-OP-D Balance Start: 08/26/20 12:45 Freq: Status: Active Protocol: Document 08/26/20 17:00 HH (Rec: 08/27/20 17:28 [id number]) Balance Tests Single Limb Standing Single Limb- Right 2 Single Limb- Left 1 PT-OP-F Manual Assessment Start: 08/26/20 12:45 Freq: Status: Active Protocol: Document 08/26/20 17:00 HH (Rec: 08/27/20 17:28 [id number]) Manual Assessments Soft Tissue Assessment Soft Tissue Mobility Assessment significant tenderness to pressure at L2-L5 spinous process and lumbar paraspinals Joint Mobility Assessment Joint Mobility Assessment muscle guarding noted during PROM at L hip, especially hip ER and IR and ext. PT-OP-G Mobility & Gait Start: 08/26/20 12:45 Freq: Status: Active Protocol: Document 08/26/20 17:00 HH (Rec: 08/27/20 17:28 [id number]) OP Gait Assessment Assistive Devices Assistive Device Straight Cane Gait Deviations General Gait Pattern Decreased Stride Length, Decreased Feet Clearance, Lateral Trunk Lean Comments Gait Comments +VE trendelenberg sign L worse than R. PT-OP-H Neuro Start: 08/26/20 12:45 Freq: Status: Active Protocol: Document 08/26/20 17:00 HH (Rec: 08/27/20 17:28 [id number]) Sensation Evaluation Gross Sensation Gross Sensation WNL Deep Tendon Reflex & Clonus Assessment Deep Tendon Reflex Bilateral Achilles Deep Tendon Reflex 1+ Diminished Bilateral Patellar Deep Tendon Reflex 1+ Diminished PT-OP-J Posture/Palpation/Skin Start: 08/26/20 12:45 Freq: Status: Active Protocol: Document 08/26/20 17:00 HH (Rec: 08/27/20 17:28 [id number]) Posture Evaluation Position Standing Knee Posture (L) Genu Valgus,(R) Genu Valgus PT-OP-K Range of Motion Start: 08/26/20 12:45 Freq: Status: Active Protocol: Document 08/26/20 17:00 HH (Rec: 08/27/20 17:28 [id number]) Lumbar Spine Range of Motion Lumbar Spine Active Comments toe touch test= 1.5 inches from ground, slight bend at knees extension= up to neutral with c/o tightness at L hip flexors . Hip Goniometric Range of Motion Hip Right Active Comments figure 4 (table to lateral knee joint line)= 3 inches oni test= normal, knee on table Left Active Comments figure 4 (table to lateral knee joint line)= 8 inches oni test= increased time taken to stretch til 10 degrees of the table with significant tightness at L hip flexors. Hip ROM Limitations Hip ROM Limitations Soft Tissue Tightness,Pain PT-OP-L Special Tests Start: 08/26/20 12:45 Freq: Status: Active Protocol: Document 08/26/20 17:00 (Rec: 08/27/20 17:28 [id number]) Special Tests Lumbar Spine Special Tests PSLR Test Results -ve B Hip Special Tests Scour Test Test Results +VE L Comments slight pain at hip joint Piriformis Test Results +ve L Comments significant tightness and pain at L buttock BRITTANY Test Results +ve L Comments significant tightness and pain at L buttock PT-OP-M Strength Start: 08/26/20 12:45 Freq: Status: Active Protocol: Document 08/26/20 17:00 (Rec: 08/27/20 17:28 [id number]) Hip Strength Hip Manual Muscle Testing Right Flexion (L2) 4 Good Extension (S1) 4 Good Abduction 4 Good Adduction 4 Good External Rotation 4 Good Internal Rotation 4 Good Left Flexion (L2) 3+ Fair+ Extension (S1) 3+ Fair+ Abduction 3+ Fair+ Adduction 3+ Fair+ External Rotation 3+ Fair+ Internal Rotation 3+ Fair+ Knee Strength Knee Manual Muscle Testing Right Flexion (S2) 4 Good Extension (L3) 4 Good Left Flexion (S2) 4- Good- Extension (L3) 4- Good- PT-OP-Q Treatments Start: 08/26/20 12:45 Freq: Status: Active Protocol: Document 10/07/20 11:18 (Rec: 10/07/20 12:04 [id number]) Gym Equipment Shuttle Recovery Unilateral Squats Resistance #37 Shuttle Recovery Platform Stable Reps/Time LLE is more stable. Therapeutic Exercises Supine Exercises Piriformis stretch Supine Exercise Name knee to opposite hip Side bilateral Reps/Minutes 20-30 s hold x 3 Comments no discomfort Bridging Side bilateral Equipment Used yellow band Reps/Minutes 10x2 Comments able to reach full range Sidelying Exercises clam shell Side bilateral Reps/Minutes 8 x2 Comments able to reach full range on L Standing Exercises steps tap Equipment Used no support Reps/Minutes 6 mins Comments cues with knee extension and prevent lateral weight shift side stepping Standing Exercise Name Add HEP Side bilateral Equipment Used //bar Reps/Minutes 10 ft Comments cued knee extension and glut facilitation during stationary LE to allow sta Gait Training Gait Activity ground level Level of Assistance SBA Surface ground level Treatment Focus stride length Comments cues on heel strike and armswings. Manual Therapy Treatment Soft Tissue Mobilization glutes Mobilization Type Sustained Pressure,Trigger Point Release Intensity/Depth Moderate Body Position Sidelying Comments proximal glute tendon PT-OP-R Modalities Start: 08/26/20 12:45 Freq: Status: Active Protocol: Document 08/28/20 12:06 (Rec: 08/28/20 12:06 [email or web address]) Hot Pack/Cold Pack Treatment Hot Pack Location L hip and lumbar Patient Position Hooklying Treatment Duration (minutes) 10 Patient Tolerance Good PT-OP-T Assessment and Plan Start: 08/26/20 12:45 Freq: Status: Active Protocol: Document 10/07/20 11:18 (Rec: 10/07/20 12:04 [id number]) Physical Therapy Assessment Goals strength Impairment pt needs to use chair support/ hand support to stand up from chair Garment Form Assembler Goal (LTG) 09/30 pt is able to stand up 5 times from chair without pushing off through UEs, but with knee valgus. LTG Duration 12 weeks SLS Impairment SLS =1-2s Short Term Goal (STG) 09/30 SLS = 2s with cues to keep her knees extended Pt will be able to stand on one leg >5s STG Duration 6 weeks Correction Goal (LTG) pt will be able to stand on one leg >8 s so she can walk with good stability and without AD. LTG Duration 12 weeks Hip ER Impairment supine figure 4 position: R = 4 inches off table, L= 8 inches off table Short Term Goal (STG) 09/30 R= 4 inch , L = 6.5 inch today. STG Duration 6 weeks Correction Goal (LTG) pt will reach less than 5 inches of the table at supine figure 4 position so she can coral her socks in seated position with minimal pain LTG Duration 12 weeks activity tolerance Impairment unable to tolerate > 15 mins of walk Short Term Goal (STG) 09/30 pt has not initiate daily walking program yet Pt will be able to tolerate walking 25 mins with AD with L hip pain in pain free STG Duration 6 weeks Garment Form Assembler Goal (LTG) Pt will be able to tolerate walking 30 mins with/without AD with L hip pain no more than 3/10 LTG Duration 12 weeks Assessment Summary Assessment Pt delilah session very well and her gait is steadier with improved knee extenison during stance phase. Physical Therapy Plan Frequency and Duration Frequency of Treatment 2x/Week Duration of Treatment 12 weeks Plan of Care Start Date 08/26/20 Plan of Care End Date 11/26/20 Next Visit Focus/Plan Next Note Type Treatment Note Next Visit Plan reassess last tx: quality gait w/ mirror and SPC at needed and standing HEP review. Next ts ask how tolerance previous tx of self rolling pin/ stick/ ball forgot to ask and review HEP: figure 4 stretch, piri stretch hip distraction oni stretch bridging clamshell leg press4 SL
--- NOTE | 2020-10-09 12:57 | PT.OTN ---
Current Diagnoses Arthrodesis status (10/09/20) Physical Therapy Treatment Note PT-OP-A Visit Information Start: 08/26/20 12:45 Freq: Status: Active Protocol: Document 10/09/20 11:17 HH (Rec: 10/09/20 12:57 [id number]) Out-Patient Physical Therapy Visit Information Visit Information Visit Type Treatment Note Visit Start Time 11:17 Visit Stop Time 12:02 Total Visit Minutes 45 Visit Number Number of ROLL COATING MACHINE OPERATOR Visits 0 PT-OP-B Current Condition Start: 08/26/20 12:45 Freq: Status: Active Protocol: Document 08/26/20 17:00 HH (Rec: 08/27/20 17:28 [id number]) Current Condition History of Current Condition Onset Date years ago Current Complaints LBP, L hip pain, difficulty in walking and bend over History of Current Condition Pt is a 80 yo female here for her chronic LBP and L hip pain . Her LBP started about 2 years ago with no inciting injury or incident. Pt had a L4-S1 fusion in January this year which somewhat helps her symptoms. However, pt reports her LBP starts to get worse again and no radiating pain/ weakness. She fell down on her tailbone a week ago and it did make her pain worse. Bending over tends to get worse but sitting/ walking does not bother her. In addition, pt has been having significant L hip pain 5/10 who has difficulty in walking but better with sitting. She consulted with surgeon Dr. 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 Prior Treatments and Tests L4-S1 fusion in January. Treatment Goals Patient/Caregiver Goals 1. to regain her hip mobility and strength 2. To regain her lumbar mobility and strength 3. to be able to walk without discomfort. Current Functional Impairments (Reported) Functional Limitations- Mobility/Gait SPC for mobility at all times. lead with LLE for stair climbing. Personal Factors Other Personal Factors That May Effect OA. HTN. bilateral Therapy/Recovery oophorectomy, depression, breast cancer. PT-OP-C Subjective Start: 08/26/20 12:45 Freq: Status: Active Protocol: Document 10/09/20 11:17 HH (Rec: 10/09/20 12:57 [id number]) OP-PT Subjective Patient Comments Patient Comments My walking just feel so right right now from not bending my knees too much. I Patient Reported Progress Improving PT-OP-D Balance Start: 08/26/20 12:45 Freq: Status: Active Protocol: Document 08/26/20 17:00 HH (Rec: 08/27/20 17:28 [id number]) Balance Tests Single Limb Standing Single Limb- Right 2 Single Limb- Left 1 PT-OP-F Manual Assessment Start: 08/26/20 12:45 Freq: Status: Active Protocol: Document 08/26/20 17:00 HH (Rec: 08/27/20 17:28 [id number]) Manual Assessments Soft Tissue Assessment Soft Tissue Mobility Assessment significant tenderness to pressure at L2-L5 spinous process and lumbar paraspinals Joint Mobility Assessment Joint Mobility Assessment muscle guarding noted during PROM at L hip, especially hip ER and IR and ext. PT-OP-G Mobility & Gait Start: 08/26/20 12:45 Freq: Status: Active Protocol: Document 08/26/20 17:00 HH (Rec: 08/27/20 17:28 [id number]) OP Gait Assessment Assistive Devices Assistive Device Straight Cane Gait Deviations General Gait Pattern Decreased Stride Length, Decreased Feet Clearance, Lateral Trunk Lean Comments Gait Comments +VE trendelenberg sign L worse than R. PT-OP-H Neuro Start: 08/26/20 12:45 Freq: Status: Active Protocol: Document 08/26/20 17:00 HH (Rec: 08/27/20 17:28 [id number]) Sensation Evaluation Gross Sensation Gross Sensation WNL Deep Tendon Reflex & Clonus Assessment Deep Tendon Reflex Bilateral Achilles Deep Tendon Reflex 1+ Diminished Bilateral Patellar Deep Tendon Reflex 1+ Diminished PT-OP-J Posture/Palpation/Skin Start: 08/26/20 12:45 Freq: Status: Active Protocol: Document 08/26/20 17:00 HH (Rec: 08/27/20 17:28 [id number]) Posture Evaluation Position Standing Knee Posture (L) Genu Valgus,(R) Genu Valgus PT-OP-K Range of Motion Start: 08/26/20 12:45 Freq: Status: Active Protocol: Document 08/26/20 17:00 HH (Rec: 08/27/20 17:28 [id number]) Lumbar Spine Range of Motion Lumbar Spine Active Comments toe touch test= 1.5 inches from ground, slight bend at knees extension= up to neutral with c/o tightness at L hip flexors . Hip Goniometric Range of Motion Hip Right Active Comments figure 4 (table to lateral knee joint line)= 3 inches oni test= normal, knee on table Left Active Comments figure 4 (table to lateral knee joint line)= 8 inches oni test= increased time taken to stretch til 10 degrees of the table with significant tightness at L hip flexors. Hip ROM Limitations Hip ROM Limitations Soft Tissue Tightness,Pain PT-OP-L Special Tests Start: 08/26/20 12:45 Freq: Status: Active Protocol: Document 08/26/20 17:00 (Rec: 08/27/20 17:28 [id number]) Special Tests Lumbar Spine Special Tests PSLR Test Results -ve B Hip Special Tests Scour Test Test Results +VE L Comments slight pain at hip joint Piriformis Test Results +ve L Comments significant tightness and pain at L buttock BRITTANY Test Results +ve L Comments significant tightness and pain at L buttock PT-OP-M Strength Start: 08/26/20 12:45 Freq: Status: Active Protocol: Document 08/26/20 17:00 (Rec: 08/27/20 17:28 [id number]) Hip Strength Hip Manual Muscle Testing Right Flexion (L2) 4 Good Extension (S1) 4 Good Abduction 4 Good Adduction 4 Good External Rotation 4 Good Internal Rotation 4 Good Left Flexion (L2) 3+ Fair+ Extension (S1) 3+ Fair+ Abduction 3+ Fair+ Adduction 3+ Fair+ External Rotation 3+ Fair+ Internal Rotation 3+ Fair+ Knee Strength Knee Manual Muscle Testing Right Flexion (S2) 4 Good Extension (L3) 4 Good Left Flexion (S2) 4- Good- Extension (L3) 4- Good- PT-OP-Q Treatments Start: 08/26/20 12:45 Freq: Status: Active Protocol: Document 10/09/20 11:17 (Rec: 10/09/20 12:57 [id number]) Therapeutic Exercises Supine Exercises figure 4 Supine Exercise Name supine figure 4 Side left Reps/Minutes 20-30 s hold x5 Comments increased ROM noted. Piriformis stretch Supine Exercise Name knee to opposite hip Side bilateral Reps/Minutes 20-30 s hold x 3 Comments increased ROM noted. 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, finger touch Reps/Minutes 10 x2 mini squat Standing Exercise Name knee biased x1, hip biased x1 Side bilateral Equipment Used grab bar Reps/Minutes 10 x2 Step-ups Side bilateral Equipment Used 4 step Reps/Minutes 10 x1 Gait Training Gait Activity ground level Level of Assistance SBA Surface ground level Distance/Duration 200 x2 Treatment Focus stride length Comments cues on legs extension in stance phase Manual Therapy Treatment Soft Tissue Mobilization glutes Body Location Bilateral Mobilization Type Sustained Pressure,Trigger Point Release Intensity/Depth Moderate Body Position Sidelying Comments proximal glute tendon PT-OP-R Modalities Start: 08/26/20 12:45 Freq: Status: Active Protocol: Document 08/28/20 12:06 HH (Rec: 08/28/20 12:06 [id number]) Hot Pack/Cold Pack Treatment Hot Pack Location L hip and lumbar Patient Position Hooklying Treatment Duration (minutes) 10 Patient Tolerance Good PT-OP-T Assessment and Plan Start: 08/26/20 12:45 Freq: Status: Active Protocol: Document 10/09/20 11:17 HH (Rec: 10/09/20 12:57 [id number]) Physical Therapy Assessment Goals strength Impairment pt needs to use chair support/ hand support to stand up from chair Residential Goal (LTG) 1110 pt is able to stand up 5 times from chair without pushing off through UEs, but with knee valgus. LTG Duration 12 weeks SLS Impairment SLS =1-2s Short Term Goal (STG) 09/30 SLS = 2s with cues to keep her knees extended Pt will be able to stand on one leg >5s STG Duration 6 weeks Supervisor Lead Burning Goal (LTG) pt will be able to stand on one leg >8 s so she can walk with good stability and without AD. LTG Duration 12 weeks Hip ER Impairment supine figure 4 position: R = 4 inches off table, L= 8 inches off table Short Term Goal (STG) 09/30 R= 4 inch , L = 6.5 inch today. STG Duration 6 weeks Residential Goal (LTG) pt will reach less than 5 inches of the table at supine figure 4 position so she can coral her socks in seated position with minimal pain LTG Duration 12 weeks activity tolerance Impairment unable to tolerate > 15 mins of walk Short Term Goal (STG) 09/30 pt has not initiate daily walking program yet Pt will be able to tolerate walking 25 mins with AD with L hip pain in pain free STG Duration 6 weeks Residential Goal (LTG) Pt will be able to tolerate walking 30 mins with/without AD with L hip pain no more than 3/10 LTG Duration 12 weeks Assessment Summary Assessment Pt delilah session well today. She has been complaining discomfort with bend over activities at low back. Will add trunk stability ex next visit. Physical Therapy Plan Frequency and Duration Frequency of Treatment 2x/Week Duration of Treatment 12 weeks Plan of Care Start Date 08/26/20 Plan of Care End Date 11/26/20 Next Visit Focus/Plan Next Note Type Treatment Note Next Visit Plan reassess last tx: quality gait w/ mirror and SPC at needed and standing HEP review. Next ts ask how tolerance previous tx of self rolling pin/ stick/ ball forgot to ask and review HEP: figure 4 stretch, piri stretch hip distraction noi stretch bridging clamshell leg press4 SL
--- NOTE | 2020-10-14 12:19 | PT.OTN ---
Current Diagnoses Arthrodesis status (10/14/20) Physical Therapy Treatment Note PT-OP-A Visit Information Start: 08/26/20 12:45 Freq: Status: Active Protocol: Document 10/14/20 11:17 HH (Rec: 10/14/20 12:19 [id number]) Out-Patient Physical Therapy Visit Information Visit Information Visit Type Treatment Note Visit Start Time 11:18 Visit Stop Time 12:00 Total Visit Minutes 42 Visit Number 14 Number of PROCESS MECHANIC Visits 0 PT-OP-B Current Condition Start: 08/26/20 12:45 Freq: Status: Active Protocol: Document 08/26/20 17:00 HH (Rec: 08/27/20 17:28 [id number]) Current Condition History of Current Condition Onset Date years ago Current Complaints LBP, L hip pain, difficulty in walking and bend over History of Current Condition Pt is a 80 yo female here for her chronic LBP and L hip pain . Her LBP started about 2 years ago with no inciting injury or incident. Pt had a L4-S1 fusion in January this year which somewhat helps her symptoms. However, pt reports her LBP starts to get worse again and no radiating pain/ weakness. She fell down on her tailbone a week ago and it did make her pain worse. Bending over tends to get worse but sitting/ walking does not bother her. In addition, pt has been having significant L hip pain 5/10 who has difficulty in walking but better with sitting. She consulted with surgeon Dr. 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 Prior Treatments and Tests L4-S1 fusion in January. Treatment Goals Patient/Caregiver Goals 1. to regain her hip mobility and strength 2. To regain her lumbar mobility and strength 3. to be able to walk without discomfort. Current Functional Impairments (Reported) Functional Limitations- Mobility/Gait SPC for mobility at all times. lead with LLE for stair climbing. Personal Factors Other Personal Factors That May Effect OA. HTN. bilateral Therapy/Recovery oophorectomy, depression, breast cancer. PT-OP-C Subjective Start: 08/26/20 12:45 Freq: Status: Active Protocol: Document 10/09/20 11:17 HH (Rec: 10/09/20 12:57 [id number]) OP-PT Subjective Patient Comments Patient Comments My walking just feel so right right now from not bending my knees too much. I Patient Reported Progress Improving PT-OP-D Balance Start: 08/26/20 12:45 Freq: Status: Active Protocol: Document 08/26/20 17:00 HH (Rec: 08/27/20 17:28 [id number]) Balance Tests Single Limb Standing Single Limb- Right 2 Single Limb- Left 1 PT-OP-F Manual Assessment Start: 08/26/20 12:45 Freq: Status: Active Protocol: Document 08/26/20 17:00 HH (Rec: 08/27/20 17:28 [id number]) Manual Assessments Soft Tissue Assessment Soft Tissue Mobility Assessment significant tenderness to pressure at L2-L5 spinous process and lumbar paraspinals Joint Mobility Assessment Joint Mobility Assessment muscle guarding noted during PROM at L hip, especially hip ER and IR and ext. PT-OP-G Mobility & Gait Start: 08/26/20 12:45 Freq: Status: Active Protocol: Document 08/26/20 17:00 HH (Rec: 08/27/20 17:28 [id number]) OP Gait Assessment Assistive Devices Assistive Device Straight Cane Gait Deviations General Gait Pattern Decreased Stride Length, Decreased Feet Clearance, Lateral Trunk Lean Comments Gait Comments +VE trendelenberg sign L worse than R. PT-OP-H Neuro Start: 08/26/20 12:45 Freq: Status: Active Protocol: Document 08/26/20 17:00 HH (Rec: 08/27/20 17:28 [id number]) Sensation Evaluation Gross Sensation Gross Sensation WNL Deep Tendon Reflex & Clonus Assessment Deep Tendon Reflex Bilateral Achilles Deep Tendon Reflex 1+ Diminished Bilateral Patellar Deep Tendon Reflex 1+ Diminished PT-OP-J Posture/Palpation/Skin Start: 08/26/20 12:45 Freq: Status: Active Protocol: Document 08/26/20 17:00 HH (Rec: 08/27/20 17:28 [id number]) Posture Evaluation Position Standing Knee Posture (L) Genu Valgus,(R) Genu Valgus PT-OP-K Range of Motion Start: 08/26/20 12:45 Freq: Status: Active Protocol: Document 08/26/20 17:00 HH (Rec: 08/27/20 17:28 [id number]) Lumbar Spine Range of Motion Lumbar Spine Active Comments toe touch test= 1.5 inches from ground, slight bend at knees extension= up to neutral with c/o tightness at L hip flexors . Hip Goniometric Range of Motion Hip Right Active Comments figure 4 (table to lateral knee joint line)= 3 inches oni test= normal, knee on table Left Active Comments figure 4 (table to lateral knee joint line)= 8 inches oni test= increased time taken to stretch til 10 degrees of the table with significant tightness at L hip flexors. Hip ROM Limitations Hip ROM Limitations Soft Tissue Tightness,Pain PT-OP-L Special Tests Start: 08/26/20 12:45 Freq: Status: Active Protocol: Document 08/26/20 17:00 (Rec: 08/27/20 17:28 [id number]) Special Tests Lumbar Spine Special Tests PSLR Test Results -ve B Hip Special Tests Scour Test Test Results +VE L Comments slight pain at hip joint Piriformis Test Results +ve L Comments significant tightness and pain at L buttock BRITTANY Test Results +ve L Comments significant tightness and pain at L buttock PT-OP-M Strength Start: 08/26/20 12:45 Freq: Status: Active Protocol: Document 08/26/20 17:00 (Rec: 08/27/20 17:28 [id number]) Hip Strength Hip Manual Muscle Testing Right Flexion (L2) 4 Good Extension (S1) 4 Good Abduction 4 Good Adduction 4 Good External Rotation 4 Good Internal Rotation 4 Good Left Flexion (L2) 3+ Fair+ Extension (S1) 3+ Fair+ Abduction 3+ Fair+ Adduction 3+ Fair+ External Rotation 3+ Fair+ Internal Rotation 3+ Fair+ Knee Strength Knee Manual Muscle Testing Right Flexion (S2) 4 Good Extension (L3) 4 Good Left Flexion (S2) 4- Good- Extension (L3) 4- Good- PT-OP-Q Treatments Start: 08/26/20 12:45 Freq: Status: Active Protocol: Document 10/14/20 11:17 (Rec: 10/14/20 12:19 [id number]) Gym Equipment Shuttle Recovery Unilateral Squats Resistance #37 Shuttle Recovery Platform Stable Reps/Time LLE is more stable. Therapeutic Exercises Supine Exercises figure 4 Supine Exercise Name supine figure 4 Side left Reps/Minutes 20-30 s hold x5 Comments increased ROM noted. Piriformis stretch Supine Exercise Name knee to opposite hip Side bilateral Reps/Minutes 20-30 s hold x 3 Comments increased ROM noted. Sidelying Exercises clam shell Side bilateral Reps/Minutes 8 x2 Comments able to reach full range on L Standing Exercises Step-ups Standing Exercise Name with UE support Side bilateral Equipment Used 6 step Reps/Minutes 10 x1 Manual Therapy Treatment Soft Tissue Mobilization glutes Body Location Bilateral Mobilization Type Sustained Pressure,Trigger Point Release Intensity/Depth Moderate Body Position Sidelying Comments R proximal glute tendon PT-OP-R Modalities Start: 08/26/20 12:45 Freq: Status: Active Protocol: Document 08/28/20 12:06 (Rec: 08/28/20 12:06 [id number]) Hot Pack/Cold Pack Treatment Hot Pack Location L hip and lumbar Patient Position Hooklying Treatment Duration (minutes) 10 Patient Tolerance Good PT-OP-T Assessment and Plan Start: 08/26/20 12:45 Freq: Status: Active Protocol: Document 10/14/20 11:17 (Rec: 10/14/20 12:19 [id number]) Physical Therapy Assessment Goals strength Impairment pt needs to use chair support/ hand support to stand up from chair Cable Layer Goal (LTG) 09/30 pt is able to stand up 5 times from chair without pushing off through UEs, but with knee valgus. LTG Duration 12 weeks SLS Impairment SLS =1-2s Short Term Goal (STG) 09/30 SLS = 2s with cues to keep her knees extended Pt will be able to stand on one leg >5s STG Duration 6 weeks Fdc Goal (LTG) pt will be able to stand on one leg >8 s so she can walk with good stability and without AD. LTG Duration 12 weeks Hip ER Impairment supine figure 4 position: R = 4 inches off table, L= 8 inches off table Short Term Goal (STG) 09/30 R= 4 inch , L = 6.5 inch today. STG Duration 6 weeks Cable Layer Goal (LTG) pt will reach less than 5 inches of the table at supine figure 4 position so she can coral her socks in seated position with minimal pain LTG Duration 12 weeks activity tolerance Impairment unable to tolerate > 15 mins of walk Short Term Goal (STG) 09/30 pt has not initiate daily walking program yet Pt will be able to tolerate walking 25 mins with AD with L hip pain in pain free STG Duration 6 weeks Fdc Goal (LTG) Pt will be able to tolerate walking 30 mins with/without AD with L hip pain no more than 3/10 LTG Duration 12 weeks Assessment Summary Assessment Pt reports feeling good for the past few days for both low back and L hip. She is feeling stronger in general. Physical Therapy Plan Frequency and Duration Frequency of Treatment 2x/Week Duration of Treatment 12 weeks Plan of Care Start Date 08/26/20 Plan of Care End Date 11/26/20 Next Visit Focus/Plan Next Note Type Treatment Note Next Visit Plan reassess last tx: quality gait w/ mirror and SPC at needed and standing HEP review. Next ts ask how tolerance previous tx of self rolling pin/ stick/ ball forgot to ask and review HEP: figure 4 stretch, piri stretch hip distraction oni stretch bridging clamshell leg press4 SL
--- NOTE | 2020-11-24 16:09 | PT.OPDS ---
Current Diagnoses Arthrodesis status (10/14/20) Visit Care Team Role Provider Type Twan Mora MD Primary Care Provider Physician Specialty: Internal Medicine Address: [address] [place] [address], [id number] Email: [email or web address] Oscar Hamilton MD Attending Provider Physician Referring Provider Specialty: Orthopedic Surgery Address: [address] [place] [address], [id number] Email: [email or web address] Visit Number Visit Number Discharge Summary PT-OP-T Assessment and Plan Start: 08/26/20 12:45 Freq: Status: Active Protocol: Document 11/24/20 16:08 (Rec: 11/24/20 16:09 [id number]) Physical Therapy Plan Discharge Physical Therapy Discharge Reasons Change in Medical Status Discharge Comments Per MD note, pt has increased L hip pain since late September and decided to have L NILO . Pt's LBP has been improved since PT. DC this case from PT
== END 2020-11-28 12:24 | disposition home or self-care (01) ==
LOC: PHYS 11:15
PROVIDERS: PCP Internal Medicine; Referring Provider Orthopaedic Surgery; Visit Provider Orthopaedic Surgery
DX: Z98.1 Arthrodesis status (principal)
CPT/HCPCS: 97110; 97116; 97140; 97161; 97530

== ENCOUNTER → 2020-10-21 10:41 | Outpatient (CLI) | payer MEDICARE, SELFPAY ==
[2020-01-24 18:04] VITALS: BMI 20.5
[2020-10-21 11:15] LABS: Add Manual Diff / Slide Review NO; Basophils Absolute Auto 0 /uL (0-100); Basophils Percent Auto 0.6 % (0-2); Eosinophils Absolute Auto 200 /uL (0-450); Eosinophils Percent Auto 2.4 % (2-4); Hematocrit 36.2 % (36-46); Hemoglobin 12.1 g/dL (12.0-16.0); Lymphocytes Absolute Auto 1800 /uL (1100-4500); Lymphocytes Percent Auto 25.7 % (25-40); Mean Corpuscular HGB Conc 33.3 % (30-36); Mean Corpuscular Volume 99.1 fL (80-100); Monocytes Absolute Auto 700 /uL (0-900); Monocytes Percent Auto 9.3 % (3-14); Neutrophils Absolute Auto 4400 /uL (1500-7000); Platelet Count 236 X10^3/uL (150-400); Red Blood Cell Count 3.66 X10^6/uL (4.0-5.2); Red Cell Distribution Width 14.5 % (11.6-14.8); White Blood Cell Count 7.2 X10^3/uL (4.5-11.0)
[2020-10-21 11:45] LABS: Alanine Aminotransferase 18 IU/L (<35); Albumin 4.1 g/dL (3.5-5.0); Albumin Globulin Ratio 1.5 (1.0-2.8); Alkaline Phosphatase 61 U/L (38-126); Aspartate Aminotransferase 30 IU/L (14-36); BUN Creatinine Ratio 17.1 (6-22); Bilirubin Total 0.7 mg/dL (0.2-1.3); Blood Urea Nitrogen 13 mg/dL (7-17); Calcium 10.4 mg/dL (8.4-10.2); Carbon Dioxide 35 mmol/L (22-32); Chloride 103 mmol/L (98-107); Estimated Glomerular Filt Rate > 60.0 mL/min (>60); Globulin 2.7 g/dL (1.7-4.1); Glucose 97 mg/dL (80-110); HEMOLYSIS < 15 (0-50); Potassium 4.5 mmol/L (3.4-5.1); Sodium 139 mmol/L (137-145); Total Protein 6.8 g/dL (6.3-8.2)
== END ==
PROVIDERS: PCP Internal Medicine; Referring Provider Internal Medicine; Visit Provider Internal Medicine
DX: I10 Essential (primary) hypertension (principal); D63.8 Anemia in other chronic diseases classified elsewhere
CPT/HCPCS: 36415; 80053; 85025

== ENCOUNTER → 2020-10-30 09:17 | Outpatient (CLI) | payer MEDICARE, SELFPAY ==
[2020-01-24 18:04] VITALS: BMI 20.5
[2020-10-30 10:16] LABS: Add Manual Diff / Slide Review NO; Basophils Absolute Auto 0 /uL (0-100); Basophils Percent Auto 0.8 % (0-2); Eosinophils Absolute Auto 100 /uL (0-450); Eosinophils Percent Auto 2.8 % (2-4); Hematocrit 35.2 % (36-46); Hemoglobin 11.9 g/dL (12.0-16.0); Lymphocytes Absolute Auto 1400 /uL (1100-4500); Lymphocytes Percent Auto 28.5 % (25-40); Mean Corpuscular HGB Conc 33.9 % (30-36); Mean Corpuscular Hemoglobin 33.5 PG (26-34); Mean Corpuscular Volume 98.7 fL (80-100); Monocytes Absolute Auto 600 /uL (0-900); Monocytes Percent Auto 11.4 % (3-14); Neutrophils Absolute Auto 2900 /uL (1500-7000); Neutrophils Percent Auto 56.5 % (50-75); Platelet Count 226 X10^3/uL (150-400); Red Blood Cell Count 3.56 X10^6/uL (4.0-5.2); Red Cell Distribution Width 14.1 % (11.6-14.8); White Blood Cell Count 5.1 X10^3/uL (4.5-11.0)
== END ==
PROVIDERS: PCP Internal Medicine; Referring Provider Orthopaedic Surgery; Visit Provider Orthopaedic Surgery
DX: Z01.818 Encounter for other preprocedural examination (principal); Z01.812 Encounter for preprocedural laboratory examination
CPT/HCPCS: 36415; 85025; 93005; 93010

== ENCOUNTER → 2020-11-04 10:08 | Outpatient (CLI) | payer MEDICARE, SELFPAY ==
[2020-01-24 18:04] VITALS: BMI 20.5
== END ==
PROVIDERS: PCP Internal Medicine; Referring Provider Internal Medicine; Visit Provider Internal Medicine
DX: M81.0 Age-related osteoporosis without current pathological fracture (principal); Z78.0 Asymptomatic menopausal state; Z82.62 Family history of osteoporosis; Z87.891 Personal history of nicotine dependence
CPT/HCPCS: 77080; 77081

== ENCOUNTER → 2020-11-17 09:28 | Outpatient (CLI) | payer MEDICARE, SELFPAY ==
[2020-01-24 18:04] VITALS: BMI 20.5
[2020-11-17 10:44] LABS: COVID19 -Nasal RAPID Negative (Negative)
== END ==
PROVIDERS: PCP Internal Medicine; Visit Provider Nurse Practitioner Family
DX: Z20.828 Contact with and (suspected) exposure to other viral communicable diseases (principal); Z01.812 Encounter for preprocedural laboratory examination
CPT/HCPCS: 87635; C9803

== ENCOUNTER 2020-11-19 12:15 | Day surgery (SDC) | payer MEDICARE, SELFPAY ==
[2020-01-24 18:04] VITALS: BMI 20.5
[2020-11-12 12:55] VITALS: BMI 20.8
[2020-11-19] VITALS (14 sets, daily range): BP systolic 115–156; BP diastolic 35–72; PULSE 51–90; RESP 10–16; TEMP 35.9–36.8; O2SAT 92–100; BMI 20.8
--- NOTE | 2020-11-19 07:49 | DI.RAD.S_ITS ---
PROCEDURE: XR PELVIS 1-2V INDICATIONS: post op NILO TECHNIQUE: 1 view of the lower pelvis acquired. COMPARISON: [facility] [place], [place], XR PELVIS WITH BILATERAL LATERAL HIPS, 07/02/2020, 9:36. FINDINGS: Bones: Patient is status post left total hip arthroplasty, with hardware components in expected positions. The hip joint appears congruent. The visualized bony structures appear intact. A right hip arthroplasty is seen in stable position. Soft tissues: Overlying postoperative changes are noted. No suspicious soft tissue densities. Surgical clips are seen projecting over the right pelvis. IMPRESSION: Status post left total hip arthroplasty with expected post operative findings. Dictated by: Troy Damon M.D. on 11/19/2020 at 17:23 Approved by: Troy Damon M.D. on 11/19/2020 at 17:24
[2020-11-19] MEDS: LACTATED RINGERS 1,000 ML 42 ML IV ×2 (12:45→15:48)
[2020-11-19] MEDS: MELOXICAM 7.5 MG TABLET 15 MG PO (12:45)
[2020-11-19] MEDS: ACETAMINOPHEN 325 MG TABLET 975 MG PO (12:45)
[2020-11-19] MEDS: PREGABALIN 75 MG CAPSULE PO (12:45)
--- NOTE | 2020-11-19 14:11 | PM.PREOP ---
Pre-operative Note COVID-19 COVID-19 status: Negative Result date/Date tested (Pos, Neg/Pending): 11/17/20 Interval Note History & Physical reviewed/Exam performed by Physician: Yes Changes to H&P: No
[2020-11-19] MEDS: CEFAZOLIN 2 GM/100 ML FROZ.PIGGY IV (14:33)
[2020-11-19] MEDS: TRANEXAMIC ACID 1,000 MG VIAL 2000 MG INJ ×2 (15:07→16:02)
--- NOTE | 2020-11-19 15:08 | SUR.OPER ---
Lateral on padded OR bed. Gel axillary roll. Arms secured on padded armboard with pillow supporting top arm. Padded hip positioner braces x4 - anterior and posterior chest and pelvis. Additional gel pad used anterior pelvis. Gel pad under bottom leg from knee to foot and secured with tape over sheet.
[2020-11-19] MEDS: ROPIVACAINE 0.5% PF 5 MG/ML 20ML VIAL 60 ML INJ (15:24)
[2020-11-19] MEDS: MORPHINE 4 MG/ML INJ INJ (15:25)
[2020-11-19] MEDS: KETOROLAC 30 MG/ML VIAL IV (15:25)
--- NOTE | 2020-11-19 16:31 | P.OP_ITS ---
Operative Date/Time/Diagnoses Date of procedure: 11/19/20 Time of procedure: 16:31 Pre-op diagnosis: Left hip degenerative joint disease Post-op diagnosis: same Procedure & Clinicians Procedure: Left total hip arthroplasty (CPT code 02552 with bindery library technical assistant) Same procedure as scheduled: Yes Indications: Patient is an 80-year-old female with severe left hip DJD. The patient has pain with activities and at rest, limited ambulation and activity tolerance, difficulties with ADLs, and failure of conservative treatment. We have discussed the nature of condition, treatment options, risks and benefits, and patient elects to proceed with total hip arthroplasty and gives informed consent. Surgeon: Ayaan Robbins Conveyor Line Battery Charger: Darien Aflonso Anesthesia Type: General and Spinal Operative Notes Closure Type: primary Specimen(s): none sent Prosthetic devices, grafts, tissues, transplants, or devices: Acetabulum: Muñoz and Nephew R3 acetabular component size 54 mm Femoral component: Muñoz [employer]hew Anthology stem size 8 with standard offset Femoral head: 36 mm + 0 cobalt chrome Estimated Blood Loss (mL): 200 Procedure in detail: After satisfaction induction of anesthetic, and administration of IV antibiotics, the patient was positioned in the lateral decubitus position with all bony prominences well padded and pelvic position secured using a hip regional company truck driver positioning device. Left hip and lower extremity prepped and draped in the usual sterile fashion, 1st dose of intravenous tranexamic acid was administered, then a longitudinal incision was created centered over the greater trochanter and carried sharply through the skin and subcutaneous tissues down to the fascia rogelio which was divided longitudinally and retracted with a Charnley retractor. External rotators visualize, cut, tagged, and retracted posteriorly, then the capsule was cut in a T-type fashion with the corners tagged and retracted. Hip was dislocated and femoral neck cut made according to preoperative templating. Acetabular retractors then placed, and the acetabular labrum and osteophytes were excised. The acetabulum was then sequentially reamed to 53 mm with an excellent circumferential ream and fit with the trial. The trial component was removed and a permanent size 54 mm Muñoz [employer] Nephew R3 acetabular component was selected, positioned, and impacted with satisfactory position and fixation achieved. Permanent liner was then inserted with the elevated lip directed posteriorly. Soft tissue then removed off the lateral femoral neck in the lateral neck was entered using a box osteotome. T- handled reamers placed down the canal followed by sequential broaching to 8 with the final broach left in place for trial reduction which demonstrated excellent leg length, range of motion, and stability characteristics with a 36 mm +0 trial ball. The trial and broach were removed, and a permanent size 8 Muñoz [employer] Nephew Anthology stem was selected and inserted with excellent position and fixation achieved. Another trial reduction yielded the above characteristics so the trial ball was exchanged for a permanent 36 mm +0 cobalt chrome ball. The hip was irrigated and reduced and excellent leg length range of motion and stability characteristics were achieved and maintained. Periarticular tissues were infiltrated with ropivacaine, morphine, and Toradol. The hip was copiously irrigated, and the capsule repaired with #2 Ethibond, and the piriformis was repaired back to the greater trochanter with the same. Fascia rogelio closed with interrupted #1 Ethibond sutures, and the subcutaneous tissues were closed in 2 layers of 0 Vicryl and 2 0 Vicryl. Skin was closed with ZipLine skin closure and sterile dressings applied. Second dose of tranexamic acid was administered intravenously, and the anesthetic was terminated. Complications: none Post-operative Condition: stable Disposition: PACU Plan for aftercare: Patient will be admitted to the acute care [facility], and anticipate discharge on postop day 1 with follow-up in office in 10-14 days. Outpatient physical therapy will be arranged and patient will continue to observe posterior hip precautions. Patient will continue use of aspirin for DVT prophylaxis postop.
[2020-11-19] MEDS: OXYCODONE IR 5 MG TABLET PO (16:52)
[2020-11-19] MEDS: LACTATED RINGERS 1,000 ML 125 ML IV (17:24)
[2020-11-19] MEDS: ATORVASTATIN 20 MG TABLET PO (18:05)
[2020-11-19] MEDS: DORZOLAMIDE 2% OPHTH 10 ML 1 DROPS EYE-BOTH (20:39)
[2020-11-19] MEDS: ACYCLOVIR 400 MG TABLET PO (20:40)
[2020-11-19] MEDS: ACETAMINOPHEN 325 MG TABLET 650 MG PO (20:40)
[2020-11-19] MEDS: DOCUSATE 100 MG CAPSULE PO (20:41)
[2020-11-19] MEDS: PANTOPRAZOLE 20 MG TABLET PO (20:41)
[2020-11-19] MEDS: ASPIRIN EC 81 MG TABLET PO (20:41)
[2020-11-20] VITALS: BP 114/66; PULSE 71; RESP 18; TEMP 36.6; O2SAT 98
[2020-11-20] MEDS: LACTATED RINGERS 1,000 ML 125 ML IV (01:07)
[2020-11-20 05:00] VITALS: BP 116/58; PULSE 68; RESP 18; TEMP 36.6; O2SAT 98
[2020-11-20 06:14] LABS: Hemoglobin 9.7 g/dL (12.0-16.0)
--- NOTE | 2020-11-20 07:46 | P.PN_ITS ---
Subjective Subjective Date Patient Seen: 11/20/20 Time Patient Seen: 07:46 Interval history: POD #1 s/p L NILO with Dr. Robbins. Patient doing well. She has mobilized in her room. Pain well controlled. No complaints this AM. Exam Vital Signs (past 8 hours): - 11/20/20 00:00 11/20/20 05:00 Temperature 97.8 F 97.8 F Pulse Rate 71 68 Respiratory Rate 18 18 Blood Pressure 114/66 116/58 L Pulse Oximetry 98 98 Oxygen Delivery Method Room Air Oxygen Flow Rate 0 Narrative Exam Narrative: Patient lying in bed in NAD. She is alert and oriented X3. Calves are soft, compressible, and nontender bilaterally. SILT throughout BLEs. She is able to actively dorsiflex and plantarflex. DP pulses symmetrical. SCDs on and functioning. 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 Breast cancer, right CAD (coronary artery disease) Easy bruisability GERD (gastroesophageal reflux disease) HLD (hyperlipidemia) Hypertension Osteoarthritis Osteoporosis Polymyalgia Polymyalgia rheumatica Postoperative atrial fibrillation (2012) Primary hyperparathyroidism Raynauds syndrome Sciatica Seasonal allergies Sinus bradycardia Spinal stenosis of lumbar region Vitamin D deficiency Surgical History H/O bilateral mastectomy History of bilateral salpingo-oophorectomy (2013) History of bladder suspension procedure History of cardiac cath History of colonoscopy History of esophagogastroduodenoscopy (EGD) History of hip replacement History of lumbar fusion (01/24/20) History of third molar tooth extraction Hx of heart surgery (~01/2013) Status post laparoscopic cholecystectomy Status post laser cataract surgery of right eye Status post tonsillectomy and adenoidectomy Status post tubal ligation Social History household members: spouse Smoking Status: Former smoker alcohol intake: former Assessment & Plan Post-op Postoperative Procedures: Procedures Operation Date: 11/19/20 13:45 Actual Procedures Side Surgeon p Total Hip Arthroplasty Left Ayaan Robbins MD Patient will moblize with PT today. Posterior hip precautions. ASA for VTE prophylaxis. [place] for pain management at home. She will likely DC home today.
[2020-11-20 08:00] VITALS: BP 134/68; PULSE 53; RESP 14; TEMP 36.8; O2SAT 98
[2020-11-20] MEDS: DOCUSATE 100 MG CAPSULE PO (09:11)
[2020-11-20] MEDS: ACETAMINOPHEN 325 MG TABLET 650 MG PO ×2 (09:12→14:52)
[2020-11-20] MEDS: ASPIRIN EC 81 MG TABLET PO (09:12)
[2020-11-20] MEDS: MAGNESIUM OXIDE 400 MG TABLET PO (09:12)
[2020-11-20] MEDS: SODIUM CHLORIDE 0.9% FLUSH 10 ML IV (09:12)
[2020-11-20] MEDS: PANTOPRAZOLE 20 MG TABLET PO (09:12)
[2020-11-20] MEDS: ACYCLOVIR 400 MG TABLET PO (09:13)
[2020-11-20] MEDS: DORZOLAMIDE 2% OPHTH 10 ML 1 DROPS EYE-BOTH (09:13)
--- NOTE | 2020-11-20 10:45 | PT.IIE ---
Current Diagnoses Unilateral primary osteoarthritis, left hip (11/19/20) Surgery Performed Operation Date: 11/19/20 13:45 Actual Procedures p Total Hip Arthroplasty(Left) - Ayaan Robbins MD Surgical History (Last Reviewed 11/20/20 @ 10:02 by Radha Varela PA-C) H/O bilateral mastectomy History of bilateral salpingo-oophorectomy (2013) History of bladder suspension procedure History of cardiac cath History of colonoscopy History of esophagogastroduodenoscopy (EGD) History of hip replacement History of lumbar fusion (01/24/20) History of third molar tooth extraction Hx of heart surgery (~01/2013) Status post laparoscopic cholecystectomy Status post laser cataract surgery of right eye Status post tonsillectomy and adenoidectomy Status post tubal ligation Medical History (Last Reviewed 11/20/20 @ 10:02 by Radha Varela PA-C) Alcoholism Anemia Anxiety and depression Arthritis Ascending aorta enlargement Ascending aortic aneurysm 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 Breast cancer, right CAD (coronary artery disease) Easy bruisability GERD (gastroesophageal reflux disease) HLD (hyperlipidemia) Hypertension Osteoarthritis Osteoporosis Polymyalgia Polymyalgia rheumatica Postoperative atrial fibrillation (2012) Primary hyperparathyroidism Raynauds syndrome Sciatica Seasonal allergies Sinus bradycardia Spinal stenosis of lumbar region Vitamin D deficiency Physical Therapy Inpatient Evaluation/Re-Eval M1 PT/OT-IP Prior Functional Status Start: 11/20/20 08:53 Freq: NEEDED Status: Active Protocol: Document 11/20/20 10:40 AW (Rec: 11/20/20 11:21 AW [id number]) Medical Review Prior Functional Status Medical History Reviewed Yes Communication Pt is able to make needs known but presents as forgetful and anxious on evaluation. Mobility and Gait Pt often uses a SPC or hurrycane for mobility. She is limited to mostly to household mobility and reports an average of 1000 steps daily on her activity tracker. Activities of Daily Living and IADL's Pt reports independent dressing and toileting. Her spouse assists with washing her back in the shower. Prior Functional Level (Other details) Pt has history of lumbar fusion and left hip pain affecting mobility. She discharged from OP PT in September which was focused on back and hip pain. Social History Household Members spouse Living Arrangements House Number of Floors (Floors) Two Floors Number of Stairs To Enter/Railing? 2 SPIKE at back door with R rail ascending. 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 She must climb 15 steps with B rail to bedroom level. Home Environment High Toilet,Walk in Shower Home Equipment Straight Cane,Shower Seat without Backrest,Long Handled Sponge,Long Handled Shoe Horn, Head Sawyer,Sock Aid,Grab Bars In Shower Additional Social History Comment Pt lives in [place] with her , Joy, who will be available and able to assist as needed at discharge. M2 PT-IP Current Condition Start: 11/20/20 08:53 Freq: NEEDED Status: Active Protocol: Document 11/20/20 10:40 AW (Rec: 11/20/20 11:21 AW [id number]) Physical Therapy Current Condition Current Condition Evaluation Date 11/20/20 Treatment Diagnosis L NILO with posterior approach; difficulty in walking Onset Date 11/19/20 Precautions Posterior Hip Precautions No Hip Flexion > 90 degrees,No Hip Internal Rotation,No Hip Adduction Weight Bearing Status Weight Bearing Status Weight Bear as Tolerated M3 PT-IP Subjective Start: 11/20/20 08:53 Freq: NEEDED Status: Active Protocol: Document 11/20/20 10:40 AW (Rec: 11/20/20 11:21 AW [id number]) Subjective Physical Therapy Visit Type Type Initial Evaluation Visit Start Time 09:56 Visit Stop Time 10:40 Total Visit Minutes 44 Physical Therapy Visit Comments Patient Comments Pt is willing to participate with PT Patient Goals Looking forward to ambulation without AD. Therapy Pain Assessment Pain When Pain Assessed During Mobility Pain Present Pain Present Pain Reported Location Back Intensity 5 Scale Used 0/10 at rest; inc to 5/10 with WB Pain Management Techniques Distraction,Timing of Activity with Medications M4 PT-IP Mobility and Gait Start: 11/20/20 08:53 Freq: NEEDED Status: Active Protocol: Document 11/20/20 10:40 AW (Rec: 11/20/20 11:34 AW [id number]) PT-Bed Mobility Assessment Supine to Sit Supine to Sit Minimal Assistance,1 Person Assistance Scooting Scooting to Edge of Bed Contact Guard Assistance PT-Transfer Assessment Sit to and From Stand Sit to and from Stand Minimal Assistance,1 Person Assistance,Use of Upper Extremities Equipment Transfer Assistive Device Gait Belt,Front Wheeled Walker Orthotic/Prosthetic Devices or Brace: No Transfers Transfer Destination Chair,Toilet Transfer Technique Stand Step Pivot Transfer Ability Level of Assist Contact Guard Assistance,1 Person Assistance,Use of Upper Extremities Comments Mobility Comments Pt was lying in bed as PT arrived. After education on precautions, pt was able to complete supine to sit min A x 1 by scooting her legs toward R EOB and slowly coming to long-sitting before dropping her legs off the right side of the bed. BP in sitting was 130/67 and pt denied lightheadedness and nausea. Pt stood from the bed (raised 2 to simulate bed at home) min A x 1 and was able to weight shift with FWW for support. Pt required cues for LLE knee extension in stance. She ambulated to the toilet, requiring min A x 1 for transfer. Pt voided and managed her own pericare. Min A x 1 to stand from the toilet and CGA to walk to the sink with FWW. Pt was able to stand at the sink with CGA for balance as she reached for soap and towels to wash her hands. Pt then ambulated to the chair CGA with FWW and sat SBA with good attention to precautions. Pt was positioned with chair alarm on, call light and all needs in reach. Pt agreed to use the call light for all mobility needs. Gait Assessment Gait Gait Assistance Required: Contact Guard Assist Distance (Feet) 15 Able to Maintain Weight Bearing Status Yes During Gait Assistive Devices Assistive Device Gait Belt,Front Wheeled Walker Orthotic/Prosthetic Devices or Brace: No Gait Deviations General Gait Pattern Antalgic,Decreased Stride Length,Decreased Feet Clearance,Step-to Gait Factors Limiting Gait Function Factors Limiting Gait Function Decreased Activity Tolerance, Decreased Sensation,Decreased Strength,Limited Range of Motion,Pain,Poor Balance Comments Gait Comments Step length was significantly short bilaterally. Pt used FWW appropriately to offload her LLE for WBAT. Stair Climbing Assessment Comments Stair Climbing Comments Not assessed. PT-Balance Assessment Sitting Balance and Reactions Static Sitting Balance Ability Good Dynamic Sitting Balance Ability Good Standing Balance and Reactions Static Standing Balance Ability Good Dynamic Standing Balance Ability Fair Device Used FWW M5 PT-IP Objective Assessments Start: 11/20/20 08:53 Freq: NEEDED Status: Active Protocol: Document 11/20/20 10:40 AW (Rec: 12/31/20 11:34 AW [id number]) Orientation Orientation/Cognition Level of Alertness Confusional State Orientation Name,Day of Week,Place Language Function Ability No Deficits Noted Safety Awareness Decreased Safety Awareness Memory Description Short Term Impaired Comments Pt presents with forgetfulness and requires cues to recall hip precautions. Gross Range of Motion Upper Extremity ROM Assessment Within Functional Limits Lower Extremity ROM Assessment Left Impaired Strength Lower Extremity Strength Assessment Left Impaired Comments Strength Comments RLE grossly 4+/5 except knee flexion 4/5. Sensation Assessment Sensation Gross Sensation WNL M6 PT-IP Treatment Start: 11/20/20 08:53 Freq: NEEDED Status: Active Protocol: Document 11/20/20 10:40 AW (Rec: 11/20/20 11:34 AW [id number]) Physical Therapy Treatment Exercises Exercises Ankle Pumps,Gluteal Sets Education Education Provided Precautions,Weight Bearing Status,Post-Op Packet,Safety Other Treatments Other Treatment Performed Provided education on role of PT, plan of care, weightbearing status, posterior hip precautions, and safe use of FWW. M7 PT-IP Assessment and Plan Start: 11/20/20 08:53 Freq: NEEDED Status: Active Protocol: Document 11/20/20 10:40 AW (Rec: 11/20/20 11:34 AW [id number]) PT Summary Assessment and Plan Potential Rehabilitation Potential Good Status of Condition at Evaluation Stable Summary Impairments Pain,ROM,Strength,Balance, Cognition,Bed Mobility, Transfers,Gait,Activity Tolerance Assessment Summary Adriana is a 80 yo woman seen for PT evaluation on POD1 following L NILO with posterior approach. PLOF: pt was modified independent with use of SPC or hurrycane and was able to navigate stairs at home with CGA from her . CLOF: Pt presents with forgetfulness and requires CGA to min assist for all mobility. She is not yet safe for discharge as she must increase her activity tolerance and complete stair training with her . Plan to work with pt and her at next session. Pt's spouse has assisted after previous hip and back surgeries. PT anticipates she will be safe for discharge home with assist and outpatient PT once medically cleared. Goals Bed Mobility Goal Standby Assistance Transfer Goal Standby Assistance,Front Wheeled Walker Gait Goal Standby Assistance,Front Wheel Walker Gait Distance 100 Other Goals - up/down 2 steps with R rail ascending CGA - IF going upstairs, THEN: up/ down 15 steps with B rails CGA Days to Meet Goals 3 Frequency of Treatment Frequency Of Treatment Twice a Day Treatment Plan Physical Therapy Treatment Plan Bed Mobility Training,Transfer Training,Gait Training, Therapeutic Exercise,Balance Retraining,Post Op Education, Discharge Planning,Hot or Cold Pack Other Recommendations and Next Treatment CGT with spouse, review Focus precautions, ther ex, stairs Recommendations To Nursing Amount of Assist Needed 1 Person Assist Discharge Recommendations PT Discharge Recommendations Home with Assistance, Outpatient PT Transportation Needs at Discharge Private Vehicle
[2020-11-20] MEDS: OLMESARTAN 20 MG TABLET PO (10:49)
[2020-11-20] MEDS: ESCITALOPRAM 10 MG TABLET 20 MG PO (10:49)
[2020-11-20] MEDS: hydroCHLOROthiazide 12.5 MG CAPSULE PO (10:49)
[2020-11-20] MEDS: FISH OIL 1,000 MG CAPSULE 1000 MG PO (10:50)
[2020-11-20 11:05] VITALS: BP 110/51; PULSE 50; RESP 16; TEMP 36.9; O2SAT 97
--- NOTE | 2020-11-20 11:21 | CM.IDA ---
Initial DCP Assessment Note Pt is a 80 yo female, resident of [place], POD #1 s/p L NILO with Dr. Robbins PCP: Twan Mora Payer: MCR/LAURA Reviewed chart, pt discussed in multidisciplinary rounds this morning. Therapy pending this AM; pt has planned for home, DC order from Ortho has already been initiated this morning. No needs expected from DC planning team although will remain available in case this changes today. BAYRON Alcazar Discharge Planning/Care Management CM Discharge Assessment Start: 11/20/20 11:18 Freq: Status: Active Protocol: Document 11/20/20 11:18 [email or web address] (Rec: 11/20/20 11:21 [id number]) Discharge Planning Assessment Assigned Placement Assistant BAYRON Guy DPOA/Assigned Designee Name Joy () Contact Information [phone] Advance Directives? No: Has paperwork History Provided By Patient,Medical Record Prior Living Arrangements House Household Members spouse Type of transporation used prior to Drives own vehicle admit Independent with ADL's Yes Is patient alert and oriented? Yes Caregiver for Another No Patient/Family Preference OP PT Therapy Barriers to Discharge No Discharge Plan Home Transportation Arrangement Spouse Referrals Initiated None needed
--- NOTE | 2020-11-20 14:21 | PT.IPTN ---
Current Diagnoses Unilateral primary osteoarthritis, left hip (11/19/20) Surgery Performed Operation Date: 11/19/20 13:45 Actual Procedures p Total Hip Arthroplasty(Left) - Ayaan Robbins MD Physical Therapy Treatment Note M2 PT-IP Current Condition Start: 11/20/20 08:53 Freq: NEEDED Status: Active Protocol: Document 11/20/20 10:40 AW (Rec: 11/20/20 11:21 AW [id number]) Physical Therapy Current Condition Current Condition Evaluation Date 11/20/20 Treatment Diagnosis L NILO with posterior approach; difficulty in walking Onset Date 11/19/20 Precautions Posterior Hip Precautions No Hip Flexion > 90 degrees,No Hip Internal Rotation,No Hip Adduction Weight Bearing Status Weight Bearing Status Weight Bear as Tolerated M3 PT-IP Subjective Start: 11/20/20 08:53 Freq: NEEDED Status: Active Protocol: Document 11/20/20 14:06 AW (Rec: 11/20/20 14:21 AW [id number]) Subjective Physical Therapy Visit Type Type Treatment Note Visit Start Time 13:34 Visit Stop Time 14:00 Total Visit Minutes 26 Notes Pt's spouse present for caregiver training Physical Therapy Visit Comments Patient Comments Pt is willing to participate with PT Therapy Pain Assessment Pain When Pain Assessed During Mobility Pain Present Pain Present Pain Reported Location left hip Intensity 5 Scale Used 2/10 at rest; inc to 5/10 with WB M4 PT-IP Mobility and Gait Start: 11/20/20 08:53 Freq: NEEDED Status: Active Protocol: Document 11/20/20 14:06 AW (Rec: 11/20/20 14:21 AW [id number]) PT-Transfer Assessment Sit to and From Stand Sit to and from Stand Contact Guard Assistance,1 Person Assistance,Use of Upper Extremities Equipment Transfer Assistive Device Gait Belt,Front Wheeled Walker Orthotic/Prosthetic Devices or Brace: No Transfers Transfer Destination Bed,Toilet Transfer Technique Stand Step Pivot Transfer Ability Level of Assist Contact Guard Assistance,1 Person Assistance,Use of Upper Extremities Comments Mobility Comments Pt remained up in the chair as PT arrived. She was able to recall all three precautions and was able to teach back to her before moving. She scooted to EOC and completed sit to stand CGA with good attention to precautions. She ambulated to the toilet with FWW, transferring CGA. Pt stood from the toilet using right-side grab bar and CGA. She then ambulated 100 feet to the stairs with FWW CGA provided by PT. After stair training, pt's spouse provided CGA as pt ambulated back to the room. She transferred sit to supine min A x 1 to elevate her operative leg to the bed. She was able to position herself in the center of the bed and scoot toward HOB SBA. Pt was positioned with call light and all needs in reach. Gait Assessment Gait Gait Assistance Required: Contact Guard Assist Distance (Feet) 100 Able to Maintain Weight Bearing Status Yes During Gait Assistive Devices Assistive Device Gait Belt,Front Wheeled Walker Orthotic/Prosthetic Devices or Brace: No Gait Deviations General Gait Pattern Antalgic,Decreased Stride Length,Decreased Feet Clearance,Step-to Gait Factors Limiting Gait Function Factors Limiting Gait Function Decreased Activity Tolerance, Decreased Sensation,Decreased Strength,Limited Range of Motion,Pain,Poor Balance Comments Gait Comments Pt ambulated 100 feet x 2 with FWW CGA. Gait speed was improved slightly from morning session and pt expressed increased confidence in her LLE. She needed cues for LLE knee extension in stance phase . Stair Climbing Assessment Evaluation Level of Assist On Stairs Contact Guard Assistance Devices Stair Climbing Assistive Devices Left Railing,Right Railing Technique/Endurance Stair Climbing Direction Ascend and Descend Stair Climbing Technique Step to Step Number of Steps Climbed 3 Stair Climbing Set # Repetitions (reps) 2 Comments Stair Climbing Comments After brief education on stair navigation, PT provided CGA first set and pt's spouse provided CGA second set. PT-Balance Assessment Sitting Balance and Reactions Static Sitting Balance Ability Good Dynamic Sitting Balance Ability Good Standing Balance and Reactions Static Standing Balance Ability Good Dynamic Standing Balance Ability Good Device Used FWW M5 PT-IP Objective Assessments Start: 11/20/20 08:53 Freq: NEEDED Status: Active Protocol: Document 11/20/20 10:40 AW (Rec: 11/20/20 11:34 AW [id number]) Orientation Orientation/Cognition Level of Alertness Confusional State Orientation Name,Day of Week,Place Language Function Ability No Deficits Noted Safety Awareness Decreased Safety Awareness Memory Description Short Term Impaired Comments Pt presents with forgetfulness and requires cues to recall hip precautions. Gross Range of Motion Upper Extremity ROM Assessment Within Functional Limits Lower Extremity ROM Assessment Left Impaired Strength Lower Extremity Strength Assessment Left Impaired Comments Strength Comments RLE grossly 4+/5 except knee flexion 4/5. Sensation Assessment Sensation Gross Sensation WNL M6 PT-IP Treatment Start: 11/20/20 08:53 Freq: NEEDED Status: Active Protocol: Document 11/20/20 14:06 AW (Rec: 11/20/20 14:21 AW [id number]) Physical Therapy Treatment Exercises Exercises Ankle Pumps,Gluteal Sets,Quad Sets,Heel Slides,Supine Hip Abduction Education Education Provided Precautions,Weight Bearing Status,Safety Other Treatments Other Treatment Performed Pt's spouse participated in caregiver training. He was able to provide appropriate level of assist and cues M7 PT-IP Assessment and Plan Start: 11/20/20 08:53 Freq: NEEDED Status: Active Protocol: Document 11/20/20 14:06 AW (Rec: 11/20/20 14:21 AW [id number]) PT Summary Assessment and Plan Potential Rehabilitation Potential Good Status of Condition at Evaluation Stable Summary Impairments Pain,ROM,Strength,Balance, Cognition,Bed Mobility, Transfers,Gait,Activity Tolerance Progress Towards Goals Progressing Toward Goals Assessment Summary Adriana was able to tolerate more activity this PM and her participated in caregiver training, demonstrating proficiency with gait belt application, and providing gait and stairs assist. Pt was able to recall all hip precautions and to teach her regarding same. Pt is safe for discharge . Goals Bed Mobility Goal Standby Assistance Transfer Goal Standby Assistance,Front Wheeled Walker Gait Goal Standby Assistance,Front Wheel Walker Gait Distance 100 Other Goals - up/down 2 steps with R rail ascending CGA - IF going upstairs, THEN: up/ down 15 steps with B rails CGA Days to Meet Goals 3 Frequency of Treatment Frequency Of Treatment Discharge Treatment Plan Physical Therapy Treatment Plan Bed Mobility Training,Transfer Training,Gait Training, Therapeutic Exercise,Balance Retraining,Post Op Education, Discharge Planning,Hot or Cold Pack Recommendations To Nursing Amount of Assist Needed 1 Person Assist Discharge Recommendations PT Discharge Recommendations Home with Assistance, Outpatient PT Transportation Needs at Discharge Private Vehicle
--- NOTE | 2020-11-20 14:37 | PC.NURSE ---
discharge instructions and home care handouts reviewed with patient and her , they state understanding and have no further questions or concerns at this time. Dressing changed prior to discharge as ordered, and is CDI, incision well approximated without redness or drainage. IV dc'd intact. Patient has follow up appointment scheduled. Instructed to call surgeons office with questions or concerns, or to seek emergent care for an emergency.
== END 2020-11-20 15:15 | disposition home or self-care (01) ==
LOC: OR 12:19 → AC 12:19
PROVIDERS: PCP Internal Medicine; Referring Provider Internal Medicine; Visit Provider Orthopaedic Surgery
PROC: 0SRB0JZ Replacement of Left Hip Joint with Synthetic Substitute, Open Approach (ICD-10-PCS; CPT 27130; principal; 2020-11-19 13:45)
DX: M16.12 Unilateral primary osteoarthritis, left hip (principal); K21.9 Gastro-esophageal reflux disease without esophagitis; M35.3 Polymyalgia rheumatica; I25.10 Atherosclerotic heart disease of native coronary artery without angina pectoris; I10 Essential (primary) hypertension
CPT/HCPCS: 27130; 36415; 72170; 85014; 85018; 94760; 97116; 97161; 97530; C1776; A9270; J0690; J1100; J1885; J2270; J2274; J2405; J2704

== ENCOUNTER → 2020-12-17 10:41 | Outpatient (CLI) | payer MEDICARE, SELFPAY ==
[2020-11-19 17:24] VITALS: BMI 20.8
[2020-12-17 12:41] LABS: Alanine Aminotransferase 16 IU/L (<35); Albumin 4.2 g/dL (3.5-5.0); Albumin Globulin Ratio 1.6 (1.0-2.8); Alkaline Phosphatase 85 U/L (38-126); Aspartate Aminotransferase 32 IU/L (14-36); Bilirubin Total 0.4 mg/dL (0.2-1.3); Blood Urea Nitrogen 12 mg/dL (7-17); Carbon Dioxide 31 mmol/L (22-32); Chloride 101 mmol/L (98-107); Estimated Glomerular Filt Rate > 60.0 mL/min (>60); Globulin 2.7 g/dL (1.7-4.1); Glucose 96 mg/dL (80-110); HEMOLYSIS < 15 (0-50); Magnesium 2.3 mg/dL (1.6-2.3); Potassium 4.3 mmol/L (3.4-5.1); Sodium 136 mmol/L (137-145); Total Protein 6.9 g/dL (6.3-8.2)
== END ==
PROVIDERS: PCP Internal Medicine; Referring Provider Specialist; Visit Provider Specialist
DX: I10 Essential (primary) hypertension (principal); E78.00 Pure hypercholesterolemia, unspecified
CPT/HCPCS: 36415; 80053; 80061; 83704; 83735

== ENCOUNTER → 2021-11-05 09:20 | Outpatient (CLI) | payer MEDICARE, SELFPAY ==
[2020-11-19 17:24] VITALS: BMI 20.8
[2021-11-05 09:56] LABS: Add Manual Diff / Slide Review NO; Basophils Absolute Auto 0 /uL (0-100); Basophils Percent Auto 0.7 % (0-2); Eosinophils Absolute Auto 200 /uL (0-450); Eosinophils Percent Auto 3.2 % (2-4); Hematocrit 35.5 % (36-46); Hemoglobin 12.3 g/dL (12.0-16.0); Lymphocytes Absolute Auto 1800 /uL (1100-4500); Lymphocytes Percent Auto 31.9 % (25-40); Mean Corpuscular HGB Conc 34.7 % (30-36); Monocytes Absolute Auto 600 /uL (0-900); Monocytes Percent Auto 10.6 % (3-14); Neutrophils Absolute Auto 3000 /uL (1500-7000); Neutrophils Percent Auto 53.6 % (50-75); Platelet Count 221 X10^3/uL (150-400); Red Blood Cell Count 3.74 X10^6/uL (4.0-5.2); Red Cell Distribution Width 15.3 % (11.6-14.8); White Blood Cell Count 5.6 X10^3/uL (4.5-11.0)
[2021-11-05 10:29] LABS: Alanine Aminotransferase 18 IU/L (<35); Albumin 4.2 g/dL (3.5-5.0); Albumin Globulin Ratio 1.8 (1.0-2.8); Alkaline Phosphatase 49 U/L (38-126); Aspartate Aminotransferase 31 IU/L (14-36); BUN Creatinine Ratio 16.7 (6-22); Bilirubin Total 0.7 mg/dL (0.2-1.3); Blood Urea Nitrogen 15 mg/dL (7-17); Calcium 10.8 mg/dL (8.4-10.2); Carbon Dioxide 29 mmol/L (22-32); Chloride 101 mmol/L (98-107); Cholesterol 121 mg/dL (140-199); Estimated Glomerular Filt Rate > 60.0 mL/min (>60); Globulin 2.4 g/dL (1.7-4.1); Glucose 90 mg/dL (80-110); HDL Cholesterol 66 mg/dL (40-60); HEMOLYSIS < 15 (0-50); LDL Cholesterol Calculated 39 mg/dL (<100); Potassium 3.8 mmol/L (3.4-5.1); Sodium 137 mmol/L (137-145); Total Protein 6.6 g/dL (6.3-8.2); Triglycerides 79 mg/dL (35-150)
== END ==
PROVIDERS: PCP Internal Medicine; Referring Provider Internal Medicine; Visit Provider Internal Medicine
DX: E78.00 Pure hypercholesterolemia, unspecified (principal); I10 Essential (primary) hypertension; D50.9 Iron deficiency anemia, unspecified; M15.0 Primary generalized (osteo)arthritis
CPT/HCPCS: 36415; 80053; 80061; 85025

== ENCOUNTER 2021-11-14 21:14 | Emergency (ER) | payer MEDICARE, SELFPAY ==
[2020-11-19 17:24] VITALS: BMI 20.8
--- NOTE | 2021-11-14 21:19 | DI.RAD.S_ITS ---
PROCEDURE: XR HIP W PEL IF DONE LT 2V INDICATIONS: fall on hip with pain TECHNIQUE: 3 views of the left hip were acquired. COMPARISON: [facility], , HIP 2V LEFT, 08/30/2008, 14:06. FINDINGS: Bilateral total hip arthroplasties. No periprosthetic fracture. Normal alignment of the arthroplasty hardware. No abnormal periprosthetic lucency. Partially visualized lumbar spine fusion hardware. IMPRESSION: No acute finding. Dictated by: Jose Tang M.D. on 11/14/2021 at 21:44 Approved by: Jose Tang M.D. on 11/14/2021 at 21:45
[2021-11-14 21:32] VITALS: BP 169/72; PULSE 55; RESP 17; TEMP 36.9; O2SAT 96; BMI 19.9
--- NOTE | 2021-11-14 21:41 | PC.NURSE ---
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 Was seen at a hospital afterwards for head wound/swelling, no LOC. Now reports left hip pain and increased pain with ambulation. Is able to ambulate and weight bear.
--- NOTE | 2021-11-14 21:52 | ED_ITS ---
HPI - Extremity Injury (Lower) General Chief Complaint: Extremity Injury, Lower Stated Complaint: Fell on left artificial hip- a lot of pain Time Seen by Provider: 11/14/21 21:19 Source: patient Mode of arrival: Ambulatory History of Present Illness HPI Narrative: Patient is an 81-year-old female who 2 days ago had a mechanical fall when she was in the grocery store. She did fall forward and hit her head. There was no loss of conscious. She is not on blood thinners. This happened when she was out of town. She did go to local ER. Head CT scans performed. Was ultimately discharged from the hospital. Since that time she has had discomfort with walking specifically over her left hip. She states that her left hip was not x- ray during that visit. She has had bruising on the left side of her face as well that has developed. Related Data Home Medications Medication Instructions Recorded Confirmed acyclovir 800 mg tablet 400 mg PO BID #0 04/12/12 11/19/20 escitalopram oxalate 10 mg tablet 20 mg PO QDAY #0 04/12/12 11/19/20 (Lexapro) atorvastatin 10 mg tablet (Lipitor) 20 mg PO QPM #0 01/04/18 11/19/20 alendronate 70 mg tablet (Fosamax) 70 mg PO QWEEK 12/27/18 11/19/20 omega 3-wwp-rgk-fish oil 1,000 mg 1 cap PO DAILY 12/27/18 11/19/20 (120 mg-180 mg) capsule (Fish Oil) acetaminophen 500 mg tablet 1,000 mg PO DAILY PRN 01/17/20 11/19/20 (Tylenol Extra Strength) dorzolamide 2 % eye drops 1 drp EYE-BOTH BID 01/17/20 11/19/20 magnesium oxide 400 mg PO DAILY 01/17/20 11/19/20 olmesartan 20 1 tab PO DAILY 01/17/20 11/19/20 mg-hydrochlorothiazide 12.5 mg tablet omeprazole 20 mg tablet,delayed 20 mg PO BID 01/17/20 11/19/20 release cyclosporine 0.05 % eye drops in a drp OPHTHALMIC (EYE) 07/21/21 dropperette (Restasis) Previous Rx's Medication Instructions Recorded aspirin 81 mg tablet,delayed 81 mg PO BID #20 tab 11/20/20 release docusate sodium 100 mg capsule 100 mg PO BID #20 cap 11/20/20 (DOK) hydrocodone 5 mg-acetaminophen 325 1 tab PO Q4-6H PRN #40 tab 11/20/20 mg tablet ([place]) Allergies Allergy/AdvReac Type Severity Reaction Status Date / Time Sulfa (Sulfonamide Allergy Severe Rash lower Verified 11/19/20 12:29 Antibiotics) legs [SULFA (SULFONAMIDE ANTIBIOTICS)] Review of Systems Constitutional Constitutional: Denies frequent falls Musculoskeletal Comments: Left hip pain Integumentary/Breasts Comments: Bruising over left hip and left side of face Neurologic Neurologic: Denies frequent falls Hematologic/Lymphatic On Anticoagulants: No Patient History Medical History Alcoholism Anemia Anxiety and depression Arthritis Ascending aorta enlargement Ascending aortic aneurysm 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 Breast cancer, right CAD (coronary artery disease) Easy bruisability GERD (gastroesophageal reflux disease) HLD (hyperlipidemia) Hypertension Osteoarthritis Osteoporosis Polymyalgia Polymyalgia rheumatica Postoperative atrial fibrillation (2012) Primary hyperparathyroidism Raynauds syndrome Sciatica Seasonal allergies Sinus bradycardia Spinal stenosis of lumbar region Vitamin D deficiency Surgical History H/O bilateral mastectomy History of bilateral salpingo-oophorectomy (2013) History of bladder suspension procedure History of cardiac cath History of colonoscopy History of esophagogastroduodenoscopy (EGD) History of hip replacement History of lumbar fusion (01/24/20) History of third molar tooth extraction Hx of heart surgery (~01/2013) Status post laparoscopic cholecystectomy Status post laser cataract surgery of right eye Status post tonsillectomy and adenoidectomy Status post tubal ligation Social History household members: spouse Smoking Status: Former smoker alcohol intake: former Smoking Status: Former smoker Substance Use Type: marijuana Exam Initial Vital Signs Initial Vital Signs: Vital Signs Temperature 98.5 F 11/14/21 21:32 Pulse Rate 55 L 11/14/21 21:32 Respiratory Rate 17 11/14/21 21:32 Blood Pressure 169/72 H 11/14/21 21:32 Pulse Oximetry 96 11/14/21 21:32 Const General: cooperative and comfortable HENMT Head: abrasion (Left frontal/parietal region of scalp), contusion and hematoma (Left frontal/parietal region of scalp) Eyes Other: Ecchymosis around left eye Skin Other: Bruising on left side of face and left forehead. Small bruising over the greater trochanter left hip. Neuro General: patient alert, patient awake and moves all extremities Extrem Other: Patient is ambulatory. Bilateral upper extremities unremarkable. Tenderness to palpation of the greater trochanter on the left. Course Orders Ordered: ED Orders 11/14/21 21:19 XR hip w pel if done LT 2V Stat Vital Signs Vital signs: Vital Signs - 8 hr 11/14/21 21:32 11/14/21 22:19 Temperature 98.5 F Pulse Rate 55 L 55 L Respiratory Rate 17 18 Blood Pressure 169/72 H 134/61 Pulse Oximetry 96 96 MDM - Extremity Injury (Lower) Imaging Data Extremity x-ray #1: Radiologist's Impression: [address] [address] XRay Report Signed Patient: Adriana Craig MR#: [id number] : 1940 Acct:[id number] Age/Sex: 81 / F Date of Service: 11/14/21 Loc: ED Accession Number: [id number] ?? Procedure: XR hip w pel if done LT 2V Ordering Provider: Deuce Vidal D.O. PROCEDURE:? XR HIP W PEL IF DONE LT 2V ? INDICATIONS:? fall on hip with pain ? TECHNIQUE:? 3 views of the left hip were acquired.? ? COMPARISON:? [facility], , HIP 2V LEFT, 08/30/2008, 14:06. ? FINDINGS:? ? Bilateral total hip arthroplasties.? No periprosthetic fracture.? Normal alignment of the arthroplasty hardware.? No abnormal periprosthetic lucency.? Partially visualized lumbar spine fusion hardware. ? IMPRESSION:? No acute finding. ? ? Dictated by: Jose Tang M.D. on 11/14/2021 at 21:44 ? ? Approved by: Jose Tang M.D. on 11/14/2021 at 21:45?? [facility] Narrative Medical decision making narrative: Patient is ambulatory. She does have bruising over the greater trochanter of the left hip which is where she is having the discomfort. X-ray showed no signs of fractures. I feel that we can hold on further workup for now. She has had head CT it is not complaining of any other symptoms except for the left hip pain. We did discuss return precautions and follow-up instructions. She exp ressed understanding and agreement. Discharge Plan Departure Patient Disposition: Home Clinical Impression: Hip pain, Contusion of face Instructions: DI for Hip Pain Activity Restrictions/Additional Instructions: There were no fractures noted on the x-rays. You can take the Tylenol and ibuprofen like we discussed. Continue the rest of her medications as directed. Return to the emergency department for any new or worsening symptoms Prescriptions: No Action acyclovir 800 MG tablet 400 mg PO BID Qty: 0 0RF escitalopram oxalate [Lexapro] 10 MG tablet 20 mg PO QDAY Qty: 0 0RF atorvastatin [Lipitor] 10 mg tablet 20 mg PO QPM Qty: 0 0RF acetaminophen [Tylenol Extra Strength] 500 mg Tablet 1,000 mg PO DAILY PRN (Reason: Pain) 0RF dorzolamide 2 % Drops 1 drp EYE-BOTH BID 0RF olmesartan-hydrochlorothiazide 20-12.5 mg Tablet 1 tab PO DAILY 0RF omeprazole 20 mg Tablet,Delayed Release (Dr/Ec) 20 mg PO BID 0RF magnesium oxide 400 mg magnesium Tablet 400 mg PO DAILY 0RF aspirin 81 mg Tablet,Delayed Release (Dr/Ec) 81 mg PO BID Qty: 20 0RF docusate sodium [DOK] 100 mg Capsule 100 mg PO BID Qty: 20 0RF hydrocodone-acetaminophen [[place]] 5-325 mg tablet 1 tab PO Q4-6H PRN (Reason: pain) Qty: 40 0RF Rx Instructions: 1 tab po every 4-6 hours as needed for severe pain. exempt. post op pain. alendronate [Fosamax] 70 mg Tablet 70 mg PO QWEEK 0RF Rx Instructions: Every Tuesday omega 9-iuu-dhd-fish oil [Fish Oil] 1,000 mg (120 mg-180 mg) Capsule 1 cap PO DAILY 0RF Restasis 0.05 % Dropperette OPHTHALMIC (EYE) 0RF Referrals: Twan Mora MD [Primary Care Provider] -
[2021-11-14 22:19] VITALS: BP 134/61; PULSE 55; RESP 18; O2SAT 96
== END 2021-11-14 22:20 | disposition home or self-care (01) ==
PROVIDERS: Emergency Provider Emergency Medicine; PCP Internal Medicine
DX: M25.552 Pain in left hip (principal); S00.83XA Contusion of other part of head, initial encounter; Z87.891 Personal history of nicotine dependence; W19.XXXA Unspecified fall, initial encounter; Y92.512 Supermarket, store or market as the place of occurrence of the external cause
CPT/HCPCS: 73502; 99283

== ENCOUNTER → 2021-12-02 10:19 | Outpatient (CLI) | payer MEDICARE, SELFPAY ==
[2020-11-19 17:24] VITALS: BMI 20.8
[2021-12-02 12:08] LABS: Alanine Aminotransferase 12 IU/L (<35); Albumin 3.9 g/dL (3.5-5.0); Albumin Globulin Ratio 1.6 (1.0-2.8); Alkaline Phosphatase 166 U/L (38-126); Aspartate Aminotransferase 25 IU/L (14-36); BUN Creatinine Ratio 18.9 (6-22); Bilirubin Total 0.5 mg/dL (0.2-1.3); Blood Urea Nitrogen 14 mg/dL (7-17); Calcium 10.3 mg/dL (8.4-10.2); Carbon Dioxide 31 mmol/L (22-32); Chloride 102 mmol/L (98-107); Estimated Glomerular Filt Rate > 60.0 mL/min (>60); Globulin 2.5 g/dL (1.7-4.1); Glucose 94 mg/dL (80-110); HEMOLYSIS < 15 (0-50); Magnesium 2.3 mg/dL (1.6-2.3); Sodium 137 mmol/L (137-145); Total Protein 6.4 g/dL (6.3-8.2)
[2021-12-05 10:14] LABS: Cholesterol, Total 113 mg/dL (100-199); HDL-Cholesterol 51 mg/dL (>39); HDL-Particle (Total) 28.9 umol/L (>=30.5); LDL Particle 302 nmol/L (<1000); LDL Size 20.9 nm (>20.5); LDL-Cholsterol 43 mg/dL (0-99); LP-IR Score <25 (<=45); Small LDL- Particle 152 nmol/L (<=527); Triglycerides 105 mg/dL (0-149)
== END ==
PROVIDERS: PCP Internal Medicine; Referring Provider Physician Assistant Medical; Visit Provider Specialist
DX: I10 Essential (primary) hypertension (principal); E78.5 Hyperlipidemia, unspecified; I49.1 Atrial premature depolarization
CPT/HCPCS: 36415; 80053; 80061; 83704; 83735

== ENCOUNTER → 2022-02-26 14:15 | Outpatient (CLI) | payer MEDICARE, SELFPAY ==
[2020-11-19 17:24] VITALS: BMI 20.8
== END ==
PROVIDERS: PCP Internal Medicine; Referring Provider Internal Medicine; Visit Provider Internal Medicine
DX: Z13.820 Encounter for screening for osteoporosis (principal); M85.832 Other specified disorders of bone density and structure, left forearm; Z78.0 Asymptomatic menopausal state
CPT/HCPCS: 77081

== ENCOUNTER → 2022-03-03 10:58 | Outpatient (CLI) | payer MEDICARE, SELFPAY ==
[2020-11-19 17:24] VITALS: BMI 20.8
[2022-03-03 11:19] LABS: Add Manual Diff / Slide Review NO; Basophils Absolute Auto 0 /uL (0-100); Basophils Percent Auto 0.4 % (0-2); Eosinophils Absolute Auto 100 /uL (0-450); Eosinophils Percent Auto 1.6 % (2-4); Hematocrit 36.7 % (36-46); Hemoglobin 12.4 g/dL (12.0-16.0); Lymphocytes Absolute Auto 1500 /uL (1100-4500); Lymphocytes Percent Auto 19.7 % (25-40); Mean Corpuscular HGB Conc 33.9 % (30-36); Mean Corpuscular Volume 97.5 fL (80-100); Monocytes Absolute Auto 700 /uL (0-900); Monocytes Percent Auto 9.5 % (3-14); Neutrophils Absolute Auto 5200 /uL (1500-7000); Neutrophils Percent Auto 68.8 % (50-75); Platelet Count 205 X10^3/uL (150-400); Red Blood Cell Count 3.77 X10^6/uL (4.0-5.2); Red Cell Distribution Width 14.2 % (11.6-14.8); White Blood Cell Count 7.6 X10^3/uL (4.5-11.0)
[2022-03-03 11:33] LABS: Alanine Aminotransferase 20 IU/L (<35); Albumin 4.1 g/dL (3.5-5.0); Albumin Globulin Ratio 1.4 (1.0-2.8); Alkaline Phosphatase 49 U/L (38-126); Aspartate Aminotransferase 35 IU/L (14-36); BUN Creatinine Ratio 18.5 (6-22); Bilirubin Total 0.6 mg/dL (0.2-1.3); Blood Urea Nitrogen 15 mg/dL (7-17); Calcium 9.6 mg/dL (8.4-10.2); Carbon Dioxide 31 mmol/L (22-32); Chloride 101 mmol/L (98-107); Estimated Glomerular Filt Rate > 60 mL/min (>60); Globulin 2.9 g/dL (1.7-4.1); Glucose 88 mg/dL (80-110); HEMOLYSIS < 15 (0-50); Potassium 4.1 mmol/L (3.4-5.1); Sodium 138 mmol/L (137-145)
== END ==
PROVIDERS: Internal Medicine Medical Oncology; PCP Internal Medicine; Referring Provider Internal Medicine; Visit Provider Internal Medicine
DX: Z15.01 Genetic susceptibility to malignant neoplasm of breast (principal); Z15.02 Genetic susceptibility to malignant neoplasm of ovary; Z15.09 Genetic susceptibility to other malignant neoplasm
CPT/HCPCS: 36415; 80053; 85025

== ENCOUNTER 2022-05-03 13:59 | Emergency (ER) | payer OTHER, MEDICARE, SELFPAY ==
[2020-11-19 17:24] VITALS: BMI 20.8
[2022-05-03 14:03] VITALS: BP 182/75; PULSE 51; RESP 18; TEMP 36.4; O2SAT 98
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
[2022-05-03 17:40] VITALS: BP 173/74
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
== END 2022-05-03 18:30 | disposition home or self-care (01) ==
PROVIDERS: Emergency Provider Physician Assistant; PCP Internal Medicine
DX: R07.81 Pleurodynia (principal)
CPT/HCPCS: 71101; 99281; 99283

== ENCOUNTER → 2022-06-08 10:41 | Outpatient (CLI) | payer MEDICARE, SELFPAY ==
[2020-11-19 17:24] VITALS: BMI 20.8
[2022-06-08 13:03] LABS: Alanine Aminotransferase 16 IU/L (<35); Albumin 4.5 g/dL (3.5-5.0); Albumin Globulin Ratio 1.9 (1.0-2.8); Alkaline Phosphatase 59 U/L (38-126); Aspartate Aminotransferase 30 IU/L (14-36); Bilirubin Total 0.9 mg/dL (0.2-1.3); Blood Urea Nitrogen 11 mg/dL (7-17); Carbon Dioxide 28 mmol/L (22-32); Chloride 99 mmol/L (98-107); Globulin 2.4 g/dL (1.7-4.1); Glucose 91 mg/dL (80-110); HEMOLYSIS < 15 (0-50); Potassium 4.2 mmol/L (3.4-5.1); Sodium 137 mmol/L (137-145); Total Protein 6.9 g/dL (6.3-8.2)
[2022-06-08 13:04] LABS: BUN Creatinine Ratio 15.9 (6-22); Estimated Glomerular Filt Rate > 60 mL/min (>60)
[2022-06-08 13:05] LABS: Vitamin D 25 Hydroxy (D3) 36.4 ng/mL (30.0-100.0)
== END ==
PROVIDERS: Family Provider Internal Medicine; PCP Internal Medicine; Referring Provider Internal Medicine; Visit Provider Internal Medicine
DX: E83.52 Hypercalcemia (principal)
CPT/HCPCS: 36415; 80053; 82306

== ENCOUNTER 2022-09-01 10:30 | Outpatient (RCR) | payer MEDICARE, SELFPAY ==
[2020-11-19 17:24] VITALS: BMI 20.8
--- NOTE | 2022-07-06 12:45 | PT.OPPOC ---
Physical, Occupational & Speech Therapy At [facility] Current Diagnoses Muscle weakness (generalized) (07/06/22) Unspecified abnormalities of gait and mobility (07/06/22) History of falling (07/06/22) Visit Care Team Role Provider Type Nicolas Barrios MD Attending Provider Non-Staff Family Provider Primary Care Provider Referring Provider Specialty: Internal Medicine Address: [address] [place] [address], [facility] Email: Plan Of Care PT-OP-T Assessment and Plan Start: 07/06/22 16:37 Freq: Status: Active Protocol: Document 07/06/22 12:00 DCW (Rec: 07/07/22 09:33 DCW [id number]) Physical Therapy Assessment Rehab Potential Rehabilitation Potential Good Evaluation Complexity Number of Personal Factors/Comorbidities 1-2 Number of Body Systems Impaired 4 or More Clinical Presentation at Evaluation Unstable Impairments Impairments Activity Tolerance,Balance, Coordination,Functional Activities,Functional Mobility ,Gait,Sensation,Strength Other Concerns Fall Risk Yes, per TUG (14.58), Sosa (36 /56) and DGI (15/24) scores Goals Three Impairment Pt ambulates with bilateral knee flexion and a left flat foot strike Aviation Electrician Goal (LTG) Pt to ambulate with an appropriate heel-toe gait pattern bilaterally with no circumduction of her foot during swing phase. LTG Duration 09/05/22 Two Impairment Pt presents with an increased falls risk Fdc Goal (LTG) Pt to improve DGI score by at least 5 points to 20/24 and her Sosa score by at least 9 points to 45/56 in order to demonstrate a reduced falls risk. LTG Duration 09/05/22 One Impairment Pt does not have an appropriate home exercise program Short Term Goal (STG) Pt to be independent and compliant with an appropriate HEP STG Duration 08/06/22 Assessment Summary Assessment Pt presents with a general presentation of declining balance, gait difficulty, and an increased falls risk. Score of 14.58 on the TUG, 36/56 on the Sosa, and 15/24 on the DGI are all suggestive of an increased risk of falls. Pt additionally has fairly significant weakness throughout her hips and ankles , with multiple areas of MMT of 3/5 or 3+/5. Pt ambulates with bilateral knee flexion, a left foot slap, and circumduction of her left foot during swing phase, likely due to left ankle weakness. Pt should benefit from skilled therapy focusing on balance training, LE strengthening, and gait training. Additionally, pt would likely benefit from training to properly use and assistive device, as she currently complaints that a cane makes her feel less balanced, despite multiple falls and holding on to her for stability. Physical Therapy Plan Frequency and Duration Frequency of Treatment 2x/Week Duration of Treatment Two months Plan of Care Start Date 07/06/22 Plan of Care End Date 09/05/22 Therapeutic Interventions Therapeutic Interventions Aquatic Therapy,Balance Training,Gait Training,Home Exercise Program,Joint Mobilizations,Manual Therapy, Neuromuscular Re-education, Patient/Caregiver Education, Self-Care/Home Management,Soft Tissue Mobilization, Therapeutic Activities, Therapeutic Exercises Next Visit Focus/Plan Next Note Type Treatment Note Next Visit Plan LE strengthening, gait training, balance challenges Plan of Care Dates Plan of Care Start Date 07/06/22 Plan of Care End Date 09/05/22 Electronically Signed by: Wicho Aguilar, PT 07/07/22 0934 If you are in agreement with this Plan of Care, please return a signed and dated copy. I have reviewed this Plan of Care and certify that the skilled therapy services above are required to meet the patient?s needs. Physician Signature Date Printed Name and Credentials Clinical Instructor Signature Printed Name and Credentials
--- NOTE | 2022-07-06 12:45 | PT.OIE ---
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 Breast cancer, right CAD (coronary artery disease) Easy bruisability GERD (gastroesophageal reflux disease) HLD (hyperlipidemia) Hypertension Osteoarthritis Osteoporosis Polymyalgia Polymyalgia rheumatica Postoperative atrial fibrillation (2012) Primary hyperparathyroidism Raynauds syndrome Sciatica Seasonal allergies Sinus bradycardia Spinal stenosis of lumbar region Vitamin D deficiency Past Surgical History (Last Reviewed 05/03/22 @ 19:26 by Donaldo Lamb PA-C) H/O bilateral mastectomy History of bilateral salpingo-oophorectomy (2013) History of bladder suspension procedure History of cardiac cath History of colonoscopy History of esophagogastroduodenoscopy (EGD) History of hip replacement History of lumbar fusion (01/24/20) History of third molar tooth extraction Hx of heart surgery (~01/2013) Status post laparoscopic cholecystectomy Status post laser cataract surgery of right eye Status post tonsillectomy and adenoidectomy Status post tubal ligation Visit Care Team Role Provider Type Nicolas Barrios MD Attending Provider Non-Staff Family Provider Primary Care Provider Referring Provider Specialty: Internal Medicine Address: [address] [place] [address], [facility] Email: Physical Therapy Initial Evaluation PT-OP-A Visit Information Start: 07/06/22 16:37 Freq: Status: Active Protocol: Document 07/06/22 12:00 DCW (Rec: 07/06/22 16:45 DC [id number]) Out-Patient Physical Therapy Visit Information Visit Information Visit Type Initial Evaluation Visit Start Time 12:00 Visit Stop Time 12:45 Total Visit Minutes 45 Visit Number 1 Number of MACHINE CHOCOLATE MOLDER Visits 0 Evaluation Information Evaluation Date 07/06/22 PT-OP-B Current Condition Start: 07/06/22 16:37 Freq: Status: Active Protocol: Document 07/06/22 12:00 DCW (Rec: 07/07/22 09:33 DC [id number]) Current Condition History of Current Condition Onset Date Multi-year history Current Complaints General imbalance and difficulty with ambulation, falls History of Current Condition Pt is an 82 year old female presenting with a multi-year history of worsening balance, history of falling. Notes she walks around her house without support, but uses ochoa for stability. When out community ambulating, pt holds onto her for stability. Admits she has used a cane in the past, but feels like it makes her even less stable. Her worst fall was last winter, she was walking in a store, pushing a cart, and then tripped on the wheel and hit her head, resulting in a head laceration. Notes she has had multiple other falls, but no related injuries. Experiencing some numbness in her feet, but her neurologist does not thing it is neuropathy, and pt is scheduled for an EMG on . Notes that she has been ambulating with her knees slightly flexed for a number of years, she has received PT in the past which has helped her walking, but it just eventually goes back. Treatment Goals Patient/Caregiver Goals Improve balance, reduce falls PT-OP-C Subjective Start: 07/06/22 16:37 Freq: Status: Active Protocol: Document 07/06/22 12:00 DCW (Rec: 07/07/22 09:33 DCW [id number]) OP-PT Subjective Patient Comments Patient Comments I haven't been too good recently. I always feel off balance. Patient Reported Progress Worse Patient Questionnaires ABC- Activity Specific Balance Confidence Scale ABC Score 42.5% ABC Functional Impairment 40 to <60% Impaired (Score 41- 60) OP-PT Pain Assessment Pain Assessment Grid Paper Pain Assessment Grid Completed No PT-OP-D Balance Start: 07/06/22 16:37 Freq: Status: Active Protocol: Document 07/06/22 12:00 DCW (Rec: 07/06/22 16:45 DCW [id number]) OP-PT Balance Assessment Sitting Balance Static Sitting Balance Ability Normal Dynamic Sitting Balance Ability Normal Standing Balance Static Standing Balance Ability Fair Dynamic Standing Balance Ability Fair Device Used None Balance Tests Sosa Balance Test Sosa Balance Test Score 36/56 Sosa Impairment Rating 20 to 39% Impaired (Score 34- 44) Sosa Balance Assessment Evaluation Sitting to Standing Ability Independent w/Hands Unsupported Stance Safely- 2 minutes Sitting Unsupported, Feet on Floor Safely- 2 minutes Standing to Sitting Ability Safely, Minimal Hand Use Transfer Ability Safely, Hand Use Unsupported Stance- Eyes Closed Supervision, 10 seconds Unsupported Stance- Eyes Open Supervision to maintain Reaching Forward Standing Safely, 5 inches Pick- Up Object From Floor Supervision Look Behind Shoulder - Standing Turns Sideways Only Turning 360 Degrees Turns slowly, but safely Unsupported Stance, Alternating Feet on Assist to Prevent Fall Stair Unsupported Tandem Stance Assist to Step-15 seconds Unilateral Leg Stance Lifts Leg/Unable to Hold Total Score Sosa Total Score (out of 56 points) 36 Sosa Impairment Rating 20 to 39% Impaired (Score 34- 44) Chiu Fall Scale Copyright Permission PT-OP-E Functional Tests Start: 07/06/22 16:37 Freq: Status: Active Protocol: Document 07/06/22 12:00 DCW (Rec: 07/06/22 16:45 DCW [id number]) Functional Tests Dynamic Gait Index (DGI) Score 15/24 DGI Impairment Rating 20 to <40% Impaired (Score 15- 19) Timed Up and Go (TUG) Score 14.58 Comments Three-trial average (15.04, 14.63, 14.07) TUG Impairment Rating 40 to <60% Impaired (Score 14- 15) PT-OP-G Mobility & Gait Start: 07/06/22 16:37 Freq: Status: Active Protocol: Document 07/06/22 12:00 DCW (Rec: 07/06/22 16:45 DCW [id number]) OP Gait Assessment Gait Gait Assistance Required: Independent Assistive Devices Assistive Device Gait Belt Gait Deviations General Gait Pattern Decreased Stride Length, Decreased Feet Clearance, Flexed Trunk Comments Gait Comments Pt has decreased heel strike with left foot, lands more flat-footed, swing phase demonstrates left circumduction. Ambulates with forward trunk lean and bilateral knee flexion in standing. Stair Climbing Evaluation Devices Stair Climbing Assistive Devices Left Railing,Right Railing Technique/Endurance Stair Climbing Direction Ascend and Descend Stair Climbing Technique Step Over Step Number of Steps Climbed 4 Stair Climbing Set # Repetitions (reps) 1 PT-OP-M Strength Start: 07/06/22 16:37 Freq: Status: Active Protocol: Document 07/06/22 12:00 DCW (Rec: 07/06/22 16:45 DCW [id number]) Hip Strength Hip Manual Muscle Testing Right Flexion (L2) 4 Good Extension (S1) 4+ Good+ Abduction 3 Fair Adduction 4- Good- External Rotation 3+ Fair+ Internal Rotation 4 Good Left Flexion (L2) 4- Good- Extension (S1) 4+ Good+ Abduction 3 Fair Adduction 4- Good- External Rotation 3+ Fair+ Internal Rotation 3+ Fair+ Knee Strength Knee Manual Muscle Testing Right Flexion (S2) 4+ Good+ Extension (L3) 4+ Good+ Left Flexion (S2) 4+ Good+ Extension (L3) 4+ Good+ Ankle/Foot Strength Ankle and Foot Manual Muscle Testing Right Dorsiflexion (L4) 4- Good- Plantarflexion (S1) 3+ Fair+ Inversion 4- Good- Eversion (S1) 4- Good- Left Dorsiflexion (L4) 3+ Fair+ Plantarflexion (S1) 3+ Fair+ Inversion 3+ Fair+ Eversion (S1) 3+ Fair+ PT-OP-T Assessment and Plan Start: 07/06/22 16:37 Freq: Status: Active Protocol: Document 07/06/22 12:00 DCW (Rec: 07/07/22 09:33 DC [id number]) Physical Therapy Assessment Rehab Potential Rehabilitation Potential Good Evaluation Complexity Number of Personal Factors/Comorbidities 1-2 Number of Body Systems Impaired 4 or More Clinical Presentation at Evaluation Unstable Impairments Impairments Activity Tolerance,Balance, Coordination,Functional Activities,Functional Mobility ,Gait,Sensation,Strength Other Concerns Fall Risk Yes, per TUG (14.58), Sosa (36 /56) and DGI (15/24) scores Goals Three Impairment Pt ambulates with bilateral knee flexion and a left flat foot strike Nursing Home Goal (LTG) Pt to ambulate with an appropriate heel-toe gait pattern bilaterally with no circumduction of her foot during swing phase. LTG Duration 09/05/22 Two Impairment Pt presents with an increased falls risk Nursing Home Goal (LTG) Pt to improve DGI score by at least 5 points to 20/24 and her Sosa score by at least 9 points to 45/56 in order to demonstrate a reduced falls risk. LTG Duration 09/05/22 One Impairment Pt does not have an appropriate home exercise program Short Term Goal (STG) Pt to be independent and compliant with an appropriate HEP STG Duration 08/06/22 Assessment Summary Assessment Pt presents with a general presentation of declining balance, gait difficulty, and an increased falls risk. Score of 14.58 on the TUG, 36/56 on the Sosa, and 15/24 on the DGI are all suggestive of an increased risk of falls. Pt additionally has fairly significant weakness throughout her hips and ankles , with multiple areas of MMT of 3/5 or 3+/5. Pt ambulates with bilateral knee flexion, a left foot slap, and circumduction of her left foot during swing phase, likely due to left ankle weakness. Pt should benefit from skilled therapy focusing on balance training, LE strengthening, and gait training. Additionally, pt would likely benefit from training to properly use and assistive device, as she currently complaints that a cane makes her feel less balanced, despite multiple falls and holding on to her for stability. Physical Therapy Plan Frequency and Duration Frequency of Treatment 2x/Week Duration of Treatment Two months Plan of Care Start Date 07/06/22 Plan of Care End Date 09/05/22 Therapeutic Interventions Therapeutic Interventions Aquatic Therapy,Balance Training,Gait Training,Home Exercise Program,Joint Mobilizations,Manual Therapy, Neuromuscular Re-education, Patient/Caregiver Education, Self-Care/Home Management,Soft Tissue Mobilization, Therapeutic Activities, Therapeutic Exercises Next Visit Focus/Plan Next Note Type Treatment Note Next Visit Plan LE strengthening, gait training, balance challenges
--- NOTE | 2022-07-09 12:46 | PT.OTN ---
Current Diagnoses Muscle weakness (generalized) (07/09/22) Unspecified abnormalities of gait and mobility (07/09/22) History of falling (07/09/22) Physical Therapy Treatment Note PT-OP-A Visit Information Start: 07/06/22 16:37 Freq: Status: Active Protocol: Document 07/09/22 12:05 DCW (Rec: 07/09/22 12:46 DCW [id number]) Out-Patient Physical Therapy Visit Information Visit Information Visit Type Treatment Note Visit Start Time 12:05 Visit Stop Time 12:45 Total Visit Minutes 40 Visit Number 2 Number of PEWTER FABRICATOR Visits 0 Evaluation Information Evaluation Date 07/06/22 PT-OP-B Current Condition Start: 07/06/22 16:37 Freq: Status: Active Protocol: Document 07/06/22 12:00 DCW (Rec: 07/07/22 09:33 DCW [id number]) Current Condition History of Current Condition Onset Date Multi-year history Current Complaints General imbalance and difficulty with ambulation, falls History of Current Condition Pt is an 82 year old female presenting with a multi-year history of worsening balance, history of falling. Notes she walks around her house without support, but uses ochoa for stability. When out community ambulating, pt holds onto her for stability. Admits she has used a cane in the past, but feels like it makes her even less stable. Her worst fall was last winter, she was walking in a store, pushing a cart, and then tripped on the wheel and hit her head, resulting in a head laceration. Notes she has had multiple other falls, but no related injuries. Experiencing some numbness in her feet, but her neurologist does not thing it is neuropathy, and pt is scheduled for an EMG on . Notes that she has been ambulating with her knees slightly flexed for a number of years, she has received PT in the past which has helped her walking, but it just eventually goes back. Treatment Goals Patient/Caregiver Goals Improve balance, reduce falls PT-OP-C Subjective Start: 07/06/22 16:37 Freq: Status: Active Protocol: Document 07/09/22 12:05 DCW (Rec: 07/09/22 12:46 DCW [id number]) OP-PT Subjective Patient Comments Patient Comments I'm okay. the usual. PT-OP-D Balance Start: 07/06/22 16:37 Freq: Status: Active Protocol: Document 07/06/22 12:00 DCW (Rec: 07/06/22 16:45 [facility] [id number]) OP-PT Balance Assessment Sitting Balance Static Sitting Balance Ability Normal Dynamic Sitting Balance Ability Normal Standing Balance Static Standing Balance Ability Fair Dynamic Standing Balance Ability Fair Device Used None Balance Tests Sosa Balance Test Sosa Balance Test Score 36/56 Sosa Impairment Rating 20 to 39% Impaired (Score 34- 44) Sosa Balance Assessment Evaluation Sitting to Standing Ability Independent w/Hands Unsupported Stance Safely- 2 minutes Sitting Unsupported, Feet on Floor Safely- 2 minutes Standing to Sitting Ability Safely, Minimal Hand Use Transfer Ability Safely, Hand Use Unsupported Stance- Eyes Closed Supervision, 10 seconds Unsupported Stance- Eyes Open Supervision to maintain Reaching Forward Standing Safely, 5 inches Pick- Up Object From Floor Supervision Look Behind Shoulder - Standing Turns Sideways Only Turning 360 Degrees Turns slowly, but safely Unsupported Stance, Alternating Feet on Assist to Prevent Fall Stair Unsupported Tandem Stance Assist to Step-15 seconds Unilateral Leg Stance Lifts Leg/Unable to Hold Total Score Sosa Total Score (out of 56 points) 36 Sosa Impairment Rating 20 to 39% Impaired (Score 34- 44) Chiu Fall Scale Copyright Permission PT-OP-E Functional Tests Start: 07/06/22 16:37 Freq: Status: Active Protocol: Document 07/06/22 12:00 DCW (Rec: 07/06/22 16:45 [facility] [id number]) Functional Tests Dynamic Gait Index (DGI) Score 15/24 DGI Impairment Rating 20 to <40% Impaired (Score 15- 19) Timed Up and Go (TUG) Score 14.58 Comments Three-trial average (15.04, 14.63, 14.07) TUG Impairment Rating 40 to <60% Impaired (Score 14- 15) PT-OP-G Mobility & Gait Start: 07/06/22 16:37 Freq: Status: Active Protocol: Document 07/06/22 12:00 DCW (Rec: 07/06/22 16:45 DCW [id number]) OP Gait Assessment Gait Gait Assistance Required: Independent Assistive Devices Assistive Device Gait Belt Gait Deviations General Gait Pattern Decreased Stride Length, Decreased Feet Clearance, Flexed Trunk Comments Gait Comments Pt has decreased heel strike with left foot, lands more flat-footed, swing phase demonstrates left circumduction. Ambulates with forward trunk lean and bilateral knee flexion in standing. Stair Climbing Evaluation Devices Stair Climbing Assistive Devices Left Railing,Right Railing Technique/Endurance Stair Climbing Direction Ascend and Descend Stair Climbing Technique Step Over Step Number of Steps Climbed 4 Stair Climbing Set # Repetitions (reps) 1 PT-OP-M Strength Start: 07/06/22 16:37 Freq: Status: Active Protocol: Document 07/06/22 12:00 DCW (Rec: 07/06/22 16:45 DCW [id number]) Hip Strength Hip Manual Muscle Testing Right Flexion (L2) 4 Good Extension (S1) 4+ Good+ Abduction 3 Fair Adduction 4- Good- External Rotation 3+ Fair+ Internal Rotation 4 Good Left Flexion (L2) 4- Good- Extension (S1) 4+ Good+ Abduction 3 Fair Adduction 4- Good- External Rotation 3+ Fair+ Internal Rotation 3+ Fair+ Knee Strength Knee Manual Muscle Testing Right Flexion (S2) 4+ Good+ Extension (L3) 4+ Good+ Left Flexion (S2) 4+ Good+ Extension (L3) 4+ Good+ Ankle/Foot Strength Ankle and Foot Manual Muscle Testing Right Dorsiflexion (L4) 4- Good- Plantarflexion (S1) 3+ Fair+ Inversion 4- Good- Eversion (S1) 4- Good- Left Dorsiflexion (L4) 3+ Fair+ Plantarflexion (S1) 3+ Fair+ Inversion 3+ Fair+ Eversion (S1) 3+ Fair+ PT-OP-Q Treatments Start: 07/06/22 16:37 Freq: Status: Active Protocol: Document 07/09/22 12:05 DCW (Rec: 07/09/22 12:46 DCW [id number]) Cardio Equipment Recumbent Elliptical (Biodex) Duration (Minutes) 5 Resistance 4 Seat Position 10 Therapeutic Exercises Sitting Exercises Ankle flexion Sitting Exercise Name 4-way ankle flexion Side bilateral Resistance Lv 2 Standing Exercises Hip Abduction Standing Exercise Name Hip Abduction Side bilateral Resistance Red Hip Extension Standing Exercise Name Hip Extension Side bilateral Resistance Red Other Exercises Resisted Ambulation Other Exercise Name Side=stepping Resistance Red Gait Training Gait Activity SPC Description AD training Device Used SPC Level of Assistance SBA Distance/Duration 360' Comments Gait sequencing, hand positioning, Neuro Re-Education Treatment Balance Activities Tandem Stance Details Tandem Stance Equipment @ rail PT-OP-T Assessment and Plan Start: 07/06/22 16:37 Freq: Status: Active Protocol: Document 07/09/22 12:05 DCW (Rec: 07/09/22 12:46 DCW [id number]) Physical Therapy Assessment Impairments Impairments Activity Tolerance,Balance, Coordination,Functional Activities,Functional Mobility ,Gait,Sensation,Strength Other Concerns Fall Risk Yes, per TUG (14.58), Sosa (36 /56) and DGI (15/24) scores Goals Three Impairment Pt ambulates with bilateral knee flexion and a left flat foot strike Correction Goal (LTG) Pt to ambulate with an appropriate heel-toe gait pattern bilaterally with no circumduction of her foot during swing phase. LTG Duration 09/05/22 Two Impairment Pt presents with an increased falls risk Correction Goal (LTG) Pt to improve DGI score by at least 5 points to 20/24 and her Sosa score by at least 9 points to 45/56 in order to demonstrate a reduced falls risk. LTG Duration 09/05/22 One Impairment Pt does not have an appropriate home exercise program Short Term Goal (STG) Pt to be independent and compliant with an appropriate HEP STG Duration 08/06/22 Assessment Summary Assessment After some gait training today , pt agreeable to use SPC at home, noted it made her feels stronger and more secure. Tolerated other activities well. Physical Therapy Plan Frequency and Duration Frequency of Treatment 2x/Week Duration of Treatment Two months Plan of Care Start Date 07/06/22 Plan of Care End Date 09/05/22 Therapeutic Interventions Therapeutic Interventions Aquatic Therapy,Balance Training,Gait Training,Home Exercise Program,Joint Mobilizations,Manual Therapy, Neuromuscular Re-education, Patient/Caregiver Education, Self-Care/Home Management,Soft Tissue Mobilization, Therapeutic Activities, Therapeutic Exercises Next Visit Focus/Plan Next Note Type Treatment Note Next Visit Plan LE strengthening, gait training, balance challenges
--- NOTE | 2022-07-14 11:59 | PT.OTN ---
Current Diagnoses Muscle weakness (generalized) (07/14/22) Unspecified abnormalities of gait and mobility (07/14/22) History of falling (07/14/22) Physical Therapy Treatment Note PT-OP-A Visit Information Start: 07/06/22 16:37 Freq: Status: Active Protocol: Document 07/14/22 11:20 DCW (Rec: 07/14/22 11:59 DCW [id number]) Out-Patient Physical Therapy Visit Information Visit Information Visit Type Treatment Note Visit Start Time 11:20 Visit Stop Time 12:00 Total Visit Minutes 40 Visit Number 3 Number of STRETCHER OPERATOR Visits 0 Evaluation Information Evaluation Date 07/06/22 PT-OP-B Current Condition Start: 07/06/22 16:37 Freq: Status: Active Protocol: Document 07/06/22 12:00 DCW (Rec: 07/07/22 09:33 DCW [id number]) Current Condition History of Current Condition Onset Date Multi-year history Current Complaints General imbalance and difficulty with ambulation, falls History of Current Condition Pt is an 82 year old female presenting with a multi-year history of worsening balance, history of falling. Notes she walks around her house without support, but uses ochoa for stability. When out community ambulating, pt holds onto her for stability. Admits she has used a cane in the past, but feels like it makes her even less stable. Her worst fall was last winter, she was walking in a store, pushing a cart, and then tripped on the wheel and hit her head, resulting in a head laceration. Notes she has had multiple other falls, but no related injuries. Experiencing some numbness in her feet, but her neurologist does not thing it is neuropathy, and pt is scheduled for an EMG on . Notes that she has been ambulating with her knees slightly flexed for a number of years, she has received PT in the past which has helped her walking, but it just eventually goes back. Treatment Goals Patient/Caregiver Goals Improve balance, reduce falls PT-OP-C Subjective Start: 07/06/22 16:37 Freq: Status: Active Protocol: Document 07/14/22 11:20 DCW (Rec: 07/14/22 11:59 DCW [id number]) OP-PT Subjective Patient Comments Patient Comments I've been walking more, I've feeling stronger, the balance is better. PT-OP-D Balance Start: 07/06/22 16:37 Freq: Status: Active Protocol: Document 07/06/22 12:00 DCW (Rec: 07/06/22 16:45 DCW [id number]) OP-PT Balance Assessment Sitting Balance Static Sitting Balance Ability Normal Dynamic Sitting Balance Ability Normal Standing Balance Static Standing Balance Ability Fair Dynamic Standing Balance Ability Fair Device Used None Balance Tests Sosa Balance Test Sosa Balance Test Score 36/56 Sosa Impairment Rating 20 to 39% Impaired (Score 34- 44) Sosa Balance Assessment Evaluation Sitting to Standing Ability Independent w/Hands Unsupported Stance Safely- 2 minutes Sitting Unsupported, Feet on Floor Safely- 2 minutes Standing to Sitting Ability Safely, Minimal Hand Use Transfer Ability Safely, Hand Use Unsupported Stance- Eyes Closed Supervision, 10 seconds Unsupported Stance- Eyes Open Supervision to maintain Reaching Forward Standing Safely, 5 inches Pick- Up Object From Floor Supervision Look Behind Shoulder - Standing Turns Sideways Only Turning 360 Degrees Turns slowly, but safely Unsupported Stance, Alternating Feet on Assist to Prevent Fall Stair Unsupported Tandem Stance Assist to Step-15 seconds Unilateral Leg Stance Lifts Leg/Unable to Hold Total Score Sosa Total Score (out of 56 points) 36 Sosa Impairment Rating 20 to 39% Impaired (Score 34- 44) Chiu Fall Scale Copyright Permission PT-OP-E Functional Tests Start: 07/06/22 16:37 Freq: Status: Active Protocol: Document 07/06/22 12:00 DCW (Rec: 07/06/22 16:45 DCW [id number]) Functional Tests Dynamic Gait Index (DGI) Score 15/24 DGI Impairment Rating 20 to <40% Impaired (Score 15- 19) Timed Up and Go (TUG) Score 14.58 Comments Three-trial average (15.04, 14.63, 14.07) TUG Impairment Rating 40 to <60% Impaired (Score 14- 15) PT-OP-G Mobility & Gait Start: 07/06/22 16:37 Freq: Status: Active Protocol: Document 07/06/22 12:00 DCW (Rec: 07/06/22 16:45 DCW [id number]) OP Gait Assessment Gait Gait Assistance Required: Independent Assistive Devices Assistive Device Gait Belt Gait Deviations General Gait Pattern Decreased Stride Length, Decreased Feet Clearance, Flexed Trunk Comments Gait Comments Pt has decreased heel strike with left foot, lands more flat-footed, swing phase demonstrates left circumduction. Ambulates with forward trunk lean and bilateral knee flexion in standing. Stair Climbing Evaluation Devices Stair Climbing Assistive Devices Left Railing,Right Railing Technique/Endurance Stair Climbing Direction Ascend and Descend Stair Climbing Technique Step Over Step Number of Steps Climbed 4 Stair Climbing Set # Repetitions (reps) 1 PT-OP-M Strength Start: 07/06/22 16:37 Freq: Status: Active Protocol: Document 07/06/22 12:00 DCW (Rec: 07/06/22 16:45 DCW [id number]) Hip Strength Hip Manual Muscle Testing Right Flexion (L2) 4 Good Extension (S1) 4+ Good+ Abduction 3 Fair Adduction 4- Good- External Rotation 3+ Fair+ Internal Rotation 4 Good Left Flexion (L2) 4- Good- Extension (S1) 4+ Good+ Abduction 3 Fair Adduction 4- Good- External Rotation 3+ Fair+ Internal Rotation 3+ Fair+ Knee Strength Knee Manual Muscle Testing Right Flexion (S2) 4+ Good+ Extension (L3) 4+ Good+ Left Flexion (S2) 4+ Good+ Extension (L3) 4+ Good+ Ankle/Foot Strength Ankle and Foot Manual Muscle Testing Right Dorsiflexion (L4) 4- Good- Plantarflexion (S1) 3+ Fair+ Inversion 4- Good- Eversion (S1) 4- Good- Left Dorsiflexion (L4) 3+ Fair+ Plantarflexion (S1) 3+ Fair+ Inversion 3+ Fair+ Eversion (S1) 3+ Fair+ PT-OP-Q Treatments Start: 07/06/22 16:37 Freq: Status: Active Protocol: Document 07/14/22 11:20 DCW (Rec: 07/14/22 11:59 DCW [id number]) Cardio Equipment Recumbent Elliptical (Biodex) Duration (Minutes) 5 Resistance 4 Seat Position 10 Therapeutic Exercises Supine Exercises Clamshell Supine Exercise Name Supine Clamshell Side bilateral Resistance Yellow Sitting Exercises Ankle flexion Sitting Exercise Name 4-way ankle flexion Side bilateral Resistance Lv 2 Neuro Re-Education Treatment Balance Activities SLS Details SLS Equipment // bars Foam stance Details NBOS Surface Blue Foam Tandem Stance Details Tandem Stance Equipment @ rail PT-OP-T Assessment and Plan Start: 07/06/22 16:37 Freq: Status: Active Protocol: Document 07/14/22 11:20 DCW (Rec: 07/14/22 11:59 DCW [id number]) Physical Therapy Assessment Impairments Impairments Activity Tolerance,Balance, Coordination,Functional Activities,Functional Mobility ,Gait,Sensation,Strength Other Concerns Fall Risk Yes, per TUG (14.58), Sosa (36 /56) and DGI (15/24) scores Goals Three Impairment Pt ambulates with bilateral knee flexion and a left flat foot strike Foreign Exchange Trader Goal (LTG) Pt to ambulate with an appropriate heel-toe gait pattern bilaterally with no circumduction of her foot during swing phase. LTG Duration 09/05/22 Two Impairment Pt presents with an increased falls risk Usp Goal (LTG) Pt to improve DGI score by at least 5 points to 20/24 and her Sosa score by at least 9 points to 45/56 in order to demonstrate a reduced falls risk. LTG Duration 09/05/22 One Impairment Pt does not have an appropriate home exercise program Short Term Goal (STG) Pt to be independent and compliant with an appropriate HEP STG Duration 08/06/22 Assessment Summary Assessment Pt brought her SPC in today, noticeable improvement in ambulation and stability after height adjustment. Pt very excited to add more strengthening to her HEP, feels there is improvement already. Physical Therapy Plan Frequency and Duration Frequency of Treatment 2x/Week Duration of Treatment Two months Plan of Care Start Date 07/06/22 Plan of Care End Date 09/05/22 Therapeutic Interventions Therapeutic Interventions Aquatic Therapy,Balance Training,Gait Training,Home Exercise Program,Joint Mobilizations,Manual Therapy, Neuromuscular Re-education, Patient/Caregiver Education, Self-Care/Home Management,Soft Tissue Mobilization, Therapeutic Activities, Therapeutic Exercises Next Visit Focus/Plan Next Note Type Treatment Note Next Visit Plan LE strengthening, gait training, balance challenges
--- NOTE | 2022-07-16 09:45 | PT.OTN ---
Current Diagnoses Muscle weakness (generalized) (07/16/22) Unspecified abnormalities of gait and mobility (07/16/22) History of falling (07/16/22) Physical Therapy Treatment Note PT-OP-A Visit Information Start: 07/06/22 16:37 Freq: Status: Active Protocol: Document 07/16/22 09:04 SP (Rec: 07/16/22 09:49 SP [id number]) Out-Patient Physical Therapy Visit Information Visit Information Visit Type Treatment Note Visit Start Time 09:04 Visit Stop Time 09:45 Total Visit Minutes 41 Visit Number 4 Number of SWIMMING POOL SERVICEPERSON Visits 1 Evaluation Information Evaluation Date 07/06/22 PT-OP-B Current Condition Start: 07/06/22 16:37 Freq: Status: Active Protocol: Document 07/06/22 12:00 DCW (Rec: 07/07/22 09:33 DCW [id number]) Current Condition History of Current Condition Onset Date Multi-year history Current Complaints General imbalance and difficulty with ambulation, falls History of Current Condition Pt is an 82 year old female presenting with a multi-year history of worsening balance, history of falling. Notes she walks around her house without support, but uses ochoa for stability. When out community ambulating, pt holds onto her for stability. Admits she has used a cane in the past, but feels like it makes her even less stable. Her worst fall was last winter, she was walking in a store, pushing a cart, and then tripped on the wheel and hit her head, resulting in a head laceration. Notes she has had multiple other falls, but no related injuries. Experiencing some numbness in her feet, but her neurologist does not thing it is neuropathy, and pt is scheduled for an EMG on . Notes that she has been ambulating with her knees slightly flexed for a number of years, she has received PT in the past which has helped her walking, but it just eventually goes back. 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 Pt reports has been using SPC more than support, feels more self control stability. PT-OP-D Balance Start: 07/06/22 16:37 Freq: Status: Active Protocol: Document 07/06/22 12:00 DCW (Rec: 07/06/22 16:45 DCW [id number]) OP-PT Balance Assessment Sitting Balance Static Sitting Balance Ability Normal Dynamic Sitting Balance Ability Normal Standing Balance Static Standing Balance Ability Fair Dynamic Standing Balance Ability Fair Device Used None Balance Tests Sosa Balance Test Sosa Balance Test Score 36/56 Sosa Impairment Rating 20 to 39% Impaired (Score 34- 44) Sosa Balance Assessment Evaluation Sitting to Standing Ability Independent w/Hands Unsupported Stance Safely- 2 minutes Sitting Unsupported, Feet on Floor Safely- 2 minutes Standing to Sitting Ability Safely, Minimal Hand Use Transfer Ability Safely, Hand Use Unsupported Stance- Eyes Closed Supervision, 10 seconds Unsupported Stance- Eyes Open Supervision to maintain Reaching Forward Standing Safely, 5 inches Pick- Up Object From Floor Supervision Look Behind Shoulder - Standing Turns Sideways Only Turning 360 Degrees Turns slowly, but safely Unsupported Stance, Alternating Feet on Assist to Prevent Fall Stair Unsupported Tandem Stance Assist to Step-15 seconds Unilateral Leg Stance Lifts Leg/Unable to Hold Total Score Sosa Total Score (out of 56 points) 36 Sosa Impairment Rating 20 to 39% Impaired (Score 34- 44) Chiu Fall Scale Copyright Permission PT-OP-E Functional Tests Start: 07/06/22 16:37 Freq: Status: Active Protocol: Document 07/06/22 12:00 DCW (Rec: 07/06/22 16:45 DCW [id number]) Functional Tests Dynamic Gait Index (DGI) Score 15/24 DGI Impairment Rating 20 to <40% Impaired (Score 15- 19) Timed Up and Go (TUG) Score 14.58 Comments Three-trial average (15.04, 14.63, 14.07) TUG Impairment Rating 40 to <60% Impaired (Score 14- 15) PT-OP-G Mobility & Gait Start: 07/06/22 16:37 Freq: Status: Active Protocol: Document 07/06/22 12:00 DCW (Rec: 07/06/22 16:45 DCW [id number]) OP Gait Assessment Gait Gait Assistance Required: Independent Assistive Devices Assistive Device Gait Belt Gait Deviations General Gait Pattern Decreased Stride Length, Decreased Feet Clearance, Flexed Trunk Comments Gait Comments Pt has decreased heel strike with left foot, lands more flat-footed, swing phase demonstrates left circumduction. Ambulates with forward trunk lean and bilateral knee flexion in standing. Stair Climbing Evaluation Devices Stair Climbing Assistive Devices Left Railing,Right Railing Technique/Endurance Stair Climbing Direction Ascend and Descend Stair Climbing Technique Step Over Step Number of Steps Climbed 4 Stair Climbing Set # Repetitions (reps) 1 PT-OP-M Strength Start: 07/06/22 16:37 Freq: Status: Active Protocol: Document 07/06/22 12:00 DCW (Rec: 07/06/22 16:45 DCW [id number]) Hip Strength Hip Manual Muscle Testing Right Flexion (L2) 4 Good Extension (S1) 4+ Good+ Abduction 3 Fair Adduction 4- Good- External Rotation 3+ Fair+ Internal Rotation 4 Good Left Flexion (L2) 4- Good- Extension (S1) 4+ Good+ Abduction 3 Fair Adduction 4- Good- External Rotation 3+ Fair+ Internal Rotation 3+ Fair+ Knee Strength Knee Manual Muscle Testing Right Flexion (S2) 4+ Good+ Extension (L3) 4+ Good+ Left Flexion (S2) 4+ Good+ Extension (L3) 4+ Good+ Ankle/Foot Strength Ankle and Foot Manual Muscle Testing Right Dorsiflexion (L4) 4- Good- Plantarflexion (S1) 3+ Fair+ Inversion 4- Good- Eversion (S1) 4- Good- Left Dorsiflexion (L4) 3+ Fair+ Plantarflexion (S1) 3+ Fair+ Inversion 3+ Fair+ Eversion (S1) 3+ Fair+ PT-OP-Q Treatments Start: 07/06/22 16:37 Freq: Status: Active Protocol: Document 07/16/22 09:04 SP (Rec: 07/16/22 09:49 SP [id number]) Cardio Equipment Recumbent Elliptical (Biodex) Duration (Minutes) 5 Resistance 4 Seat Position 10- 220 steps Other cued R foot flat w/ awareness R knee lateral shift alignment Therapeutic Exercises Supine Exercises Clamshell Supine Exercise Name Supine Clamshell Side bilateral Resistance YTB ( TB #1 loop- has home) Reps/Minutes 2x10 Comments cued and therapist supported ankle flat, no EV (husb. home) Sitting Exercises STS Sitting Exercise Name in PT, add to HEP next tx Resistance black table 18 Equipment Used 2/3 reps no UE support Reps/Minutes x5 reps Comments cued hip hinge, knee apart, tires after 3 reps Ankle flexion Sitting Exercise Name 3-way ankle: flex, EV, DF Side bilateral Resistance Lv 2 Reps/Minutes 2x10 Comments cued foot flat, knee lateral alignment, sit posture, Standing Exercises Hip Abduction Standing Exercise Name Hip Abduction Side bilateral Resistance Tb #2 Equipment Used rail Reps/Minutes side step Comments cued tall posture, improved knee ext and abd fac Other Exercises Resisted Ambulation Other Exercise Name Side=stepping- added to HEP Resistance TB #2 Equipment Used contact rail Min Reps/Minutes 20 ft x2 laps Comments cued tall, hip abd fac kness apart, trail foot clearance Gait Training Gait Activity SPC Description AD training Device Used SPC Level of Assistance SBA Distance/Duration 170 ft Comments Gait sequencing, hand positioning, tall, hip abd PT-OP-T Assessment and Plan Start: 07/06/22 16:37 Freq: Status: Active Protocol: Document 07/16/22 09:04 SP (Rec: 07/16/22 09:49 SP [id number]) Physical Therapy Assessment Goals Three Impairment Pt ambulates with bilateral knee flexion and a left flat foot strike Penitentiary Goal (LTG) Pt to ambulate with an appropriate heel-toe gait pattern bilaterally with no circumduction of her foot during swing phase. LTG Duration 09/05/22 Two Impairment Pt presents with an increased falls risk Penitentiary Goal (LTG) Pt to improve DGI score by at least 5 points to 20/24 and her Sosa score by at least 9 points to 45/56 in order to demonstrate a reduced falls risk. LTG Duration 09/05/22 One Impairment Pt does not have an appropriate home exercise program Short Term Goal (STG) Pt to be independent and compliant with an appropriate HEP STG Duration 08/06/22 Assessment Summary Assessment Pt responded well to support and focus ed for R>L ankle stability awareness while work on hip abd fac HEP supine, seated ankle TB, was able to initiate band walk for home, improved knee alignment hip abd fac with cues for tall posturing and ed for use of counter for support stationary or traveling. She demonstrated safe for home carryover. She improve gait with cues for tall posture, knee extension for stability, she is able to maintain > 20 ft but cues helped remind continuous self corrections. Physical Therapy Plan Frequency and Duration Frequency of Treatment 2x/Week Duration of Treatment Two months Plan of Care Start Date 07/06/22 Plan of Care End Date 09/05/22 Therapeutic Interventions Therapeutic Interventions Aquatic Therapy,Balance Training,Gait Training,Home Exercise Program,Joint Mobilizations,Manual Therapy, Neuromuscular Re-education, Patient/Caregiver Education, Self-Care/Home Management,Soft Tissue Mobilization, Therapeutic Activities, Therapeutic Exercises Next Visit Focus/Plan Next Note Type Treatment Note Next Visit Plan REview HEP: band walk, ankle 3 way w/ R knee lateral align, clamshell hip abd fac. Next tx add: STS into HEP and provide HO. *Pt like things can do at home for carryover. POC: LE strengthening, gait training, balance challenges
--- NOTE | 2022-07-19 12:03 | PT.OTN ---
Current Diagnoses Muscle weakness (generalized) (07/19/22) Unspecified abnormalities of gait and mobility (07/19/22) History of falling (07/19/22) Physical Therapy Treatment Note PT-OP-A Visit Information Start: 07/06/22 16:37 Freq: Status: Active Protocol: Document 07/19/22 11:15 DCW (Rec: 07/19/22 12:02 DCW [id number]) Out-Patient Physical Therapy Visit Information Visit Information Visit Type Treatment Note Visit Start Time 11:15 Visit Stop Time 12:00 Total Visit Minutes 45 Visit Number 5 Number of PUBLIC HEALTH DIRECTOR Visits 0 Evaluation Information Evaluation Date 07/06/22 PT-OP-B Current Condition Start: 07/06/22 16:37 Freq: Status: Active Protocol: Document 07/06/22 12:00 DCW (Rec: 07/07/22 09:33 DCW [id number]) Current Condition History of Current Condition Onset Date Multi-year history Current Complaints General imbalance and difficulty with ambulation, falls History of Current Condition Pt is an 82 year old female presenting with a multi-year history of worsening balance, history of falling. Notes she walks around her house without support, but uses ochoa for stability. When out community ambulating, pt holds onto her for stability. Admits she has used a cane in the past, but feels like it makes her even less stable. Her worst fall was last winter, she was walking in a store, pushing a cart, and then tripped on the wheel and hit her head, resulting in a head laceration. Notes she has had multiple other falls, but no related injuries. Experiencing some numbness in her feet, but her neurologist does not thing it is neuropathy, and pt is scheduled for an EMG on . Notes that she has been ambulating with her knees slightly flexed for a number of years, she has received PT in the past which has helped her walking, but it just eventually goes back. Treatment Goals Patient/Caregiver Goals Improve balance, reduce falls PT-OP-C Subjective Start: 07/06/22 16:37 Freq: Status: Active Protocol: Document 07/19/22 11:15 DCW (Rec: 07/19/22 12:02 DCW [id number]) OP-PT Subjective Patient Comments Patient Comments Pt notes she is feeling pretty good today. PT-OP-D Balance Start: 07/06/22 16:37 Freq: Status: Active Protocol: Document 07/06/22 12:00 DCW (Rec: 07/06/22 16:45 [facility] [id number]) OP-PT Balance Assessment Sitting Balance Static Sitting Balance Ability Normal Dynamic Sitting Balance Ability Normal Standing Balance Static Standing Balance Ability Fair Dynamic Standing Balance Ability Fair Device Used None Balance Tests Sosa Balance Test Sosa Balance Test Score 36/56 Sosa Impairment Rating 20 to 39% Impaired (Score 34- 44) Sosa Balance Assessment Evaluation Sitting to Standing Ability Independent w/Hands Unsupported Stance Safely- 2 minutes Sitting Unsupported, Feet on Floor Safely- 2 minutes Standing to Sitting Ability Safely, Minimal Hand Use Transfer Ability Safely, Hand Use Unsupported Stance- Eyes Closed Supervision, 10 seconds Unsupported Stance- Eyes Open Supervision to maintain Reaching Forward Standing Safely, 5 inches Pick- Up Object From Floor Supervision Look Behind Shoulder - Standing Turns Sideways Only Turning 360 Degrees Turns slowly, but safely Unsupported Stance, Alternating Feet on Assist to Prevent Fall Stair Unsupported Tandem Stance Assist to Step-15 seconds Unilateral Leg Stance Lifts Leg/Unable to Hold Total Score Sosa Total Score (out of 56 points) 36 Sosa Impairment Rating 20 to 39% Impaired (Score 34- 44) Chiu Fall Scale Copyright Permission PT-OP-E Functional Tests Start: 07/06/22 16:37 Freq: Status: Active Protocol: Document 07/06/22 12:00 DCW (Rec: 07/06/22 16:45 [facility] [id number]) Functional Tests Dynamic Gait Index (DGI) Score 15/24 DGI Impairment Rating 20 to <40% Impaired (Score 15- 19) Timed Up and Go (TUG) Score 14.58 Comments Three-trial average (15.04, 14.63, 14.07) TUG Impairment Rating 40 to <60% Impaired (Score 14- 15) PT-OP-G Mobility & Gait Start: 07/06/22 16:37 Freq: Status: Active Protocol: Document 07/06/22 12:00 DCW (Rec: 07/06/22 16:45 DCW [id number]) OP Gait Assessment Gait Gait Assistance Required: Independent Assistive Devices Assistive Device Gait Belt Gait Deviations General Gait Pattern Decreased Stride Length, Decreased Feet Clearance, Flexed Trunk Comments Gait Comments Pt has decreased heel strike with left foot, lands more flat-footed, swing phase demonstrates left circumduction. Ambulates with forward trunk lean and bilateral knee flexion in standing. Stair Climbing Evaluation Devices Stair Climbing Assistive Devices Left Railing,Right Railing Technique/Endurance Stair Climbing Direction Ascend and Descend Stair Climbing Technique Step Over Step Number of Steps Climbed 4 Stair Climbing Set # Repetitions (reps) 1 PT-OP-M Strength Start: 07/06/22 16:37 Freq: Status: Active Protocol: Document 07/06/22 12:00 DCW (Rec: 07/06/22 16:45 DCW [id number]) Hip Strength Hip Manual Muscle Testing Right Flexion (L2) 4 Good Extension (S1) 4+ Good+ Abduction 3 Fair Adduction 4- Good- External Rotation 3+ Fair+ Internal Rotation 4 Good Left Flexion (L2) 4- Good- Extension (S1) 4+ Good+ Abduction 3 Fair Adduction 4- Good- External Rotation 3+ Fair+ Internal Rotation 3+ Fair+ Knee Strength Knee Manual Muscle Testing Right Flexion (S2) 4+ Good+ Extension (L3) 4+ Good+ Left Flexion (S2) 4+ Good+ Extension (L3) 4+ Good+ Ankle/Foot Strength Ankle and Foot Manual Muscle Testing Right Dorsiflexion (L4) 4- Good- Plantarflexion (S1) 3+ Fair+ Inversion 4- Good- Eversion (S1) 4- Good- Left Dorsiflexion (L4) 3+ Fair+ Plantarflexion (S1) 3+ Fair+ Inversion 3+ Fair+ Eversion (S1) 3+ Fair+ PT-OP-Q Treatments Start: 07/06/22 16:37 Freq: Status: Active Protocol: Document 07/19/22 11:15 DCW (Rec: 07/19/22 12:02 DCW [id number]) Cardio Equipment Recumbent Elliptical (Biodex) Duration (Minutes) 5 Resistance 4 Seat Position 10 Therapeutic Exercises Supine Exercises Clamshell Supine Exercise Name Supine Clamshell Side bilateral Resistance Lv 2 Reps/Minutes x20 Sitting Exercises STS Sitting Exercise Name added to HEP Resistance black table 18->22 Equipment Used x5 Reps/Minutes x5 reps Comments cued hip hinge, knee apart, tires after 3 reps Ankle flexion Sitting Exercise Name 4-way ankle-flexion Side bilateral Resistance Lv 2 Reps/Minutes x15 Standing Exercises Hip Abduction Standing Exercise Name Hip Abduction Side bilateral Resistance Yellow Equipment Used rail Hip Extension Standing Exercise Name Hip Extension Side bilateral Resistance Yellow Other Exercises Resisted Ambulation Other Exercise Name Side=stepping- added to HEP Resistance Yellow Equipment Used contact rail Reps/Minutes 20 ft x2 laps Comments cued tall, hip abd fac kness apart, trail foot clearance Neuro Re-Education Treatment Balance Activities SLS Details SLS Equipment // bars Tandem Stance Details Tandem Stance Equipment @ rail PT-OP-T Assessment and Plan Start: 07/06/22 16:37 Freq: Status: Active Protocol: Document 07/19/22 11:15 DCW (Rec: 07/19/22 12:02 DCW [id number]) Physical Therapy Assessment Impairments Impairments Activity Tolerance,Balance, Coordination,Functional Activities,Functional Mobility ,Gait,Sensation,Strength Goals Three Impairment Pt ambulates with bilateral knee flexion and a left flat foot strike Shelter Goal (LTG) Pt to ambulate with an appropriate heel-toe gait pattern bilaterally with no circumduction of her foot during swing phase. LTG Duration 09/05/22 Two Impairment Pt presents with an increased falls risk Chiropractic Practice Manager Goal (LTG) Pt to improve DGI score by at least 5 points to 20/24 and her Sosa score by at least 9 points to 45/56 in order to demonstrate a reduced falls risk. LTG Duration 09/05/22 One Impairment Pt does not have an appropriate home exercise program Short Term Goal (STG) Pt to be independent and compliant with an appropriate HEP STG Duration 08/06/22 Assessment Summary Assessment Pt once again responding well to therapy and advice, still struggling with right hip weakness, especially ER, as well as sit<->stand from a low chair. Physical Therapy Plan Frequency and Duration Frequency of Treatment 2x/Week Duration of Treatment Two months Plan of Care Start Date 07/06/22 Plan of Care End Date 09/05/22 Therapeutic Interventions Therapeutic Interventions Aquatic Therapy,Balance Training,Gait Training,Home Exercise Program,Joint Mobilizations,Manual Therapy, Neuromuscular Re-education, Patient/Caregiver Education, Self-Care/Home Management,Soft Tissue Mobilization, Therapeutic Activities, Therapeutic Exercises Next Visit Focus/Plan Next Note Type Treatment Note Next Visit Plan Review HEP: STS, Balance challenges *Pt like things can do at home for carryover. POC: LE strengthening, gait training, balance challenges
--- NOTE | 2022-07-22 10:33 | PT.OTN ---
Current Diagnoses Muscle weakness (generalized) (07/22/22) Unspecified abnormalities of gait and mobility (07/22/22) History of falling (07/22/22) Physical Therapy Treatment Note PT-OP-A Visit Information Start: 07/06/22 16:37 Freq: Status: Active Protocol: Document 07/22/22 09:53 SP (Rec: 07/22/22 10:36 SP [id number]) Out-Patient Physical Therapy Visit Information Visit Information Visit Type Treatment Note Visit Start Time 09:53 Visit Stop Time 10:33 Total Visit Minutes 40 Visit Number 6 Number of BEAN PICKER MACHINE OPERATOR Visits 1 Evaluation Information Evaluation Date 07/06/22 PT-OP-B Current Condition Start: 07/06/22 16:37 Freq: Status: Active Protocol: Document 07/06/22 12:00 DCW (Rec: 07/07/22 09:33 DCW [id number]) Current Condition History of Current Condition Onset Date Multi-year history Current Complaints General imbalance and difficulty with ambulation, falls History of Current Condition Pt is an 82 year old female presenting with a multi-year history of worsening balance, history of falling. Notes she walks around her house without support, but uses ochoa for stability. When out community ambulating, pt holds onto her for stability. Admits she has used a cane in the past, but feels like it makes her even less stable. Her worst fall was last winter, she was walking in a store, pushing a cart, and then tripped on the wheel and hit her head, resulting in a head laceration. Notes she has had multiple other falls, but no related injuries. Experiencing some numbness in her feet, but her neurologist does not thing it is neuropathy, and pt is scheduled for an EMG on . Notes that she has been ambulating with her knees slightly flexed for a number of years, she has received PT in the past which has helped her walking, but it just eventually goes back. Treatment Goals Patient/Caregiver Goals Improve balance, reduce falls PT-OP-C Subjective Start: 07/06/22 16:37 Freq: Status: Active Protocol: Document 07/22/22 09:53 SP (Rec: 07/22/22 10:36 SP [id number]) OP-PT Subjective Patient Comments Patient Comments Pt reports doing well, not as good at doing HEP as should be . Has been doing more hip abd seated exercises at home and walking around house trying to have better alignment but want to do more today. PT-OP-D Balance Start: 07/06/22 16:37 Freq: Status: Active Protocol: Document 07/06/22 12:00 DCW (Rec: 07/06/22 16:45 DCW [id number]) OP-PT Balance Assessment Sitting Balance Static Sitting Balance Ability Normal Dynamic Sitting Balance Ability Normal Standing Balance Static Standing Balance Ability Fair Dynamic Standing Balance Ability Fair Device Used None Balance Tests Sosa Balance Test Sosa Balance Test Score 36/56 Sosa Impairment Rating 20 to 39% Impaired (Score 34- 44) Sosa Balance Assessment Evaluation Sitting to Standing Ability Independent w/Hands Unsupported Stance Safely- 2 minutes Sitting Unsupported, Feet on Floor Safely- 2 minutes Standing to Sitting Ability Safely, Minimal Hand Use Transfer Ability Safely, Hand Use Unsupported Stance- Eyes Closed Supervision, 10 seconds Unsupported Stance- Eyes Open Supervision to maintain Reaching Forward Standing Safely, 5 inches Pick- Up Object From Floor Supervision Look Behind Shoulder - Standing Turns Sideways Only Turning 360 Degrees Turns slowly, but safely Unsupported Stance, Alternating Feet on Assist to Prevent Fall Stair Unsupported Tandem Stance Assist to Step-15 seconds Unilateral Leg Stance Lifts Leg/Unable to Hold Total Score Sosa Total Score (out of 56 points) 36 Sosa Impairment Rating 20 to 39% Impaired (Score 34- 44) Chiu Fall Scale Copyright Permission PT-OP-E Functional Tests Start: 07/06/22 16:37 Freq: Status: Active Protocol: Document 07/06/22 12:00 DCW (Rec: 07/06/22 16:45 DCW [id number]) Functional Tests Dynamic Gait Index (DGI) Score 15/24 DGI Impairment Rating 20 to <40% Impaired (Score 15- 19) Timed Up and Go (TUG) Score 14.58 Comments Three-trial average (15.04, 14.63, 14.07) TUG Impairment Rating 40 to <60% Impaired (Score 14- 15) PT-OP-G Mobility & Gait Start: 07/06/22 16:37 Freq: Status: Active Protocol: Document 07/06/22 12:00 DCW (Rec: 07/06/22 16:45 DCW [id number]) OP Gait Assessment Gait Gait Assistance Required: Independent Assistive Devices Assistive Device Gait Belt Gait Deviations General Gait Pattern Decreased Stride Length, Decreased Feet Clearance, Flexed Trunk Comments Gait Comments Pt has decreased heel strike with left foot, lands more flat-footed, swing phase demonstrates left circumduction. Ambulates with forward trunk lean and bilateral knee flexion in standing. Stair Climbing Evaluation Devices Stair Climbing Assistive Devices Left Railing,Right Railing Technique/Endurance Stair Climbing Direction Ascend and Descend Stair Climbing Technique Step Over Step Number of Steps Climbed 4 Stair Climbing Set # Repetitions (reps) 1 PT-OP-M Strength Start: 07/06/22 16:37 Freq: Status: Active Protocol: Document 07/06/22 12:00 DCW (Rec: 07/06/22 16:45 DCW [id number]) Hip Strength Hip Manual Muscle Testing Right Flexion (L2) 4 Good Extension (S1) 4+ Good+ Abduction 3 Fair Adduction 4- Good- External Rotation 3+ Fair+ Internal Rotation 4 Good Left Flexion (L2) 4- Good- Extension (S1) 4+ Good+ Abduction 3 Fair Adduction 4- Good- External Rotation 3+ Fair+ Internal Rotation 3+ Fair+ Knee Strength Knee Manual Muscle Testing Right Flexion (S2) 4+ Good+ Extension (L3) 4+ Good+ Left Flexion (S2) 4+ Good+ Extension (L3) 4+ Good+ Ankle/Foot Strength Ankle and Foot Manual Muscle Testing Right Dorsiflexion (L4) 4- Good- Plantarflexion (S1) 3+ Fair+ Inversion 4- Good- Eversion (S1) 4- Good- Left Dorsiflexion (L4) 3+ Fair+ Plantarflexion (S1) 3+ Fair+ Inversion 3+ Fair+ Eversion (S1) 3+ Fair+ PT-OP-Q Treatments Start: 07/06/22 16:37 Freq: Status: Active Protocol: Document 07/22/22 09:53 SP (Rec: 07/22/22 10:36 SP [id number]) Gym Equipment Shuttle Recovery Unilateral Squats Details LLE grind/rubbing in jt 7/10 eccentric knee flexion Resistance #37 Shuttle Recovery Platform Stable Reps/Time LLE is more stable. Bilateral Squats Details no L knee rubbing, improved small range no rubbing and painfree Resistance 61# Shuttle Recovery Platform Stable Reps/Time 10x2 Therapeutic Exercises Sitting Exercises STS Sitting Exercise Name reviewed HEP Resistance black table 18 Equipment Used x5 Reps/Minutes x8 reps Comments cued hip hinge, knee apart, tires after 3 reps Ankle flexion Sitting Exercise Name 4-way ankle-flexion: DF, PF, IV (allow EV stretch) ,EV Side bilateral Resistance Lv 2 Equipment Used blue marble ball betweenB knees Reps/Minutes x15 Comments ed for set up under her L foot for R EV and DF Gait Training Gait Activity SPC Description postural training Device Used SPC Level of Assistance SBA Surface firm Distance/Duration 170 ft, many 20 ft laps in mirror Comments posture, hip abd and core fac- alot better w/ use mirror self corrections book on head , space between BLEs PT-OP-T Assessment and Plan Start: 07/06/22 16:37 Freq: Status: Active Protocol: Document 07/22/22 09:53 SP (Rec: 07/22/22 10:36 SP [id number]) Physical Therapy Assessment Goals Three Impairment Pt ambulates with bilateral knee flexion and a left flat foot strike Area Plant Manager Goal (LTG) Pt to ambulate with an appropriate heel-toe gait pattern bilaterally with no circumduction of her foot during swing phase. LTG Duration 09/05/22 Two Impairment Pt presents with an increased falls risk Half-Way Goal (LTG) Pt to improve DGI score by at least 5 points to 20/24 and her Sosa score by at least 9 points to 45/56 in order to demonstrate a reduced falls risk. LTG Duration 09/05/22 One Impairment Pt does not have an appropriate home exercise program Short Term Goal (STG) Pt to be independent and compliant with an appropriate HEP STG Duration 08/06/22 Assessment Summary Assessment Pt improved hip abd fac with education and cues for alignment during shuttle recovery while maintain foot pronation neutral and carryover ball between BLEs with abiltiy to get up from chair 18 height today without UE support. Pt reported more stability after cues and use of mirror self corrections space between BLEs and tall posturing balance book on head with use of SPC for added support. Physical Therapy Plan Frequency and Duration Frequency of Treatment 2x/Week Duration of Treatment Two months Plan of Care Start Date 07/06/22 Plan of Care End Date 09/05/22 Therapeutic Interventions Therapeutic Interventions Aquatic Therapy,Balance Training,Gait Training,Home Exercise Program,Joint Mobilizations,Manual Therapy, Neuromuscular Re-education, Patient/Caregiver Education, Self-Care/Home Management,Soft Tissue Mobilization, Therapeutic Activities, Therapeutic Exercises Next Visit Focus/Plan Next Note Type Treatment Note Next Visit Plan Review HEP: STS, Balance challenges, increase gait quality and endurance for walks outside. *Pt like things can do at home for carryover. POC: LE strengthening, gait training, balance challenges
--- NOTE | 2022-07-27 09:48 | PT.OTN ---
Current Diagnoses Muscle weakness (generalized) (07/27/22) Unspecified abnormalities of gait and mobility (07/27/22) History of falling (07/27/22) Physical Therapy Treatment Note PT-OP-A Visit Information Start: 07/06/22 16:37 Freq: Status: Active Protocol: Document 07/27/22 09:04 SP (Rec: 07/27/22 09:51 SP [id number]) Out-Patient Physical Therapy Visit Information Visit Information Visit Type Treatment Note Visit Note 10th visit coming up. Visit Start Time 09:04 Visit Stop Time 09:48 Total Visit Minutes 43 Visit Number 7 Number of SEGMENTAL WALL INSTALLER Visits 2 Evaluation Information Evaluation Date 07/06/22 PT-OP-B Current Condition Start: 07/06/22 16:37 Freq: Status: Active Protocol: Document 07/06/22 12:00 DCW (Rec: 07/07/22 09:33 DCW [id number]) Current Condition History of Current Condition Onset Date Multi-year history Current Complaints General imbalance and difficulty with ambulation, falls History of Current Condition Pt is an 82 year old female presenting with a multi-year history of worsening balance, history of falling. Notes she walks around her house without support, but uses ochoa for stability. When out community ambulating, pt holds onto her for stability. Admits she has used a cane in the past, but feels like it makes her even less stable. Her worst fall was last winter, she was walking in a store, pushing a cart, and then tripped on the wheel and hit her head, resulting in a head laceration. Notes she has had multiple other falls, but no related injuries. Experiencing some numbness in her feet, but her neurologist does not thing it is neuropathy, and pt is scheduled for an EMG on . Notes that she has been ambulating with her knees slightly flexed for a number of years, she has received PT in the past which has helped her walking, but it just eventually goes back. Treatment Goals Patient/Caregiver Goals Improve balance, reduce falls PT-OP-C Subjective Start: 07/06/22 16:37 Freq: Status: Active Protocol: Document 07/27/22 09:04 SP (Rec: 07/27/22 09:51 SP [id number]) OP-PT Subjective Patient Comments Patient Comments Pt stated thinks did alot in yard and L medial knee hurting . Her buttocks was muscle sore after last tx and post HEP performance pleased with. She reported alot more aware of knees apart for better strength support and notices better balance making a difference in ADLs as gardening. She is trying keep her knees more straight in standing to lessen stress on her knees and better posture noted. PT-OP-D Balance Start: 07/06/22 16:37 Freq: Status: Active Protocol: Document 07/06/22 12:00 DCW (Rec: 07/06/22 16:45 DCW [id number]) OP-PT Balance Assessment Sitting Balance Static Sitting Balance Ability Normal Dynamic Sitting Balance Ability Normal Standing Balance Static Standing Balance Ability Fair Dynamic Standing Balance Ability Fair Device Used None Balance Tests Sosa Balance Test Sosa Balance Test Score 36/56 Sosa Impairment Rating 20 to 39% Impaired (Score 34- 44) Sosa Balance Assessment Evaluation Sitting to Standing Ability Independent w/Hands Unsupported Stance Safely- 2 minutes Sitting Unsupported, Feet on Floor Safely- 2 minutes Standing to Sitting Ability Safely, Minimal Hand Use Transfer Ability Safely, Hand Use Unsupported Stance- Eyes Closed Supervision, 10 seconds Unsupported Stance- Eyes Open Supervision to maintain Reaching Forward Standing Safely, 5 inches Pick- Up Object From Floor Supervision Look Behind Shoulder - Standing Turns Sideways Only Turning 360 Degrees Turns slowly, but safely Unsupported Stance, Alternating Feet on Assist to Prevent Fall Stair Unsupported Tandem Stance Assist to Step-15 seconds Unilateral Leg Stance Lifts Leg/Unable to Hold Total Score Sosa Total Score (out of 56 points) 36 Sosa Impairment Rating 20 to 39% Impaired (Score 34- 44) Chiu Fall Scale Copyright Permission PT-OP-E Functional Tests Start: 07/06/22 16:37 Freq: Status: Active Protocol: Document 07/06/22 12:00 DCW (Rec: 07/06/22 16:45 DCW [id number]) Functional Tests Dynamic Gait Index (DGI) Score 15/24 DGI Impairment Rating 20 to <40% Impaired (Score 15- 19) Timed Up and Go (TUG) Score 14.58 Comments Three-trial average (15.04, 14.63, 14.07) TUG Impairment Rating 40 to <60% Impaired (Score 14- 15) PT-OP-G Mobility & Gait Start: 07/06/22 16:37 Freq: Status: Active Protocol: Document 07/06/22 12:00 DCW (Rec: 07/06/22 16:45 DCW [id number]) OP Gait Assessment Gait Gait Assistance Required: Independent Assistive Devices Assistive Device Gait Belt Gait Deviations General Gait Pattern Decreased Stride Length, Decreased Feet Clearance, Flexed Trunk Comments Gait Comments Pt has decreased heel strike with left foot, lands more flat-footed, swing phase demonstrates left circumduction. Ambulates with forward trunk lean and bilateral knee flexion in standing. Stair Climbing Evaluation Devices Stair Climbing Assistive Devices Left Railing,Right Railing Technique/Endurance Stair Climbing Direction Ascend and Descend Stair Climbing Technique Step Over Step Number of Steps Climbed 4 Stair Climbing Set # Repetitions (reps) 1 PT-OP-M Strength Start: 07/06/22 16:37 Freq: Status: Active Protocol: Document 07/06/22 12:00 DCW (Rec: 07/06/22 16:45 DCW [id number]) Hip Strength Hip Manual Muscle Testing Right Flexion (L2) 4 Good Extension (S1) 4+ Good+ Abduction 3 Fair Adduction 4- Good- External Rotation 3+ Fair+ Internal Rotation 4 Good Left Flexion (L2) 4- Good- Extension (S1) 4+ Good+ Abduction 3 Fair Adduction 4- Good- External Rotation 3+ Fair+ Internal Rotation 3+ Fair+ Knee Strength Knee Manual Muscle Testing Right Flexion (S2) 4+ Good+ Extension (L3) 4+ Good+ Left Flexion (S2) 4+ Good+ Extension (L3) 4+ Good+ Ankle/Foot Strength Ankle and Foot Manual Muscle Testing Right Dorsiflexion (L4) 4- Good- Plantarflexion (S1) 3+ Fair+ Inversion 4- Good- Eversion (S1) 4- Good- Left Dorsiflexion (L4) 3+ Fair+ Plantarflexion (S1) 3+ Fair+ Inversion 3+ Fair+ Eversion (S1) 3+ Fair+ PT-OP-Q Treatments Start: 07/06/22 16:37 Freq: Status: Active Protocol: Document 07/27/22 09:04 SP (Rec: 07/27/22 09:51 SP [id number]) Gym Equipment Shuttle Recovery Unilateral Squats Details no pain L knee jt rubbing today, cued eccentric knee flexion Resistance #37 Shuttle Recovery Platform Stable Reps/Time improved alignment, x20 Bilateral Squats Details painfree L knee, cued knee alignment apart slow pacing control Resistance 61# Shuttle Recovery Platform Stable Reps/Time x25 reps Therapeutic Exercises Sitting Exercises self STMs Sitting Exercise Name added to HEP: Quad, HS, calf, * Adductor Side bilateral Equipment Used rolling pin Reps/Minutes 3 min total Comments good feedback response STS Sitting Exercise Name reviewed HEP Resistance mesh chair, blue marble ball between B knees Reps/Minutes x2 reps before needed UE support x3 reps 1 UE support Comments cued hip hinge, knee apart Other Exercises Resisted Ambulation Other Exercise Name Side=stepping- reviewed HEP Resistance Yellow Equipment Used contact rail RUE only Reps/Minutes 20 ft x2 laps Comments cued tall, hip abd fac kness apart, trail foot clearance Manual Therapy Treatment Soft Tissue Mobilization L medial knee Body Location distal adductor, quad and patellar tendon Mobilization Type Cross-Friction,Strumming Intensity/Depth Moderate Body Position Hooklying Comments good feedback response manual and instruction self use rolling pin Taping ktaping Body Location L medial adductor support (C medial jt: distal tib> above femoral condyle) Treatment Focus L knee stability lateral Type of Tape Kinesio Tape Comments good feedback response, verbalized understanding adverse affect (redness, itching, tingling, etc) and if experience to remove otherwise can wear up to 2 days (including in shower) for now to see how is assisting her. Remove slowly and use oil /lubricant if needed for ease. PT-OP-T Assessment and Plan Start: 07/06/22 16:37 Freq: Status: Active Protocol: Document 07/27/22 09:04 SP (Rec: 07/27/22 09:51 SP [id number]) Physical Therapy Assessment Goals Three Impairment Pt ambulates with bilateral knee flexion and a left flat foot strike Jail Goal (LTG) Pt to ambulate with an appropriate heel-toe gait pattern bilaterally with no circumduction of her foot during swing phase. LTG Duration 09/05/22 Two Impairment Pt presents with an increased falls risk Jail Goal (LTG) Pt to improve DGI score by at least 5 points to 20/24 and her Sosa score by at least 9 points to 45/56 in order to demonstrate a reduced falls risk. LTG Duration 09/05/22 One Impairment Pt does not have an appropriate home exercise program Short Term Goal (STG) Pt to be independent and compliant with an appropriate HEP STG Duration 08/06/22 Assessment Summary Assessment Pt responded well post manual to distal L adductor, quad and applied support of Ktaping medial knee along adductor medial jt line, It feels alot better, with and post exercises. Pt continues tire quickly with STS no UE support 2 reps. Cues for posturing and hip abd fac during HEP. Physical Therapy Plan Frequency and Duration Frequency of Treatment 2x/Week Duration of Treatment Two months Plan of Care Start Date 07/06/22 Plan of Care End Date 09/05/22 Therapeutic Interventions Therapeutic Interventions Aquatic Therapy,Balance Training,Gait Training,Home Exercise Program,Joint Mobilizations,Manual Therapy, Neuromuscular Re-education, Patient/Caregiver Education, Self-Care/Home Management,Soft Tissue Mobilization, Therapeutic Activities, Therapeutic Exercises Next Visit Focus/Plan Next Note Type Treatment Note Next Visit Plan Recheck ktaping response, Review HEP: STS, 4 way ankle, band walk, balance challenges, increase gait quality and endurance for walks outside. *Pt like added HEP for carryover at home. POC: LE strengthening, gait training, balance challenges
--- NOTE | 2022-07-30 13:00 | PT.OTN ---
Current Diagnoses Muscle weakness (generalized) (07/30/22) Unspecified abnormalities of gait and mobility (07/30/22) History of falling (07/30/22) Physical Therapy Treatment Note PT-OP-A Visit Information Start: 07/06/22 16:37 Freq: Status: Active Protocol: Document 07/30/22 12:16 SP (Rec: 07/30/22 13:05 SP [id number]) Out-Patient Physical Therapy Visit Information Visit Information Visit Type Treatment Note Visit Note 10th visit 2 visits Visit Start Time 12:16 Visit Stop Time 13:00 Total Visit Minutes 44 Visit Number 8 Number of PIGSKIN TRIMMER Visits 3 Evaluation Information Evaluation Date 07/06/22 PT-OP-B Current Condition Start: 07/06/22 16:37 Freq: Status: Active Protocol: Document 07/06/22 12:00 DCW (Rec: 07/07/22 09:33 DCW [id number]) Current Condition History of Current Condition Onset Date Multi-year history Current Complaints General imbalance and difficulty with ambulation, falls History of Current Condition Pt is an 82 year old female presenting with a multi-year history of worsening balance, history of falling. Notes she walks around her house without support, but uses ochoa for stability. When out community ambulating, pt holds onto her for stability. Admits she has used a cane in the past, but feels like it makes her even less stable. Her worst fall was last winter, she was walking in a store, pushing a cart, and then tripped on the wheel and hit her head, resulting in a head laceration. Notes she has had multiple other falls, but no related injuries. Experiencing some numbness in her feet, but her neurologist does not thing it is neuropathy, and pt is scheduled for an EMG on . Notes that she has been ambulating with her knees slightly flexed for a number of years, she has received PT in the past which has helped her walking, but it just eventually goes back. Treatment Goals Patient/Caregiver Goals Improve balance, reduce falls PT-OP-C Subjective Start: 07/06/22 16:37 Freq: Status: Active Protocol: Document 07/30/22 12:16 SP (Rec: 07/30/22 13:05 SP [id number]) OP-PT Subjective Patient Comments Patient Comments Pt reported doing her exercises, doing good, wants to review STS with band. Not good at standing up with roll between knees. She stated good response to K taping medial L knee, just took off earlier today, did help support knee alignment. PT-OP-D Balance Start: 07/06/22 16:37 Freq: Status: Active Protocol: Document 07/06/22 12:00 DCW (Rec: 07/06/22 16:45 DCW [id number]) OP-PT Balance Assessment Sitting Balance Static Sitting Balance Ability Normal Dynamic Sitting Balance Ability Normal Standing Balance Static Standing Balance Ability Fair Dynamic Standing Balance Ability Fair Device Used None Balance Tests Sosa Balance Test Sosa Balance Test Score 36/56 Sosa Impairment Rating 20 to 39% Impaired (Score 34- 44) Sosa Balance Assessment Evaluation Sitting to Standing Ability Independent w/Hands Unsupported Stance Safely- 2 minutes Sitting Unsupported, Feet on Floor Safely- 2 minutes Standing to Sitting Ability Safely, Minimal Hand Use Transfer Ability Safely, Hand Use Unsupported Stance- Eyes Closed Supervision, 10 seconds Unsupported Stance- Eyes Open Supervision to maintain Reaching Forward Standing Safely, 5 inches Pick- Up Object From Floor Supervision Look Behind Shoulder - Standing Turns Sideways Only Turning 360 Degrees Turns slowly, but safely Unsupported Stance, Alternating Feet on Assist to Prevent Fall Stair Unsupported Tandem Stance Assist to Step-15 seconds Unilateral Leg Stance Lifts Leg/Unable to Hold Total Score Sosa Total Score (out of 56 points) 36 Sosa Impairment Rating 20 to 39% Impaired (Score 34- 44) Chiu Fall Scale Copyright Permission PT-OP-E Functional Tests Start: 07/06/22 16:37 Freq: Status: Active Protocol: Document 07/06/22 12:00 DCW (Rec: 07/06/22 16:45 DCW [id number]) Functional Tests Dynamic Gait Index (DGI) Score 15/24 DGI Impairment Rating 20 to <40% Impaired (Score 15- 19) Timed Up and Go (TUG) Score 14.58 Comments Three-trial average (15.04, 14.63, 14.07) TUG Impairment Rating 40 to <60% Impaired (Score 14- 15) PT-OP-G Mobility & Gait Start: 07/06/22 16:37 Freq: Status: Active Protocol: Document 07/06/22 12:00 DCW (Rec: 07/06/22 16:45 DCW [id number]) OP Gait Assessment Gait Gait Assistance Required: Independent Assistive Devices Assistive Device Gait Belt Gait Deviations General Gait Pattern Decreased Stride Length, Decreased Feet Clearance, Flexed Trunk Comments Gait Comments Pt has decreased heel strike with left foot, lands more flat-footed, swing phase demonstrates left circumduction. Ambulates with forward trunk lean and bilateral knee flexion in standing. Stair Climbing Evaluation Devices Stair Climbing Assistive Devices Left Railing,Right Railing Technique/Endurance Stair Climbing Direction Ascend and Descend Stair Climbing Technique Step Over Step Number of Steps Climbed 4 Stair Climbing Set # Repetitions (reps) 1 PT-OP-M Strength Start: 07/06/22 16:37 Freq: Status: Active Protocol: Document 07/06/22 12:00 DCW (Rec: 07/06/22 16:45 [facility] [id number]) Hip Strength Hip Manual Muscle Testing Right Flexion (L2) 4 Good Extension (S1) 4+ Good+ Abduction 3 Fair Adduction 4- Good- External Rotation 3+ Fair+ Internal Rotation 4 Good Left Flexion (L2) 4- Good- Extension (S1) 4+ Good+ Abduction 3 Fair Adduction 4- Good- External Rotation 3+ Fair+ Internal Rotation 3+ Fair+ Knee Strength Knee Manual Muscle Testing Right Flexion (S2) 4+ Good+ Extension (L3) 4+ Good+ Left Flexion (S2) 4+ Good+ Extension (L3) 4+ Good+ Ankle/Foot Strength Ankle and Foot Manual Muscle Testing Right Dorsiflexion (L4) 4- Good- Plantarflexion (S1) 3+ Fair+ Inversion 4- Good- Eversion (S1) 4- Good- Left Dorsiflexion (L4) 3+ Fair+ Plantarflexion (S1) 3+ Fair+ Inversion 3+ Fair+ Eversion (S1) 3+ Fair+ PT-OP-Q Treatments Start: 07/06/22 16:37 Freq: Status: Active Protocol: Document 07/30/22 12:16 SP (Rec: 07/30/22 13:05 SP [id number]) Gym Equipment Shuttle Recovery Unilateral Squats Details very little L knee jt rubbing no pain today, cued eccentric knee flexion Resistance #37 (50# next) Shuttle Recovery Platform Stable Reps/Time improved alignment lateral today self corretion, x20 Bilateral Squats Details painfree L knee, cued knee alignment apart slow pacing control Resistance 62# (75# next) Shuttle Recovery Platform Stable Reps/Time x25 reps Therapeutic Exercises Supine Exercises Clamshell Supine Exercise Name Supine Clahell- stated performing at home seated Side bilateral Resistance Lv 2 Reps/Minutes x10 seated Sitting Exercises hip abd Sitting Exercise Name clamshell TB #1- HEP review Resistance TB #2 Reps/Minutes 5 s x10 Comments changed from supine, states to hard getting band on leg supine self STMs Sitting Exercise Name performed: Quad, HS, calf, * Adductor Side bilateral Equipment Used rolling pin Reps/Minutes 3 min total post standing HEP Comments good feedback response STS Sitting Exercise Name reviewed HEP Equipment Used black table 18 height, blue foam under feel 20 table Reps/Minutes x5 reps no UE support, 3 reps on foam CGA-5%A last rep Comments cued hip hinge, glut fac squeeze, full stand quad and glut fac Ankle flexion Sitting Exercise Name 4-way ankle-flexion: DF, PF, IV (allow EV stretch) ,EV Side bilateral Resistance Lv 2 Equipment Used blue marble ball betweenB knees Reps/Minutes x15 Comments extra time set up and proper form, good tiring work out reported Standing Exercises Hip Abduction Standing Exercise Name Hip Abduction Side bilateral Resistance Yellow loop at mid sahu Equipment Used rail Reps/Minutes 2x10 Comments cued tall posture, quad fac extension Hip Extension Standing Exercise Name Hip Extension Side bilateral Resistance Yellow loop at ankles Equipment Used rail Reps/Minutes 2x10 Comments cued tall posture, quad fac extension Other Exercises Resisted Ambulation Other Exercise Name Side-stepping- reviewed HEP Resistance Yellow at ankle Equipment Used contact rail RUE only Reps/Minutes 10 ft x4 laps Comments cued tall, hip abd fac kness apart, trail foot clearance Manual Therapy Treatment Taping ktaping Body Location L medial adductor support (C medial jt: distal tib> above femoral condyle) Treatment Focus L knee stability lateral Type of Tape Kinesio Tape Comments good feedback response, verbalized understanding adverse affect (redness, itching, tingling, etc) and if experience to remove otherwise can wear up to 2 days (including in shower) for now to see how is assisting her. Remove slowly and use oil /lubricant if needed for ease. PT-OP-T Assessment and Plan Start: 07/06/22 16:37 Freq: Status: Active Protocol: Document 07/30/22 12:16 SP (Rec: 07/30/22 13:05 SP [id number]) Physical Therapy Assessment Goals Three Impairment Pt ambulates with bilateral knee flexion and a left flat foot strike Custodial Goal (LTG) Pt to ambulate with an appropriate heel-toe gait pattern bilaterally with no circumduction of her foot during swing phase. LTG Duration 09/05/22 Two Impairment Pt presents with an increased falls risk Custodial Goal (LTG) Pt to improve DGI score by at least 5 points to 20/24 and her Sosa score by at least 9 points to 45/56 in order to demonstrate a reduced falls risk. LTG Duration 09/05/22 One Impairment Pt does not have an appropriate home exercise program Short Term Goal (STG) Pt to be independent and compliant with an appropriate HEP STG Duration 08/06/22 Assessment Summary Assessment Pt better understanding of HEP reviewed and performance, provided reprint with verbal corrections for proper form and good feedback response muscle tiring. Pt ableto STS without UE support firm and uneven surface today, ball between B knees for abd support while progressing in strength needed. Physical Therapy Plan Frequency and Duration Frequency of Treatment 2x/Week Duration of Treatment Two months Plan of Care Start Date 07/06/22 Plan of Care End Date 09/05/22 Therapeutic Interventions Therapeutic Interventions Aquatic Therapy,Balance Training,Gait Training,Home Exercise Program,Joint Mobilizations,Manual Therapy, Neuromuscular Re-education, Patient/Caregiver Education, Self-Care/Home Management,Soft Tissue Mobilization, Therapeutic Activities, Therapeutic Exercises Next Visit Focus/Plan Next Note Type Treatment Note Next Visit Plan Retape med L knee as needed. Review HEP: STS, 4 way ankle, band walk, balance challenges, increase gait quality and endurance for walks outside. *Pt like added HEP for carryover at home. POC: LE strengthening, gait training, balance challenges
--- NOTE | 2022-08-03 10:30 | PT.OTN ---
Current Diagnoses Muscle weakness (generalized) (08/03/22) Unspecified abnormalities of gait and mobility (08/03/22) History of falling (08/03/22) Physical Therapy Treatment Note PT-OP-A Visit Information Start: 07/06/22 16:37 Freq: Status: Active Protocol: Document 08/03/22 09:45 DCW (Rec: 08/03/22 10:29 DCW [id number]) Out-Patient Physical Therapy Visit Information Visit Information Visit Type Progress Note Visit Start Time 09:45 Visit Stop Time 10:30 Total Visit Minutes 45 Visit Number 9 Number of WIRE SETTER Visits 0 Evaluation Information Evaluation Date 07/06/22 PT-OP-B Current Condition Start: 07/06/22 16:37 Freq: Status: Active Protocol: Document 07/06/22 12:00 DCW (Rec: 07/07/22 09:33 DCW [id number]) Current Condition History of Current Condition Onset Date Multi-year history Current Complaints General imbalance and difficulty with ambulation, falls History of Current Condition Pt is an 82 year old female presenting with a multi-year history of worsening balance, history of falling. Notes she walks around her house without support, but uses ochoa for stability. When out community ambulating, pt holds onto her for stability. Admits she has used a cane in the past, but feels like it makes her even less stable. Her worst fall was last winter, she was walking in a store, pushing a cart, and then tripped on the wheel and hit her head, resulting in a head laceration. Notes she has had multiple other falls, but no related injuries. Experiencing some numbness in her feet, but her neurologist does not thing it is neuropathy, and pt is scheduled for an EMG on . Notes that she has been ambulating with her knees slightly flexed for a number of years, she has received PT in the past which has helped her walking, but it just eventually goes back. Treatment Goals Patient/Caregiver Goals Improve balance, reduce falls PT-OP-C Subjective Start: 07/06/22 16:37 Freq: Status: Active Protocol: Document 08/03/22 09:45 DCW (Rec: 08/03/22 10:29 DCW [id number]) OP-PT Subjective Patient Comments Patient Comments I'm feeling wobbly today, I think I over did it, it feels like it is mainly in my knees. PT-OP-D Balance Start: 07/06/22 16:37 Freq: Status: Active Protocol: Document 07/06/22 12:00 DCW (Rec: 07/06/22 16:45 DCW [id number]) OP-PT Balance Assessment Sitting Balance Static Sitting Balance Ability Normal Dynamic Sitting Balance Ability Normal Standing Balance Static Standing Balance Ability Fair Dynamic Standing Balance Ability Fair Device Used None Balance Tests Sosa Balance Test Sosa Balance Test Score 36/56 Sosa Impairment Rating 20 to 39% Impaired (Score 34- 44) Sosa Balance Assessment Evaluation Sitting to Standing Ability Independent w/Hands Unsupported Stance Safely- 2 minutes Sitting Unsupported, Feet on Floor Safely- 2 minutes Standing to Sitting Ability Safely, Minimal Hand Use Transfer Ability Safely, Hand Use Unsupported Stance- Eyes Closed Supervision, 10 seconds Unsupported Stance- Eyes Open Supervision to maintain Reaching Forward Standing Safely, 5 inches Pick- Up Object From Floor Supervision Look Behind Shoulder - Standing Turns Sideways Only Turning 360 Degrees Turns slowly, but safely Unsupported Stance, Alternating Feet on Assist to Prevent Fall Stair Unsupported Tandem Stance Assist to Step-15 seconds Unilateral Leg Stance Lifts Leg/Unable to Hold Total Score Sosa Total Score (out of 56 points) 36 Sosa Impairment Rating 20 to 39% Impaired (Score 34- 44) Chiu Fall Scale Copyright Permission PT-OP-E Functional Tests Start: 07/06/22 16:37 Freq: Status: Active Protocol: Document 08/03/22 09:45 DCW (Rec: 08/03/22 10:30 DCW [id number]) Functional Tests Dynamic Gait Index (DGI) Score 19/24 DGI Impairment Rating 20 to <40% Impaired (Score 15- 19) Timed Up and Go (TUG) Score 13.64 Comments Three-trial average (15.16, 13.39, 12.36) TUG Impairment Rating 40 to <60% Impaired (Score 14- 15) PT-OP-G Mobility & Gait Start: 07/06/22 16:37 Freq: Status: Active Protocol: Document 07/06/22 12:00 DCW (Rec: 07/06/22 16:45 DCW [id number]) OP Gait Assessment Gait Gait Assistance Required: Independent Assistive Devices Assistive Device Gait Belt Gait Deviations General Gait Pattern Decreased Stride Length, Decreased Feet Clearance, Flexed Trunk Comments Gait Comments Pt has decreased heel strike with left foot, lands more flat-footed, swing phase demonstrates left circumduction. Ambulates with forward trunk lean and bilateral knee flexion in standing. Stair Climbing Evaluation Devices Stair Climbing Assistive Devices Left Railing,Right Railing Technique/Endurance Stair Climbing Direction Ascend and Descend Stair Climbing Technique Step Over Step Number of Steps Climbed 4 Stair Climbing Set # Repetitions (reps) 1 PT-OP-M Strength Start: 07/06/22 16:37 Freq: Status: Active Protocol: Document 07/06/22 12:00 DCW (Rec: 07/06/22 16:45 DCW [id number]) Hip Strength Hip Manual Muscle Testing Right Flexion (L2) 4 Good Extension (S1) 4+ Good+ Abduction 3 Fair Adduction 4- Good- External Rotation 3+ Fair+ Internal Rotation 4 Good Left Flexion (L2) 4- Good- Extension (S1) 4+ Good+ Abduction 3 Fair Adduction 4- Good- External Rotation 3+ Fair+ Internal Rotation 3+ Fair+ Knee Strength Knee Manual Muscle Testing Right Flexion (S2) 4+ Good+ Extension (L3) 4+ Good+ Left Flexion (S2) 4+ Good+ Extension (L3) 4+ Good+ Ankle/Foot Strength Ankle and Foot Manual Muscle Testing Right Dorsiflexion (L4) 4- Good- Plantarflexion (S1) 3+ Fair+ Inversion 4- Good- Eversion (S1) 4- Good- Left Dorsiflexion (L4) 3+ Fair+ Plantarflexion (S1) 3+ Fair+ Inversion 3+ Fair+ Eversion (S1) 3+ Fair+ PT-OP-Q Treatments Start: 07/06/22 16:37 Freq: Status: Active Protocol: Document 08/03/22 09:45 DCW (Rec: 08/03/22 10:29 DCW [id number]) Cardio Equipment Recumbent Elliptical (Biodex) Duration (Minutes) 5 Resistance 5 Seat Position 10 Gym Equipment Shuttle Recovery Unilateral Squats Details very little L knee jt rubbing no pain today, cued eccentric knee flexion Resistance 50# R, 37# L Shuttle Recovery Platform Stable Reps/Time improved alignment lateral today self corretion, x20 Bilateral Squats Details good alignment, L knee pain Resistance 75#->62# Shuttle Recovery Platform Stable Reps/Time x25 reps Therapeutic Exercises Standing Exercises Hip Abduction Standing Exercise Name Hip Abduction Side bilateral Resistance Yellow loop at mid sahu Equipment Used rail Reps/Minutes 2x10 Comments cued tall posture, quad fac extension Hip Extension Standing Exercise Name Hip Extension Side bilateral Resistance Yellow loop at ankles Equipment Used rail Reps/Minutes 2x10 Comments cued tall posture, quad fac extension Neuro Re-Education Treatment Balance Activities SLS Details SLS Equipment // bars Tandem Stance Details Tandem Stance Equipment @ rail Other Activities Testing Details TUG, DGI PT-OP-T Assessment and Plan Start: 07/06/22 16:37 Freq: Status: Active Protocol: Document 08/03/22 09:45 DCW (Rec: 08/03/22 10:29 DCW [id number]) Physical Therapy Assessment Goals Three Impairment Pt ambulates with bilateral knee flexion and a left flat foot strike Fdc Goal (LTG) Pt to ambulate with an appropriate heel-toe gait pattern bilaterally with no circumduction of her foot during swing phase. LTG Duration 09/05/22 Two Impairment Pt presents with an increased falls risk Fdc Goal (LTG) Pt to improve DGI score by at least 5 points to 20/24 and her Sosa score by at least 9 points to 45/56 in order to demonstrate a reduced falls risk. LTG Duration 09/05/22 Improving (08/03/22 - DGI ) One Impairment Pt does not have an appropriate home exercise program Short Term Goal (STG) Pt to be independent and compliant with an appropriate HEP STG Duration 08/06/22 Assessment Summary Assessment Pt showing good progress so far with PT. Increased DGI score from 15/24 to 19/24. Pt feeling more confident with her ambulation using cane. Continue with current POC in order to decrease falls risk and improve gait. Physical Therapy Plan Frequency and Duration Frequency of Treatment 2x/Week Duration of Treatment Two months Plan of Care Start Date 07/06/22 Plan of Care End Date 09/05/22 Therapeutic Interventions Therapeutic Interventions Aquatic Therapy,Balance Training,Gait Training,Home Exercise Program,Joint Mobilizations,Manual Therapy, Neuromuscular Re-education, Patient/Caregiver Education, Self-Care/Home Management,Soft Tissue Mobilization, Therapeutic Activities, Therapeutic Exercises Next Visit Focus/Plan Next Note Type Treatment Note Next Visit Plan Retape med L knee as needed. Review HEP: STS, 4 way ankle, band walk, balance challenges, increase gait quality and endurance for walks outside. *Pt like added HEP for carryover at home. POC: LE strengthening, gait training, balance challenges
--- NOTE | 2022-08-06 09:46 | PT.OTN ---
Current Diagnoses Muscle weakness (generalized) (08/06/22) Unspecified abnormalities of gait and mobility (08/06/22) History of falling (08/06/22) Physical Therapy Treatment Note PT-OP-A Visit Information Start: 07/06/22 16:37 Freq: Status: Active Protocol: Document 08/06/22 09:08 SP (Rec: 08/06/22 09:50 SP [id number]) Out-Patient Physical Therapy Visit Information Visit Information Visit Type Treatment Note Visit Note 11/30 Visit Start Time 09:06 Visit Stop Time 09:46 Total Visit Minutes 40 Visit Number 10 Number of GAME BREEDING FARM MANAGER Visits 1 Evaluation Information Evaluation Date 07/06/22 PT-OP-B Current Condition Start: 07/06/22 16:37 Freq: Status: Active Protocol: Document 07/06/22 12:00 DCW (Rec: 07/07/22 09:33 DCW [id number]) Current Condition History of Current Condition Onset Date Multi-year history Current Complaints General imbalance and difficulty with ambulation, falls History of Current Condition Pt is an 82 year old female presenting with a multi-year history of worsening balance, history of falling. Notes she walks around her house without support, but uses ochoa for stability. When out community ambulating, pt holds onto her for stability. Admits she has used a cane in the past, but feels like it makes her even less stable. Her worst fall was last winter, she was walking in a store, pushing a cart, and then tripped on the wheel and hit her head, resulting in a head laceration. Notes she has had multiple other falls, but no related injuries. Experiencing some numbness in her feet, but her neurologist does not thing it is neuropathy, and pt is scheduled for an EMG on . Notes that she has been ambulating with her knees slightly flexed for a number of years, she has received PT in the past which has helped her walking, but it just eventually goes back. Treatment Goals Patient/Caregiver Goals Improve balance, reduce falls PT-OP-C Subjective Start: 07/06/22 16:37 Freq: Status: Active Protocol: Document 08/06/22 09:08 SP (Rec: 08/06/22 09:50 SP [id number]) OP-PT Subjective Patient Comments Patient Comments Pt reported improved by 1 sec during testing last tx progress note. Pt reported wondering if know where to find a noodle to use proper her feet up on to allow heels float when sleeping, finds herself letting lower body fall off to one side so no pressure on heels, doesn't use pillows other than under head in supine and can't sleep on side anymore due to hip discomfort. PT-OP-D Balance Start: 07/06/22 16:37 Freq: Status: Active Protocol: Document 07/06/22 12:00 DCW (Rec: 07/06/22 16:45 DCW [id number]) OP-PT Balance Assessment Sitting Balance Static Sitting Balance Ability Normal Dynamic Sitting Balance Ability Normal Standing Balance Static Standing Balance Ability Fair Dynamic Standing Balance Ability Fair Device Used None Balance Tests Sosa Balance Test Sosa Balance Test Score 36/56 Sosa Impairment Rating 20 to 39% Impaired (Score 34- 44) Sosa Balance Assessment Evaluation Sitting to Standing Ability Independent w/Hands Unsupported Stance Safely- 2 minutes Sitting Unsupported, Feet on Floor Safely- 2 minutes Standing to Sitting Ability Safely, Minimal Hand Use Transfer Ability Safely, Hand Use Unsupported Stance- Eyes Closed Supervision, 10 seconds Unsupported Stance- Eyes Open Supervision to maintain Reaching Forward Standing Safely, 5 inches Pick- Up Object From Floor Supervision Look Behind Shoulder - Standing Turns Sideways Only Turning 360 Degrees Turns slowly, but safely Unsupported Stance, Alternating Feet on Assist to Prevent Fall Stair Unsupported Tandem Stance Assist to Step-15 seconds Unilateral Leg Stance Lifts Leg/Unable to Hold Total Score Sosa Total Score (out of 56 points) 36 Sosa Impairment Rating 20 to 39% Impaired (Score 34- 44) Chiu Fall Scale Copyright Permission PT-OP-E Functional Tests Start: 07/06/22 16:37 Freq: Status: Active Protocol: Document 08/03/22 09:45 DCW (Rec: 08/03/22 10:30 DCW [id number]) Functional Tests Dynamic Gait Index (DGI) Score 19/24 DGI Impairment Rating 20 to <40% Impaired (Score 15- 19) Timed Up and Go (TUG) Score 13.64 Comments Three-trial average (15.16, 13.39, 12.36) TUG Impairment Rating 40 to <60% Impaired (Score 14- 15) PT-OP-G Mobility & Gait Start: 07/06/22 16:37 Freq: Status: Active Protocol: Document 07/06/22 12:00 DCW (Rec: 07/06/22 16:45 DCW [id number]) OP Gait Assessment Gait Gait Assistance Required: Independent Assistive Devices Assistive Device Gait Belt Gait Deviations General Gait Pattern Decreased Stride Length, Decreased Feet Clearance, Flexed Trunk Comments Gait Comments Pt has decreased heel strike with left foot, lands more flat-footed, swing phase demonstrates left circumduction. Ambulates with forward trunk lean and bilateral knee flexion in standing. Stair Climbing Evaluation Devices Stair Climbing Assistive Devices Left Railing,Right Railing Technique/Endurance Stair Climbing Direction Ascend and Descend Stair Climbing Technique Step Over Step Number of Steps Climbed 4 Stair Climbing Set # Repetitions (reps) 1 PT-OP-M Strength Start: 07/06/22 16:37 Freq: Status: Active Protocol: Document 07/06/22 12:00 DCW (Rec: 07/06/22 16:45 DCW [id number]) Hip Strength Hip Manual Muscle Testing Right Flexion (L2) 4 Good Extension (S1) 4+ Good+ Abduction 3 Fair Adduction 4- Good- External Rotation 3+ Fair+ Internal Rotation 4 Good Left Flexion (L2) 4- Good- Extension (S1) 4+ Good+ Abduction 3 Fair Adduction 4- Good- External Rotation 3+ Fair+ Internal Rotation 3+ Fair+ Knee Strength Knee Manual Muscle Testing Right Flexion (S2) 4+ Good+ Extension (L3) 4+ Good+ Left Flexion (S2) 4+ Good+ Extension (L3) 4+ Good+ Ankle/Foot Strength Ankle and Foot Manual Muscle Testing Right Dorsiflexion (L4) 4- Good- Plantarflexion (S1) 3+ Fair+ Inversion 4- Good- Eversion (S1) 4- Good- Left Dorsiflexion (L4) 3+ Fair+ Plantarflexion (S1) 3+ Fair+ Inversion 3+ Fair+ Eversion (S1) 3+ Fair+ PT-OP-Q Treatments Start: 07/06/22 16:37 Freq: Status: Active Protocol: Document 08/06/22 09:08 SP (Rec: 08/06/22 09:50 SP [id number]) Gym Equipment Shuttle Recovery Unilateral Squats Details Less rubbing L knee small range, slow eccentric knee flexion Resistance 50# R, 37# L Shuttle Recovery Platform Stable Reps/Time 2x12 reps tactile cues knee lat align R>L Bilateral Squats Details good alignment, L knee pain Resistance 75#->62# Shuttle Recovery Platform Stable Reps/Time x25 reps Therapeutic Exercises Sitting Exercises STS Sitting Exercise Name reviewed HEP Equipment Used mesh chair, ball between BLEs Reps/Minutes x5 reps no UE support, 3 reps on foam CGA-5%A last rep Comments cued hip hinge, glut fac squeeze, full stand quad and glut fac Standing Exercises Hip Abduction Standing Exercise Name Hip Abduction-discussed Side bilateral Resistance Yellow loop at mid sahu Equipment Used rail Reps/Minutes 2x10 Comments cued tall posture, quad fac extension Hip Extension Standing Exercise Name Hip Extension- discussed Side bilateral Resistance Yellow loop at ankles Equipment Used rail Reps/Minutes 2x10 Comments cued tall posture, quad fac extension Self-Care/Home Management Treatment Education Patient Education Body Mechanics,Joint Protection,Pain Management, Posture Other Education Extensive time spent education and assist use pillows propping to sleep supine under thighs/calves for heel float and neutral spine. On side w/ pillows between arms/BLEs ( knee height top hip/under upper ribcage (stated can assist pillow placement) for spinal alignment and unweight heels with good feedback response this feels really good on back and side -provided HOs for STS, side sleeping image and reprinted HEP for home misplaced for help recall. Pt stated wanted to know if more can do at home and provide HOs. PT-OP-T Assessment and Plan Start: 07/06/22 16:37 Freq: Status: Active Protocol: Document 08/06/22 09:08 SP (Rec: 08/06/22 09:50 SP [id number]) Physical Therapy Assessment Goals Three Impairment Pt ambulates with bilateral knee flexion and a left flat foot strike Mcc Goal (LTG) Pt to ambulate with an appropriate heel-toe gait pattern bilaterally with no circumduction of her foot during swing phase. LTG Duration 09/05/22 Two Impairment Pt presents with an increased falls risk Family Dinner Service Specialist Goal (LTG) Pt to improve DGI score by at least 5 points to 20/24 and her Sosa score by at least 9 points to 45/56 in order to demonstrate a reduced falls risk. LTG Duration 09/05/22 Improving (08/03/22 - DGI ) One Impairment Pt does not have an appropriate home exercise program Short Term Goal (STG) Pt to be independent and compliant with an appropriate HEP STG Duration 08/06/22 Assessment Summary Assessment Pt responded well to education and assist performance of supine/side sleeping for jt support use pillows, this feels so much better, I could fall asleep even on this hard table, provided HO for recall pillow placement. Reprinted HEP misplaced HOs, reviewed STS with ball hip abd assist able complete from chair no UE support, very little momentum UE use. Physical Therapy Plan Frequency and Duration Frequency of Treatment 2x/Week Duration of Treatment Two months Plan of Care Start Date 07/06/22 Plan of Care End Date 09/05/22 Therapeutic Interventions Therapeutic Interventions Aquatic Therapy,Balance Training,Gait Training,Home Exercise Program,Joint Mobilizations,Manual Therapy, Neuromuscular Re-education, Patient/Caregiver Education, Self-Care/Home Management,Soft Tissue Mobilization, Therapeutic Activities, Therapeutic Exercises Next Visit Focus/Plan Next Note Type Treatment Note Next Visit Plan Retape med L knee as needed. Review HEP: STS, 4 way ankle, band walk. POC: LE strengthening, gait trng, balance challenges (add and give HOs for home carryover), increase gait quality and endurance to return to walks outside (her goal).
--- NOTE | 2022-08-10 14:32 | PT.OTN ---
Current Diagnoses Muscle weakness (generalized) (08/10/22) Unspecified abnormalities of gait and mobility (08/10/22) History of falling (08/10/22) Physical Therapy Treatment Note PT-OP-A Visit Information Start: 07/06/22 16:37 Freq: Status: Active Protocol: Document 08/10/22 13:54 SP (Rec: 08/10/22 14:36 SP [id number]) Out-Patient Physical Therapy Visit Information Visit Information Visit Type Treatment Note Visit Note 12/31 Visit Start Time 13:54 Visit Stop Time 14:32 Total Visit Minutes 38 Visit Number 11 Number of SOLID PLASTERER Visits 2 Evaluation Information Evaluation Date 07/06/22 PT-OP-B Current Condition Start: 07/06/22 16:37 Freq: Status: Active Protocol: Document 07/06/22 12:00 DCW (Rec: 07/07/22 09:33 DCW [id number]) Current Condition History of Current Condition Onset Date Multi-year history Current Complaints General imbalance and difficulty with ambulation, falls History of Current Condition Pt is an 82 year old female presenting with a multi-year history of worsening balance, history of falling. Notes she walks around her house without support, but uses ochoa for stability. When out community ambulating, pt holds onto her for stability. Admits she has used a cane in the past, but feels like it makes her even less stable. Her worst fall was last winter, she was walking in a store, pushing a cart, and then tripped on the wheel and hit her head, resulting in a head laceration. Notes she has had multiple other falls, but no related injuries. Experiencing some numbness in her feet, but her neurologist does not thing it is neuropathy, and pt is scheduled for an EMG on . Notes that she has been ambulating with her knees slightly flexed for a number of years, she has received PT in the past which has helped her walking, but it just eventually goes back. Treatment Goals Patient/Caregiver Goals Improve balance, reduce falls PT-OP-C Subjective Start: 07/06/22 16:37 Freq: Status: Active Protocol: Document 08/10/22 13:54 SP (Rec: 08/10/22 14:36 SP [id number]) OP-PT Subjective Patient Comments Patient Comments Pt stated was able to do 10 reps STS with arms in front, notices some L>R knee discomfort. PT-OP-D Balance Start: 07/06/22 16:37 Freq: Status: Active Protocol: Document 07/06/22 12:00 DCW (Rec: 07/06/22 16:45 DCW [id number]) OP-PT Balance Assessment Sitting Balance Static Sitting Balance Ability Normal Dynamic Sitting Balance Ability Normal Standing Balance Static Standing Balance Ability Fair Dynamic Standing Balance Ability Fair Device Used None Balance Tests Sosa Balance Test Sosa Balance Test Score 36/56 Sosa Impairment Rating 20 to 39% Impaired (Score 34- 44) Sosa Balance Assessment Evaluation Sitting to Standing Ability Independent w/Hands Unsupported Stance Safely- 2 minutes Sitting Unsupported, Feet on Floor Safely- 2 minutes Standing to Sitting Ability Safely, Minimal Hand Use Transfer Ability Safely, Hand Use Unsupported Stance- Eyes Closed Supervision, 10 seconds Unsupported Stance- Eyes Open Supervision to maintain Reaching Forward Standing Safely, 5 inches Pick- Up Object From Floor Supervision Look Behind Shoulder - Standing Turns Sideways Only Turning 360 Degrees Turns slowly, but safely Unsupported Stance, Alternating Feet on Assist to Prevent Fall Stair Unsupported Tandem Stance Assist to Step-15 seconds Unilateral Leg Stance Lifts Leg/Unable to Hold Total Score Sosa Total Score (out of 56 points) 36 Sosa Impairment Rating 20 to 39% Impaired (Score 34- 44) Chiu Fall Scale Copyright Permission PT-OP-E Functional Tests Start: 07/06/22 16:37 Freq: Status: Active Protocol: Document 08/03/22 09:45 DCW (Rec: 08/03/22 10:30 DCW [id number]) Functional Tests Dynamic Gait Index (DGI) Score 19/24 DGI Impairment Rating 20 to <40% Impaired (Score 15- 19) Timed Up and Go (TUG) Score 13.64 Comments Three-trial average (15.16, 13.39, 12.36) TUG Impairment Rating 40 to <60% Impaired (Score 14- 15) PT-OP-G Mobility & Gait Start: 07/06/22 16:37 Freq: Status: Active Protocol: Document 07/06/22 12:00 DCW (Rec: 07/06/22 16:45 DCW [id number]) OP Gait Assessment Gait Gait Assistance Required: Independent Assistive Devices Assistive Device Gait Belt Gait Deviations General Gait Pattern Decreased Stride Length, Decreased Feet Clearance, Flexed Trunk Comments Gait Comments Pt has decreased heel strike with left foot, lands more flat-footed, swing phase demonstrates left circumduction. Ambulates with forward trunk lean and bilateral knee flexion in standing. Stair Climbing Evaluation Devices Stair Climbing Assistive Devices Left Railing,Right Railing Technique/Endurance Stair Climbing Direction Ascend and Descend Stair Climbing Technique Step Over Step Number of Steps Climbed 4 Stair Climbing Set # Repetitions (reps) 1 PT-OP-M Strength Start: 07/06/22 16:37 Freq: Status: Active Protocol: Document 07/06/22 12:00 DCW (Rec: 07/06/22 16:45 DCW [id number]) Hip Strength Hip Manual Muscle Testing Right Flexion (L2) 4 Good Extension (S1) 4+ Good+ Abduction 3 Fair Adduction 4- Good- External Rotation 3+ Fair+ Internal Rotation 4 Good Left Flexion (L2) 4- Good- Extension (S1) 4+ Good+ Abduction 3 Fair Adduction 4- Good- External Rotation 3+ Fair+ Internal Rotation 3+ Fair+ Knee Strength Knee Manual Muscle Testing Right Flexion (S2) 4+ Good+ Extension (L3) 4+ Good+ Left Flexion (S2) 4+ Good+ Extension (L3) 4+ Good+ Ankle/Foot Strength Ankle and Foot Manual Muscle Testing Right Dorsiflexion (L4) 4- Good- Plantarflexion (S1) 3+ Fair+ Inversion 4- Good- Eversion (S1) 4- Good- Left Dorsiflexion (L4) 3+ Fair+ Plantarflexion (S1) 3+ Fair+ Inversion 3+ Fair+ Eversion (S1) 3+ Fair+ PT-OP-Q Treatments Start: 07/06/22 16:37 Freq: Status: Active Protocol: Document 08/10/22 13:54 SP (Rec: 08/10/22 14:36 SP [id number]) Therapeutic Exercises Sitting Exercises hip abd Sitting Exercise Name deborah TB #1- HEP review Resistance TB #2 around thighs Reps/Minutes 5s x10 Comments changed from supine, states to hard getting band on leg supine STS Sitting Exercise Name reviewed HEP Equipment Used mesh chair, ball between BLEs Reps/Minutes x10 reps arms front, 3 reps on foam CGA-5%A last rep Comments cued hip hinge, glut fac squeeze, full stand quad and glut fac Standing Exercises step ups Standing Exercise Name initiated for LE strength Side bilateral Resistance 2# leg wt Equipment Used 6 step, SPC on R, near rail L prn contact, Min A Reps/Minutes RLE on SP Comments cued lateral knee shift neutral R>L for hip abd fac wall posture Standing Exercise Name added to HEP-no pec shld protaction recruitment Equipment Used good pain free Reps/Minutes 5 sec hold x5 Comments cued buttocks, mid back onwall , CS toward wall chin tuck add UE ext press Hip Abduction Standing Exercise Name Hip Abduction- HEP reviewed Side bilateral Resistance Yellow loop at mid sahu Equipment Used rail Reps/Minutes 3x10 (performs theses reps at home as well) Comments cued tall posture, quad fac extension Hip Extension Standing Exercise Name Hip Extension- HEP reviewed Side bilateral Resistance Yellow loop at mid sahu Equipment Used rail Reps/Minutes 2x10 Comments cued tall posture, quad fac extension Other Exercises Resisted Ambulation Other Exercise Name Side-stepping- reviewed HEP Resistance Yellow mid sahu Equipment Used contact rail RUE only Reps/Minutes 10 ft x4 laps Comments cued tall, hip abd fac kness apart, trail foot clearance Gait Training Gait Activity SPC Description postural training Device Used SPC Level of Assistance SBA Surface firm Distance/Duration 170 ft Treatment Focus posturing, APT, knee extension with mid stance Comments posture, hip abd and core fac- alot better post wall posture self corrections book on head' Self-Care/Home Management Treatment Education Patient Education Home Exercise Program,Posture Other Education initiated wall posture to HEP PT-OP-T Assessment and Plan Start: 07/06/22 16:37 Freq: Status: Active Protocol: Document 08/10/22 13:54 SP (Rec: 08/10/22 14:36 SP [id number]) Physical Therapy Assessment Goals Three Impairment Pt ambulates with bilateral knee flexion and a left flat foot strike Residential Goal (LTG) Pt to ambulate with an appropriate heel-toe gait pattern bilaterally with no circumduction of her foot during swing phase. LTG Duration 09/05/22 Two Impairment Pt presents with an increased falls risk Broadcast Transmitter Operator Goal (LTG) Pt to improve DGI score by at least 5 points to 20/24 and her Sosa score by at least 9 points to 45/56 in order to demonstrate a reduced falls risk. LTG Duration 09/05/22 Improving (08/03/22 - DGI ) One Impairment Pt does not have an appropriate home exercise program Short Term Goal (STG) Pt to be independent and compliant with an appropriate HEP STG Duration 08/06/22 Assessment Summary Assessment Pt improved postural elevation and anterior tilt post wall posture education demonstrated decrease rounded posterior lean during gait w/ SPC. Pt challenged by steps ups, only occasional contact rail on L with SPC support on R. Physical Therapy Plan Frequency and Duration Frequency of Treatment 2x/Week Duration of Treatment Two months Plan of Care Start Date 07/06/22 Plan of Care End Date 09/05/22 Therapeutic Interventions Therapeutic Interventions Aquatic Therapy,Balance Training,Gait Training,Home Exercise Program,Joint Mobilizations,Manual Therapy, Neuromuscular Re-education, Patient/Caregiver Education, Self-Care/Home Management,Soft Tissue Mobilization, Therapeutic Activities, Therapeutic Exercises Next Visit Focus/Plan Next Note Type Treatment Note Next Visit Plan Retape med L knee or patella stabilization as needed. Review HEP: STS, 4 way ankle, band walk, wall posture. POC: LE strengthening, gait trng, balance challenges (add and give HOs for home carryover), increase gait quality and endurance to return to walks outside (her goal).
--- NOTE | 2022-08-25 11:59 | PT.OTN ---
Current Diagnoses Muscle weakness (generalized) (08/25/22) Unspecified abnormalities of gait and mobility (08/25/22) History of falling (08/25/22) Physical Therapy Treatment Note PT-OP-A Visit Information Start: 07/06/22 16:37 Freq: Status: Active Protocol: Document 08/25/22 11:20 DCW (Rec: 08/25/22 11:58 DCW [id number]) Out-Patient Physical Therapy Visit Information Visit Information Visit Type Treatment Note Visit Note 01/28 Visit Start Time 11:20 Visit Stop Time 12:00 Total Visit Minutes 40 Visit Number 12 Number of PATTERN DUPLICATOR Visits 0 Evaluation Information Evaluation Date 07/06/22 PT-OP-B Current Condition Start: 07/06/22 16:37 Freq: Status: Active Protocol: Document 07/06/22 12:00 DCW (Rec: 07/07/22 09:33 DCW [id number]) Current Condition History of Current Condition Onset Date Multi-year history Current Complaints General imbalance and difficulty with ambulation, falls History of Current Condition Pt is an 82 year old female presenting with a multi-year history of worsening balance, history of falling. Notes she walks around her house without support, but uses ochoa for stability. When out community ambulating, pt holds onto her for stability. Admits she has used a cane in the past, but feels like it makes her even less stable. Her worst fall was last winter, she was walking in a store, pushing a cart, and then tripped on the wheel and hit her head, resulting in a head laceration. Notes she has had multiple other falls, but no related injuries. Experiencing some numbness in her feet, but her neurologist does not thing it is neuropathy, and pt is scheduled for an EMG on . Notes that she has been ambulating with her knees slightly flexed for a number of years, she has received PT in the past which has helped her walking, but it just eventually goes back. Treatment Goals Patient/Caregiver Goals Improve balance, reduce falls PT-OP-C Subjective Start: 07/06/22 16:37 Freq: Status: Active Protocol: Document 08/25/22 11:20 DCW (Rec: 08/25/22 11:58 DCW [id number]) OP-PT Subjective Patient Comments Patient Comments I'm feeling pretty good. I've been doing my exercises religiously, and I've been walking. PT-OP-D Balance Start: 07/06/22 16:37 Freq: Status: Active Protocol: Document 07/06/22 12:00 DCW (Rec: 07/06/22 16:45 DCW [id number]) OP-PT Balance Assessment Sitting Balance Static Sitting Balance Ability Normal Dynamic Sitting Balance Ability Normal Standing Balance Static Standing Balance Ability Fair Dynamic Standing Balance Ability Fair Device Used None Balance Tests Sosa Balance Test Sosa Balance Test Score 36/56 Sosa Impairment Rating 20 to 39% Impaired (Score 34- 44) Sosa Balance Assessment Evaluation Sitting to Standing Ability Independent w/Hands Unsupported Stance Safely- 2 minutes Sitting Unsupported, Feet on Floor Safely- 2 minutes Standing to Sitting Ability Safely, Minimal Hand Use Transfer Ability Safely, Hand Use Unsupported Stance- Eyes Closed Supervision, 10 seconds Unsupported Stance- Eyes Open Supervision to maintain Reaching Forward Standing Safely, 5 inches Pick- Up Object From Floor Supervision Look Behind Shoulder - Standing Turns Sideways Only Turning 360 Degrees Turns slowly, but safely Unsupported Stance, Alternating Feet on Assist to Prevent Fall Stair Unsupported Tandem Stance Assist to Step-15 seconds Unilateral Leg Stance Lifts Leg/Unable to Hold Total Score Sosa Total Score (out of 56 points) 36 Sosa Impairment Rating 20 to 39% Impaired (Score 34- 44) Chiu Fall Scale Copyright Permission PT-OP-E Functional Tests Start: 07/06/22 16:37 Freq: Status: Active Protocol: Document 08/03/22 09:45 DCW (Rec: 08/03/22 10:30 DCW [id number]) Functional Tests Dynamic Gait Index (DGI) Score 19/24 DGI Impairment Rating 20 to <40% Impaired (Score 15- 19) Timed Up and Go (TUG) Score 13.64 Comments Three-trial average (15.16, 13.39, 12.36) TUG Impairment Rating 40 to <60% Impaired (Score 14- 15) PT-OP-G Mobility & Gait Start: 07/06/22 16:37 Freq: Status: Active Protocol: Document 07/06/22 12:00 DCW (Rec: 07/06/22 16:45 DCW [id number]) OP Gait Assessment Gait Gait Assistance Required: Independent Assistive Devices Assistive Device Gait Belt Gait Deviations General Gait Pattern Decreased Stride Length, Decreased Feet Clearance, Flexed Trunk Comments Gait Comments Pt has decreased heel strike with left foot, lands more flat-footed, swing phase demonstrates left circumduction. Ambulates with forward trunk lean and bilateral knee flexion in standing. Stair Climbing Evaluation Devices Stair Climbing Assistive Devices Left Railing,Right Railing Technique/Endurance Stair Climbing Direction Ascend and Descend Stair Climbing Technique Step Over Step Number of Steps Climbed 4 Stair Climbing Set # Repetitions (reps) 1 PT-OP-M Strength Start: 07/06/22 16:37 Freq: Status: Active Protocol: Document 07/06/22 12:00 DCW (Rec: 07/06/22 16:45 DCW [id number]) Hip Strength Hip Manual Muscle Testing Right Flexion (L2) 4 Good Extension (S1) 4+ Good+ Abduction 3 Fair Adduction 4- Good- External Rotation 3+ Fair+ Internal Rotation 4 Good Left Flexion (L2) 4- Good- Extension (S1) 4+ Good+ Abduction 3 Fair Adduction 4- Good- External Rotation 3+ Fair+ Internal Rotation 3+ Fair+ Knee Strength Knee Manual Muscle Testing Right Flexion (S2) 4+ Good+ Extension (L3) 4+ Good+ Left Flexion (S2) 4+ Good+ Extension (L3) 4+ Good+ Ankle/Foot Strength Ankle and Foot Manual Muscle Testing Right Dorsiflexion (L4) 4- Good- Plantarflexion (S1) 3+ Fair+ Inversion 4- Good- Eversion (S1) 4- Good- Left Dorsiflexion (L4) 3+ Fair+ Plantarflexion (S1) 3+ Fair+ Inversion 3+ Fair+ Eversion (S1) 3+ Fair+ PT-OP-Q Treatments Start: 07/06/22 16:37 Freq: Status: Active Protocol: Document 08/25/22 11:20 DCW (Rec: 08/25/22 11:58 DCW [id number]) Cardio Equipment Recumbent Elliptical (Biodex) Duration (Minutes) 5 Resistance 5 Seat Position 10 Other LE only Gym Equipment Shuttle Recovery Unilateral Squats Details No L knee pain Resistance 50# Shuttle Recovery Platform Stable Reps/Time x20 each Bilateral Squats Details good alignment Resistance 87# Shuttle Recovery Platform Stable Reps/Time x25 reps Therapeutic Exercises Standing Exercises step ups Standing Exercise Name initiated for LE strength Resistance 2# leg wt Equipment Used 6 step Comments x15 R rail, x15 no rail Hip Abduction Standing Exercise Name Hip Abduction- HEP reviewed Side bilateral Resistance Yellow loop (increase next) Equipment Used rail Reps/Minutes 2x15 Hip Extension Standing Exercise Name Hip Extension- HEP reviewed Side bilateral Resistance Yellow loop (increase next) Equipment Used rail Reps/Minutes 2x15 Neuro Re-Education Treatment Balance Activities SLS Details SLS Surface Blue foam Equipment // bars Foam stance Details Semi-tandem, Head turns Surface Blue Foam Tandem Stance Details Tandem Stance Equipment @ rail PT-OP-T Assessment and Plan Start: 07/06/22 16:37 Freq: Status: Active Protocol: Document 08/25/22 11:20 DCW (Rec: 08/25/22 11:58 DCW [id number]) Physical Therapy Assessment Impairments Impairments Activity Tolerance,Balance, Coordination,Functional Activities,Functional Mobility ,Gait,Sensation,Strength Goals Three Impairment Pt ambulates with bilateral knee flexion and a left flat foot strike Correction Goal (LTG) Pt to ambulate with an appropriate heel-toe gait pattern bilaterally with no circumduction of her foot during swing phase. LTG Duration 09/05/22 Two Impairment Pt presents with an increased falls risk Correction Goal (LTG) Pt to improve DGI score by at least 5 points to 20/24 and her Sosa score by at least 9 points to 45/56 in order to demonstrate a reduced falls risk. LTG Duration 09/05/22 Improving (08/03/22 - DGI 19/24) One Impairment Pt does not have an appropriate home exercise program Short Term Goal (STG) Pt to be independent and compliant with an appropriate HEP STG Duration 08/06/22 Assessment Summary Assessment Pt showing very good progress with strength and balance. Improved ability to participate in LE strengthening, especially on leg press, with no complaints of left knee pain, which was limiting previously. Physical Therapy Plan Frequency and Duration Frequency of Treatment 2x/Week Plan of Care Start Date 07/06/22 Plan of Care End Date 09/05/22 Therapeutic Interventions Therapeutic Interventions Aquatic Therapy,Balance Training,Gait Training,Home Exercise Program,Joint Mobilizations,Manual Therapy, Neuromuscular Re-education, Patient/Caregiver Education, Self-Care/Home Management,Soft Tissue Mobilization, Therapeutic Activities, Therapeutic Exercises Next Visit Focus/Plan Next Note Type Treatment Note Next Visit Plan Review HEP: STS, 4 way ankle, band walk, wall posture. POC: LE strengthening, gait trng, balance challenges (add and give HOs for home carryover), increase gait quality and endurance to return to walks outside (her goal).
--- NOTE | 2022-09-01 11:17 | PT.OTN ---
Current Diagnoses Muscle weakness (generalized) (09/01/22) Unspecified abnormalities of gait and mobility (09/01/22) History of falling (09/01/22) Physical Therapy Treatment Note PT-OP-A Visit Information Start: 07/06/22 16:37 Freq: Status: Active Protocol: Document 09/01/22 10:33 SP (Rec: 09/01/22 11:32 SP [id number]) Out-Patient Physical Therapy Visit Information Visit Information Visit Type Treatment Note Visit Note 02/28 Visit Start Time 10:33 Visit Stop Time 11:17 Total Visit Minutes 45 Visit Number 13 Number of INSTRUCTOR BRIDGE Visits 1 Evaluation Information Evaluation Date 07/06/22 PT-OP-B Current Condition Start: 07/06/22 16:37 Freq: Status: Active Protocol: Document 07/06/22 12:00 DCW (Rec: 07/07/22 09:33 DCW [id number]) Current Condition History of Current Condition Onset Date Multi-year history Current Complaints General imbalance and difficulty with ambulation, falls History of Current Condition Pt is an 82 year old female presenting with a multi-year history of worsening balance, history of falling. Notes she walks around her house without support, but uses ochoa for stability. When out community ambulating, pt holds onto her for stability. Admits she has used a cane in the past, but feels like it makes her even less stable. Her worst fall was last winter, she was walking in a store, pushing a cart, and then tripped on the wheel and hit her head, resulting in a head laceration. Notes she has had multiple other falls, but no related injuries. Experiencing some numbness in her feet, but her neurologist does not thing it is neuropathy, and pt is scheduled for an EMG on . Notes that she has been ambulating with her knees slightly flexed for a number of years, she has received PT in the past which has helped her walking, but it just eventually goes back. Treatment Goals Patient/Caregiver Goals Improve balance, reduce falls PT-OP-C Subjective Start: 07/06/22 16:37 Freq: Status: Active Protocol: Document 09/01/22 10:33 SP (Rec: 09/01/22 11:32 SP [id number]) OP-PT Subjective Patient Comments Patient Comments I am able to walk about 1 mile around house through day now, counting steps. PT-OP-D Balance Start: 07/06/22 16:37 Freq: Status: Active Protocol: Document 07/06/22 12:00 DCW (Rec: 07/06/22 16:45 DCW [id number]) OP-PT Balance Assessment Sitting Balance Static Sitting Balance Ability Normal Dynamic Sitting Balance Ability Normal Standing Balance Static Standing Balance Ability Fair Dynamic Standing Balance Ability Fair Device Used None Balance Tests Sosa Balance Test Sosa Balance Test Score 36/56 Sosa Impairment Rating 20 to 39% Impaired (Score 34- 44) Sosa Balance Assessment Evaluation Sitting to Standing Ability Independent w/Hands Unsupported Stance Safely- 2 minutes Sitting Unsupported, Feet on Floor Safely- 2 minutes Standing to Sitting Ability Safely, Minimal Hand Use Transfer Ability Safely, Hand Use Unsupported Stance- Eyes Closed Supervision, 10 seconds Unsupported Stance- Eyes Open Supervision to maintain Reaching Forward Standing Safely, 5 inches Pick- Up Object From Floor Supervision Look Behind Shoulder - Standing Turns Sideways Only Turning 360 Degrees Turns slowly, but safely Unsupported Stance, Alternating Feet on Assist to Prevent Fall Stair Unsupported Tandem Stance Assist to Step-15 seconds Unilateral Leg Stance Lifts Leg/Unable to Hold Total Score Sosa Total Score (out of 56 points) 36 Sosa Impairment Rating 20 to 39% Impaired (Score 34- 44) Chiu Fall Scale Copyright Permission PT-OP-E Functional Tests Start: 07/06/22 16:37 Freq: Status: Active Protocol: Document 08/03/22 09:45 DCW (Rec: 08/03/22 10:30 DCW [id number]) Functional Tests Dynamic Gait Index (DGI) Score 19/24 DGI Impairment Rating 20 to <40% Impaired (Score 15- 19) Timed Up and Go (TUG) Score 13.64 Comments Three-trial average (15.16, 13.39, 12.36) TUG Impairment Rating 40 to <60% Impaired (Score 14- 15) PT-OP-G Mobility & Gait Start: 07/06/22 16:37 Freq: Status: Active Protocol: Document 07/06/22 12:00 DCW (Rec: 07/06/22 16:45 DCW [id number]) OP Gait Assessment Gait Gait Assistance Required: Independent Assistive Devices Assistive Device Gait Belt Gait Deviations General Gait Pattern Decreased Stride Length, Decreased Feet Clearance, Flexed Trunk Comments Gait Comments Pt has decreased heel strike with left foot, lands more flat-footed, swing phase demonstrates left circumduction. Ambulates with forward trunk lean and bilateral knee flexion in standing. Stair Climbing Evaluation Devices Stair Climbing Assistive Devices Left Railing,Right Railing Technique/Endurance Stair Climbing Direction Ascend and Descend Stair Climbing Technique Step Over Step Number of Steps Climbed 4 Stair Climbing Set # Repetitions (reps) 1 PT-OP-M Strength Start: 07/06/22 16:37 Freq: Status: Active Protocol: Document 07/06/22 12:00 DCW (Rec: 07/06/22 16:45 DCW [id number]) Hip Strength Hip Manual Muscle Testing Right Flexion (L2) 4 Good Extension (S1) 4+ Good+ Abduction 3 Fair Adduction 4- Good- External Rotation 3+ Fair+ Internal Rotation 4 Good Left Flexion (L2) 4- Good- Extension (S1) 4+ Good+ Abduction 3 Fair Adduction 4- Good- External Rotation 3+ Fair+ Internal Rotation 3+ Fair+ Knee Strength Knee Manual Muscle Testing Right Flexion (S2) 4+ Good+ Extension (L3) 4+ Good+ Left Flexion (S2) 4+ Good+ Extension (L3) 4+ Good+ Ankle/Foot Strength Ankle and Foot Manual Muscle Testing Right Dorsiflexion (L4) 4- Good- Plantarflexion (S1) 3+ Fair+ Inversion 4- Good- Eversion (S1) 4- Good- Left Dorsiflexion (L4) 3+ Fair+ Plantarflexion (S1) 3+ Fair+ Inversion 3+ Fair+ Eversion (S1) 3+ Fair+ PT-OP-Q Treatments Start: 07/06/22 16:37 Freq: Status: Active Protocol: Document 09/01/22 10:33 SP (Rec: 09/01/22 11:32 SP [id number]) Cardio Equipment Recumbent Elliptical (Biodex) Duration (Minutes) 6 Resistance 5 Seat Position 9 Other LE only Therapeutic Exercises Sidelying Exercises clamshell Sidelying Exercise Name added to HEP Side bilateral Resistance TB #1 loop around knees Reps/Minutes 3-5 s hold x5, 2 sets Comments cued stacked alignment hip abd Sidelying Exercise Name unable lift high 10/12 Sitting Exercises STS Sitting Exercise Name reviewed HEP- arms front Equipment Used mesh chair, blue marble ball between BLEs Reps/Minutes 3 reps in 24s after already 8 reps Comments cued hip hinge, glut fac squeeze, full stand quad and glut fac Standing Exercises step ups Standing Exercise Name added to HEP: LE strength Resistance 2# leg wt Equipment Used 6 step (bottom step), lateral hand-flight contact rail Reps/Minutes 5 reps x2 sets each side alternating sets Comments cued buttock and quad squeeze into full stand Hip Abduction Standing Exercise Name Hip Abduction- HEP reviewed Side bilateral Resistance Yellow loop Equipment Used rail Reps/Minutes 2x15 Comments tires with TB #1, max cues for knee extension with hip mobility Hip Extension Standing Exercise Name Hip Extension- HEP reviewed Side bilateral Resistance Yellow loop Equipment Used rail Reps/Minutes 2x15 Comments tires with TB #1, max cues for knee extension with hip mobility Other Exercises Resisted Ambulation Other Exercise Name Side-stepping- reviewed HEP Resistance Yellow mid sahu Equipment Used no contact needed 09/01 Reps/Minutes 10 ft x4 laps Comments cued tall, hip abd fac kness apart, trail foot clearance PT-OP-T Assessment and Plan Start: 07/06/22 16:37 Freq: Status: Active Protocol: Document 09/01/22 10:33 SP (Rec: 09/01/22 11:32 SP [id number]) Physical Therapy Assessment Impairments Impairments Activity Tolerance,Balance, Coordination,Functional Activities,Functional Mobility ,Gait,Sensation,Strength Goals Three Impairment Pt ambulates with bilateral knee flexion and a left flat foot strike Shelter Goal (LTG) Pt to ambulate with an appropriate heel-toe gait pattern bilaterally with no circumduction of her foot during swing phase. LTG Duration 09/05/22 Two Impairment Pt presents with an increased falls risk Shelter Goal (LTG) Pt to improve DGI score by at least 5 points to 20/24 and her Sosa score by at least 9 points to 45/56 in order to demonstrate a reduced falls risk. LTG Duration 09/05/22 Improving (08/03/22 - DGI ) One Impairment Pt does not have an appropriate home exercise program Short Term Goal (STG) Pt to be independent and compliant with an appropriate HEP STG Duration 08/06/22 Assessment Summary Assessment Pt responded well to added resisted clamshell to sidelying HEP holds, tires quickly after 2-3 reps but good effort work compared to seated. Improved knee and hip extension posterior chain facilitation into full stand buttocks squeeze during steps ups. Pt stated will add these at home to progress strength. Physical Therapy Plan Frequency and Duration Frequency of Treatment 2x/Week Plan of Care Start Date 07/06/22 Plan of Care End Date 09/05/22 Therapeutic Interventions Therapeutic Interventions Aquatic Therapy,Balance Training,Gait Training,Home Exercise Program,Joint Mobilizations,Manual Therapy, Neuromuscular Re-education, Patient/Caregiver Education, Self-Care/Home Management,Soft Tissue Mobilization, Therapeutic Activities, Therapeutic Exercises Next Visit Focus/Plan Next Note Type Progress Note Next Visit Plan recheck clamshell and step ups added for home. POC: LE strengthening, gait trng, balance challenges (add and give HOs for home carryover), increase gait quality and endurance to return to walks outside (her goal).
--- NOTE | 2022-09-06 17:42 | PT.OPDS ---
Current Diagnoses Muscle weakness (generalized) (09/01/22) Unspecified abnormalities of gait and mobility (09/01/22) History of falling (09/01/22) Visit Care Team Role Provider Type Nicolas Barrios MD Attending Provider Physician Family Provider Primary Care Provider Referring Provider Specialty: Internal Medicine Address: [address] [place] [address], [id number] Email: Visit Number Visit Number 13 Discharge Summary PT-OP-B Current Condition Start: 07/06/22 16:37 Freq: Status: Active Protocol: Document 07/06/22 12:00 DCW (Rec: 07/07/22 09:33 DCW [id number]) Current Condition History of Current Condition Onset Date Multi-year history Current Complaints General imbalance and difficulty with ambulation, falls History of Current Condition Pt is an 82 year old female presenting with a multi-year history of worsening balance, history of falling. Notes she walks around her house without support, but uses ochoa for stability. When out community ambulating, pt holds onto her for stability. Admits she has used a cane in the past, but feels like it makes her even less stable. Her worst fall was last winter, she was walking in a store, pushing a cart, and then tripped on the wheel and hit her head, resulting in a head laceration. Notes she has had multiple other falls, but no related injuries. Experiencing some numbness in her feet, but her neurologist does not thing it is neuropathy, and pt is scheduled for an EMG on . Notes that she has been ambulating with her knees slightly flexed for a number of years, she has received PT in the past which has helped her walking, but it just eventually goes back. Treatment Goals Patient/Caregiver Goals Improve balance, reduce falls PT-OP-C Subjective Start: 07/06/22 16:37 Freq: Status: Active Protocol: Document 09/01/22 10:33 SP (Rec: 09/01/22 11:32 SP [id number]) OP-PT Subjective Patient Comments Patient Comments I am able to walk about 1 mile around house through day now, counting steps. PT-OP-D Balance Start: 07/06/22 16:37 Freq: Status: Active Protocol: Document 07/06/22 12:00 DCW (Rec: 07/06/22 16:45 DCW [id number]) OP-PT Balance Assessment Sitting Balance Static Sitting Balance Ability Normal Dynamic Sitting Balance Ability Normal Standing Balance Static Standing Balance Ability Fair Dynamic Standing Balance Ability Fair Device Used None Balance Tests Sosa Balance Test Sosa Balance Test Score 36/56 Sosa Impairment Rating 20 to 39% Impaired (Score 34- 44) Sosa Balance Assessment Evaluation Sitting to Standing Ability Independent w/Hands Unsupported Stance Safely- 2 minutes Sitting Unsupported, Feet on Floor Safely- 2 minutes Standing to Sitting Ability Safely, Minimal Hand Use Transfer Ability Safely, Hand Use Unsupported Stance- Eyes Closed Supervision, 10 seconds Unsupported Stance- Eyes Open Supervision to maintain Reaching Forward Standing Safely, 5 inches Pick- Up Object From Floor Supervision Look Behind Shoulder - Standing Turns Sideways Only Turning 360 Degrees Turns slowly, but safely Unsupported Stance, Alternating Feet on Assist to Prevent Fall Stair Unsupported Tandem Stance Assist to Step-15 seconds Unilateral Leg Stance Lifts Leg/Unable to Hold Total Score Sosa Total Score (out of 56 points) 36 Sosa Impairment Rating 20 to 39% Impaired (Score 34- 44) Chiu Fall Scale Copyright Permission PT-OP-E Functional Tests Start: 07/06/22 16:37 Freq: Status: Active Protocol: Document 08/03/22 09:45 DCW (Rec: 08/03/22 10:30 CTW [id number]) Functional Tests Dynamic Gait Index (DGI) Score 19/24 DGI Impairment Rating 20 to <40% Impaired (Score 15- 19) Timed Up and Go (TUG) Score 13.64 Comments Three-trial average (15.16, 13.39, 12.36) TUG Impairment Rating 40 to <60% Impaired (Score 14- 15) PT-OP-G Mobility & Gait Start: 07/06/22 16:37 Freq: Status: Active Protocol: Document 07/06/22 12:00 DCW (Rec: 07/06/22 16:45 DCW [id number]) OP Gait Assessment Gait Gait Assistance Required: Independent Assistive Devices Assistive Device Gait Belt Gait Deviations General Gait Pattern Decreased Stride Length, Decreased Feet Clearance, Flexed Trunk Comments Gait Comments Pt has decreased heel strike with left foot, lands more flat-footed, swing phase demonstrates left circumduction. Ambulates with forward trunk lean and bilateral knee flexion in standing. Stair Climbing Evaluation Devices Stair Climbing Assistive Devices Left Railing,Right Railing Technique/Endurance Stair Climbing Direction Ascend and Descend Stair Climbing Technique Step Over Step Number of Steps Climbed 4 Stair Climbing Set # Repetitions (reps) 1 PT-OP-M Strength Start: 07/06/22 16:37 Freq: Status: Active Protocol: Document 07/06/22 12:00 DCW (Rec: 07/06/22 16:45 DCW [id number]) Hip Strength Hip Manual Muscle Testing Right Flexion (L2) 4 Good Extension (S1) 4+ Good+ Abduction 3 Fair Adduction 4- Good- External Rotation 3+ Fair+ Internal Rotation 4 Good Left Flexion (L2) 4- Good- Extension (S1) 4+ Good+ Abduction 3 Fair Adduction 4- Good- External Rotation 3+ Fair+ Internal Rotation 3+ Fair+ Knee Strength Knee Manual Muscle Testing Right Flexion (S2) 4+ Good+ Extension (L3) 4+ Good+ Left Flexion (S2) 4+ Good+ Extension (L3) 4+ Good+ Ankle/Foot Strength Ankle and Foot Manual Muscle Testing Right Dorsiflexion (L4) 4- Good- Plantarflexion (S1) 3+ Fair+ Inversion 4- Good- Eversion (S1) 4- Good- Left Dorsiflexion (L4) 3+ Fair+ Plantarflexion (S1) 3+ Fair+ Inversion 3+ Fair+ Eversion (S1) 3+ Fair+ PT-OP-T Assessment and Plan Start: 07/06/22 16:37 Freq: Status: Active Protocol: Document 09/06/22 17:40 DCW (Rec: 09/06/22 17:41 DCW [id number]) Physical Therapy Assessment Assessment Summary Assessment Pt phoned clinic to offer thanks for her improvement, is happy with her current level of function, and reports she will be working hard on her HEP, however unfortunately requests discharge due to unforeseen pressing medical issues in her family, she feels she will no longer be able to attend her PT sessions . Physical Therapy Plan Discharge Physical Therapy Discharge Reasons Patient Request
== END 2022-09-07 12:25 | disposition home or self-care (01) ==
LOC: PHYS 10:30
PROVIDERS: Family Provider Internal Medicine; PCP Internal Medicine; Referring Provider Internal Medicine; Visit Provider Internal Medicine
DX: R26.9 Unspecified abnormalities of gait and mobility (principal); Z91.81 History of falling; M62.81 Muscle weakness (generalized)
CPT/HCPCS: 97110; 97112; 97116; 97140; 97162; 97535

== ENCOUNTER → 2022-09-06 10:42 | Outpatient (CLI) | payer MEDICARE, SELFPAY ==
[2020-11-19 17:24] VITALS: BMI 20.8
[2022-09-06 12:43] LABS: Alanine Aminotransferase 19 IU/L (<35); Albumin 4.1 g/dL (3.5-5.0); Albumin Globulin Ratio 1.6 (1.0-2.8); Alkaline Phosphatase 52 U/L (38-126); Aspartate Aminotransferase 31 IU/L (14-36); BUN Creatinine Ratio 13.8 (6-22); Bilirubin Total 0.7 mg/dL (0.2-1.3); Blood Urea Nitrogen 9 mg/dL (7-17); Calcium 10.1 mg/dL (8.4-10.2); Carbon Dioxide 30 mmol/L (22-32); Chloride 100 mmol/L (98-107); Cholesterol 117 mg/dL (140-199); Estimated Glomerular Filt Rate > 60 mL/min (>60); Globulin 2.6 g/dL (1.7-4.1); Glucose 94 mg/dL (80-110); HDL Cholesterol 54 mg/dL (40-60); HEMOLYSIS < 15 (0-50); LDL Cholesterol Calculated 49 mg/dL (<100); Potassium 3.8 mmol/L (3.4-5.1); Sodium 139 mmol/L (137-145); Total Protein 6.7 g/dL (6.3-8.2); Triglycerides 69 mg/dL (35-150)
== END ==
PROVIDERS: Specialist; Family Provider Internal Medicine; PCP Internal Medicine; Referring Provider Physician Assistant Medical; Visit Provider Physician Assistant Medical
DX: E78.5 Hyperlipidemia, unspecified (principal)
CPT/HCPCS: 36415; 80053; 80061

== ENCOUNTER → 2022-09-14 10:45 | Outpatient (CLI) | payer MEDICARE, SELFPAY ==
[2020-11-19 17:24] VITALS: BMI 20.8
--- NOTE | 2022-09-14 10:48 | DI.CT.S_ITS ---
PROCEDURE: CT CHEST W CON INDICATIONS: Thoracic aortic aneurysm, without rupture TECHNIQUE: After the administration of intravenous contrast, 5 mm thick sections acquired from the pulmonary apices to the posterior costophrenic angles. 1 mm axial lung, 5 mm thick coronal and sagittal reformats and 7 mm axial MIP were acquired. For radiation dose reduction, the following was used: automated exposure control, adjustment of mA and/or kV according to patient size. COMPARISON: [facility], CT, CT ABDOMEN PELVIS W CON, 05/23/2018, 9:29. [facility], CR, CHEST 1 VIEW, 11/28/2015, 21:52. FINDINGS: Image quality: Excellent. Lungs and pleura: No acute air space opacities. No pleural effusions or pneumothorax. Central and peripheral airways are patent and normal in caliber. Lungs are hyperinflated suggestive of COPD. Mediastinum: Heart size is enlarged. No pericardial effusion. No mediastinal or hilar adenopathy by size criteria. The ascending thoracic aorta is enlarged measuring 4.6 x 4.5 cm. No priors are available for comparison. It remains mildly enlarged level the aortic root measuring 3.3 cm. Esophagus is normal in caliber. No hiatal hernia. Bones and chest wall: No suspicious bony lesions. No vertebral body compression fractures. No axillary or supraclavicular adenopathy by size criteria. Thyroid gland is unremarkable . Abdomen: Punctate low-attenuation focus is present in the right hepatic dome. It is unchanged. Visualized upper abdominal solid organs appear normal. Upper abdominal bowel loops are normal in caliber. IMPRESSION: Marked aneurysmal dilation of the ascending thoracic aorta as above. Cardiomegaly. Punctate low-attenuation focus within the hepatic dome too small to definitively characterize. This could represent a simple cyst or potentially hemangioma. It is unchanged since 2018. Dictated by: Marta Mccarty M.D. on 09/14/2022 at 13:09 Approved by: Marta Mccarty M.D. on 09/14/2022 at 13:44
== END ==
PROVIDERS: Family Provider Internal Medicine; PCP Internal Medicine; Referring Provider Specialist; Visit Provider Specialist
DX: I71.21 Aneurysm of the ascending aorta, without rupture (principal); I51.7 Cardiomegaly
CPT/HCPCS: 71260; Q9967

== ENCOUNTER → 2023-04-09 10:19 | Outpatient (CLI) | payer MEDICARE, SELFPAY ==
[2020-11-19 17:24] VITALS: BMI 20.8
--- NOTE | 2023-04-09 10:22 | DI.RAD.S_ITS ---
PROCEDURE: XR KNEE LT 3V INDICATIONS: LEFT KNEE PAIN TECHNIQUE: 3 views of the knee were acquired. COMPARISON: [facility], , KNEE 1-2 VIEWS LEFT, 09/04/2014, 11:12. FINDINGS: Bones: No fractures or dislocations. No suspicious bony lesions. Mild tricompartmental periarticular osteophyte formation. Soft tissues: No joint effusion. No suspicious soft tissue calcifications. IMPRESSION: Osteoarthritis. No acute fracture. No osseous lesion. If symptoms and/or clinical suspicion for pathology persist, further assessment with repeat, or advanced imaging (e.g., CT, MRI, or bone scan) may be helpful for further assessment. Dictated by: Luis M Schmidt M.D. on 04/09/2023 at 10:03 Approved by: Luis M Schmidt M.D. on 04/09/2023 at 10:04
--- NOTE | 2023-04-09 10:22 | DI.RAD.S_ITS ---
PROCEDURE: XR LUMBAR SPINE MIN 4V INDICATIONS: LBP TECHNIQUE: 5 views of the lumbar spine were acquired, including bilateral oblique views. COMPARISON: [facility], CR, XR LUMBAR SPINE 2-3V, 01/24/2020, 13:27. FINDINGS: Bones: 5 nonrib-bearing vertebrae are present. There is normal bony alignment. Posterior fusion and interbody device placement at L4-S1. Multilevel disc space narrowing and endplate osteophyte formation. No vertebral body compression fractures. No suspicious bony lesions. Soft tissues: Overlying bowel gas pattern is normal. No suspicious soft tissue calcifications. IMPRESSION: 1. Postsurgical sequelae. 2. Multilevel degenerative disc and facet disease. 3. No acute fracture. No osseous lesion. If symptoms and/or clinical suspicion for pathology persist, further assessment with repeat, or advanced imaging (e.g., CT, MRI, or bone scan) may be helpful for further assessment. Dictated by: Luis M Schmidt M.D. on 04/09/2023 at 10:33 Approved by: Luis M Schmidt M.D. on 04/09/2023 at 10:33
== END ==
PROVIDERS: Family Provider Internal Medicine; PCP Internal Medicine; Referring Provider Anesthesiology; Visit Provider Anesthesiology
DX: M19.90 Unspecified osteoarthritis, unspecified site (principal)
CPT/HCPCS: 72110; 73562

== ENCOUNTER → 2023-04-25 08:04 | Outpatient (CLI) | payer MEDICARE, SELFPAY ==
[2020-11-19 17:24] VITALS: BMI 20.8
--- NOTE | 2023-04-25 08:05 | DI.MRI.S_ITS ---
PROCEDURE: MR CERVICAL SPINE WO CON INDICATIONS: Ataxia, hyporeflexia TECHNIQUE: Noncontrast sagittal T1 spin echo and T2 fast spin echo, sagittal STIR, foraminal oblique sagittal T2 fast spin echo, and axial gradient echo or T2 fast spin echo through the cervical spine. COMPARISON: None. FINDINGS: Image quality: Excellent. Alignment and Curvature: There is 1 mm grade 1 retrolisthesis of C4 on C5. 2 mm grade 1 anterolisthesis of C4 on C4. 2 mm grade 1 anterolisthesis of C7 on T1 Bone Marrow: Marrow demonstrates normal overall signal. Metal artifact is seen at the sternum. Spinal Cord: Visualized spinal cord has normal size and signal. No cerebellar tonsillar herniation. Paraspinous Soft Tissues: No paravertebral masses. Prevertebral soft tissues are normal in thickness. C2-C3: Disc desiccation with mild posterior disc-osteophyte complex as well as bilateral uncovertebral joint and facet hypertrophy. Findings result and mild left and [id number] right neural foraminal narrowing without significant spinal canal stenosis. C3-C4: Grade 1 anterolisthesis as well as posterior disc-osteophyte complex and bilateral uncovertebral joint and facet hypertrophy. Findings result in severe left and mild right neural foraminal narrowing as well as mild narrowing of the spinal canal. C4-C5: Grade 1 retrolisthesis, disc desiccation and loss of disc space height, posterior disc-osteophyte complex, and bilateral uncovertebral joint and facet hypertrophy. Findings result in mild left and moderate to severe right neural foraminal narrowing and mild narrowing of the spinal canal. C5-C6: Disc desiccation and loss of disc space height with posterior disc-osteophyte complex and bilateral uncovertebral joint and facet hypertrophy. Findings result in moderate to severe narrowing of the bilateral neural foramina and mild to moderate narrowing of the spinal canal. C6-C7: Disc desiccation and loss of disc space height with posterior disc-osteophyte complex and bilateral uncovertebral joint and facet hypertrophy. Findings result in moderate left and moderate to severe right neural foraminal narrowing and mild narrowing of the spinal canal. C7-T1: Grade 1 anterolisthesis as well as disc desiccation and loss of disc space height and bilateral facet hypertrophy. Findings result in mild narrowing of the bilateral neural foramina without significant spinal canal stenosis. IMPRESSION: 1. Multilevel degenerative disc disease as well as uncovertebral joint hypertrophy and facet hypertrophy as described in detail in the body of the report. 2. Multifocal high-grade neural foraminal narrowing at C3-4 through C6-7. 3. Multilevel mild spinal canal narrowing. No high-grade spinal canal stenosis. Approved by: Troy Damon M.D. on 04/25/2023 at 11:53
--- NOTE | 2023-04-25 08:31 | DI.MRI.S_ITS ---
PROCEDURE: MR LUMBAR SPINE WO CON INDICATIONS: Ataxia, hyporeflexia TECHNIQUE: Noncontrast sagittal T1 spin echo and T2 fast echo, sagittal STIR, and T2 fast spin echo through the lumbar spine. In cases with scoliosis, additional coronal T2 fast spin echo may be performed. COMPARISON: [facility], MR, MR LUMBAR SPINE WO CON, 12/12/2019, 18:12. [facility], CR, XR LUMBAR SPINE MIN 4V, 04/09/2023, 10:27. FINDINGS: Image quality: Images are mildly degraded by expected metallic artifact related to the spinal fusion hardware despite utilization of metal artifact reduction sequences. Diagnostic information is obtained. Alignment and Curvature: There is mild levoconvex curvature of the lumbar spine as before. Previously seen anterolisthesis at L4-5 and L5-S1 appears decreased. Unchanged trace residual retrolisthesis at L1-2, L2-3, and L3-4. Bone Marrow: Postsurgical changes are at the L4-5 and L5-S1 levels with posterior fixation hardware including disc spacers, pedicle screws and interbody rods from L4 through S1. Marrow is of normal overall signal. No acute vertebral body compression fractures. Spinal Cord: Conus medullaris terminates at the L1 level. Visualized cord demonstrates normal signal and size. Paraspinous Soft Tissues: No paravertebral masses. Grade 2-3 fatty infiltration of the paraspinous musculature is noted. M4S-czkltqvuktah cysts are again seen in the kidneys bilaterally. Additional B5J-kiwblnethww lesions may represent hemorrhagic cysts. Degenerative changes are seen in the sacroiliac joints bilaterally. T12-L1: Disc desiccation with mild circumferential disc bulging and bilateral facet hypertrophy, which do not result in significant spinal canal stenosis or neural foraminal narrowing. L1-L2: Disc desiccation and loss of disc space height with trace retrolisthesis and circumferential disc bulging. Findings result in mild narrowing of the spinal canal and crowding of the right lateral recess as well as moderate right and mild left neural foraminal narrowing. L2-L3: Disc desiccation and loss of disc space height with trace retrolisthesis and mild circumferential disc bulging. Findings result in mild narrowing of the spinal canal with crowding of the right lateral recess as well as mild to moderate right and mild left neural foraminal narrowing. L3-L4: Disc desiccation and loss of disc space height with trace retrolisthesis and circumferential disc bulging as well as mild bilateral facet hypertrophy. Findings result in ryho-ik-ghqnorvf narrowing of the spinal canal, crowding of the bilateral lateral recesses, and mild right and moderate left neural foraminal narrowing. L4-L5: Postsurgical changes are seen with decompression of the spinal canal. Bilateral facet hypertrophy is noted. There is mild narrowing of the bilateral neural foramina without significant recurrent spinal canal stenosis. L5-S1: Postsurgical changes are seen with decompression of the spinal canal. Bilateral facet hypertrophy is noted. Mild to moderate narrowing of the bilateral neural foramina is seen without significant recurrent spinal canal stenosis. IMPRESSION: 1. Postsurgical changes at L4-5 and L5-S1 with decompression of the spinal canal. Mildly improved alignment is also seen with decreased narrowing of the neural foramina at the surgical levels. 2. Multilevel degenerative disc disease and facet hypertrophy as described in detail in the body of the report. Mild levoconvex curvature. 3. No high-grade spinal canal stenosis or neural foraminal narrowing. Approved by: Troy Damon M.D. on 04/25/2023 at 12:14
== END ==
PROVIDERS: Family Provider Internal Medicine; PCP Internal Medicine; Referring Provider Anesthesiology; Visit Provider Anesthesiology
DX: M50.31 Other cervical disc degeneration, high cervical region (principal); M47.816 Spondylosis without myelopathy or radiculopathy, lumbar region; M51.36 Other intervertebral disc degeneration, lumbar region; M48.02 Spinal stenosis, cervical region; M54.50 Low back pain, unspecified; R29.2 Abnormal reflex; R27.0 Ataxia, unspecified; Z98.1 Arthrodesis status
CPT/HCPCS: 72141; 72148

== ENCOUNTER → 2023-05-05 10:59 | Outpatient (CLI) | payer MEDICARE, SELFPAY ==
[2020-11-19 17:24] VITALS: BMI 20.8
== END ==
PROVIDERS: Family Provider Internal Medicine; PCP Internal Medicine; Referring Provider Anesthesiology; Visit Provider Anesthesiology
DX: G62.9 Polyneuropathy, unspecified (principal); R20.2 Paresthesia of skin
CPT/HCPCS: 95886; 95910

== ENCOUNTER 2023-05-18 08:31 | Outpatient (CLI) | payer MEDICARE, SELFPAY ==
[2020-11-19 17:24] VITALS: BMI 20.8
--- NOTE | 2023-05-18 08:32 | DI.RAD.S_ITS ---
PROCEDURE: PAIN L INTERLAMINAR/CAUDAL INJ INDICATIONS: SPONDYLOSIS COMPARISON: None. FINDINGS: Fluoroscopic spot filming was performed for guidance and anatomic localization. Appropriate location(s) of the needle tip(s) was confirmed by injection of iodinated contrast. IMPRESSION: Intraprocedural fluoroscopy was provided for guidance and anatomical localization. Please see the procedure report for further details. Dictated by: Troy Bartlett M.D. on 05/18/2023 at 10:47 Approved by: Troy Bartlett M.D. on 05/18/2023 at 10:48
[2023-05-18 08:48] VITALS: BP 146/67; PULSE 46; RESP 18; TEMP 36.3; O2SAT 97
[2023-05-18 08:57] VITALS: BP 183/84; PULSE 49; RESP 12; O2SAT 98
[2023-05-18 09:02] VITALS: BP 177/82; PULSE 47; RESP 20; O2SAT 100
[2023-05-18] MEDS: DEXAMETHASONE 10 MG/ML VIAL 20 MG INJ (09:03)
[2023-05-18] MEDS: IOPAMIDOL 15 ML VIAL 3 ML INJ (09:03)
[2023-05-18 09:07] VITALS: BP 170/77; PULSE 46; RESP 23; O2SAT 100
--- NOTE | 2023-05-18 09:14 | P.PCN_ITS ---
Date/Time/Diagnoses Date of procedure: 05/18/23 Time of procedure: 09:00 Procedure Notes Physician: Honorio Calles Total Fluoroscopy time (seconds): 11 Total sedation minutes: 0 Procedure in detail & Post-procedure care: Caudal Epidural Steroid Injection Indications: Adriana is presenting for treatment of lumbar radiculopathy with low back and leg pain. Preoperative diagnosis: Lumbar radiculopathy Postoperative diagnosis: Same Focused Examination: Ax3 Mood and affect are normal Vital Signs: VSS Consent: Following review of allergies and potential side effects/complications, including, but not necessarily limited to, infection, allergic reaction, local tissue breakdown, stroke, temporary or permanent nerve injury, paralysis, and possible , the patient indicated that they understood and agreed to proceed.? An informed consent document was signed by the patient, witnessed by a nurse and placed in the patient's chart.? Additionally, other treatment options including medications and physical therapy were reviewed with the patient. All questions were answered. Site was then marked. Anesthesia: Local Position: Prone Monitoring: NIBP, Pulse oximetry, 3 lead EKG Needle used: 17 gauge Touhy with 19 gauge TheraCath Epidural Catheter Contrast: Isovue 300-M 2mL Injectate: Dexamethasone 15 mg with 1% lidocaine 2 mL and normal saline 1.5 mL Technique: The skin was prepped with chloraprep and then draped in a sterile fashion. Time out was performed as per protocol. Oxygen applied via NC. The entry point for entering/approaching the epidural space by a caudal approach through the sacral hiatus was identified. Skin and subcutaneous structures of the needle entry site was then infiltrated with 3 mL of lidocaine 1%. Under AP and lateral control, the needle was guided through the sacral hiatus to the S3 level. The catheter was then advanced to L5-S1 using intermittent fluoroscopy. Contrast was then injected and the spread was consistent with the epidural space. There was no evidence for intravascular or intrathecal uptake. After negative aspiration, the above-mentioned injectate was then slowly administered and the needle withdrawn. The patient expressed no unusual discomfort or paresthesias during needle positioning or injection. Band-Aids applied to injection sites. EBL: less than 1 ml Complications: None Post Procedure: Patient was taken to the recovery and monitored. The patient was provided a Pain Log to continue to record the patient's response to the target- specific procedure prior to the patient's follow-up visit with the referring physician. Patient was stable upon discharge. Detailed post procedure instructions were provided. Patient was asked to call in the event of worsening pain, fever, weakness, numbness or bladder or bowel incontinence.
[2023-05-18 09:18] VITALS: BP 204/81; PULSE 52; RESP 18; O2SAT 98
[2023-05-18 09:19] VITALS: BP 177/78
== END 2023-05-18 09:24 | disposition home or self-care (01) ==
PROVIDERS: Family Provider Internal Medicine; PCP Internal Medicine; Referring Provider Anesthesiology; Visit Provider Anesthesiology
DX: M54.16 Radiculopathy, lumbar region (principal)
CPT/HCPCS: 62323; J1100

== ENCOUNTER → 2023-06-14 09:09 | Outpatient (CLI) | payer MEDICARE, SELFPAY ==
[2020-11-19 17:24] VITALS: BMI 20.8
[2023-06-14 10:33] LABS: Alanine Aminotransferase 21 IU/L (<35); Albumin 4.2 g/dL (3.5-5.0); Albumin Globulin Ratio 1.7 (1.0-2.8); Alkaline Phosphatase 51 U/L (38-126); Aspartate Aminotransferase 30 IU/L (14-36); BUN Creatinine Ratio 18.9 (6-22); Bilirubin Total 0.7 mg/dL (0.2-1.3); Blood Urea Nitrogen 14 mg/dL (7-17); Calcium 9.6 mg/dL (8.4-10.2); Carbon Dioxide 30 mmol/L (22-32); Chloride 102 mmol/L (98-107); Estimated Glomerular Filt Rate > 60 mL/min (>60); Globulin 2.5 g/dL (1.7-4.1); Glucose 87 mg/dL (80-110); HEMOLYSIS < 15 (0-50); Magnesium 2.4 mg/dL (1.6-2.3); Sodium 137 mmol/L (137-145); Total Protein 6.7 g/dL (6.3-8.2)
[2023-06-14 11:04] LABS: Thyroid Stimulating Hormone 2.14 uIU/mL (0.47-4.68)
[2023-06-17 08:36] LABS: Cholesterol, Total 132 mg/dL (100-199); HDL-Cholesterol 68 mg/dL (>39); HDL-Particle (Total) 31.5 umol/L (>=30.5); LDL Particle 364 nmol/L (<1000); LDL Size 20.9 nm (>20.5); LDL-Cholsterol 52 mg/dL (0-99); LP-IR Score 26 (<=45); Small LDL- Particle <90 nmol/L (<=527); Triglycerides 54 mg/dL (0-149)
== END ==
PROVIDERS: Family Provider Internal Medicine; PCP Internal Medicine; Referring Provider Specialist; Visit Provider Specialist
DX: I10 Essential (primary) hypertension (principal); E78.5 Hyperlipidemia, unspecified; R00.1 Bradycardia, unspecified
CPT/HCPCS: 36415; 80053; 80061; 83704; 83735; 84443

== ENCOUNTER → 2023-12-14 08:57 | Outpatient (CLI) | payer MEDICARE, SELFPAY ==
[2020-11-19 17:24] VITALS: BMI 20.8
--- NOTE | 2023-12-14 08:58 | DI.ECHO.S_ITS ---
[facility]---------+ [facility] +---------+ : : [id number] : [place] : : : : [phone] : : : : Phone: [phone]+ Echocardiogram Report + + :Name: GISEL GOODMAN Study Date: 12/14/2023 Height: 69 in : :[facility] ReadingLocation: Weight: 125 lb : : Gender: Female BSA: 1.7 m2 : :: 1940 Age: 83 yrs BP: 149/67 mmHg: :Reason For Study: SHORTNESS OF BREATH : :Ordering Physician: SUAD, : :SRAVANTHI Performed By: Lynn Mera : :Referring: ERIN AGUAYO : + + Interpretation Summary Left ventricular systolic size and function remains normal with an estimated ejection fraction 55 to 60% but appears slightly less dynamic compared to the previous study. There are no focal wall motion abnormalities. There is a probable diastolic relaxation abnormality with normal filling pressures that are likely significantly lower compared to the previous exam. The right ventricle is borderline enlarged with mildly reduced systolic function but unchanged from the previous exam. Right ventricular systolic pressure cannot be estimated but CVP is likely around 3 mmHg. There is borderline left atrial enlargement and mild to moderate right atrial enlargement. Both atria measure smaller compared to the previous study. There is mild mitral regurgitation that appears less prominent compared to the previous study but no other significant valvular abnormalities. The aortic root remains mildly enlarged with moderate to severe enlargement of the ascending aorta, measuring 3.9 cm and 4.7 cm, respectively, compared to 3.9 cm and 4.6 cm previously. The patient was in sinus bradycardia at 36 to 50 bpm throughout the exam, similar to the previous exam. Procedure: A two-dimensional transthoracic echocardiogram with color flow and Doppler was performed. The study quality was technically adequate. Comparison is made with the echocardiogram of 09/12/2018. The patient was in sinus bradycardia with heart rates between 36-50 bpm during the exam. Left Ventricle: The left ventricle is normal in size and wall thickness. The estimated left ventricular end diastolic volume is 70 ml. Left ventricular systolic function appears normal without focal wall motion abnormalities. The ejection fraction is estimated to be 55-60%. This is mildly less dynamic compared to the previous study. Diastolic parameters suggest a relaxation abnormality of the left ventricle, consistent with probable normal filling pressures. This is significant lower compared to the previous study. Right Ventricle: The right ventricle is mildly dilated. Right ventricular systolic function is mildly reduced. This is unchanged compared to the previous study. Atria: The left atrium is borderline dilated. Both atria have mildly decreased in size since the prior echo exam. The right atrium is mild to moderately dilated. There is no Doppler evidence for an interatrial shunt. Mitral Valve: There is mild mitral annular calcification. The mitral valve leaflets appear borderline thickened, but open well. There is mild mitral regurgitation. This is slightly less prominent compared to the previous study. Aortic Valve: The aortic valve is trileaflet. The aortic valve is slightly calcified. There is minimally reduced leaflet mobility. There is no aortic valve stenosis. There is mild aortic regurgitation. This is unchanged compared to the previous study. Tricuspid Valve: The tricuspid valve leaflets are thickened and/or calcified, but open well. An annuloplasty ring is noted in the tricuspid position. No tricuspid regurgitation. Pulmonary artery pressures cannot be estimated because of the lack of a measurable TR jet velocity but the IVC suggests a CVP of around 3 mmHg. Pulmonic Valve: The pulmonic valve leaflets are thin and pliable; valve motion is normal. There is no pulmonic valvular regurgitation. Great Vessels: The aortic root is mildly dilated. The ascending aorta is moderate-severely enlarged. This is unchanged compared to the previous study. The IVC is of normal diameter and collapses greater than 50% with a sniff. This suggests a low right atrial pressure of 3 mm Hg. Pericardium/ Pleura There is no pericardial effusion. There is no pleural effusion. MMode/2D Measurements & Calculations LVIDd: 4.2 cm LVOT diam: 2.3 cm LVIDs: 2.8 cm Ao root diam: 3.9 cm FS: 32.5 % asc Aorta Diam: 4.7 cm EPSS: 0.48 cm Ao Arch Diam (Prox Trans): 3.8 cm IVSd: 0.97 cm LVPWd: 0.76 cm LV vazquez. diameter/BSA (cm/m^2): 2.5 LV sys. diameter/BSA (cm/m^2): 1.7 LA A2 area: 20.2 cm2 RA long axis: 5.0 cm LA A4 area: 18.2 cm2 RA area: 20.2 cm2 LA length (vol): 5.2 cm RA vol: 68.4 ml LA vol: 60.4 ml RA : 40.5 ml/m2 LA vol index: 35.7 ml/m2 IVC diam: 1.4 cm RVD1 (basal): 4.3 cm RVD2 (mid): 3.2 cm TAPSE: 1.1 cm Doppler Measurements & Calculations Ao V2 max: 122.4 cm/sec LVOT Max Karl: 95.9 cm/sec Ao V2 mean: 88.3 cm/sec LV V1 max P.7 mmHg Ao max P.0 mmHg LV V1 VTI: 20.7 cm Ao mean P.4 mmHg OVI(I,D): 3.1 cm2 Ao V2 VTI: 27.4 cm OVI(V,D): 3.2 cm2 sev ratio: 0.75 OVI indexed to BSA (cm^2/m^2): 1.8 MV E max karl: 40.2 cm/sec PA V2 max: 78.8 cm/sec MV A max karl: 70.2 cm/sec PA V2 mean: 56.7 cm/sec MV E/A: 0.57 PA mean P.4 mmHg Med Peak E' Karl: 2.6 cm/sec PA pr(Accel): 34.5 mmHg E/E' med: 15.3 Lat Peak E' Karl: 5.9 cm/sec E/E' lat: 6.9 E/e' average: 11.1 MV dec time: 0.31 sec SV(LVOT): 84.1 ml Reading Physician:04:54 PM
== END ==
LOC: ECHO 08:57
PROVIDERS: Family Provider Internal Medicine; PCP Internal Medicine; Referring Provider Internal Medicine; Visit Provider Internal Medicine
DX: I08.0 Rheumatic disorders of both mitral and aortic valves (principal); R06.01 Orthopnea; I77.810 Thoracic aortic ectasia; I77.89 Other specified disorders of arteries and arterioles
CPT/HCPCS: 93306

== ENCOUNTER → 2023-12-30 10:17 | Outpatient (CLI) | payer MEDICARE, SELFPAY ==
[2020-11-19 17:24] VITALS: BMI 20.8
[2023-12-30 11:55] LABS: Alanine Aminotransferase 19 IU/L (<35); Albumin 4.3 g/dL (3.5-5.0); Albumin Globulin Ratio 1.5 (1.0-2.8); Alkaline Phosphatase 47 U/L (38-126); Aspartate Aminotransferase 35 IU/L (14-36); BUN Creatinine Ratio 20.8 (6-22); Bilirubin Total 0.9 mg/dL (0.2-1.3); Blood Urea Nitrogen 15 mg/dL (7-17); Calcium 9.7 mg/dL (8.4-10.2); Carbon Dioxide 31 mmol/L (22-32); Chloride 99 mmol/L (98-107); Cholesterol 126 mg/dL (140-199); Estimated Glomerular Filt Rate > 60 mL/min (>60); Globulin 2.9 g/dL (1.7-4.1); Glucose 96 mg/dL (80-110); HDL Cholesterol 59 mg/dL (40-60); HEMOLYSIS 24 (0-50); LDL Cholesterol Calculated 50 mg/dL (<100); Magnesium 2.2 mg/dL (1.6-2.3); Potassium 3.6 mmol/L (3.4-5.1); Sodium 137 mmol/L (137-145); Total Protein 7.2 g/dL (6.3-8.2); Triglycerides 83 mg/dL (35-150)
[2023-12-30 12:22] LABS: Thyroid Stimulating Hormone 1.16 uIU/mL (0.47-4.68)
== END ==
PROVIDERS: Family Provider Internal Medicine; PCP Internal Medicine; Referring Provider Specialist; Visit Provider Specialist
DX: I49.1 Atrial premature depolarization (principal); E78.00 Pure hypercholesterolemia, unspecified; R00.1 Bradycardia, unspecified; I10 Essential (primary) hypertension
CPT/HCPCS: 36415; 80053; 80061; 83735; 84443

== ENCOUNTER → 2024-01-18 11:13 | Outpatient (CLI) | payer MEDICARE, SELFPAY ==
[2020-11-19 17:24] VITALS: BMI 20.8
[2024-01-18 12:43] LABS: BUN Creatinine Ratio 12.7 (6-22); Blood Urea Nitrogen 9 mg/dL (7-17); Carbon Dioxide 27 mmol/L (22-32); Chloride 103 mmol/L (98-107); Estimated Glomerular Filt Rate > 60 mL/min (>60); Glucose 89 mg/dL (80-110); HEMOLYSIS < 15 (0-50); Magnesium 2.3 mg/dL (1.6-2.3); Potassium 4.8 mmol/L (3.4-5.1); Sodium 137 mmol/L (137-145)
== END ==
PROVIDERS: Family Provider Internal Medicine; PCP Internal Medicine; Referring Provider Specialist; Visit Provider Specialist
DX: I10 Essential (primary) hypertension (principal); E78.00 Pure hypercholesterolemia, unspecified
CPT/HCPCS: 36415; 80048; 83735

== ENCOUNTER → 2024-02-01 | Outpatient (CLI) | payer MEDICARE, SELFPAY ==
[2020-11-19 17:24] VITALS: BMI 20.8
--- NOTE | 2024-02-01 09:44 | DI.RAD.S_ITS ---
Bone Density Report Name: GISEL GOODMAN Age: 83 Sex: Female Ethnicity: White Date of : 1940 Indication: osteopenia; Referring Provider: SIVAN PEGUERO Study: Bone densitometry was performed. Exam Date: February 01, 2024 Accession number: [id number] Bone Density: Region BMD T-score Z-score Classification AP Spine(L1, L2) 1.038 0.5 3.1 Normal Total Forearm (Left) 0.429 -2.8 0.6 Osteoporosis 1/3 Forearm (Left) 0.570 -2.1 1.4 Osteopenia UD Forearm (Left) 0.298 -2.5 0.0 Osteoporosis World Health Organization criteria for BMD impression classify patients as: Normal (T-score at or above -1.0), Osteopenia (T-score between -1.0 and -2.5), or Osteoporosis (T-score at or below -2.5). Previous Exams: -- Region Exam Age BMD T-score BMD Change BMD Change Date g/cm2 vs Baseline vs Previous -- AP Spine (L1-L2) 02/01/2024 83 1.038 0.5 0.043 (4.4%)# 0.022 (2.2%)# 02/26/2022 81 1.016 0.3 0.021 (2.1%)# -0.012 (-1.2%)# 11/04/2020 80 1.028 0.4 0.033 (3.3%)* 0.044 (4.5%)* 11/09/2017 77 0.984 0.0 -0.011 (-1.1%) 0.008 (0.8%) 01/04/2014 73 0.976 0.0 -0.019 (-1.9%) -0.061 (-5.9%)* 08/30/2011 71 1.037 0.5 0.042 (4.2%)* 0.042 (4.2%)* 08/30/2008 68 0.995 0.1 1/3 Forearm(Left) 02/01/2024 83 0.570 -2.1 -0.005 (-0.9%) -0.005 (-0.9%) 02/26/2022 81 0.575 -2.0 -- *Denotes significance at 95% confidence level, LSC for AP Spine = 0.022 g/cm2, LSC for 1/3 Forearm = 0.023 g/cm2 Rate of change results reflect vertebral levels common to all scans # Denotes dissimilar scan types or analysis methods Impression: The patient has normal bone mass. No significant bone loss was observed. Discussion: LOW RISK OF FRACTURE; BONE DENSITY IS WELL ABOVE THE MINIMUM DESIRABLE LEVEL AND ABOVE AVERAGE FOR AGE AND SEX AT ALL SKELETAL SITES TESTED. This person's bone density is above expected limits for age and sex. This is rarely clinically significant, but should be pursued if there are significant musculoskeletal complaints. The patient should follow a healthful lifestyle (good nutrition with adequate calcium and vitamin D, and appropriate weight-bearing exercise). Follow-Up: Consider repeating this study in 5 years or sooner if there is some new clinical indication. Reported by: SANDRITA CASAS MD on 02/01/2024 10:13:00 AM.
== END ==
LOC: RAD 09:44
PROVIDERS: Family Provider Internal Medicine; PCP Internal Medicine; Referring Provider Physician Assistant; Visit Provider Physician Assistant
DX: M81.0 Age-related osteoporosis without current pathological fracture (principal)
CPT/HCPCS: 77080; 77081

== ENCOUNTER → 2024-02-16 10:10 | Outpatient (CLI) | payer MEDICARE, SELFPAY ==
[2020-11-19 17:24] VITALS: BMI 20.8
--- NOTE | 2024-02-16 10:12 | DI.NM.S_ITS ---
PROCEDURE: NM JAKE PERF SPECT R&S PHARM Rest and pharmacological stress myocardial perfusion SPECT with gated imaging and ejection fraction RADIOPHARMACEUTICAL: 10.9 mCi Tc-99m tetrafosmin IV at rest and 25.5 mCi Tc-99m tetrafosmin IV at peak effect of pharmacological stress. Dry-zhl-xdyliyfu was performed. INDICATIONS: Other chest pain TECHNIQUE: Radiopharmaceutical was injected at peak stress test, and also at rest. SPECT images were obtained. SPECT myocardial perfusion images were displayed in short axis, horizontal long axis, and vertical long axis views. Gated images were reviewed using [employer] software. COMPARISON: None. CARDIAC STRESS: A pharmacologic stress test was performed under the supervision of an attending staff, using an infusion of lexiscan 0.4mg IV X1. Hemodynamic data: There is normal blood pressure and heart rate response to pharmacologic stress. Symptoms: The patient denied anginal chest pain. Aminophylline: none EKG: No diagnostic changes of ischemia; no ectopy. FINDINGS: Raw data: There is good myocardial uptake of radiotracer. No significant motion artifacts. Left ventricle function: Gated images demonstrate normal left ventricular wall thickening. No segmental wall motion abnormalities. No transient ischemic dilation; TID is 0.88 (normal less than 1.3). Left ventricle resting end diastolic volume is 90 mL. Left ventricle stress ejection fraction is 84%; normal range is above 45%. Myocardial perfusion: No fixed or reversible perfusion defects on stress prone images. IMPRESSION: Low risk, normal pharm nuclear stress test. 1) No perfusion evidence of ischemia or infarction. 2) Normal left ventricular size, thickness, wall motion, and systolic function (EF post stress 84%). 3) No ST changes with lexsican. 4) No angina during the study. 5) Compared to the nuc stress done 11/09/2012, stress prone images are now on this study. Dictated by: Angela Best MD on 02/17/2024 at 15:03 Approved by: Angela Best MD on 02/17/2024 at 15:05
== END ==
PROVIDERS: Family Provider Internal Medicine; PCP Internal Medicine; Referring Provider Specialist; Visit Provider Specialist
DX: R07.89 Other chest pain (principal)
CPT/HCPCS: 78452; 93017; A9502; J2785

== ENCOUNTER → 2024-04-23 09:10 | Outpatient (CLI) | payer MEDICARE, SELFPAY ==
[2020-11-19 17:24] VITALS: BMI 20.8
[2024-04-23 11:33] LABS: Alanine Aminotransferase 20 IU/L (<35); Albumin 4.2 g/dL (3.5-5.0); Albumin Globulin Ratio 1.8 (1.0-2.8); Alkaline Phosphatase 50 U/L (38-126); Aspartate Aminotransferase 33 IU/L (14-36); BUN Creatinine Ratio 19.1 (6-22); Bilirubin Total 0.7 mg/dL (0.2-1.3); Blood Urea Nitrogen 13 mg/dL (7-17); Calcium 9.6 mg/dL (8.4-10.2); Carbon Dioxide 29 mmol/L (22-32); Chloride 106 mmol/L (98-107); Estimated Glomerular Filt Rate > 60 mL/min (>60); Globulin 2.3 g/dL (1.7-4.1); Glucose 92 mg/dL (80-110); HEMOLYSIS < 15 (0-50); Magnesium 2.3 mg/dL (1.6-2.3); Potassium 4.3 mmol/L (3.4-5.1); Sodium 139 mmol/L (137-145); Total Protein 6.5 g/dL (6.3-8.2)
[2024-04-25 09:14] LABS: Cholesterol, Total 130 mg/dL (100-199); HDL-Cholesterol 63 mg/dL (>39); HDL-Particle (Total) 30.3 umol/L (>=30.5); Historical Reading Comment: (.); LDL Particle 345 nmol/L (<1000); LDL Size 20.9 nm (>20.5); LDL-Cholsterol 55 mg/dL (0-99); LP-IR Score <25 (<=45); Small LDL- Particle <90 nmol/L (<=527); Triglycerides 56 mg/dL (0-149)
== END ==
PROVIDERS: Family Provider Internal Medicine; PCP Internal Medicine; Referring Provider Specialist; Visit Provider Specialist
DX: I10 Essential (primary) hypertension (principal); E78.00 Pure hypercholesterolemia, unspecified
CPT/HCPCS: 36415; 80053; 80061; 83704; 83735

== ENCOUNTER 2024-05-16 13:54 | Outpatient (CLI) | payer MEDICARE, SELFPAY ==
[2020-11-19 17:24] VITALS: BMI 20.8
[2024-05-16 14:05] VITALS: BP 196/75; PULSE 49; RESP 18; TEMP 36.4; O2SAT 98
--- NOTE | 2024-05-16 14:24 | PC.NURSE ---
Please see pre procedure vitals, Dr Calles aware no new orders at this time.
--- NOTE | 2024-05-16 14:30 | DI.RAD.S_ITS ---
PROCEDURE: PAIN L/S FACET INJ/BLK 1ST TOSHIA INDICATIONS: SPONDYLOSIS COMPARISON: MR, MR LUMBAR SPINE WO CON, 04/25/2023, 8:50. CR, XR LUMBAR SPINE MIN 4V, 04/09/2023, 10:27. FINDINGS: Fluoroscopic spot filming was performed to verify placement of spinal needles at the L1, L2 and L3 level(s), as labeled on the films. Appropriate location(s) of the needle tip(s) was confirmed by injection of iodinated contrast. IMPRESSION: Fluoroscopy for pain management. Dictated by: Yulia Martínez M.D. on 05/16/2024 at 16:35 Approved by: Yulia Martínez M.D. on 05/16/2024 at 16:35
[2024-05-16 14:33] VITALS: BP 202/87; PULSE 52; RESP 23; O2SAT 100
[2024-05-16 14:35] VITALS: BP 201/82; PULSE 51; RESP 23; O2SAT 100
[2024-05-16] MEDS: BUPIVACAINE 0.5% (PF) 10 ML VIAL INJ (14:38)
[2024-05-16] MEDS: iopamidoL 15 ML VIAL 3 ML INJ (14:38)
[2024-05-16 14:40] VITALS: BP 203/82; PULSE 51; RESP 22; O2SAT 100
[2024-05-16 14:45] VITALS: PULSE 51; RESP 22; O2SAT 100
[2024-05-16 14:50] VITALS: BP 211/91; PULSE 52; RESP 16; O2SAT 99
--- NOTE | 2024-05-16 16:32 | PM.PROC.IR.1 ---
Date/Time/Diagnoses Date of procedure: 05/16/24 Time of procedure: 14:30 Procedure Notes Physician: Honorio Calles Total Fluoroscopy time (seconds): 14 Total sedation minutes: 0 Procedure in detail & Post-procedure care: Bilateral L1-2 and L2-3 Lumbar Medial Branch Blocks Indications: Adriana is presenting for treatment of lumbar spondylosis with low back pain. Preoperative diagnosis: Lumbar spondylosis Postoperative diagnosis: Same Pre-procedure History: Patient demonstrates today moderate to severe non- radicular back pain without neurologic deficit aggravated by hyperextension yes Back pain greater than leg pain? yes Patient today has tenderness over the suspected joint(s) yes History of post-traumatic injury? no Hypertrophic arthropathy yes Back pain associated with suspected motion segment instability, hypermobility or pseudoarthrosis no Focused Examination: Ax3 Mood and affect are normal Vital Signs: VSS Consent: Following review of allergies and potential side effects/complications, including, but not necessarily limited to, infection, allergic reaction, local tissue breakdown, stroke, temporary or permanent nerve injury, paralysis, and possible , the patient indicated that they understood and agreed to proceed.? An informed consent document was signed by the patient, witnessed by a nurse and placed in the patient's chart.? Additionally, other treatment options including medications and physical therapy were reviewed with the patient. All questions were answered. Site was then marked. Anesthesia: Local Position: Prone Monitoring: NIBP, Pulse oximetry, 3 lead EKG Needle used: 22 ga 3.5 inch spinal needle Contrast: Isovue 300M Injectate: 0.5% bupivacaine 1 mL per site Procedure: The patient was brought into the procedure room and positioned into the prone position. Skin was prepped with a Chloraprep solution, allowed to air dry, and then draped in sterile fashion.? The right L1-2 and L2-3 facet joints were visually identified with fluoroscopy. Lidocaine 1% was used to anesthetize the skin over each target destination with a 25ga needle. A 22 ga, 3.5 inch spinal needle was advanced to the location of the medial branch at the junction of the superior articular process and the transverse process at L1,2,3 using intermittent fluoroscopy in the AP view. Isovue 300M contrast 0.2ml was injected at each level outlining the medial borders for each level in the AP and lateral views. There was no evidence of vascular or intrathecal uptake. The above injectate was slowly injected at each target destination. The left L1-2 and L2-3 facet joints were visually identified with fluoroscopy. Lidocaine 1% was used to anesthetize the skin over each target destination with a 25ga needle. A 22 ga, 3.5 inch spinal needle was advanced to the location of the medial branch at the junction of the superior articular process and the transverse process at L1,2,3 using intermittent fluoroscopy in the AP view. Isovue 300M contrast 0.2ml was injected at each level outlining the medial borders for each level in the AP and lateral views. There was no evidence of vascular or intrathecal uptake. The above injectate was slowly injected at each target destination. At the end of the procedure the needles were withdrawn and Band-Aids were applied for a dressing. Post Procedure: Patient was taken to the recovery and monitored. The patient was provided a Pain Log to continue to record the patient's response to the target-specific procedure prior to the patient's follow-up visit with the referring physician. Patient was stable upon discharge. Detailed post procedure instructions were provided. Patient was asked to call in the event of worsening pain, fever, weakness, numbness or bladder or bowel incontinence. Based on the medial branches blocked today, if the patient meets insurance criteria for radiofrequency, the treatment should result in the denervation of the bilateral L1-2 and L2-3 facet joint nerves. We would expect to denervate a total of 4 facets during the radiofrequency ablation.
== END 2024-05-16 15:00 | disposition home or self-care (01) ==
PROVIDERS: Family Provider Internal Medicine; PCP Internal Medicine; Referring Provider Anesthesiology; Visit Provider Anesthesiology
DX: M47.816 Spondylosis without myelopathy or radiculopathy, lumbar region (principal)
CPT/HCPCS: 64493; 64494

== ENCOUNTER → 2024-06-25 12:09 | Outpatient (CLI) | payer MEDICARE, SELFPAY ==
[2020-11-19 17:24] VITALS: BMI 20.8
--- NOTE | 2024-06-25 12:11 | DI.CT.S_ITS ---
PROCEDURE: CT ABDOMEN PELVIS W CON INDICATIONS: LLQ ABD PAIN / BOWEL OBSTRUCTION SUSPECTED TECHNIQUE: After the administration of intravenous contrast, axial sections acquired from the lung bases to the pubic symphysis. Coronal and sagittal reformats were performed. For radiation dose reduction, the following was used: automated exposure control, adjustment of mA and/or kV according to patient size. COMPARISON: None. FINDINGS: Image quality: Diagnostic. Lower Chest: Cardiomegaly. ABDOMEN: Liver: No solid mass. Gallbladder: Absent. Biliary ducts: No intrahepatic or extrahepatic biliary dilation, accounting for a post cholecystectomy state. Pancreas: No ductal dilation. Spleen: Size is within normal limits. Adrenal Glands: No adrenal nodules. Kidneys and Ureters: No hydronephrosis. No solid mass. No complex renal cystic lesion which requires follow up. Benign bilateral renal cysts. Stomach and Bowel: Short segment of descending colonic wall thickening in the left lower quadrant. Peritoneum: No abnormal intraperitoneal fluid. No free air. Ventral Wall: No significant ventral hernia. Abdominal Nodes: No retroperitoneal or mesenteric adenopathy by size criteria. Vessels: Aorta and inferior vena cava are normal in size. PELVIS: Obscured by metallic artifact. Bones: Bilateral hip arthroplasties. Surgical fusion of the lower lumbar spine. Degenerative disc disease of the lumbar spine. IMPRESSION: Short segment of descending colonic wall thickening in the left lower quadrant, without associated adenopathy. Findings favor colitis over malignancy. Consider outpatient colonoscopy if not up-to-date. Other chronic findings as above. Dictated by: Rafael Petersen M.D. on 06/25/2024 at 16:51 Approved by: Rafael Petersen M.D. on 06/25/2024 at 16:53
== END ==
LOC: CT 12:10
PROVIDERS: Family Provider Internal Medicine; PCP Internal Medicine; Referring Provider Internal Medicine; Visit Provider Internal Medicine
DX: N28.1 Cyst of kidney, acquired (principal); R10.32 Left lower quadrant pain; I51.7 Cardiomegaly; M51.36 Other intervertebral disc degeneration, lumbar region; Z90.49 Acquired absence of other specified parts of digestive tract; Z98.1 Arthrodesis status; Z96.643 Presence of artificial hip joint, bilateral
CPT/HCPCS: 74177; Q9967

== ENCOUNTER → 2024-10-15 07:15 | Outpatient (CLI) | payer MEDICARE, SELFPAY ==
[2020-11-19 17:24] VITALS: BMI 20.8
[2024-10-15 08:37] LABS: Alanine Aminotransferase 22 IU/L (<35); Albumin 4.3 g/dL (3.5-5.0); Albumin Globulin Ratio 1.7 (1.0-2.8); Alkaline Phosphatase 56 U/L (38-126); Aspartate Aminotransferase 36 IU/L (14-36); BUN Creatinine Ratio 19.2 (6-22); Bilirubin Total 0.8 mg/dL (0.2-1.3); Blood Urea Nitrogen 14 mg/dL (7-17); Calcium 10.3 mg/dL (8.4-10.2); Carbon Dioxide 29 mmol/L (22-32); Chloride 104 mmol/L (98-107); Cholesterol 126 mg/dL (140-199); Estimated Glomerular Filt Rate > 60 mL/min (>60); Globulin 2.6 g/dL (1.7-4.1); Glucose 90 mg/dL (80-110); HDL Cholesterol 69 mg/dL (40-60); HEMOLYSIS < 15 (0-50); LDL Cholesterol Calculated 40 mg/dL (<100); Magnesium 2.2 mg/dL (1.6-2.3); Potassium 4.4 mmol/L (3.4-5.1); Sodium 139 mmol/L (137-145); Total Protein 6.9 g/dL (6.3-8.2); Triglycerides 83 mg/dL (35-150)
== END ==
PROVIDERS: Family Provider Internal Medicine; PCP Internal Medicine; Referring Provider Specialist; Visit Provider Specialist
DX: E78.5 Hyperlipidemia, unspecified (principal); I10 Essential (primary) hypertension; R00.2 Palpitations
CPT/HCPCS: 36415; 80053; 80061; 83735

== ENCOUNTER → 2025-02-02 10:37 | Outpatient (CLI) | payer MEDICARE, SELFPAY ==
[2020-11-19 17:24] VITALS: BMI 20.8
--- NOTE | 2025-02-02 10:39 | DI.RAD.S_ITS ---
PROCEDURE: XR KNEE LT 3V INDICATIONS: LEFT KNEE PAIN TECHNIQUE: 3 views of the knee were acquired. COMPARISON: [facility], , XR KNEE LT 3V, 04/09/2023, 10:27. FINDINGS: Bones: No fractures or dislocations. No suspicious bony lesions. Moderate tricompartmental arthritic change. Chondrocalcinosis is present. Soft tissues: Mild joint effusion. No suspicious soft tissue calcifications. IMPRESSION: Tricompartmental arthritic change. No visualized acute fracture or dislocation. However, if clinical concern and/or pain persist, short interval imaging followup in 7-10 days is recommended, as occult injury cannot be definitively excluded. Dictated by: Marta Mccarty M.D. on 02/02/2025 at 11:57 Approved by: Marta Mccarty M.D. on 02/02/2025 at 11:57
--- NOTE | 2025-02-02 10:39 | DI.RAD.S_ITS ---
PROCEDURE: XR KNEE RT 3V INDICATIONS: RIGHT KNEE PAIN TECHNIQUE: 3 views of the knee were acquired. COMPARISON: [facility], CR, XR KNEE LT 3V, 04/09/2023, 10:27. FINDINGS: Bones: There is slight irregularity at the lateral aspect of the lateral tibial plateau.. No suspicious bony lesions. Tricompartmental arthritic change. Soft tissues: Minimal joint effusion. No suspicious soft tissue calcifications. IMPRESSION: Slight irregularity at the lateral tibial plateau without depression. This is suspected to represent degenerative change. However, if there is history of trauma, recommend correlation to point tenderness to exclude fracture. Dictated by: Marta Mccarty M.D. on 02/02/2025 at 11:57 Approved by: Marta Mccarty M.D. on 02/02/2025 at 11:58
== END ==
PROVIDERS: Family Provider Internal Medicine; PCP Internal Medicine; Referring Provider Physical Medicine & Rehabilitation; Visit Provider Physical Medicine & Rehabilitation
DX: M25.561 Pain in right knee (principal); M25.562 Pain in left knee; M17.12 Unilateral primary osteoarthritis, left knee; R93.6 Abnormal findings on diagnostic imaging of limbs
CPT/HCPCS: 73562

== ENCOUNTER 2025-02-21 13:49 | Outpatient (CLI) | payer MEDICARE, SELFPAY ==
[2020-11-19 17:24] VITALS: BMI 20.8
[2025-02-21] VITALS (9 sets, daily range): BP systolic 145–182; BP diastolic 70–77; PULSE 43–82; RESP 16–17; TEMP 36.8; O2SAT 94–100
[2025-02-21] MEDS: MIDAZOLAM 2 MG/2 ML VIAL 1 MG IV (15:36)
[2025-02-21] MEDS: DEXAMETHASONE 10 MG/ML VIAL INJ (15:41)
[2025-02-21] MEDS: BUPIVACAINE 0.25% (PF) VIAL 2 ML INJ (15:41)
[2025-02-21] MEDS: iopamidoL 15 ML VIAL 3 ML INJ (15:41)
[2025-02-21] MEDS: BETAMETHASONE 30 MG/5 ML MDV 12 MG INJ (15:42)
--- NOTE | 2025-02-21 15:53 | P.PCN_ITS ---
Date/Time/Diagnoses Date of procedure: 02/21/25 Time of procedure: 15:53 Pre-procedure diagnosis: 1. HNP WITH RADICULAR FEATURES, 2. MULTILEVEL CENTRAL STENOSIS, Post-procedure diagnosis: same Procedure Notes Procedure: 1. FLUOROSCOPICALLY GUIDED CONTRAST CONTROLLED INTERLAMINAR EPIDURAL STEROID INJECTION - L3/4 Indications: Adriana is referred by Dr. Hamlin for treatment of Bilateral Foraminal Stenosis L>R LE symptoms. Physician: Nicolas Duncan Total Fluoroscopy time (seconds): 8 Total sedation minutes: 12 Complications: none Procedure in detail & Post-procedure care: FINDINGS Multilevel Central Spinal Stenosis with Nerve Root Compression DESCRIPTION OF PROCEDURE Fluoroscopically guided, contrast-controlled L3/4 translaminar epidural steroid injection. Following review of allergy and review of potential side effects and complications, including, but not necessarily limited to, infection, allergic reaction, local tissue breakdown, temporary as well as permanent nerve injury, paralysis, stroke and possible , the patient indicated that the patient understood and agreed to proceed. An informed consent document was signed by the patient, witnessed by a nurse, and placed in the patient's chart. Additionally, other treatment options including modalities, medications, and physical therapy were reviewed with the patient. After review of previous anaesthesic history and IV conscious sedation the patient was deemed safe to proceed with today?s procedure with IV conscious sedation as ASA class II designation. Safety time-out was performed to confirm patient ID, procedure to be performed and site of procedure. IV sedation was accomplished with a combination of 1mg of Versed was administered by the RN after DO order, titrated to patient comfort during the course of the procedure while the patient remained responsive to all verbal commands. In the prone position, following sterile prep and drape of the lumbar region, the L3/4 translaminar space was identified fluoroscopically. The skin was anesthetized via a 25-gauge, 1.5-inch needle with 1% lidocaine solution. At this point, a 22-gauge short bevel spinal needle was atraumatically introduced and advanced under fluoroscopic guidance into the region of the L3/4 translaminar space. Depth was confirmed on lateral view. Radiological data, including multiple fluoroscopic views of the lumbar spine, reveal a spinal needle at the L3/4 translaminar space. Lateral views then show placement of the needle in the epidural space. Subsequent views show contrast material flowing superiorly and inferiorly in the epidural space. No vascular or intrathecal uptake is observed. At this point, using loss of resistance technique with saline and air, the epidural space was entered. This was confirmed following negative aspiration with injection of approximately 1.5 cc of Isovue 200, showing excellent epidural flow without vascular or intrathecal uptake. At this point, 1cc of 1% lidocaine solution combined with 2cc or 10mg of dexamethasone and 6mg of betamethasone was injected without incident. The patient tolerated the procedure well without signs or symptoms of complications prior to transfer to the recovery area continued monitoring without incident. The patient was then transferred to the recovery area where they were observed for an appropriate period of time after the injection. The patient reported a VAS score of 6 prior to the procedure and a post- procedure VAS of 0. POST OP INSTRUCTIONS The patient was provided a Pain Log to continue to record their response to the target-specific procedure prior to follow-up visit with their referring physician. Additionally, specific post-injection care instructions and a contact number to our office were provided if concerns arise regarding possible complications associated with the procedure are suspected.
== END 2025-02-21 16:14 | disposition home or self-care (01) ==
PROVIDERS: Family Provider Internal Medicine; PCP Internal Medicine; Referring Provider Physical Medicine & Rehabilitation; Visit Provider Physical Medicine & Rehabilitation
DX: M51.16 Intervertebral disc disorders with radiculopathy, lumbar region (principal); M48.061 Spinal stenosis, lumbar region without neurogenic claudication
CPT/HCPCS: 62323; 99152; J0702; J1100; J2250; J3490

== ENCOUNTER → 2025-07-03 10:26 | Outpatient (CLI) | payer MEDICARE, SELFPAY ==
[2020-11-19 17:24] VITALS: BMI 20.8
[2025-07-03 11:49] LABS: Alanine Aminotransferase 20 IU/L (<35); Albumin 4.2 g/dL (3.5-5.0); Albumin Globulin Ratio 1.8 (1.0-2.8); Alkaline Phosphatase 51 U/L (38-126); Blood Urea Nitrogen 18 mg/dL (7-17); Calcium 10.5 mg/dL (8.4-10.2); Carbon Dioxide 28 mmol/L (22-32); Chloride 102 mmol/L (98-107); Estimated Glomerular Filt Rate > 60 mL/min (>60); Globulin 2.4 g/dL (1.7-4.1); Glucose 104 mg/dL (70-99); HEMOLYSIS < 15 (0-50); Magnesium 1.9 mg/dL (1.6-2.3); Potassium 4.3 mmol/L (3.4-5.1); Sodium 137 mmol/L (137-145); Total Protein 6.6 g/dL (6.3-8.2)
== END ==
PROVIDERS: Family Provider Internal Medicine; PCP Internal Medicine; Referring Provider Specialist; Visit Provider Specialist
DX: I10 Essential (primary) hypertension (principal); E78.5 Hyperlipidemia, unspecified
CPT/HCPCS: 36415; 80053; 80061; 83704; 83735